=== PATIENT | male | born 1950 | race Hispanic/Latino ===

== ENCOUNTER 2019-12-20 12:47 | Outpatient (CLI) | payer OTHER, SELFPAY | END 2019-12-20 12:48 | disposition home or self-care (01) | PROVIDERS: Visit Provider Family Medicine | DX: H90.3 Sensorineural hearing loss, bilateral (principal) | CPT/HCPCS: 92557; 92567 ==

== ENCOUNTER 2020-09-11 07:22 | Outpatient (CLI) | payer OTHER, SELFPAY ==
--- NOTE | ~2020-09-11 | XR_ITS ---
XR chest 2V 09/11/2020 16:36 Indication: Right upper quadrant pain. Right-sided chest pain. Procedure: PA and lateral views of the chest Comparison: Comparison to multiple prior studies sequentially, with oldest reviewed study dated 08/08. Findings: Pacemaker leads are stable. Status post median sternotomy for CABG. Heart size normal for t echnique. Bibasilar infiltrates may represent atelectasis and/or pneumonia. No significant effusion o r pneumothorax. No edema. Impression: 1: Bibasilar infiltrates, atelectasis versus pneumonia. Reviewed, dictated and finalized at location A. Impression: 1: Bibasilar infiltrates, atelectasis versus pneumonia.
--- NOTE | ~2020-09-11 | US_ITS ---
EXAMINATION: US abdomen complete DATE: 09/11/2020 07:56 INDICATION: Right upper quadrant abdominal pain. TECHNIQUE: Multiple grayscale and Doppler ultrasound images of the abdomen were obtained. COMPARISON: Ultrasound 10/19/2017, CT abdomen and pelvis 02/27/2017 FINDINGS: The visualized portions of the head and body of the pancreas are normal. The liver is nydia l without focal lesion. No liver surface nodularity. There is normal flow in main portal vein. The ga llbladder is normal in size. No gallstones or gallbladder wall thickening. There was no sonographic M urphy sign. The common duct is normal and measures 4 mm. Abdominal aorta is normal in caliber. Inferi or vena cava is normal. The spleen is normal in size. The kidneys are normal in size. IMPRESSION: 1. Normal complete abdomen ultrasound. Reviewed, dictated and finalized at location B.
== END 2020-09-11 07:23 | disposition home or self-care (01) ==
PROVIDERS: PCP Family Medicine; Visit Provider Family Medicine
DX: R10.11 Right upper quadrant pain (principal); R07.9 Chest pain, unspecified; R91.8 Other nonspecific abnormal finding of lung field
CPT/HCPCS: 71046; 76700

== ENCOUNTER 2020-11-25 09:11 | Emergency (ER) | payer OTHER, SELFPAY ==
[2020-11-25] VITALS (7 sets, daily range): BP systolic 111–155; BP diastolic 54–88; PULSE 60–82; RESP 15–24; TEMP 36.4–36.8; O2SAT 97–100
--- NOTE | ~2020-11-25 | XR_ITS ---
EXAMINATION: XR chest 2V DATE: 11/25/2020 09:27 INDICATION: Chest pain TECHNIQUE: AP and lateral views of the chest are obtained. COMPARISON: 09/11/2020 FINDINGS: There are minimal airspace opacities of the lung bases. There is no pleural effusion or pne umothorax. Cardiomegaly is noted. A dual-lead cardiac pacemaker of the right chest wall ends with kristen ds in expected locations. Median sternotomy wires and mediastinal surgical clips are seen, likely fro m prior coronary artery bypass grafting. There are bridging osteophytes at multiple levels in the spi ne, consistent with diffuse idiopathic skeletal hyperostosis (DISH). IMPRESSION: 1. Bibasilar airspace opacities, consistent with atelectasis versus pneumonia. 2. Cardiomegaly. Reviewed, dictated and finalized at location A.
--- NOTE | 2020-11-25 09:20 | ECG_ITS ---
Measurements Intervals [place] Rate: 78 P: 119 ID: [id number] QRS: -60 QRSD: 197 T: 87 QT: 435 QTc: 496 Interpretive Statements ELECTRONIC ATRIAL PACEMAKER ELECTRONIC VENTRICULAR PACEMAKER BASELINE ARTIFACT- I, II, AVR NO FURTHER INTERPRETATION IS POSSIBLE ATYPICAL ECG Electronically Signed On 11-25-2020 11:14:04 CDT by Javy Cunha D.O.
--- NOTE | 2020-11-25 09:35 | PC.NURSE ---
Pt states he was treated for pneumonia in September at this facility.
[2020-11-25 09:38] LABS: Basophils Percent Auto 0.5 % (0.2-1.2); Eosinophils Percent Auto 0.1 % (0-4.4); Hematocrit 36.3 % (42.0-52.0); Hemoglobin 11.3 g/dL (14.0-18.0); Immature Granulocyte Absolute 0.04 K/mm3 (0.00-0.031); Immature Granulocyte Percent A 0.5 % (0-0.5); Lymphocytes Absolute Auto 1.37 K/mm3 (0.9-3.2); Lymphocytes Percent Auto 16.3 % (18.3-44.2); Mean Corpuscular HGB Conc 31.1 g/dl (32-36); Mean Corpuscular Hemoglobin 27.5 pg (26-34); Mean Corpuscular Volume 88.3 fl (80-100); Mean Platelet Volume 11.1 fl (7.4-10.4); Monocytes Absolute Auto 0.7 K/mm3 (0.1-0.6); Monocytes Percent Auto 7.8 % (2.6-8.5); Neutrophils Absolute Auto 6.3 K/mm3 (1.3-6.7); Neutrophils Percent Auto 74.8 % (45.5-73.1); Platelet Count Result 211 k/mm3 (150-375); Red Blood Count 4.11 M/mm3 (4.6-6.20); White Blood Count 8.4 K/mm3 (4.5-10.0)
--- NOTE | 2020-11-25 09:47 | ED.GENADULT ---
HPI - General Adult General Chief complaint: Chest Pain Stated complaint: Cough,Chest Pain Time Seen by Provider: 11/25/20 09:44 Source: patient and family () Mode of arrival: ambulatory Limitations: no limitations History of Present Illness HPI narrative: Patient here for evaluation of cough that started yesterday. It is causing him some discomfort in his chest and he was treated approximately 2 weeks ago for pneumonia. He has been feeling somewhat weak, and he states that his blood sugar this morning was elevated despite taking his usual medications. Both he and his have been vaccinated for Covid. Onset (ago): hour(s) Relieving factors: none Exacerbating factors: other (deep breathing and heat/humidity) Treatments prior to arrival: none Related Data Home Medications Medication Instructions Recorded Confirmed aspirin 81 mg tablet,delayed 81 mg PO DAILY 05/09/19 11/11/20 release carvedilol 12.5 mg tablet 12.5 mg PO Q12H 05/09/19 11/11/20 nitroglycerin 0.4 mg sublingual 0.4 mg SUBLINGUAL Q5M PRN 05/09/19 11/11/20 tablet rosuvastatin 40 mg tablet 40 mg PO DAILY 05/09/19 11/11/20 cinnamon bark 500 mg capsule 1,000 mg PO DAILY cap 11/22/19 11/11/20 iron 18 mg tablet 18 mg PO DAILY 11/22/19 11/11/20 cetirizine 10 mg tablet 10 mg PO DAILY 11/11/20 11/11/20 Allergies Allergy/AdvReac Type Severity Reaction Status Date / Time No Known Drug Allergies Allergy Unknown unknown Verified 11/25/20 09:34 [facility] Past Medical History Medical History (Updated 11/25/20 @ 14:01 by Heather Garrison PA-C) Artificial pacemaker Atherosclerosis of aorta CAD (coronary artery disease), [place] coronary artery Cardiomyopathy CHB (complete heart block) Chronic anemia Hypertension Mixed hyperlipidemia Obstructive sleep apnea Type 2 diabetes mellitus with autonomic neuropathy Unspecified dementia without behavioral disturbance Surgical History Surgical History (Updated 11/11/20 @ 14:12 by Estela Rios PA-C) Presence of aortocoronary bypass graft S/P CABG x 4 Family History Family History Father Hypertension Family history of elevated blood lipids Family history of diabetes mellitus in first degree relative Mother Hypertension Family history of elevated blood lipids Family history of diabetes mellitus in first degree relative Social History Social History (Updated 11/11/20 @ 13:07 by Anat Pardo [facility]) Social History: Second hand tobacco smoke exposure: No Alcohol intake: former Substance use: never Substance use type: does not use Gender identity (if verbalized by the patient): Male Exam Const: General: healthy appearing, no acute distress and alert Orientation/consciousness: patient oriented x3 HENMT: Head: normal to inspection Eyes: Conjunctivae: conjunctivae normal Pupils: Equal, round and reactive pupils present Resp: Effort & Inspection: normal respiratory effort Auscultation: diminished lung sounds diffuse Other: cough with deep inspiration. Cardio: Rate: regular rate Rhythm: regular rhythm Skin: General skin exam: normal color Rashes: no rashes Extrem: General: normal to inspection and no clubbing, cyanosis or edema Course Course Emergency Course: Review of patient records show the patient treate with Levoquin in August. Cough is improved after breathing treatment. They have access to nebulizer at home. Will treat with Zithromycin, albuterol. Glucose is normal after 2 Liters NS Vital Signs Vital signs: Vital Signs Temperature 36.4 C L 11/25/20 09:24 Pulse Rate 82 11/25/20 09:24 Respiratory Rate 15 11/25/20 09:24 Blood Pressure 111/62 11/25/20 09:24 Pulse Oximetry 98 11/25/20 09:24 Temperature 36.7 C 11/25/20 13:54 Pulse Rate 63 11/25/20 13:54 Respiratory Rate 20 11/25/20 13:54 Blood Pressure 145/78 H 11/25/20 13:54 Pulse Oximetry 100 11/25/20 13:54
[2020-11-25 09:48] LABS: INR 1.1; Prothrombin Time 13.9 Seconds (11.1-14.7)
[2020-11-25 09:49] LABS: Partial Thromboplastin Time 30.3 SECONDS (22.3-36.8)
[2020-11-25 09:51] LABS: Anion Gap 9 mmol/L (8-16); Blood Urea Nitrogen 13 mg/dL (9-20); Calcium 9.2 mg/dL (8.4-10.2); Carbon Dioxide 24 mmol/L (22-30); Chloride 101 mmol/L (98-107); Estimated CRCL calculation 65 ml/min; Estimated Glomerular Filt Rate > 60; Glucose 361 mg/dL (75-110); Potassium 4.7 mmol/L (3.4-5.0); Sodium 134 mmol/L (137-145)
[2020-11-25 10:03] LABS: Troponin I < 0.012 ng/mL (0.000-0.034)
[2020-11-25] MEDS: SODIUM CHLORIDE 0.9% IV 1,000 ML 999 ML IV CONT ×2 (10:30→12:51)
[2020-11-25] MEDS: ASPIRIN 81 MG CHEWABLE TABLET 324 MG PO (10:31)
[2020-11-25] MEDS: ALBUTEROL SULFATE NEB 2.5 MG/0.5 ML INH INHALATION (10:42)
[2020-11-25 12:05] LABS: Glucose Point of Care 234 mg/dl (65-105)
[2020-11-25 12:44] LABS: Troponin I < 0.012 ng/mL (0.000-0.034)
[2020-11-25 13:58] LABS: Glucose Point of Care 165 mg/dl (65-105)
== END 2020-11-25 14:30 | disposition home or self-care (01) ==
PROVIDERS: Emergency Provider Emergency Medicine; PCP Family Medicine
DX: J18.9 Pneumonia, unspecified organism (principal); E11.65 Type 2 diabetes mellitus with hyperglycemia; I25.10 Atherosclerotic heart disease of native coronary artery without angina pectoris; I70.0 Atherosclerosis of aorta; I10 Essential (primary) hypertension; E78.2 Mixed hyperlipidemia; F03.90 Unspecified dementia, unspecified severity, without behavioral disturbance, psychotic disturbance, mood disturbance, and anxiety; Z95.1 Presence of aortocoronary bypass graft; Z79.82 Long term (current) use of aspirin
CPT/HCPCS: 36415; 71046; 80048; 82948; 84484; 85025; 85610; 85730; 93005; 94640; 96360; 96361; 99284; A9270; J7030

== ENCOUNTER 2024-04-26 03:10 | Day surgery (SDC) | payer OTHER, SELFPAY ==
[2024-04-25 11:39] VITALS: BMI 34.7
[2024-04-26] VITALS (8 sets, daily range): BP systolic 125–157; BP diastolic 70–87; PULSE 60–70; RESP 14–19; O2SAT 93–98
[2024-04-26 07:49] LABS: Basophils Absolute Auto 0.1 K/mm3 (0.0-0.1); Basophils Percent Auto 0.8 % (0.2-1.2); Eosinophils Absolute Auto 0.2 K/mm3 (0-0.3); Eosinophils Percent Auto 3.5 % (0-4.4); Hematocrit 39.2 % (42.0-52.0); Hemoglobin 12.3 g/dL (14.0-18.0); Immature Granulocyte Absolute 0.01 K/mm3 (0.00-0.031); Immature Granulocyte Percent A 0.2 % (0-0.5); Lymphocytes Absolute Auto 1.64 K/mm3 (0.9-3.2); Lymphocytes Percent Auto 27.2 % (18.3-44.2); Mean Corpuscular HGB Conc 31.4 g/dl (32-36); Mean Corpuscular Hemoglobin 28.7 pg (26-34); Mean Corpuscular Volume 91.6 fl (80-100); Mean Platelet Volume 10.4 fl (7.4-10.4); Monocytes Absolute Auto 0.7 K/mm3 (0.1-0.6); Neutrophils Absolute Auto 3.5 K/mm3 (1.3-6.7); Neutrophils Percent Auto 57.3 % (45.5-73.1); Platelet Count Result 196 k/mm3 (150-375); Red Blood Count 4.28 M/mm3 (4.6-6.20); Red Cell Distribution Width 13.9 % (11.5-14.5)
[2024-04-26 08:01] LABS: Anion Gap 4 mmol/L (4-12); Blood Urea Nitrogen 18 mg/dL (9-20); Calcium 8.9 mg/dL (8.4-10.2); Carbon Dioxide 26 mmol/L (22-30); Chloride 107 mmol/L (98-107); Estimated CRCL calculation 84 ml/min; Estimated Glomerular Filt Rate > 60; Glucose 128 mg/dL (65-110); Sodium 137 mmol/L (137-145)
--- NOTE | 2024-04-26 08:42 | P.SEDATION_ITS ---
Moderate Sedation Note-Pt Data Patient Data Diagnosis: Permanently implanted pacemaker at [facility] Present Complaint: no complaints Procedure to be performed/Plan: pacemaker generator change Allergies Allergy/AdvReac Type Severity Reaction Status Date / Time No Known Drug Allergies Allergy Unknown unknown Verified 04/26/24 07:24 Home Medications Medication Instructions Recorded Confirmed Type aspirin 81 mg tablet,delayed 81 mg PO DAILY 05/09/19 04/25/24 History release (Adult Low Dose Aspirin) nitroglycerin 0.4 mg sublingual 0.4 mg sublingual Q5M PRN Chest 05/09/19 04/26/24 History tablet Pain iron 18 mg tablet 18 mg PO DAILY 11/22/19 04/26/24 History blood sugar diagnostic (Contour See Rx Instructions .Route 09/15/21 03/22/24 Rx Next Test Strips) .COMPLEX #300 strips flash glucose scanning reader #1 ea 01/02/22 03/22/24 Rx (FreeStyle Lon 2 [place]) flash glucose scanning reader #1 ea 01/05/22 03/22/24 Rx (FreeStyle Lon 2 [place]) flash glucose sensor (FreeStyle #2 kits 01/27/24 03/22/24 Rx Lon 2 Sensor kit) carvedilol 12.5 mg tablet 12.5 mg PO Q12H #180 tabs 02/14/24 04/26/24 Rx insulin aspar prot-insulin aspart See Rx Instructions .Route 02/17/24 04/26/24 Rx 100 unit/mL (70-30) subcutaneous .COMPLEX #15 mL pen pen needle, diabetic 32 gauge x #100 ea 02/22/24 03/22/24 Rx 5/32 (BD [place] 2nd Gen Pen Needle) ipratropium 0.5 mg-albuterol 3 mg 3 ml inhalation Q6H PRN shortness 03/22/24 04/26/24 Rx (2.5 mg base)/3 mL nebulization of breath or wheezing #90 mL soln lisinopril 40 mg tablet 40 mg PO DAILY 03/22/24 04/26/24 History hydrochlorothiazide 12.5 mg tablet 12.5 mg PO DAILY 04/25/24 04/26/24 History memantine 10 mg tablet 10 mg PO DAILY 04/25/24 04/26/24 History omeprazole 40 mg capsule,delayed 40 mg PO DAILY 04/25/24 04/26/24 History release rosuvastatin 40 mg tablet 40 mg PO DAILY 04/25/24 04/26/24 History Sedation/Anesthesia: No previous sedation/anesthesia problems (including family history). [facility] Past Medical History Medical History Abnormal chest xray Acute bronchitis Acute cystitis without hematuria Acute non-recurrent maxillary sinusitis Allergic contact dermatitis due to plants, except food Allergic rhinitis Allergic rhinitis due to pollen Anemia Artificial pacemaker Atherosclerosis of aorta Atherosclerosis of aorta Atherosclerosis of coronary artery of [place] heart with stable angina pectoris Atherosclerotic heart disease Bronchitis Bronchitis Bronchitis CAD (coronary artery disease), [place] coronary artery CAP (community acquired pneumonia) Cardiomyopathy CHB (complete heart block) Chest pain at rest Chronic anemia Chronic diastolic heart failure Chronic GERD Controlled diabetes mellitus COVID-19 Diabetes mellitus type II, uncontrolled Diabetes mellitus with neuropathy Dysuria Hard of hearing HH (hiatus hernia) HTN (hypertension), benign Hypertension Intercostal neuropathic pain Ischemic cardiomyopathy Mixed hyperlipidemia Mixed hyperlipidemia Muscle strain of anterior chest wall Need for hepatitis C screening test Obstructive sleep apnea Poor memory Postural kyphosis of thoracic region Right upper quadrant abdominal tenderness RUQ abdominal pain Scabies Secondary hypotension SOB (shortness of breath) Subacute sinusitis Type 2 diabetes mellitus with autonomic neuropathy Type 2 diabetes mellitus with other specified complication Type 2 diabetes mellitus with proteinuria Unspecified dementia without behavioral disturbance Surgical History Surgical History Presence of aortocoronary bypass graft S/P CABG x 4 S/P CABG x 4 Family History Family History Father Hypertension Family history of elevated blood lipids Family history of diabetes mellitus in first degree relative Mother Hypertension Family history of elevated blood lipids Family history of diabetes mellitus in first degree relative Social History Social History Social History: Smoking status: Never smoker Second hand tobacco smoke exposure: Yes Alcohol intake: former Substance use: never Substance use type: does not use Lack of Transportation: No Lack of Food: Never True Current Housing: I Have Housing Concerned About Future Housing: No Difficulty Paying Gas/Electric Bills: No Difficulty Paying for Meds: No Currently Unemployed: YES Education: Decline to Answer Living arrangements: with family Occupation/Education: retired Gender identity (if verbalized by the patient): Male Sexual Orientation (if Verbalized by the Patient): Straight or Heterosexual Spiritual care concerns: No Mod Sed Physical Exam Physical Exam Pre Procedural Exam: Normal: Neck, Throat, Airway, Lungs, Heart Rate, Neuro Exam and Extremities and Variation: Appearance ( pleasant overweight gentleman no distress), Heart Size ( PMI not palpable) and Heart Rhythm ( paced rhythm) Hours since solid foods: 12 Hours since liquid intake: 12 Mallampati Classification: class II Internal Medicine - PN: Obj Da Vital Signs Vital Signs: Vital Signs - 24 hr 04/26/24 07:29 Pulse Rate 70 Respiratory Rate 19 Blood Pressure 157/70 H Pulse Oximetry 96 Oxygen Delivery Room Air Labs 04/26/24 07:27 04/26/24 07:27 Labs: Laboratory Results - last 24 hr 04/26/24 07:27 WBC 6.0 RBC 4.28 L Hgb 12.3 L Hct 39.2 L MCV 91.6 MCH 28.7 MCHC 31.4 L RDW 13.9 Plt Count 196 MPV 10.4 Immature Gran % (Auto) 0.2 Neut % (Auto) 57.3 Lymph % (Auto) 27.2 [place] % (Auto) 11.0 H Eos % (Auto) 3.5 Baso % (Auto) 0.8 Lymph # (Auto) 1.64 [place] # (Auto) 0.7 H Eos # (Auto) 0.2 Baso # (Auto) 0.1 Abs Immat Gran (auto) 0.01 Absolute Neuts (auto) 3.5 Absolute Nucleated RBC 0.000 Nucleated RBC % 0.0 Sodium 137 Potassium 4.0 Chloride 107 Carbon Dioxide 26 Anion Gap 4 BUN 18 Creatinine 0.80 Estim Creat Clear Calc 84 Estimated GFR > 60 Glucose 128 H Calcium 8.9 ASA Classification/Sedation ASA Classification/Sedation ASA Class: III Emergent: No Risks: Risks, benefits and alternatives explained and patient/family accepted plan for sedation. Patient re-evaluated immediately prior to sedation.
--- NOTE | 2024-04-26 10:12 | P.PCNCC_ITS ---
Cardiac Cath Procedure Note Date of procedure:: 04/26/24 Performing physician:: Cameron Ventura MD Indication:: Permanently implanted pacemaker at [facility] Brief clinical history:: this is a 73-year-old patient with coronary disease, previous bypass grafting and complete heart block with pacemaker dependency. His device is at [facility] and he was admitted as an outpatient for elective generator change. Procedure Procedure performed:: Explantation of depleted pulse generator implantation of new dual-chamber Medtronic pulse generator Sedation/Medication given:: fentanyl 50 mg Versed 2 mg case start time 8:56 a.m. case end time 10:08 a.m. sedation provided by Chiquita Mclean RN, trained observer Access site:: chronically implanted pacemaker pocket in right subclavian fossa Estimated blood loss:: minimal Procedure note:: patient was brought to the cardiac catheterization lab in the postabsorptive state the right femoral triangle was prepared sterile fashion. A attempts at puncturing the right femoral vein was unsuccessful and after obtaining 3 arterial punctures I elected to abandon placement of a temporary pacemaker wire. Following this 30 right anterior chest wall at the site of the chronic implanted device was prepped and draped sterile fashion. 20 cc of lidocaine was infiltrated above the pocket. An incision was then made above upon plasma blade. PlasmaBlade was used to dissect the subcutaneous tissue and electrocautery to provide hemostasis. The fibrous capsule was encountered which was opened with the PlasmaBlade and the Metzenbaum scissors. The chronically implanted pacemaker and the attached leads from the pocket and were visually intact and unremarkable in appearance. Following this the atrial lead was disconnected using the torque wrench and placed into the new generator and secured using the torque wrench. following this the ventricular lead was then removed from the pacemaker using the torque wrench and placed into the new generator and once again secured using the torque wrench. Since he is pacemaker dependent there was a brief asystolic pause which was well tolerated as the ventricular lead was transition from the depleted generator to the new generator. Following this the pocket was irrigated with antibiotic infused saline. The device was placed back into the pocket with the leads. The pocket was then closed in layers using 3-0 Vicryl in an interrupted fashion the subcutaneous tissue and 4-0 Vicryl in a running subcuticular fashion for the skin. The patient was taken to the holding area an Aquacel dressing was placed and the procedure was well tolerated and otherwise uncomplicated. Postoperative antibiotics were ordered for following discharge. Findings:: The explanted pacemaker is a Medtronic dual-chamber device model A2D R01 serial [id number]. originally implanted May 10, 2015. The new pacemaker generator is a Medtronic dual-chamber device model W1D R01. serial [id number]. the device is programmed in the DDDR mode lower rate limit 60 upper rate limit 130 av delay 180/150 milliseconds. The atrial lead is a Medtronic bipolar lead model 5076-45. serial number [id number]. P-waves are sensed at 3.1 mV threshold 0.5 volts at 0.4 milliseconds impedance 513 Ohms. The ventricular lead is a Medtronic bipolar lead model 5076-52 serial number [id number]. there were no R-waves to sense threshold is 1.0 volts at 0.4 milliseconds impedance 400 Conclusion:: 1. successful uncomplicated explained completed a chamber generator 2. successful uncomplicated implantation dual-chamber pulse generator in [place]anna atment of complete heart block with pacemaker dependency in this 73 year previous coronary bypass operation Cameron Ventura MD [facility]
--- NOTE | 2024-04-26 10:27 | ECG_ITS ---
Test Date: 2024-04-26 10:29:01 Measurements Intervals [place] Rate: 60 P: 198 CT: 173 QRS: -59 QRSD: 218 T: 95 QT: 529 QTc: 529 Interpretive Statements ELECTRONIC ATRIAL PACEMAKER ELECTRONIC VENTRICULAR PACEMAKER ATYPICAL ECG No previous ECG available for comparison Electronically Signed On 04-26-2024 11:02:59 NANOELECTRONICS ENGINEER by Kaushal Rangel M.D.
== END 2024-04-26 12:00 | disposition home or self-care (01) ==
PROVIDERS: PCP Family Medicine; Visit Provider Specialist
PROC: 0JPT0PZ Removal of Cardiac Rhythm Related Device from Trunk Subcutaneous Tissue and Fascia, Open Approach (ICD-10-PCS; CPT 33228; principal; 2024-04-26 08:30)
DX: Z45.010 Encounter for checking and testing of cardiac pacemaker pulse generator [battery] (principal); I25.118 Atherosclerotic heart disease of native coronary artery with other forms of angina pectoris; I42.9 Cardiomyopathy, unspecified; I11.0 Hypertensive heart disease with heart failure; I50.32 Chronic diastolic (congestive) heart failure; E11.40 Type 2 diabetes mellitus with diabetic neuropathy, unspecified; I25.5 Ischemic cardiomyopathy; E78.2 Mixed hyperlipidemia; I44.2 Atrioventricular block, complete; K21.9 Gastro-esophageal reflux disease without esophagitis; G47.33 Obstructive sleep apnea (adult) (pediatric); E11.43 Type 2 diabetes mellitus with diabetic autonomic (poly)neuropathy; F03.90 Unspecified dementia, unspecified severity, without behavioral disturbance, psychotic disturbance, mood disturbance, and anxiety; Z79.82 Long term (current) use of aspirin; Z79.4 Long term (current) use of insulin; Z79.51 Long term (current) use of inhaled steroids; Z95.1 Presence of aortocoronary bypass graft
CPT/HCPCS: 33228; 36415; 80048; 85025; 93005; C1785; J0690; J1644; J2003; J2250; J3010; J7040; J7050

== ENCOUNTER 2024-05-18 06:46 | Emergency (ER) | payer OTHER, SELFPAY ==
--- NOTE | ~2024-05-18 | XR_ITS ---
EXAMINATION: XR chest 2V DATE: 05/18/2024 07:17 INDICATION: Cough. TECHNIQUE: Frontal and lateral views of the chest were obtained. COMPARISON: Chest 2 view 11/25/2020, CT abdomen and pelvis 02/26/2007 717 FINDINGS: There are airspace opacities at the lung bases. No pleural effusion or pneumothorax. The he art size is normal. Median sternotomy wires and mediastinal surgical clips are seen, likely from prio r coronary artery bypass grafting. There is a right chest wall pacer with leads in the right atrium a nd right ventricle. IMPRESSION: 1. Stable airspace opacities at the lung bases, consistent with atelectasis versus chronic lung disea se. Reviewed, dictated and finalized at location A. MEN PLANT OPERATOR IMPRESSION: 1. Stable airspace opacities at the lung bases, consistent with atelectasis maricel brandi chronic lung disease.
[2024-05-18 06:57] VITALS: PULSE 95; O2SAT 96
[2024-05-18 07:02] VITALS: BP 157/61; PULSE 81; RESP 20; O2SAT 96
--- NOTE | 2024-05-18 07:02 | ECG_ITS ---
Test Date: 2024-05-18 07:54:14 Measurements Intervals [place] Rate: 60 P: 113 [place]: 180 QRS: -63 QRSD: 213 T: 89 QT: 518 QTc: 520 Interpretive Statements ELECTRONIC ATRIAL PACEMAKER ELECTRONIC VENTRICULAR PACEMAKER ABNORMAL RHYTHM ECG Compared to ECG 04/26/2024 10:29:01 No significant changes Electronically Signed On 05-18-2024 08:45:16 EQUIPMENT SERVICE ENGINEER by Kaushal Rangel M.D.
[2024-05-18 07:35] LABS: Basophils Absolute Auto 0.1 K/mm3 (0.0-0.1); Basophils Percent Auto 0.8 % (0.2-1.2); Eosinophils Absolute Auto 0.3 K/mm3 (0-0.3); Eosinophils Percent Auto 3.2 % (0-4.4); Hematocrit 39.3 % (42.0-52.0); Immature Granulocyte Absolute 0.02 K/mm3 (0.00-0.031); Immature Granulocyte Percent A 0.2 % (0-0.5); Lymphocytes Absolute Auto 1.99 K/mm3 (0.9-3.2); Lymphocytes Percent Auto 23.8 % (18.3-44.2); Mean Corpuscular HGB Conc 33.1 g/dl (32-36); Mean Corpuscular Volume 87.7 fl (80-100); Mean Platelet Volume 10.4 fl (7.4-10.4); Monocytes Absolute Auto 0.8 K/mm3 (0.1-0.6); Monocytes Percent Auto 9.3 % (2.6-8.5); Neutrophils Absolute Auto 5.2 K/mm3 (1.3-6.7); Neutrophils Percent Auto 62.7 % (45.5-73.1); Platelet Count Result 207 k/mm3 (150-375); Red Blood Count 4.48 M/mm3 (4.6-6.20); White Blood Count 8.4 K/mm3 (4.5-10.0)
[2024-05-18 07:50] LABS: Alanine Aminotransferase 20 U/L (6-50); Albumin Level 4.2 g/dL (3.5-5.1); Alkaline Phosphatase 138 U/L (38-126); Anion Gap 4 mmol/L (4-12); Aspartate Amino Transferase 26 U/L (17-59); Bilirubin,Total 0.6 mg/dL (0.2-1.3); Blood Urea Nitrogen 13 mg/dL (9-20); Carbon Dioxide 27 mmol/L (22-30); Chloride 104 mmol/L (98-107); Estimated Glomerular Filt Rate > 60; Glucose 162 mg/dL (65-110); Potassium 3.7 mmol/L (3.4-5.0); Sodium 135 mmol/L (137-145)
[2024-05-18 07:59] LABS: NT Pro B Type Natriuretic Pept 116 pg/mL (19.9-100)
[2024-05-18 08:11] LABS: Influenza A QL RT-PCR Negative (Negative); Influenza B QL RT-PCR Negative (Negative); RSV RNA, RT-PCR Negative (Negative); SARS-CoV-2 RNA PCR Negative (Negative)
--- NOTE | 2024-05-18 08:14 | ED_ITS ---
HPI - General Adult General Chief complaint: Shortness of Breath/Dyspnea Stated complaint: trouble breathing, chest congestion Time Seen by Provider: 05/18/24 07:01 History of Present Illness HPI narrative: 73-year-old male presenting to the emergency department for evaluation for 2 weeks of cough and congestion patient did have a pacemaker change a few weeks ago. Patient denies any associated chest pain but does report increased wheezing cough and congestion. After the pacemaker was exchanged thet felt that there was a local pocket infection and patient was treated with antibiotics. That infection has resolved. Related Data Home Medications ?Medication ?Instructions ?Recorded ?Confirmed ?Last Taken ?Type aspirin 81 mg tablet,delayed 81 mg PO DAILY 05/09/19 05/09/24 04/26/24 History release (Adult Low Dose Aspirin) nitroglycerin 0.4 mg sublingual 0.4 mg sublingual Q5M PRN Chest 05/09/19 05/09/24 Unknown History tablet Pain iron 18 mg tablet 18 mg PO DAILY 11/22/19 05/09/24 04/26/24 History lisinopril 40 mg tablet 40 mg PO DAILY 03/22/24 05/09/24 04/26/24 History hydrochlorothiazide 12.5 mg tablet 12.5 mg PO DAILY 04/25/24 05/09/24 04/25/24 History memantine 10 mg tablet 10 mg PO DAILY 04/25/24 05/09/24 04/26/24 History omeprazole 40 mg capsule,delayed 40 mg PO DAILY 04/25/24 05/09/24 04/26/24 History release rosuvastatin 40 mg tablet 40 mg PO DAILY 04/25/24 05/09/24 04/26/24 History Allergies Allergy/AdvReac Type Severity Reaction Status Date / Time No Known Drug Allergies Allergy Unknown unknown Verified 05/09/24 09:14 Review of Systems 2 Review of Systems: All systems reviewed & are unremarkable except as noted in HPI and below PMFSH Past Medical History Medical History Atherosclerosis of coronary artery of [place] heart with stable angina pectoris Bronchitis Subacute sinusitis Mixed hyperlipidemia Bronchitis Atherosclerosis of aorta Type 2 diabetes mellitus with other specified complication SOB (shortness of breath) Scabies Right upper quadrant abdominal tenderness Postural kyphosis of thoracic region Muscle strain of anterior chest wall Ischemic cardiomyopathy Intercostal neuropathic pain HTN (hypertension), benign HH (hiatus hernia) Chronic GERD Chronic diastolic heart failure Atherosclerotic heart disease Allergic rhinitis due to pollen Allergic contact dermatitis due to plants, except food Acute non-recurrent maxillary sinusitis Acute cystitis without hematuria Acute bronchitis Allergic rhinitis Diabetes mellitus type II, uncontrolled Anemia Need for hepatitis C screening test COVID-19 Diabetes mellitus with neuropathy Secondary hypotension Abnormal chest xray Dysuria Chest pain at rest CAP (community acquired pneumonia) RUQ abdominal pain Type 2 diabetes mellitus with proteinuria Atherosclerosis of aorta Obstructive sleep apnea Unspecified dementia without behavioral disturbance Poor memory Hard of hearing Hypertension Bronchitis Chronic anemia Mixed hyperlipidemia Cardiomyopathy Artificial pacemaker CHB (complete heart block) CAD (coronary artery disease), [place] coronary artery Type 2 diabetes mellitus with autonomic neuropathy Controlled diabetes mellitus Surgical History Surgical History S/P CABG x 4 Presence of aortocoronary bypass graft S/P CABG x 4 Family History Family History Father Hypertension Family history of elevated blood lipids Family history of diabetes mellitus in first degree relative Mother Hypertension Family history of elevated blood lipids Family history of diabetes mellitus in first degree relative Social History Social History Social History: Smoking status: Never smoker Second hand tobacco smoke exposure: Yes Alcohol intake: former Substance use: never Substance use type: does not use Lack of Transportation: No Lack of Food: Never True Current Housing: I Have Housing Concerned About Future Housing: No Difficulty Paying Gas/Electric Bills: No Difficulty Paying for Meds: No Currently Unemployed: YES Education: Decline to Answer Living arrangements: with family Occupation/Education: retired Gender identity (if verbalized by the patient): Male Sexual Orientation (if Verbalized by the Patient): Straight or Heterosexual Spiritual care concerns: No Exam 2 Narrative: APPEARANCE: Well appearing, no pain, no distress, well-nourished. HEAD: normocephalic, atraumatic. EYES: PERRLA/EOMI, conjunctivae clear. NOSE: Normal no drainage EARS:TMS clear with good light reflex. THROAT: Pharynx clear, no exudate. NECK: Supple. No adenopathy, no masses. RESPIRATORY: Wheezing bilateral CARDIOVASCULAR: Regular rate and rhythm without murmurs rubs or gallops. ABDOMINAL: Soft, nontender, nondistended, normal bowel sounds MUSCULOSKELETAL: Moves all extremities. Strength/ROM intact, No edema, No calf tenderness. NEURO: Alert. Cranial nerves II through XII intact. Good gait. Good coordination SKIN: Warm, dry. Normal Color Course Vital Signs Vital signs: Vital Signs Pulse Rate 95 05/18/24 06:57 Pulse Oximetry 96 05/18/24 06:57 Oxygen Delivery Room Air 05/18/24 06:57 Pulse Rate 83 05/18/24 08:32 Respiratory Rate 20 05/18/24 08:32 Blood Pressure 157/61 H 05/18/24 07:02 Pulse Oximetry 96 05/18/24 07:02 Oxygen Delivery Room Air 05/18/24 06:57 Medical Decision Making MDM Narrative Medical decision making narrative: 73-year-old male present to the emergency department for evaluation for cough congestion and shortness of breath. Patient is afebrile with no leukocytosis and hemoglobin of 13. Patient has no acute abnormalities on his CMP patient's BNP is only elevated at 116 and patient was negative for influenza RSV and for COVID. No acute finding noted on the chest x-ray. On auscultation patient did have rhonchi and wheezing. Patient was treated with nebulized albuterol and on re-evaluation patient states he feels better and lung sounds are clear. Suspect patient had a viral etiology but now may have an underlying pneumonia due to the duration being approximately 2 weeks. Patient was started on antibiotics. Patient will be provided albuterol inhaler and Tessalon Perles. Patient was comfortable plan for discharge and close follow-up. All questions concerns addressed. Differential Diagnosis Differential Diagnosis: Pneumonia, COVID, RSV, influenza cellulitis Vital Signs Vital Signs: Vital Signs Pulse Rate 95 05/18/24 06:57 Pulse Oximetry 96 05/18/24 06:57 Oxygen Delivery Room Air 05/18/24 06:57 Pulse Rate 83 05/18/24 08:32 Respiratory Rate 20 05/18/24 08:32 Blood Pressure 157/61 H 05/18/24 07:02 Pulse Oximetry 96 05/18/24 07:02 Oxygen Delivery Room Air 05/18/24 06:57 Lab Data Lab results reviewed: Yes I reviewed the patient's lab results. 05/18/24 07:28 05/18/24 07:28 Labs: Lab Results 05/18/24 Range/Units 07:28 WBC 8.4 (4.5-10.0) K/mm3 RBC 4.48 L (4.6-6.20) M/mm3 Hgb 13.0 L (14.0-18.0) g/dL Hct 39.3 L (42.0-52.0) % MCV 87.7 (80-100) fl MCH 29.0 (26-34) pg MCHC 33.1 (32-36) g/dl RDW 13.0 (11.5-14.5) % Plt Count 207 (150-375) k/mm3 MPV 10.4 (7.4-10.4) fl Immature Gran % (Auto) 0.2 (0-0.5) % Neut % (Auto) 62.7 (45.5-73.1) % Lymph % (Auto) 23.8 (18.3-44.2) % Chase % (Auto) 9.3 H (2.6-8.5) % Eos % (Auto) 3.2 (0-4.4) % Baso % (Auto) 0.8 (0.2-1.2) % Lymph # (Auto) 1.99 (0.9-3.2) K/mm3 Chase # (Auto) 0.8 H (0.1-0.6) K/mm3 Eos # (Auto) 0.3 (0-0.3) K/mm3 Baso # (Auto) 0.1 (0.0-0.1) K/mm3 Abs Immat Gran (auto) 0.02 (0.00-0.031) K/mm3 Absolute Neuts (auto) 5.2 (1.3-6.7) K/mm3 Absolute Nucleated RBC 0.000 (0.0-0.012) K/mm3 Nucleated RBC % 0.0 (0.0-0.2) % Sodium 135 L (137-145) mmol/L Potassium 3.7 (3.4-5.0) mmol/L Chloride 104 (98-107) mmol/L Carbon Dioxide 27 (22-30) mmol/L Anion Gap 4 (4-12) mmol/L BUN 13 D (9-20) mg/dL Creatinine 1.00 (0.7-1.3) mg/dL Estim Creat Clear Calc Not Reportable Estimated GFR > 60 (59 - ) Glucose 162 H (65-110) mg/dL Calcium 9.0 (8.4-10.2) mg/dL Total Bilirubin 0.6 (0.2-1.3) mg/dL AST 26 (17-59) U/L ALT 20 (6-50) U/L Alkaline Phosphatase 138 H (38-126) U/L NT-Pro-B Natriuret Pep 116 H (19.9-100) pg/mL Total Protein 8.0 (6.3-8.2) g/dL Albumin 4.2 (3.5-5.1) g/dL Influenza A (RT-PCR) Negative (Negative) Influenza B (RT-PCR) Negative (Negative) RSV (RT-PCR) Negative (Negative) SARS-CoV-2 RNA (RT-PCR) Negative (Negative) Imaging Data Radiologist's impression: Impressions Chest X-Ray 05/18/24 07:21 IMPRESSION: 1. Stable airspace opacities at the lung bases, consistent with atelectasis versus chronic lung disease. Discharge Plan Discharge Clinical Impression: Acute upper respiratory infection Patient Disposition: Home, Self-Care Condition: Stable Instructions: Antibiotic Form Additional Instructions: Antibiotic as directed until completed. Albuterol inhaler for cough and congestion, Tessalon Perles for cough. Have close follow-up with your primary care physician. If you have any worsening symptoms then please call or return to the emergency department. Patient Language: Libyan Prescriptions: New amoxicillin-pot clavulanate 875-125 mg tablet 1 tablet PO Q12H 7 Days Qty: 14 0RF azithromycin 250 mg tablet See Rx Instructions .ROUTE .COMPLEX Qty: 6 0RF Rx Instructions: For 250 mg dose pack: take 500 mg today (day 1), then 250 mg for 4 days (days 2-5) albuterol sulfate 90 mcg/actuation HFA aerosol inhaler 1 inh inhalation QID PRN (Reason: shortness of breath or wheezing) Qty: 6.7 0RF benzonatate 100 mg capsule 100 mg PO TID PRN (Reason: cough) Qty: 14 0RF No Action aspirin [Adult Low Dose Aspirin] 81 mg tablet,delayed release (DR/EC) 81 mg PO DAILY nitroglycerin 0.4 mg tablet, sublingual 0.4 mg SUBLINGUAL Q5M PRN (Reason: Chest Pain) iron 18 mg tablet 18 mg PO DAILY lisinopril 40 mg tablet 40 mg PO DAILY ipratropium-albuterol 0.5 mg-3 mg(2.5 mg base)/3 mL solution for nebulization 3 ml inhalation Q6H PRN (Reason: shortness of breath or wheezing) Qty: 90 0RF insulin asp prt-insulin aspart 100 unit/mL (70-30) insulin pen See Rx Instructions .ROUTE .COMPLEX Qty: 15 5RF Dose Instruction: INJECT 18UNITS UNDER THE SKIN IN THE AM, 18UNITS AT NOON & 12 UNITS IN THE PM WITH EACH MEAL Rx Instructions: INJECT 22 UNITS UNDER THE SKIN IN THE AM, 15 UNITS AT NOON & 15 UNITS IN THE PM omeprazole 40 mg capsule,delayed release(DR/EC) 40 mg PO DAILY rosuvastatin 40 mg tablet 40 mg PO DAILY memantine 10 mg tablet 10 mg PO DAILY hydrochlorothiazide 12.5 mg tablet 12.5 mg PO DAILY Contour Next Test Strips Strip See Rx Instructions .ROUTE .COMPLEX Qty: 300 2RF Dose Instruction: USE TO TEST 3 TIMES DAILY Rx Instructions: USE TO TEST 3 TIMES DAILY (DME) FreeStyle Lon 2 [place] Misc See Rx Instructions .Route Qty: 1 4RF Rx Instructions: use for monitoring glucose (DME) FreeStyle Lon 2 [place] Misc See Rx Instructions .Route Qty: 1 0RF Rx Instructions: As directed (DME) FreeStyle Lon 2 Sensor Kit See Rx Instructions .ROUTE .COMPLEX Qty: 2 4RF Dose Instruction: USE DIRECTED AND CHANGE ONCE EVERY 14 DAYS Rx Instructions: USE DIRECTED AND CHANGE ONCE EVERY 14 DAYS carvedilol 12.5 mg tablet 12.5 mg PO Q12H Qty: 180 1RF Rx Instructions: must administer with a meal/food (DME) pen needle, diabetic [BD [place] 2nd Gen Pen Needle] 32 gauge x 5/32 needle See Rx Instructions .ROUTE .COMPLEX Qty: 100 5RF Dose Instruction: USE TO INJECT INSULIN 1-2 TIMES DAILY Rx Instructions: USE TO INJECT INSULIN 1-2 TIMES DAILY Follow-up/Referrals: Herbert Santizo MD [Primary Care Provider] -
[2024-05-18 08:32] VITALS: PULSE 83; RESP 20
[2024-05-18] MEDS: ALBUTEROL SULFATE NEB 2.5 MG/3 ML INH 5 MG INHALATION (08:32)
--- OUTSIDE RECORDS SUMMARY | 2024-05-25 06:50 | XMS_ITS | Encounter Summary ---
Author Organization [facility] Healthcare Address [address] [place] [address] Care Team Providers Care Group Cio Name Role Phone Danielle Rojas MD Primary Care Provider Reason for Referral * Cardiology (Routine) - Authorized Specialty Diagnoses / Procedures Referred By Contac t Referred To Contact Diagnoses Complete atrioventricular block (CMS/HCC) (HCC) Pacemaker Procedures DEVICE CHECK - IN OFFICE Pankaj Eden MD [address] [address] Phone: tel: fax: [facility] Medical Group Referral ID Status Reason Start Date Expiration Date V isits Requested Visits Authorized [id number] Authorized 05/03/2024 06/02/2025 1 1 INKER * Cardiology (Routine) - Authorized Specialty Diagnoses / Procedures Referred By [facility] Referred To Contact Diagnoses Complete atrioventricular block (CMS/HCC) (HCC) Pacemaker Procedures DEVICE CHECK - IN OFFICE Pankaj Eden MD [address] [address] Phone: tel: fax: [facility] Medical Group Referral ID Status Reason Start Date Expiration Date V isits Requested Visits Authorized [id number] Authorized 05/03/2024 06/02/2025 1 1 INKER * Cardiology (Routine) - Authorized Specialty Diagnoses / Procedures Referred By Contac t Referred To Contact Diagnoses Complete atrioventricular block (CMS/HCC) (HCC) Pacemaker Procedures DEVICE CHECK - IN OFFICE Pankaj Eden MD [address] [place] [address] Phone: tel: fax: [facility] Medical Group Referral ID Status Reason Start Date Expiration Date V isits Requested Visits Authorized [id number] Authorized 05/03/2024 06/02/2025 1 1 INKER Encounter Details Date Type Department Care Team (Late st Contact Info) Description 05/03/2024 Orders Only [facility] Medical Group Cardiology [address] [place] [id number] Pankaj Eden MD [address] [place] [id number] Complete atrioventricular block (CMS/HCC) (HCC) (Primary Dx); Pacemaker Social History Tobacco Use Types Packs/Day Years Used Date Smoking Tobacco: Never Smokeless Tobacco: Never Alcohol Use Standard Drinks/Week Comments No 0 (1 standard drink = 0.6 oz pur e alcohol) Sex and Gender Information Value Date Recorded Sex Assigned at Not on file 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 Patient to schedule an incision check in theoffice before his medication is completed. Medication ordered and sent to [facility] pharmacy in [place]. Informed patient of instructions. He verbalized understanding. INKER documented in this encounter Miscellaneous Notes * Addendum Note - Larry Richardson RN - 05/03/2024 11:39 AM CSTAddended by: LARRY RICHARDSON on: 05/03/2024 01:25 PM Modules accepted: Orders INKER documented in this encounter Plan of Treatment Scheduled Orders Name Type Priority Associated Diagnoses Orde r Schedule DEVICE CHECK - IN OFFICE Cardiac Services Routine Complete atrioventricular block (CMS/HCC) (HCC) Pacemaker Expected: 05/03/2024, Expires: 07/10/2031 DEVICE CHECK - IN OFFICE Cardiac Services Routine Complete atrioventricular block (CMS/HCC) (HCC) Pacemaker Expected: 05/03/2024, Expires: 07/10/2031 DEVICE CHECK - IN OFFICE Cardiac Services Routine Complete atrioventricular block (CMS/HCC) (HCC) Pacemaker Expected: 05/03/2024, Expires: 07/10/2031 documented as of this encounter Visit Diagnoses Diagnosis Complete atrioventricular block (CMS/HCC) (HCC)- Primary Atrioventricular block, complete Pacemaker Cardiac pacemaker in situ documented in this encounter Care Teams Group Cio Relationship Specialty Start Date End Date Danielle Rojas MD [address] [facility] [address] [place] [address] PCP - General 08/21/16 documented as of this encounter
--- OUTSIDE RECORDS SUMMARY | 2024-05-25 06:50 | XMS_ITS | Encounter Summary ---
Author Organization [facility] Healthcare Address [address] [place] [address] Care Team Providers Care Hydraulic Design Engineer Name Role Phone Danielle Rojas MD Primary Care Provider Reason for Referral * Cardiology (Routine) - Authorized Specialty Diagnoses / Procedures Referred By Contac t Referred To Contact Diagnoses NICM (nonischemic cardiomyopathy) (CMS/HCC) (HCC) Ventricular fibrillation (CMS/HCC) (HCC) NSVT (nonsustained ventricular tachycardia) (HCC) Procedures DEVICE CHECK - IN OFFICE Pankaj Eden MD [address] [place] [address] Phone: tel: fax: [facility] Medical Group Referral ID Status Reason Start Date Expiration Date V isits Requested Visits Authorized [id number] Authorized 03/08/2024 04/07/2025 1 1 * Cardiology (Routine) - Authorized Specialty Diagnoses / Procedures [facility] Referred To Contact Diagnoses NICM (nonischemic cardiomyopathy) (CMS/HCC) (HCC) Ventricular fibrillation (CMS/HCC) (HCC) NSVT (nonsustained ventricular tachycardia) (HCC) Procedures DEVICE CHECK - IN OFFICE Pankaj Eden MD [address] [place] [address] Phone: tel: fax: [facility] Medical Group Referral ID Status Reason Start Date Expiration Date V isits Requested Visits Authorized [id number] Authorized 03/08/2024 04/07/2025 1 1 * Cardiology (Routine) - Pending Review Specialty Diagnoses / Procedures Referred By Contac t Referred To Contact Cardiology Diagnoses NICM (nonischemic cardiomyopathy) (CMS/HCC) (HCC) Ventricular fibrillation (CMS/HCC) (HCC) NSVT (nonsustained ventricular tachycardia) (HCC) Procedures DEVICE [place] [address] [place] [address] Phone: tel: fax: [facility] Medical [facility] Referral ID Status Reason Start Date Expiration Date V isits Requested Visits Authorized [id number] Pending Review 03/08/2024 09/06/2025 1 1 * Cardiology (Routine) - Pending Review Specialty Diagnoses / Procedures Referred By Contac t Referred To Contact Cardiology Diagnoses NICM (nonischemic cardiomyopathy) (CMS/HCC) (HCC) Ventricular fibrillation (CMS/HCC) (HCC) NSVT (nonsustained ventricular tachycardia) (HCC) Procedures DEVICE CHECK - REMOTE Pankaj Eden MD [address] [address] Phone: tel: fax: [facility] Medical Group Referral ID Status Reason Start Date Expiration Date V isits Requested Visits Authorized [id number] Pending Review 03/08/2024 09/06/2025 1 1 * Cardiology (Routine) - Closed Specialty Diagnoses / Procedures Referred By Contac t Referred To Contact Diagnoses NICM (nonischemic cardiomyopathy) (CMS/HCC) (HCC) Ventricular fibrillation (CMS/HCC) (HCC) NSVT (nonsustained ventricular tachycardia) (HCC) Procedures DEVICE CHECK - REMOTE Pankaj Eden MD [address] [address] Phone: tel: fax: Referral ID Status Reason Start Date Expiration Date Visits Re quested Visits Authorized [id number] Closed 03/08/2024 09/06/2025 1 1 Encounter Details Date Type Department Care Team (Late st Contact Info) Description 03/08/2024 Orders Only [facility] Medical Group Cardiology [address] [place] [phone] Pankaj Eden MD [address] [address] NICM (nonischemic cardiomyopathy) (CMS/HCC) (HCC) (Primary Dx); Ventricular fibrillation (CMS/HCC) (HCC); NSVT (nonsustained ventricular tachycardia) (HCC) Social History Tobacco Use Types Packs/Day Years Used Date Smoking Tobacco: Never Smokeless Tobacco: Never Alcohol Use Standard Drinks/Week Comments No 0 (1 standard drink = 0.6 oz pur e alcohol) Sex and Gender Information Value Date Recorded Sex Assigned at Not on file 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 Gender Identity Not on file Sexual Orientation Not on file documented as of this encounter Plan of Treatment Scheduled Orders Name Type Priority Associated Diagnoses Orde r Schedule DEVICE CHECK - REMOTE Cardiac Services Routine NICM (nonischemic cardiomyopathy) (CMS/HCC) (HCC) Ventricular fibrillation (CMS/HCC) (HCC) NSVT (nonsustained ventricular tachycardia) (HCC) Expected: 09/06/2024, Expires: 05/23/2030 DEVICE CHECK - REMOTE Cardiac Services Routine NICM (nonischemic cardiomyopathy) (CMS/HCC) (HCC) Ventricular fibrillation (CMS/HCC) (HCC) NSVT (nonsustained ventricular tachycardia) (HCC) Expected: 12/06/2024, Expires: 05/23/2030 DEVICE CHECK - IN OFFICE Cardiac Services Routine NICM (nonischemic cardiomyopathy) (CMS/HCC) (HCC) Ventricular fibrillation (CMS/HCC) (HCC) NSVT (nonsustained ventricular tachycardia) (HCC) Expected: 05/22/2024, Expires: 05/23/2030 DEVICE CHECK - IN OFFICE Cardiac Services Routine NICM (nonischemic cardiomyopathy) (CMS/HCC) (HCC) Ventricular fibrillation (CMS/HCC) (HCC) NSVT (nonsustained ventricular tachycardia) (HCC) Expected: 03/24/2025, Expires: 05/23/2032 documented as of this encounter Results * DEVICE CHECK - REMOTE (03/22/2024 2:16 PM CDT) Anatomical Region Laterality Modality Other Narrative 03/23/2024 7:50 AM CDT Med[employer]onic Dual Pacemaker. Dx; CHB. DOI 05/10/[address] Ventura. Carelink remote monitoring Q3 mo, office pacer checks Q1 yr. DDDR Pacemaker Remote to assess battery status Transmission attached. Battery status: ??2.83 V, MALE MODEL reached on 03/20/24 [employer] tech services reports device falls in standard replacement window Patient is pacemaker dependent Stable lead impedances, pacing and sensing thresholds. Presenting rhythm: AP/DRILL PRESS HAND AP-94.8%, DRILL PRESS HAND-100% No AT/AF episodes noted. No Ventricular high rate episodes detected. Medications: ??ASA 81 mg, carvedilol 12.5 mg See scanned report. Office pacemaker follow up: ??Pending generator change Called patient to inform them that their device has reached the recommended replacement time. ??Patient confirms he is still taking 81 mg aspirin tablet and carvedilol. ??Patient also confirms that he is diabetic. Informed patient that someone from the [place] office will be reaching out to him to get him scheduled for his device replacement. ??Patient verbalized understanding Aroldo Hilliard, DIMITRI us Pankaj Eden MD [facility] C[facility] SERVICES PROCEDURES Final Result documented in this encounter Visit Diagnoses Diagnosis NICM (nonischemic cardiomyopathy) (CMS/HCC) (HCC)- Primary Ventricular fibrillation (CMS/HCC) (HCC) Ventricular fibrillation NSVT (nonsustained ventricular tachycardia) (HCC) CHB (complete heart block) (CMS/HCC) (HCC)- Primary Atrioventricular block, complete NICM (nonischemic cardiomyopathy) (CMS/HCC) (HCC) Ventricular fibrillation (CMS/HCC) (HCC) Ventricular fibrillation NSVT (nonsustained ventricular tachycardia) (HCC) Pacemaker Cardiac pacemaker in situ documented in this encounter Care Teams Hydraulic Design Engineer Relationship Specialty Start Date End Date Danielle Rojas MD [address] [facility] [address] [place] [address] PCP - General 08/21/16 documented as of this encounter
--- OUTSIDE RECORDS SUMMARY | 2024-05-25 06:50 | XMS_ITS | Referral Summary ---
Author Organization [facility] Address [address] [place] [phone] Care Team Providers Care Property Custodian Name Role Phone Danielle Rojas MD Primary Care Provider Encounters Date Type Department Care Team Description 05/11/2024 2:00 PM INSTITUTIONAL AIDE Clinical Support [facility] [address] [place] [address] [place] [phone] Visit for wound check (Primary Dx) 05/08/2024 Telephone [facility] [address] [place] [address] [place] [phone] Cameron Ventura MD 05/03/2024 Orders Only [facility] [address] [place] [address] [place] [phone] Pankaj Eden MD Complete atrioventricular block (CMS/HCC) (HCC) (Primary Dx); Pacemaker 05/03/2024 1:00 PM INSTITUTIONAL AIDE Ancillary Procedure [facility] [address] [place] [address] [address] [place] [phone] Complete atrioventricular block (CMS/HCC) (HCC) (Primary Dx); NICM (nonischemic cardiomyopathy) (CMS/HCC) (HCC); Ventricular fibrillation (CMS/HCC) (HCC); Pacemaker 05/01/2024 Orders Only [facility] [address] [place] [address] [place] [phone] Cameron Ventura MD 03/22/2024 Telephone [facility] [address] [place] [phone] Pankaj Eden MD 03/22/2024 Orders Only [facility] [address] [place] [phone] Pankaj Eden MD NICM (nonischemic cardiomyopathy) (CMS/HCC) (HCC) (Primary Dx); Ventricular fibrillation (CMS/HCC) (HCC) 03/22/2024 11:00 AM CDT Ancillary Procedure [facility] [address] [place] [phone] CHB (complete heart block) (CMS/HCC) (HCC) (Primary Dx); NICM (nonischemic cardiomyopathy) (CMS/HCC) (HCC); Ventricular fibrillation (CMS/HCC) (HCC); NSVT (nonsustained ventricular tachycardia) (HCC); Pacemaker 03/08/2024 Orders Only [facility] [address] [place] [phone] Pankaj Eden MD NICM (nonischemic cardiomyopathy) (CMS/HCC) (HCC) (Primary Dx); Ventricular fibrillation (CMS/HCC) (HCC); NSVT (nonsustained ventricular tachycardia) (HCC) 03/08/2024 9:45 AM CDT Ancillary Procedure [facility] [address] [place] [phone] Complete atrioventricular block (CMS/HCC) (HCC) (Primary Dx); NICM (nonischemic cardiomyopathy) (CMS/HCC) (HCC); Ventricular fibrillation (CMS/HCC) (HCC); NSVT (nonsustained ventricular tachycardia) (HCC); Pacemaker 03/06/2024 Orders Only [facility] [address] [place] [address], [place] [phone] Pankaj Eden MD NICM (nonischemic cardiomyopathy) (CMS/HCC) (HCC) (Primary Dx); ICD (implantable cardioverter-defibrilla tor) in place; Ventricular fibrillation (CMS/HCC) (HCC); NSVT (nonsustained ventricular tachycardia) (HCC) 02/23/2024 Orders Only [facility] [address] [place] [phone] Pankaj Eden MD NICM (nonischemic cardiomyopathy) (CMS/HCC) (HCC) (Primary Dx); Ventricular fibrillation (CMS/HCC) (HCC); NSVT (nonsustained ventricular tachycardia) (HCC) 02/23/2024 10:30 AM CDT Ancillary Procedure [facility] [address] [place] [phone] CHB (complete heart block) (CMS/HCC) (HCC) (Primary Dx); NICM (nonischemic cardiomyopathy) (CMS/HCC) (HCC); ICD (implantable cardioverter-defibrilla tor) in place; Ventricular fibrillation (CMS/HCC) (HCC); NSVT (nonsustained ventricular tachycardia) (HCC); Pacemaker from Last 3 Months Allergies No known active allergies Medications aspirin (ASPIRIN LOW DOSE) 81 mg tablet take 1 tablet (81MG) by oral route every day 0 01/04/20 12 Active ferrous sulfate (IRON) 325 mg (65 mg of elemental iron) tablet take 1 tablet (325MG) by oral route every day 0 06/27/19 13 Active acetaminophen (TYLENOL) 325 mg tablet take 1 tablet (325MG) by oral route every 4 hours as needed 0 06/27/19 13 Active nitroglycerin (NITROSTAT) 0.[address] 1 tablet by sublingual route at the 1st sign of attack; may repeat every 5 min until relief; if pain persists after 3 tablets in 15 min, prompt medical attention is recommended 0 0 06/17/19 16 Active fluticasone (FLONASE) 50 mcg/actuation nasal spray Administer 1 spray into each nostril daily Active omeprazole (PriLOSEC) 40 mg capsule Take 1 capsule (40 mg total) by mouth daily 5 02/02/20 17 Active hydroCHLOROthiazi de (HYDRODIURIL) 12.5 mg tablet Take 1 tablet (12.5 mg total) by mouth daily Take 2 tablets daily 04/10/20 19 Active carvediloL (COREG) 12.5 mg tabletIndications :Ischemic cardiomyopathy TAKE 1 TABLET BY MOUTH TWICE A DAY WITH MEALS 180 tablet 03/24/20 21 Active Additional Information Patient taking differently: 6.25 mg oral 2 times daily with meals (bkfst, dinner), Reported on 07/19/2023 cinnamon bark 500 mg capsule Take 1 capsule (500 mg total) by mouth daily Active Trulicity 1.5 mg/0.5 mL pen injector INJECT 1.5 MG (0.5 ML) SUBCUTANEOUSLY WEEKLY 07/28/19 23 Active NovoLOG 70/30 100 unit/mL pen for injection 08/13/19 23 Active rosuvastatin (CRESTOR) 40 mg tablet Take 1 tablet (40 mg total) by mouth daily 90 tablet 3 08/13/19 23 Active FreeStyle Lon 2 Sensor kit USE DIRECTED AND CHANGE ONCE EVERY 14 DAYS 07/10/19 24 Active memantine (NAMENDA) 10 mg tablet Take 1 tablet (10 mg total) by mouth 2 (two) times a day 06/26/19 24 Active cephalexin (KEFLEX) 500 mg capsule Take 1 capsule (500 mg total) by mouth 3 (three) times a day for 14 days 42 capsule 05/03/20 24 024 Active Problems Problem Noted Date Diagnosed Date Visit for wound check 05/11/2024 Left leg pain 04/10/2019 Obesity (BMI 30-39.9) 04/10/2019 Hyperlipidemia associated with type 2 diabetes [place] 09/13/2017 Pacemaker 06/17/2015 Overview (05/01/2024): Medtronic Alyssia Dual Pacemaker. Dx; CHB. DOI 04/26/2024-Audrey. Chronic leads 05/10/2015. Carelink remote. Complete atrioventricular block (CMS/HCC) 2015 Overview (08/27/2016): CHB (complete heart block) Multiple-type hyperlipidemia 10/07/2013 Overview (08/28/2016): MIXED HYPERLIPIDEMIA Pain of hand 08/04/2012 Coronary arteriosclerosis in [place] artery 06/27 Overview (08/26/2016): CRNRY ATHRSCL NATDANA VSSL Chronic ischemic heart disease 06/27/2012 Overview (08/28/2016): CHR ISCHEMIC HRT DIS NEC History of coronary artery bypass surgery 2012 Overview (08/28/2016): AORTOCORONARY BYPASS Resolved Problems Problem Noted Date Diagnosed Date Resolved Date Hypercholesteremia 04/05/2017 9 Hypertension 10/07/2013 04/10/2017 Overview (08/27/2016): HYPERTENSION NOS Abnormal cardiovascular stress test 10/07/2013 04/10/2017 Overview (08/28/2016): Abnormal stress test Precordial pain 10/07/2013 04/10/2017 Overview (08/28/2016): PRECORDIAL PAIN Left bundle branch block (LBBB) 06/27/2012 04/10/2017 Overview (08/28/2016): LEFT BB BLOCK NEC 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 Overview (08/28/2016): SECOND CARDIOMYOPATH NOS Social History Tobacco Use Types Packs/Day Years Used Date Smoking Tobacco: Never Smokeless Tobacco: Never Alcohol Use Standard Drinks/Week Comments No 0 (1 standard drink = 0.6 oz pur e alcohol) Sex and Gender Information Value Date Recorded Sex Assigned at Not on file Legal Sex Male 9:22 AM INSTITUTIONAL AIDE Gender Identity Not on file Sexual Orientation Not on file Last Filed Vital Signs Vital Sign Reading Time Taken Comments Blood Pressure 108/60 07/19/2023 11:35 AM INSTITUTIONAL AIDE Pulse 73 07/19/2023 11:35 AM INSTITUTIONAL AIDE Temperature - - Respiratory Rate - - Oxygen Saturation 92% 07/19/2023 11:35 AM INSTITUTIONAL AIDE Inhaled Oxygen Concentration - - Weight 104 kg (229 lb 3.2 oz) 07/19/2023 11:35 A M INSTITUTIONAL AIDE Height 177.8 cm (5' 10 ) 07/19/2023 11:35 AM INSTITUTIONAL AIDE Body Mass Index 32.89 07/19/2023 11:35 AM INSTITUTIONAL AIDE Plan of Treatment Not on file Procedures Procedure Name Priority Date/Time Associated Diagnosis Comments DEVICE CHECK - IN OFFICE Routine 05/03/2024 12:42 PM INSTITUTIONAL AIDE NICM (nonischemic cardiomyopathy) (CMS/HCC) (HCC) Ventricular fibrillation (CMS/HCC) (HCC) CARDIOLOGY DOCUMENT SCAN Routine 04/26/2024 2:30 PM INSTITUTIONAL AIDE DEVICE CHECK - REMOTE Routine 03/22/2024 2:16 PM CDT NICM (nonischemic cardiomyopathy) (CMS/HCC) (HCC) Ventricular fibrillation (CMS/HCC) (HCC) NSVT (nonsustained ventricular tachycardia) (HCC) DEVICE CHECK - REMOTE Routine 03/08/2024 10:14 AM CDT NICM (nonischemic cardiomyopathy) (CMS/HCC) (HCC) Ventricular fibrillation (CMS/HCC) (HCC) NSVT (nonsustained ventricular tachycardia) (HCC) DEVICE CHECK - REMOTE Routine 02/23/2024 2:08 PM CDT NICM (nonischemic cardiomyopathy) (CMS/HCC) (HCC) ICD (implantable cardioverter-defibril lator) in place Ventricular fibrillation (CMS/HCC) (HCC) NSVT (nonsustained ventricular tachycardia) (HCC) POCT LIPID PANEL Routine 08/12/2022 9:46 AM CDT Lipid screening from Last 3 Months or Most Recently Relevant to Health Maintenance Results * DEVICE CHECK - IN OFFICE (05/03/2024 12:42 PM INSTITUTIONAL AIDE) Anatomical Region Laterality Modality Other Narrative 05/10/2024 11:29 AM INSTITUTIONAL AIDE Medtronic Alyssia Dual Pacemaker. Dx; CHB. DOI 04/26/2024-Audrey. Chronic leads 05/10/2015. Carelink remote. Supervising MD: Dr Bean. Right pectoral incision well approximated. No drainage or edema noted. Redness noted around the lateral corner of incision. Suspicious for superficial infection. See phone note. Reiterated post op restrictions and wound care instructions. Office DDD Pacemaker interrogation demonstrated appropriate device function. ?? Appropriate lead measurements noted. Battery function: ??3.22V, 10.6 years remaining battery life to SHARMAINE. Presenting rhythm- AP COMMUNITY SERVICE REPRESENTATIVE. ??Underlying rhythm- CHB without ventricular escape at VVI 40 beats per minute. ?? AP- 97.7% COMMUNITY SERVICE REPRESENTATIVE- 100%. ?? No Atrial high rate episodes recorded. No Ventricular high rate episodes noted. Medications; ASA, Coreg. No programming changes made to device settings. See scanned report. ?? Office pacemaker f/u scheduled 05/11/2024 for incision recheck. CareLink relay remote monitor ordered for patient. CareLink remote f/u 08/09/2024. ?? Eva Aguiar, RN us Pankaj Eden MD CV CARDIAC SERVICES PROCEDURES Final Result * Cardiology Document Scan (04/26/2024 2:30 PM INSTITUTIONAL AIDE) Anatomical Region Laterality Modality Other us Cameron Ventura MD CV CARDIAC SERVICES PROC EDURES Final Result * DEVICE CHECK - REMOTE (03/22/2024 2:16 PM CDT) Anatomical Region Laterality Modality Other Narrative 03/23/2024 7:50 AM CDT Medtronic Dual Pacemaker. Dx; CHB. DOI 05/10/[address] Ventura. Carelink remote monitoring Q3 mo, office pacer checks Q1 yr. DDDR Pacemaker Remote to assess battery status Transmission attached. 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 Presenting rhythm: AP/COMMUNITY SERVICE REPRESENTATIVE AP-94.8%, COMMUNITY SERVICE REPRESENTATIVE-100% No AT/AF episodes noted. No Ventricular high [...] diabetic. Informed patient that someone from the [place] office will be reaching out to him to get him scheduled for his device replacement. ??Patient verbalized understanding Aroldo Hilliard RN Pankaj Eden MD CV CARDIAC SERVICES PROCEDURES Final Result * DEVICE CHECK - REMOTE (03/08/2024 10:14 AM CDT) Anatomical Region Laterality Modality Other Narrative 03/17/2024 12:08 PM CDT Medtronic Dual Pacemaker. Dx; CHB. DOI 05/10/[address] Ventura. Carelink remote monitoring Q3 mo, office pacer checks Q1 yr. Routine DDDR Pacemaker Remote. Transmission attached. Battery status: ??2.83 V, 2 months remaining battery life to SHARMAINE. Stable lead impedances, pacing and sensing thresholds. Presenting rhythm: ??AP/COMMUNITY SERVICE REPRESENTATIVE AP-98.3 %, COMMUNITY SERVICE REPRESENTATIVE-100 % No AT/AF episodes noted. No Ventricular high rate episodes detected. Medications: ??ASA 81 mg, carvedilol 12.5 mg See scanned report. Office pacemaker follow up: ??Pending generator change CareLink Remote f/u 03/22/24. Aroldo Hilliard RN Pankaj Eden MD CV CARDIAC SERVICES PROCEDURES Final Result * DEVICE CHECK - REMOTE (02/23/2024 2:08 PM CDT) Anatomical Region Laterality Modality Other Narrative 02/24/2024 10:41 AM CDT Medtronic Dual Pacemaker. Dx; CHB. DOI 05/10/[address] Ventura. Carelink remote monitoring Q3 mo, office pacer checks Q1 yr. Routine DDDR Pacemaker Remote. Transmission attached. Battery status: ??2.83 V, 2 months remaining battery life to SHARMAINE. Stable lead impedances, pacing and sensing thresholds. Presenting rhythm: ??AP/COMMUNITY SERVICE REPRESENTATIVE AP-97.3 %, COMMUNITY SERVICE REPRESENTATIVE-100 % No AT/AF episodes noted. No Ventricular high rate episodes detected. Medications: ??ASA 81 mg, carvedilol 12.5 mg See scanned report. Office pacemaker follow up: ??Pending generator change CareLink remote f/u 03/08/24. Aroldo Hilliard, DIMITRI Pankaj Eden MD CV CARDIAC SERVICES PROCEDURES Final Result * POCT lipid panel (08/12/2022 9:46 AM CDT) Cholesterol, POC 137 mg/dL HDL, POC 60 mg/dL Triglycerides, POC 133 mg/dL LDL Cholesterol POC 51 mg/dL Chol/HDL Ratio, POC 0.8 Non-HDL Cholesterol, POC 77 mg/dL Cholesterol Total, POC 137 mg/dL Capillary blood 08/12/2022 9 :46 AM CDT us Yuki Delgadillo MD POINT OF CARE TEST ORDERABL ES Final Result from Last 3 Months or Most Recently Relevant to Health Maintenance Insurance [facility] Care Teams Property Custodian Relationship Specialty Start Date End Date Danielle Rojas MD [address] [facility] [address] [place] [address] PCP - General 08/21/16
--- OUTSIDE RECORDS SUMMARY | 2024-05-25 06:50 | XMS_ITS | Encounter Summary ---
Author Organization [facility] Healthcare Address [address] [place] [address] Care Team Providers Care Implementation Specialist Name Role Phone Danielle Rojas MD Primary Care Provider Encounter Details Date Type Department Care Team (Late st Contact Info) Description 05/01/2024 Orders Only [facility] Cardiology [address] [facility] [address] [place] [phone] Cameron Ventura MD [address] [facility] [address] [place] [address] Social History Tobacco Use Types Packs/Day Years Used Date Smoking Tobacco: Never Smokeless Tobacco: Never Alcohol Use Standard Drinks/Week Comments No 0 (1 standard drink = 0.6 oz pur e alcohol) Sex and Gender Information Value Date Recorded Sex Assigned at Not on file Legal Sex Male 9:22 AM SHANK BURNISHER Gender Identity Not on file Sexual Orientation Not on file documented as of this encounter Plan of Treatment Not on file documented as of this encounter Procedures Procedure Name Priority Date/Time Associated Diagnosis Comments CARDIOLOGY DOCUMENT SCAN Routine 04/26/2024 2:30 PM SHANK BURNISHER documented in this encounter Results * Cardiology Document Scan (04/26/2024 2:30 PM SHANK BURNISHER) Anatomical Region Laterality Modality Other us Cameron Ventura MD CV CARDIAC SERVICES PROC EDURES Final Result documented in this encounter Visit Diagnoses Not on filedocumented in this encounter Care Teams Implementation Specialist Relationship Specialty Start Date End Date Danielle Rojas MD [address] [facility] [address] [place] [phone] PCP - General 08/21/16 documented as of this encounter
--- OUTSIDE RECORDS SUMMARY | 2024-05-25 06:50 | XMS_ITS | Encounter Summary ---
Author Organization [facility] Healthcare Address [address] [place] [address] Care Team Providers Care Adjunct Professor Of Voice Name Role Phone Danielle Rojas MD Primary Care Provider Reason for Visit * Cardiology (Routine) - Closed Specialty Diagnoses / Procedures Referred By Contac t Referred To Contact Cardiology Diagnoses NICM (nonischemic cardiomyopathy) (CMS/HCC) (HCC) Ventricular fibrillation (CMS/HCC) (HCC) Procedures DEVICE CHECK [place] [address] [place] [address] Phone: tel: fax: [facility] Referral ID Status Reason Start Date Expiration Date Visits Re quested Visits Authorized [id number] Closed 03/22/2024 04/21/2025 1 1 Encounter Details Date Type Department Care Team (Latest Contact Info) Description 05/03/2024 1:00 PM DIRECTOR OF INSTITUTIONAL SALES Ancillary Procedure [facility] Cardiology [address] [facility] [address] [place] [phone] Complete atrioventricular block (CMS/HCC) (HCC) (Primary Dx); NICM (nonischemic cardiomyopathy) (CMS/HCC) (HCC); Ventricular fibrillation (CMS/HCC) (HCC); Pacemaker Social History Tobacco Use Types Packs/Day Years Used Date Smoking Tobacco: Never Smokeless Tobacco: Never Alcohol Use Standard Drinks/Week Comments No 0 (1 standard drink = 0.6 oz pur e alcohol) Sex and Gender Information Value Date Recorded Sex Assigned at Not on file Legal Sex Male 9:22 AM DIRECTOR OF INSTITUTIONAL SALES Gender Identity Not on file Sexual Orientation Not on file documented as of this encounter Plan of Treatment Not on file documented as of this encounter Procedures Procedure Name Priority Date/Time Associated Diagnosis Comments DEVICE CHECK - IN OFFICE Routine 05/03/2024 12:42 PM DIRECTOR OF INSTITUTIONAL SALES NICM (nonischemic cardiomyopathy) (CMS/HCC) (HCC) Ventricular fibrillation (CMS/HCC) (HCC) documented in this encounter Results * DEVICE CHECK - IN OFFICE (05/03/2024 12:42 PM DIRECTOR OF INSTITUTIONAL SALES) Anatomical Region Laterality Modality Other Narrative 05/10/2024 11:29 AM DIRECTOR OF INSTITUTIONAL SALES Medtronic Alyssia Dual Pacemaker. Dx; CHB. DOI [...] battery life to SHARMAINE. Presenting rhythm- AP CARROT TIER. ??Underlying rhythm- CHB without ventricular escape at VVI 40 beats per minute. ?? AP- 97.7% CARROT TIER- 100%. ?? No Atrial high rate episodes recorded. No Ventricular high rate episodes noted. Medications; ASA, Coreg. No programming changes made to device settings. See scanned report. ?? Office pacemaker f/u scheduled 05/11/2024 for incision recheck. CareLink relay remote monitor ordered for patient. CareLink remote f/u 08/09/2024. ?? Eva Aguiar, DIMITRI Pankaj Eden MD CV CARDIAC SERVICES PROCEDURES Final Result documented in this encounter Visit Diagnoses Diagnosis Complete atrioventricular block (CMS/HCC) (HCC)- Primary Atrioventricular block, complete NICM (nonischemic cardiomyopathy) (CMS/HCC) (HCC) Ventricular fibrillation (CMS/HCC) (HCC) Ventricular fibrillation Pacemaker Cardiac pacemaker in situ documented in this encounter Care Teams Adjunct Professor Of Voice Relationship Specialty Start Date End Date Danielle Rojas MD [address] [facility] [address] [place] [address] PCP - General 08/21/16 documented as of this encounter
--- OUTSIDE RECORDS SUMMARY | 2024-05-25 06:50 | XMS_ITS | Encounter Summary ---
Author Organization [facility] Healthcare Address [address] [place] [address] Care Team Providers Care Shoe Worker Name Role Phone Danielle Rojas MD Primary Care Provider Reason for Visit * Cardiology (Routine) - Closed Specialty Diagnoses / Procedures Referred By Contac t Referred To Contact Diagnoses NICM (nonischemic cardiomyopathy) (CMS/HCC) (HCC) Ventricular fibrillation (CMS/HCC) (HCC) NSVT (nonsustained ventricular tachycardia) (HCC) Procedures DEVICE CHECK - REMOTE Pankaj Eden MD [address] [place] [address] Phone: tel: fax: Referral ID Status Reason Start Date Expiration Date Visits Re quested Visits Authorized [id number] Closed 03/08/2024 09/06/2025 1 1 Encounter Details Date Type Department Care Team (Latest Contact Info) Description 03/22/2024 11:00 AM CDT Ancillary Procedure [facility] Cardiology [address] [place] [phone] CHB (complete heart block) (CMS/HCC) (HCC) (Primary Dx); NICM (nonischemic cardiomyopathy) (CMS/HCC) (HCC); Ventricular fibrillation (CMS/HCC) (HCC); NSVT (nonsustained ventricular tachycardia) (HCC); Pacemaker Social History Tobacco Use Types Packs/Day Years Used Date Smoking Tobacco: Never Smokeless Tobacco: Never Alcohol Use Standard Drinks/Week Comments No 0 (1 standard drink = 0.6 oz pur e alcohol) Sex and Gender Information Value Date Recorded Sex Assigned at Not on file Legal Sex Male 9:22 AM DEVELOPER ADVISOR Gender Identity Not on file Sexual Orientation Not on file documented as of this encounter Plan of Treatment Not on file documented as of this encounter Procedures Procedure Name Priority Date/Time Associated Diagnosis Comments DEVICE CHECK - REMOTE Routine 03/22/2024 2:16 PM CDT NICM (nonischemic cardiomyopathy) (CMS/HCC) (HCC) Ventricular fibrillation (CMS/HCC) (HCC) NSVT (nonsustained ventricular tachycardia) (HCC) documented in this encounter Results * DEVICE CHECK - REMOTE (03/22/2024 2:16 PM CDT) Anatomical Region Laterality Modality Other Narrative 03/23/2024 7:50 AM CDT Medtronic Dual Pacemaker. Dx; CHB. DOI 05/10/[address] Ventura. Carelink remote monitoring Q3 mo, office pacer checks Q1 yr. DDDR Pacemaker Remote to assess battery status Transmission attached. 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 Presenting rhythm: AP/PATIENT SCHEDULING MANAGER AP-94.8%, PATIENT SCHEDULING MANAGER-100% No AT/AF episodes noted. No Ventricular high [...] diabetic. Informed patient that someone from the [place] office will be reaching out to him to get him scheduled for his device replacement. ??Patient verbalized understanding Aroldo Hilliard RN us Pankaj Eden MD CV CARDIAC SERVICES PROCEDURES Final Result documented in this encounter Visit Diagnoses Diagnosis CHB (complete heart block) (CMS/HCC) (HCC)- Primary Atrioventricular block, complete NICM (nonischemic cardiomyopathy) (CMS/HCC) (HCC) Ventricular fibrillation (CMS/HCC) (HCC) Ventricular fibrillation NSVT (nonsustained ventricular tachycardia) (HCC) Pacemaker Cardiac pacemaker in situ documented in this encounter Care Teams Shoe Worker Relationship Specialty Start Date End Date Danielle Rojas MD [address] [facility] [address] [place] [address] PCP - General 08/21/16 documented as of this encounter
--- OUTSIDE RECORDS SUMMARY | 2024-05-25 06:50 | XMS_ITS | Encounter Summary ---
Author Organization [facility] Healthcare Address [address] [place] [address] Care Team Providers Care Yeast Washer Name Role Phone Danielle Rojas MD Primary Care Provider Reason for Referral * Cardiology (Routine) - Authorized Specialty Diagnoses / Procedures Referred By Contac t Referred To Contact Cardiology Diagnoses Ischemic cardiomyopathy CHB (complete heart block) (CMS/HCC) (HCC) Procedures DEVICE CHECK - IN OFFICE Pankaj Eden MD [address] [address] Phone: tel: fax: [facility] Medical Group Referral ID Status Reason Start Date Expiration Date V isits Requested Visits Authorized [id number] Authorized 12/22/2023 01/20/2025 1 1 * Cardiology (Routine) - Authorized Specialty Diagnoses / Procedures [facility] Referred To Contact Cardiology Diagnoses Ischemic cardiomyopathy CHB (complete heart block) (CMS/HCC) (HCC) Procedures DEVICE CHECK - IN OFFICE Pankaj Eden MD [address] [address] Phone: tel: fax: [facility] Medical Group Referral ID Status Reason Start Date Expiration Date V isits Requested Visits Authorized [id number] Authorized 12/22/2023 01/20/2025 1 1 * Cardiology (Routine) - Pending Review Specialty Diagnoses / Procedures Referred By Contac t Referred To Contact Cardiology Diagnoses Ischemic cardiomyopathy CHB (complete heart block) (CMS/HCC) (HCC) Procedures DEVICE CHECK - REMOTE Pankaj Eden MD [address] [address] Phone: tel: fax: [facility] Medical Group Referral ID Status Reason Start Date Expiration Date V isits Requested Visits Authorized [id number] Pending Review 12/22/2023 06/23/2025 1 1 * Cardiology (Routine) - Pending Review Specialty Diagnoses / Procedures Referred By Contac t Referred To Contact Cardiology Diagnoses Ischemic cardiomyopathy CHB (complete heart block) (CMS/HCC) (HCC) Procedures DEVICE CHECK - REMOTE Pankaj Eden MD [address] [address] Phone: tel: fax: [facility] Referral ID Status Reason Start Date Expiration Date V isits Requested Visits Authorized [id number] Pending Review 12/22/2023 06/23/2025 1 1 * Cardiology (Routine) - Closed Specialty Diagnoses / Procedures Referred By Contac t Referred To Contact Diagnoses Ischemic cardiomyopathy CHB (complete heart block) (CMS/HCC) (HCC) Procedures DEVICE CHECK - REMOTE Pankaj Eden MD [address] [address] Phone: tel: fax: Referral ID Status Reason Start Date Expiration Date Visits Re quested Visits Authorized [id number] Closed 12/22/2023 06/23/2025 1 1 Encounter Details Date Type Department Care Team (Late st Contact Info) Description 12/22/2023 Orders Only [facility] Medical Group Cardiology [address] [facility] [address] [place] [phone] Pankaj Eden MD [address] [place] [address], [place] [address] Ischemic cardiomyopathy (Primary Dx); CHB (complete heart block) (CMS/HCC) (HCC) Social History Tobacco Use Types Packs/Day Years Used Date Smoking Tobacco: Never Smokeless Tobacco: Never Alcohol Use Standard Drinks/Week Comments No 0 (1 standard drink = 0.6 oz pur e alcohol) Sex and Gender Information Value Date Recorded Sex Assigned at Not on file 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 Sex 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 Gender Identity Not on file Sexual Orientation Not on file documented as of this encounter Plan of Treatment Scheduled Orders Name Type Priority Associated Diagnoses Orde r Schedule DEVICE CHECK - REMOTE Cardiac Services Routine Ischemic cardiomyopathy CHB (complete heart block) (CMS/HCC) (HCC) Expected: 05/23/2024, Expires: 05/23/2030 DEVICE CHECK - REMOTE Cardiac Services Routine Ischemic cardiomyopathy CHB (complete heart block) (CMS/HCC) (HCC) Expected: 09/20/2024, Expires: 05/23/2030 DEVICE CHECK - IN OFFICE Cardiac Services Routine Ischemic cardiomyopathy CHB (complete heart block) (CMS/HCC) (HCC) Expected: 02/26/2025, Expires: 05/23/2032 DEVICE CHECK - IN OFFICE Cardiac Services Routine Ischemic cardiomyopathy CHB (complete heart block) (CMS/HCC) (HCC) Expected: 01/14/2026, Expires: 05/23/2032 documented as of this encounter Results * DEVICE CHECK - REMOTE (01/20/2024 2:36 PM CDT) Anatomical Region Laterality Modality Other Narrative 01/31/2024 8:09 AM CDT Medtronic Dual Pacemaker. Dx; CHB. DOI 05/10/[address] Ventura. Carelink remote monitoring Q3 mo, office pacer checks Q1 yr. Routine DDDR Pacemaker Remote. Transmission attached. Battery status: 2.84 V, 3 months remaining battery life to SHARMAINE. Stable lead impedances, pacing and sensing thresholds. Presenting rhythm: AP/COCONUT COOKER AP- 99.0%, COCONUT COOKER- 100% No AT/AF episodes noted No Ventricular high rate episodes detected. Medications: ASA 81 mg, carvedilol See scanned report. Office pacemaker follow up: pending generator change CareLink remote f/u 02/01/25. Aroldo Hilliard RN Pankaj Eden MD [facility] CARDIAC SERVICES PROCEDURES Final Result documented in this encounter Visit Diagnoses Diagnosis Ischemic cardiomyopathy- Primary Other specified forms of chronic ischemic heart disease CHB (complete heart block) (CMS/HCC) (HCC) Atrioventricular block, complete Pacemaker- Primary Cardiac pacemaker in situ Ischemic cardiomyopathy Other specified forms of chronic ischemic heart disease CHB (complete heart block) (CMS/HCC) (HCC) Atrioventricular block, complete documented in this encounter Care Teams Yeast Washer Relationship Specialty Start Date End Date Danielle Rojas MD [address] [address] PCP - General 08/21/16 documented as of this encounter
--- OUTSIDE RECORDS SUMMARY | 2024-05-25 06:50 | XMS_ITS | Encounter Summary ---
Author Organization [facility] Healthcare Address [address] [place] [address] Care Team Providers Care Cutter Gas Name Role Phone Danielle Rojas MD Primary Care Provider Reason for Visit * Cardiology (Routine) - Closed Specialty Diagnoses / Procedures Referred By Contac t Referred To Contact Diagnoses Ischemic cardiomyopathy CHB (complete heart block) (CMS/HCC) (HCC) Procedures DEVICE CHECK - REMOTE Pankaj Eden MD [address] [place] [address] Phone: tel: fax: Referral ID Status Reason Start Date Expiration Date Visits Re quested Visits Authorized [id number] Closed 01/20/2024 07/21/2025 1 1 Encounter Details Date Type Department Care Team (Latest Contact Info) Description 02/02/2024 11:15 AM CDT Ancillary Procedure [facility] Medical Group Cardiology [address] [place] [address] [place] [phone] Pacemaker (Primary Dx); Ischemic cardiomyopathy; CHB (complete heart block) (CMS/HCC) (HCC) Social History Tobacco Use Types Packs/Day Years Used Date Smoking Tobacco: Never Smokeless Tobacco: Never Alcohol Use Standard Drinks/Week Comments No 0 (1 standard drink = 0.6 oz pur e alcohol) Sex and Gender Information Value Date Recorded Sex Assigned at Not on file Legal Sex Male 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 Dx; CHB. DOI 05/10/[address] Ventura. Carelink remote monitoring Q3 mo, office pacer checks Q1 yr. Routine DDDR Pacemaker Remote. Transmission attached. Battery status: ??2.84 V, 2 months remaining battery life to SHARMAINE. Stable lead impedances, pacing and sensing thresholds. Presenting rhythm: ??AP/CERTIFED REFRIGERATION OPERATOR AP- 97.7 %, CERTIFED REFRIGERATION OPERATOR- 100 % No AT/AF episodes noted No Ventricular high rate episodes detected. Medications: ??ASA 81 mg, carvedilol See scanned report. Office pacemaker follow up: ??Pending generator change CareLink remote f/u 02/23/2024. Aroldo Hilliard, DIMITRI Dominicraisa Eden MD CV CARDIAC SERVICES PROCEDURES Final Result documented in this encounter Visit Diagnoses Diagnosis Pacemaker- Primary Cardiac pacemaker in situ Ischemic cardiomyopathy Other specified forms of chronic ischemic heart disease CHB (complete heart block) (CMS/HCC) (HCC) Atrioventricular block, complete documented in this encounter Care Teams Cutter Gas Relationship Specialty Start Date End Date Danilele Rojas MD [address] [place] [address] PCP - General 08/21/16 documented as of this encounter
--- OUTSIDE RECORDS SUMMARY | 2024-05-25 06:50 | XMS_ITS | Continuity of Care Document ---
Author Organization [facility] Address [address] [place] [address] Phone Care Team Providers Care Science Consultant Name Role Phone Wisdom OD, Lopez Unavailable Unavailable Advance Directives Directive Yes / No Effective Date File Name No Information Encounters Encounter Description Practice Location Reason(s) For Visit Diagnoses Date Provider Providers Copied on Encounter [facility], [address], [place], [place], [id number], [place] tel:[phone] [facility] [place] No Information Huy-[id number] [id number] 5 Wisdom OD Lopez. [address] [facility] , [address], [place], [address], [place]. tel:[phone] Family History Family Member Type Diagnosis Age At Onset No Information Payers Payer name Insurance type Covered green party ID Authoriza tion(s) [facility] Custom Care CI [id number] Social History Type Description Quantity Date Captured Comments Sex Male Smoking Status No Information Chief Complaint And Reason For Visit No Information Reason For Referral Reason For Referral No Information History Of Present Illness Encounter Date Complaint History Of Prese nt Illness No Information Functional Status Date Functional Assessmen t No Information Instructions Date Instruction Additional Infor mation No Information Assessments Type Assessment Date No Information Patient Care Teams Name Effective Dates (start - stop) Status Members No Information
--- OUTSIDE RECORDS SUMMARY | 2024-05-25 06:50 | XMS_ITS | Encounter Summary ---
Author Organization [facility] Healthcare Address [address] [place] [address] Care Team Providers Care Well Drill Operator Name Role Phone Danielle Rojas MD Primary Care Provider Reason for Visit * Cardiology (Routine) - Closed Specialty Diagnoses / Procedures Referred By Contac t Referred To Contact Diagnoses Ischemic cardiomyopathy CHB (complete heart block) (CMS/HCC) (HCC) Procedures DEVICE CHECK - REMOTE Pankaj Eden MD [address] [place] [address] Phone: tel: fax: Referral ID Status Reason Start Date Expiration Date Visits Re quested Visits Authorized [id number] Closed 12/22/2023 06/23/2025 1 1 Encounter Details Date Type Department Care Team (Latest Contact Info) Description 01/19/2024 10:15 AM CDT Ancillary Procedure [facility] Cardiology [address] [place] [address] [place] [phone] Pacemaker (Primary Dx); Ischemic cardiomyopathy; CHB (complete heart block) (CMS/HCC) (HCC) Social History Tobacco Use Types Packs/Day Years Used Date Smoking Tobacco: Never Smokeless Tobacco: Never Alcohol Use Standard Drinks/Week Comments No 0 (1 standard drink = 0.6 oz pur e alcohol) Sex and Gender Information Value Date Recorded Sex Assigned at Not on file 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 Presenting rhythm: AP/AUTHORIZATION REPRESENTATIVE AP- 99.0%, AUTHORIZATION REPRESENTATIVE- 100% No AT/AF episodes noted No Ventricular high rate episodes detected. Medications: ASA 81 mg, carvedilol See scanned report. Office pacemaker follow up: pending generator change CareLink remote f/u 02/01/25. Aroldo Hilliard, RN Dominicraisa Eden MD [facility] CARDIAC SERVICES PROCEDURES Final Result documented in this encounter Visit Diagnoses Diagnosis Pacemaker- Primary Cardiac pacemaker in situ Ischemic cardiomyopathy Other specified forms of chronic ischemic heart disease CHB (complete heart block) (CMS/HCC) (HCC) Atrioventricular block, complete documented in this encounter Care Teams Well Drill Operator Relationship Specialty Start Date End Date Danielle Rojas MD [address] [facility] [address] [place] [address] PCP - General 08/21/16 documented as of this encounter
--- OUTSIDE RECORDS SUMMARY | 2024-05-25 06:50 | XMS_ITS | Clinical Summary ---
Author Organization [facility] Address [address] [place] [address] Care Team Providers Care Compliance Program Manager Name Role Phone Danielle Rojas MD Primary Care Provider Allergies No known active allergies Medications aspirin [...] vernon 09/13/2017 Pacemaker 06/17/2015 Overview (05/01/2024): Medtronic [place] Dual Pacemaker. Dx; CHB. DOI 04/26/2024-Audrey. Chronic leads 05/10/2015. Carelink remote. Complete atrioventricular block (CMS/HCC) 2015 Overview (08/27/2016): CHB (complete heart block) Multiple-type hyperlipidemia 10/07/2013 Overview (08/28/2016): MIXED HYPERLIPIDEMIA Pain of hand 08/04/2012 Coronary arteriosclerosis in [place] artery 06/27 Overview (08/26/2016): CRNRY ATHRSCL NATVE VSSL Chronic ischemic heart disease 06/27/2012 Overview [...] cardiomyopathy 06/27/2012 Overview (08/28/2016): SECOND CARDIOMYOPATH NOS Encounters Date Type Department Care Team Description 05/11/2024 2:00 PM REGIONAL MANAGER Clinical Support [facility] Cardiology [address] [place] [address] [place] [phone] Visit for wound check (Primary Dx) 05/08/2024 Telephone [facility] Cardiology [address] [facility] Suite [facility] [place] [phone] Cameron Ventura MD 05/03/2024 1:00 PM REGIONAL MANAGER Ancillary Procedure [facility] Cardiology [address] [place] [address] [place] [phone] Complete atrioventricular block (CMS/HCC) (HCC) (Primary Dx); NICM (nonischemic cardiomyopathy) (CMS/HCC) (HCC); Ventricular fibrillation (CMS/HCC) (HCC); Pacemaker 05/03/2024 Orders Only [facility] Cardiology [address] [facility] Suite [facility] [place] [phone] Pankaj Eedn MD Complete atrioventricular block (CMS/HCC) (HCC) (Primary Dx); Pacemaker 05/01/2024 Orders Only [facility] Cardiology [address] [phone] Cameron Ventura MD 03/22/2024 11:00 AM CDT Ancillary Procedure [facility] Cardiology [address] [place] [phone] CHB (complete heart block) (CMS/HCC) (HCC) (Primary Dx); NICM (nonischemic cardiomyopathy) (CMS/HCC) (HCC); Ventricular fibrillation (CMS/HCC) (HCC); NSVT (nonsustained ventricular tachycardia) (HCC); Pacemaker 03/22/2024 Telephone [facility] Cardiology [address] [place] [phone] Pankaj Eden MD 03/22/2024 Orders Only [facility] Cardiology [address] [place] [phone] Pankaj Eden MD NICM (nonischemic cardiomyopathy) (CMS/HCC) (HCC) (Primary Dx); Ventricular fibrillation (CMS/HCC) (HCC) 03/08/2024 9:45 AM CDT Ancillary Procedure [facility] Cardiology [address] [place] [phone] Complete atrioventricular block (CMS/HCC) (HCC) (Primary Dx); NICM (nonischemic cardiomyopathy) (CMS/HCC) (HCC); Ventricular fibrillation (CMS/HCC) (HCC); NSVT (nonsustained ventricular tachycardia) (HCC); Pacemaker 03/08/2024 Orders Only [facility] Cardiology [address] [place] [phone] Pankaj Eden MD NICM (nonischemic cardiomyopathy) (CMS/HCC) (HCC) (Primary Dx); Ventricular fibrillation (CMS/HCC) (HCC); NSVT (nonsustained ventricular tachycardia) (HCC) 03/06/2024 Orders Only [facility] Cardiology [address] [place] [phone] Pankaj Eden MD NICM (nonischemic cardiomyopathy) (CMS/HCC) (HCC) (Primary Dx); ICD (implantable cardioverter-defibrilla tor) in place; Ventricular fibrillation (CMS/HCC) (HCC); NSVT (nonsustained ventricular tachycardia) (HCC) 02/23/2024 10:30 AM CDT Ancillary Procedure [facility] Cardiology [address] [place] [phone] CHB (complete heart block) (CMS/HCC) (HCC) (Primary Dx); NICM (nonischemic cardiomyopathy) (CMS/HCC) (HCC); ICD (implantable cardioverter-defibrilla tor) in place; Ventricular fibrillation (CMS/HCC) (HCC); NSVT (nonsustained ventricular tachycardia) (HCC); Pacemaker 02/23/2024 Orders Only [facility] Cardiology [address] [place] [phone] Pankaj Eden MD NICM (nonischemic cardiomyopathy) (CMS/HCC) (HCC) (Primary Dx); Ventricular fibrillation (CMS/HCC) (HCC); NSVT (nonsustained ventricular tachycardia) (HCC) from Last 3 Months Surgical History Surgery Date Site/Laterality Comments CORONARY ARTERY BYPASS GRAFT Medical History Medical History Date Comments Diabetes mellitus (HCC) Hyperlipidemia Cardiomyopathy (HCC) GERD (gastroesophageal reflux disease) Heart disease Hypertension Social History Tobacco Use Types Packs/Day Years Used Date Smoking Tobacco: Never Smokeless Tobacco: Never Alcohol Use Standard Drinks/Week Comments No 0 (1 standard drink = 0.6 oz pur e alcohol) Sex and Gender Information Value Date Recorded Sex Assigned at Not on file Legal Sex Male 9:22 AM REGIONAL MANAGER Gender Identity Not on file Sexual Orientation Not on file Obstetrics History Last Filed Vital Signs Vital Sign Reading Time Taken Comments Blood Pressure 108/60 07/19/2023 11:35 AM REGIONAL MANAGER Pulse 73 07/19/2023 11:35 AM REGIONAL MANAGER Temperature - - Respiratory Rate - - Oxygen Saturation 92% 07/19/2023 11:35 AM REGIONAL MANAGER Inhaled Oxygen Concentration - - Weight 104 kg (229 lb 3.2 oz) 07/19/2023 11:35 A M REGIONAL MANAGER Height 177.8 cm (5' 10 ) 07/19/2023 11:35 AM REGIONAL MANAGER Body Mass Index 32.89 07/19/2023 11:35 AM REGIONAL MANAGER Plan of Treatment Health Maintenance Due Date Last Done Comments Albumin Creatinine Ratio, Urine 1950 Colon Cancer Screening-Colonoscopy 1950 Depression Screening 1950 Fall Risk Assessment 1950 Hemoglobin A1C 1950 Hepatitis C Screening 1950 eGFR 1950 Dilated Eye Exam 1950 Foot Exam 1950 Pneumococcal vaccine 65+ (1 of 2 - PCV) 1956 DTaP/Tdap/Td Vaccine (1 - Tdap) 1961 Hepatitis B Screening 1968 Zoster Vaccine (1 of 2) 2000 Well Visit 65+ 09/24/2015 Lipid Panel 08/13/2023 08/12/2022, 03/0 01/2022, 05/27/2021, Additional history exists Influenza Vaccine (#1) 2024 02/05/2016 Procedures Procedure Name Priority Date/Time Associated Diagnosis Comments DEVICE CHECK - IN OFFICE Routine 05/03/2024 12:42 PM REGIONAL MANAGER NICM (nonischemic cardiomyopathy) (CMS/HCC) (HCC) Ventricular fibrillation (CMS/HCC) (HCC) CARDIOLOGY DOCUMENT SCAN Routine 04/26/2024 2:30 PM REGIONAL MANAGER DEVICE CHECK - REMOTE Routine 03/22/2024 2:16 [...] fibrillation (CMS/HCC) (HCC) NSVT (nonsustained ventricular tachycardia) ([facility]) POCT LIPID PANEL Routine 08/12/2022 9:46 AM CDT Lipid screening from Last 3 Months or Most Recently Relevant to Health Maintenance Results * DEVICE CHECK - IN OFFICE (05/03/2024 12:42 PM REGIONAL MANAGER) Anatomical Region Laterality Modality Other Narrative 05/10/2024 11:29 AM REGIONAL MANAGER Medtronic [place] Dual Pacemaker. Dx; CHB. DOI [...] battery life to SHARMAINE. Presenting rhythm- AP PEDIATRIC NP. ??Underlying rhythm- CHB without ventricular escape at VVI 40 beats per minute. ?? AP- 97.7% PEDIATRIC NP- 100%. ?? No Atrial high rate episodes [...] * Cardiology Document Scan (04/26/2024 2:30 PM REGIONAL MANAGER) Anatomical Region Laterality Modality Other us Cameron [...] status Transmission attached. Battery status: ??2.83 V, COMPLIANCE QUALITY PERFORMANCE ANALYST reached on 03/20/24 Medtronic tech services reports device falls in standard replacement window Patient is pacemaker dependent Stable lead impedances, pacing and sensing thresholds. Presenting rhythm: AP/PEDIATRIC NP AP-94.8%, PEDIATRIC NP-100% No AT/AF episodes noted. No Ventricular high [...] diabetic. Informed patient that someone from the [place] office will be reaching out to him [...] impedances, pacing and sensing thresholds. Presenting rhythm: ??AP/PEDIATRIC NP AP-98.3 %, PEDIATRIC NP-100 % No AT/AF episodes noted. No Ventricular [...] impedances, pacing and sensing thresholds. Presenting rhythm: ??AP/PEDIATRIC NP AP-97.3 %, PEDIATRIC NP-100 % No AT/AF episodes noted. No Ventricular high rate episodes detected. Medications: ??ASA 81 mg, carvedilol 12.5 mg See scanned report. Office pacemaker follow up: ??Pending generator change CareLink remote f/u 03/08/24. Aroldo Hilliard RN Pankaj Eden MD CV CARDIAC SERVICES PROCEDURES Final Result * POCT lipid panel (08/12/2022 9:46 AM CDT) Cholesterol, POC 137 mg/dL HDL, POC 60 mg/dL Triglycerides, POC 133 mg/dL LDL Cholesterol POC 51 mg/dL Chol/HDL Ratio, POC 0.8 Non-HDL Cholesterol, POC 77 mg/dL Cholesterol Total, POC 137 mg/dL Capillary blood 08/12/2022 9 :46 AM CDT Yuki Delgadillo MD POINT OF CARE TEST ORDERABL ES Final Result from Last 3 Months or Most Recently Relevant to Health Maintenance Insurance [facility] Care Teams Compliance Program Manager Relationship Specialty Start Date End Date Danielle Rojas MD [address] [facility] [address] [address] PCP - General 08/21/16
--- OUTSIDE RECORDS SUMMARY | 2024-05-25 06:50 | XMS_ITS | Encounter Summary ---
Author Organization [facility] Healthcare Address [address] [place] [address] Care Team Providers Care Machine Room Engineer Name Role Phone Danielle Rojas MD Primary Care Provider Reason for Referral * Cardiology (Routine) - Pending Review Specialty Diagnoses / Procedures Referred By Contac t Referred To Contact Cardiology Diagnoses NICM (nonischemic cardiomyopathy) (CMS/HCC) (HCC) Ventricular fibrillation (CMS/HCC) (HCC) Procedures DEVICE CHECK - REMOTE Pankaj Eden MD [address] [address] Phone: tel: fax: [facility] Referral ID Status Reason Start Date Expiration Date V isits Requested Visits Authorized [id number] Pending Review 03/22/2024 09/20/2025 1 1 * Cardiology (Routine) - Pending Review Specialty Diagnoses / Procedures [facility] To Contact Cardiology Diagnoses NICM (nonischemic cardiomyopathy) (CMS/HCC) (HCC) Ventricular fibrillation (CMS/HCC) (HCC) Procedures DEVICE CHECK - REMOTE Pankaj Eden MD [address] [address] Phone: tel: fax: [facility] Referral ID Status Reason Start Date Expiration Date V isits Requested Visits Authorized [id number] Pending Review 03/22/2024 09/20/2025 1 1 * Cardiology (Routine) - Pending Review Specialty Diagnoses / Procedures Referred By Contac t Referred To Contact Cardiology Diagnoses NICM (nonischemic cardiomyopathy) (CMS/HCC) (HCC) Ventricular fibrillation (CMS/HCC) (HCC) Procedures DEVICE CHECK - REMOTE Pankaj Eden MD [address] [address] Phone: tel: fax: [facility] Referral ID Status Reason Start Date Expiration Date V isits Requested Visits Authorized [id number] Pending Review 03/22/2024 09/20/2025 1 1 * Cardiology (Routine) - Closed Specialty Diagnoses / Procedures Referred By Contac t Referred To Contact Cardiology Diagnoses NICM (nonischemic cardiomyopathy) (CMS/HCC) (HCC) Ventricular fibrillation (CMS/HCC) (HCC) Procedures DEVICE CHECK - IN OFFICE Pankaj Eden MD [address] [address] Phone: tel: fax: [facility] Referral ID Status Reason Start Date Expiration Date Visits Re quested Visits Authorized [id number] Closed 03/22/2024 04/21/2025 1 1 * Cardiology (Routine) - Authorized Specialty Diagnoses / Procedures Referred By Contac t Referred To Contact Cardiology Diagnoses NICM (nonischemic cardiomyopathy) (CMS/HCC) (HCC) Ventricular fibrillation (CMS/HCC) (HCC) Procedures DEVICE CHECK - IN OFFICE Pankaj Eden MD [address] [address] Phone: tel: fax: [facility] Referral ID Status Reason Start Date Expiration Date V isits Requested Visits Authorized [id number] Authorized 03/22/2024 04/21/2025 1 1 Encounter Details Date Type Department Care Team (Late st Contact Info) Description 03/22/2024 Orders Only [facility] Medical [facility] Cardiology [address] [facility] [address] [place] [phone] Pankaj Eden MD [address] [place] [address] [place] [phone] NICM (nonischemic cardiomyopathy) (CMS/HCC) (HCC) (Primary Dx); Ventricular fibrillation (CMS/HCC) (HCC) Social History Tobacco Use Types Packs/Day Years Used Date Smoking Tobacco: Never Smokeless Tobacco: Never Alcohol Use Standard Drinks/Week Comments No 0 (1 standard drink = 0.6 oz pur e alcohol) Sex and Gender Information Value Date Recorded Sex Assigned at Not on file 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 Gender Identity Not on file Sexual Orientation Not on file documented as of this encounter Plan of Treatment Scheduled Orders Name Type Priority Associated Diagnoses Orde r Schedule DEVICE CHECK - IN OFFICE Cardiac Services Routine NICM (nonischemic cardiomyopathy) (CMS/HCC) (HCC) Ventricular fibrillation (CMS/HCC) (HCC) Expected: 04/07/2025, Expires: 05/23/2032 DEVICE CHECK - REMOTE Cardiac Services Routine NICM (nonischemic cardiomyopathy) (CMS/HCC) (HCC) Ventricular fibrillation (CMS/HCC) (HCC) Expected: 06/21/2024, Expires: 05/23/2030 DEVICE CHECK - REMOTE Cardiac Services Routine NICM (nonischemic cardiomyopathy) (CMS/HCC) (HCC) Ventricular fibrillation (CMS/HCC) (HCC) Expected: 09/20/2024, Expires: 05/23/2030 DEVICE CHECK - REMOTE Cardiac Services Routine NICM (nonischemic cardiomyopathy) (CMS/HCC) (HCC) Ventricular fibrillation (CMS/HCC) (HCC) Expected: 12/20/2024, Expires: 05/23/2030 documented as of this encounter Results * DEVICE CHECK - IN OFFICE (05/03/2024 12:42 PM MOTOR ROOM CONTROLLER) Anatomical Region Laterality Modality Other Narrative 05/10/2024 11:29 AM MOTOR ROOM CONTROLLER Medtronic [place] Dual Pacemaker. Dx; CHB. DOI 04/26/2024-Audrey. Chronic [...] battery life to SHARMAINE. Presenting rhythm- AP AV SPECIALIST. ??Underlying rhythm- CHB without ventricular escape at VVI 40 beats per minute. ?? AP- 97.7% AV SPECIALIST- 100%. ?? No Atrial high rate episodes recorded. No Ventricular high rate episodes noted. Medications; ASA, Coreg. No programming changes made to device settings. See scanned report. ?? Office pacemaker f/u scheduled 05/11/2024 for incision recheck. [facility] relay remote monitor ordered for patient. [facility] remote f/u 08/09/2024. ?? Eva Aguiar, RN Pankaj Eden MD CV CARDIAC SERVICES PROCEDURES Final Result documented in this encounter Visit Diagnoses Diagnosis NICM (nonischemic cardiomyopathy) (CMS/HCC) (HCC)- Primary Ventricular fibrillation (CMS/HCC) (HCC) Ventricular fibrillation Complete atrioventricular block (CMS/HCC) (HCC)- Primary Atrioventricular block, complete NICM (nonischemic cardiomyopathy) (CMS/HCC) (HCC) Ventricular fibrillation (CMS/HCC) (HCC) Ventricular fibrillation Pacemaker Cardiac pacemaker in situ documented in this encounter Care Teams Machine Room Engineer Relationship Specialty Start Date End Date Danielle Rojas MD [address] [address] PCP - General 08/21/16 documented as of this encounter
--- OUTSIDE RECORDS SUMMARY | 2024-05-25 06:50 | XMS_ITS | Encounter Summary ---
Author Organization [facility] Healthcare Address [address] [place] [address] Care Team Providers Care Elevator Examiner Name Role Phone Danielle Rojas MD Primary Care Provider Encounter Details Date Type Department Care Team (Late st Contact Info) Description 05/08/2024 Telephone [facility] Cardiology [address] [place] [phone] Cameron Ventura MD [address] [facility] [address] [place] [phone] Social History Tobacco Use Types Packs/Day Years Used Date Smoking Tobacco: Never Smokeless Tobacco: Never Alcohol Use Standard Drinks/Week Comments No 0 (1 standard drink = 0.6 oz pur e alcohol) Sex and Gender Information Value Date Recorded Sex Assigned at Not on file 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 Dx; CHB. DOI 04/26/2024-Audrey. Chronic leads 05/10/2015. [facility]link remote. Late entry for 05/03/2024. Patient was seen in device Clinic for his 1 week post pacemaker replacement incision check. The right pectoral incision was well approximated without drainage or edema noted. Redness noted around the lateral corner of incision. Suspicious for superficial infection. Dr Ventura informed and ordered Keflex 500 mg Q 8 hours x14 days. Patient to schedule an incisioncheck in the office before his medication is completed. Office incision check scheduled 05/11/24. Medication ordered and sent to [facility] pharmacy in [place]. Informed patient of instructions. He verbalized understanding. RUCTOR PROGRAMMABLE CONTROLLERS documented in this encounter Plan of Treatment Not on file documented as of this encounter Visit Diagnoses Not on filedocumented in this encounter Care Teams Elevator Examiner Relationship Specialty Start Date End Date Danielle Rojas MD [address] [facility] [address] [place] [phone] PCP - General 08/21/16 documented as of this encounter
--- OUTSIDE RECORDS SUMMARY | 2024-05-25 06:50 | XMS_ITS | Encounter Summary ---
Author Organization [facility] Healthcare Address [address] [place] [address] Care Team Providers Care Shop Steward Name Role Phone Danielle Rojas MD Primary Care Provider Reason for Referral * Cardiology (Routine) - Authorized Specialty Diagnoses / Procedures Referred By Contac t Referred To Contact Diagnoses NICM (nonischemic cardiomyopathy) (CMS/HCC) (HCC) ICD (implantable cardioverter-defibrillator) in place Ventricular fibrillation (CMS/HCC) (HCC) NSVT (nonsustained ventricular tachycardia) (HCC) Procedures DEVICE CHECK - REMOTE Pankaj Eden MD [address] [address] Phone: tel: fax: [facility] Medical Group Referral ID Status Reason Start Date Expiration Date V isits Requested Visits Authorized [id number] Authorized 03/06/2024 09/04/2025 1 1 * Cardiology (Routine) - Authorized Specialty Diagnoses / Procedures Referred By Contac t Referred To Contact Diagnoses NICM (nonischemic cardiomyopathy) (CMS/HCC) (HCC) ICD (implantable cardioverter-defibrillator) in place Ventricular fibrillation (CMS/HCC) (HCC) NSVT (nonsustained ventricular tachycardia) (HCC) Procedures DEVICE CHECK - REMOTE Pankaj Eden MD [address] [address] Phone: tel: fax: [facility] Referral ID Status Reason Start Date Expiration Date V isits Requested Visits Authorized [id number] Authorized 03/06/2024 09/04/2025 1 1 * Cardiology (Routine) - Authorized Specialty Diagnoses / Procedures Referred By Contac t Referred To Contact Diagnoses NICM (nonischemic cardiomyopathy) (CMS/HCC) (HCC) ICD (implantable cardioverter-defibrillator) in place Ventricular fibrillation (CMS/HCC) (HCC) NSVT (nonsustained ventricular tachycardia) (HCC) Procedures DEVICE CHECK - REMOTE Pankaj Eden MD [address] [place] [address] Phone: tel: fax: [facility] Referral ID Status Reason Start Date Expiration Date V isits Requested Visits Authorized [id number] Authorized 03/06/2024 09/04/2025 1 1 Encounter Details Date Type Department Care Team (Late st Contact Info) Description 03/06/2024 Orders Only [facility] Cardiology [address] [place] [phone] Pankaj Eden MD [address] [place] [phone] NICM (nonischemic cardiomyopathy) (CMS/HCC) (HCC) (Primary [...] on file 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 Gender Identity Not on file Sexual Orientation Not on file documented as of this encounter Plan of Treatment Scheduled Orders Name Type Priority Associated Diagnoses Orde r Schedule DEVICE CHECK - REMOTE Cardiac Services Routine NICM (nonischemic cardiomyopathy) (CMS/HCC) (HCC) ICD (implantable cardioverter-defibrilla tor) in place Ventricular fibrillation (CMS/HCC) (HCC) NSVT (nonsustained ventricular tachycardia) (HCC) Expected: 03/06/2024, Expires: 10/03/2026 DEVICE CHECK - REMOTE Cardiac Services Routine NICM (nonischemic cardiomyopathy) (CMS/HCC) (HCC) ICD (implantable cardioverter-defibrilla tor) in place Ventricular fibrillation (CMS/HCC) (HCC) NSVT (nonsustained ventricular tachycardia) (HCC) Expected: 03/06/2024, Expires: 10/03/2026 DEVICE CHECK - REMOTE Cardiac Services Routine NICM (nonischemic cardiomyopathy) (CMS/HCC) (HCC) ICD (implantable cardioverter-defibrilla tor) in place Ventricular fibrillation (CMS/HCC) (HCC) NSVT (nonsustained ventricular tachycardia) (HCC) Expected: 03/06/2024, Expires: 10/03/2026 documented as of this encounter Visit Diagnoses Diagnosis NICM (nonischemic cardiomyopathy) (CMS/HCC) (HCC)- Primary ICD (implantable cardioverter-defibrillator) in place Ventricular fibrillation (CMS/HCC) (HCC) Ventricular fibrillation NSVT (nonsustained ventricular tachycardia) (HCC) documented in this encounter Care Teams Shop Steward Relationship Specialty Start Date End Date Danielle Rojas MD [address] [address] PCP - General 08/21/16 documented as of this encounter
--- OUTSIDE RECORDS SUMMARY | 2024-05-25 06:50 | XMS_ITS | Encounter Summary ---
Author Organization [facility] Address [address] [place] [address] Care Team Providers Care Bag Hanger Name Role Phone Danielle Rojas MD Primary Care Provider Reason for Referral * Cardiology (Routine) - Authorized Specialty Diagnoses / Procedures Referred By Contac t Referred To Contact Diagnoses NICM (nonischemic cardiomyopathy) (CMS/HCC) (HCC) Ventricular fibrillation (CMS/HCC) (HCC) NSVT (nonsustained ventricular tachycardia) (HCC) Procedures DEVICE CHECK - IN OFFICE Pankaj Eden MD [address] [place] [address] Phone: tel: fax: [facility] Medical [facility] Referral ID Status Reason Start Date Expiration Date V isits Requested Visits Authorized [id number] Authorized 02/23/2024 03/24/2025 1 1 * Cardiology (Routine) - Authorized Specialty Diagnoses / Procedures [facility] Referred To Contact Diagnoses NICM (nonischemic cardiomyopathy) (CMS/HCC) (HCC) Ventricular fibrillation (CMS/HCC) (HCC) NSVT (nonsustained ventricular tachycardia) (HCC) Procedures DEVICE CHECK - IN OFFICE Pankaj Eden MD [address] [place] [address] Phone: tel: fax: [facility] Referral ID Status Reason Start Date Expiration Date V isits Requested Visits Authorized [id number] Authorized 02/23/2024 03/24/2025 1 1 * Cardiology (Routine) - Pending Review Specialty Diagnoses / Procedures Referred By Contac t Referred To Contact Cardiology Diagnoses NICM (nonischemic cardiomyopathy) (CMS/HCC) (HCC) Ventricular fibrillation (CMS/HCC) (HCC) NSVT (nonsustained ventricular tachycardia) (HCC) Procedures [place]ICE [place] [address] [place] [phone] Phone: tel: fax: [facility] Medical [facility] Referral ID Status Reason Start Date Expiration Date V isits Requested Visits Authorized [id number] Pending Review 02/23/2024 08/23/2025 1 1 * Cardiology (Routine) - Pending Review Specialty Diagnoses / Procedures Referred By Contac t Referred To Contact Cardiology Diagnoses NICM (nonischemic cardiomyopathy) (CMS/HCC) (HCC) Ventricular fibrillation (CMS/HCC) (HCC) NSVT (nonsustained ventricular tachycardia) (HCC) Procedures DEVICE CHECK - REMOTE Pankaj Eden MD [address] [address] Phone: tel: fax: [facility] Medical [facility] Referral ID Status Reason Start Date Expiration Date V isits Requested Visits Authorized [id number] Pending Review 02/23/2024 08/23/2025 1 1 * Cardiology (Routine) - Closed Specialty Diagnoses / Procedures Referred By Contac t Referred To Contact Diagnoses NICM (nonischemic cardiomyopathy) (CMS/HCC) (HCC) Ventricular fibrillation (CMS/HCC) (HCC) NSVT (nonsustained ventricular tachycardia) (HCC) Procedures DEVICE CHECK - REMOTE Pankaj Eden MD [address] [address] Phone: tel: fax: Referral ID Status Reason Start Date Expiration Date Visits Re quested Visits Authorized [id number] Closed 02/23/2024 08/23/2025 1 1 Encounter Details Date Type Department Care Team (Late st Contact Info) Description 02/23/[address] 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 Gender Identity Not on file Sexual Orientation Not on file documented as of this encounter Plan of Treatment Scheduled Orders Name Type Priority Associated Diagnoses Orde r Schedule DEVICE CHECK - REMOTE Cardiac Services Routine NICM (nonischemic cardiomyopathy) (CMS/HCC) (HCC) Ventricular fibrillation (CMS/HCC) (HCC) NSVT (nonsustained ventricular tachycardia) (HCC) Expected: 08/23/2024, Expires: 05/23/2030 DEVICE CHECK - REMOTE Cardiac Services Routine NICM (nonischemic cardiomyopathy) (CMS/HCC) (HCC) Ventricular fibrillation (CMS/HCC) (HCC) NSVT (nonsustained ventricular tachycardia) (HCC) Expected: 11/22/2024, Expires: 05/23/2030 DEVICE CHECK - IN OFFICE Cardiac Services Routine NICM (nonischemic cardiomyopathy) (CMS/HCC) (HCC) Ventricular fibrillation (CMS/HCC) (HCC) NSVT (nonsustained ventricular tachycardia) (HCC) Expected: 03/08/2024, Expires: 05/23/2032 DEVICE CHECK - IN OFFICE Cardiac Services Routine NICM (nonischemic cardiomyopathy) (CMS/HCC) (HCC) Ventricular fibrillation (CMS/HCC) (HCC) NSVT (nonsustained ventricular tachycardia) (HCC) Expected: 03/29/2024, Expires: 05/23/2032 documented as of this encounter Results * DEVICE CHECK - REMOTE (03/08/2024 10:14 [...] impedances, pacing and sensing thresholds. Presenting rhythm: ??AP/BOAT GARNISHER AP-98.3 %, BOAT GARNISHER-100 % No AT/AF episodes noted. No Ventricular [...] Ventricular fibrillation NSVT (nonsustained ventricular tachycardia) (HCC) Complete atrioventricular block (CMS/HCC) (HCC)- Primary Atrioventricular block, complete NICM (nonischemic cardiomyopathy) (CMS/HCC) (HCC) Ventricular fibrillation (CMS/HCC) (HCC) Ventricular fibrillation NSVT (nonsustained ventricular tachycardia) (HCC) Pacemaker Cardiac pacemaker in situ documented in this encounter Care Teams Bag Hanger Relationship Specialty Start Date End Date Danielle Rojas MD [address] [facility] [address] [place] [address] PCP - General 08/21/16 documented as of this encounter
--- OUTSIDE RECORDS SUMMARY | 2024-05-25 06:50 | XMS_ITS | Encounter Summary ---
Author Organization [facility] Healthcare Address [address] [place] [address] Care Team Providers Care Metal Dealer Name Role Phone Danielle Rojas MD Primary Care Provider Reason for Visit * Reason Comments Wound Check Encounter Details Date Type Department Care Team (Latest Contact Info) Description 05/11/2024 2:00 PM FILENET ADMIN Clinical Support [facility] Cardiology [address] [place] [phone] Visit for wound check (Primary Dx) Social History Tobacco Use Types Packs/Day Years Used Date Smoking Tobacco: Never Smokeless Tobacco: Never Alcohol Use Standard Drinks/Week Comments No 0 (1 standard drink = 0.6 oz pur e alcohol) Sex and Gender Information Value Date Recorded Sex Assigned at Not on file Legal Sex Male 9:22 AM FILENET ADMIN Gender Identity Not on file Sexual Orientation Not on file documented as of this encounter Progress Notes * Chiquita Harris RN - 05/11/2024 2:00 PM CST Pt to office for incision check after Gen change on 04/26/24. Incision well approximated, healing well. No signs of infection. Area of previous concern is scabbed over, no redness, drainage, or swelling. Advised pt to continue antibiotics until completely gone and continue to monitor for signs of inf ection. Pt verbalizes understanding. Signs of infection reviewed with pt. Pt advised to call the office with any questions or concerns. NET ADMIN documented in this encounter Plan of Treatment Not on file documented as of this encounter Visit Diagnoses Diagnosis Visit for wound check- Primary documented in this encounter Care Teams Metal Dealer Relationship Specialty Start Date End Date Danielle Rojas MD [address] [facility] [address] [place] [address] PCP - General 08/21/16 documented as of this encounter
--- OUTSIDE RECORDS SUMMARY | 2024-05-25 06:50 | XMS_ITS | Encounter Summary ---
Author Organization [facility] Healthcare Address [address] [place] [address] Care Team Providers Care Inside Sales Person Name Role Phone Danielle Rojas MD Primary Care Provider Reason for Referral * Cardiology (Routine) - Authorized Specialty Diagnoses / Procedures Referred By Contac t Referred To Contact Cardiology Diagnoses Ischemic cardiomyopathy CHB (complete heart block) (CMS/HCC) (HCC) Procedures DEVICE CHECK - IN OFFICE Pankaj Eden MD [address] [address] Phone: tel: fax: [facility] Referral ID Status Reason Start Date Expiration Date V isits Requested Visits Authorized [id number] Authorized 01/20/2024 02/18/2025 1 1 * Cardiology (Routine) - Authorized Specialty Diagnoses / Procedures Referred By [facility] Referred To Contact Cardiology Diagnoses Ischemic cardiomyopathy CHB (complete heart block) (CMS/HCC) (HCC) Procedures DEVICE CHECK - IN OFFICE Pankaj Eden MD [address] [address] Phone: tel: fax: [facility] Referral ID Status Reason Start Date Expiration Date V isits Requested Visits Authorized [id number] Authorized 01/20/2024 02/18/2025 1 1 * Cardiology (Routine) - Authorized Specialty Diagnoses / Procedures Referred By Contac t Referred To Contact Cardiology Diagnoses Ischemic cardiomyopathy CHB (complete heart block) (CMS/HCC) (HCC) Procedures DEVICE CHECK - REMOTE Pankaj Eden MD [address] [address] Phone: tel: fax: Pankaj Eden MD [address] [address] Phone: tel: fax: Referral ID Status Reason Start Date Expiration Date V isits Requested Visits Authorized [id number] Authorized 01/20/2024 07/21/2025 1 1 * Cardiology (Routine) - Authorized Specialty Diagnoses / Procedures Referred By Contac t Referred To Contact Cardiology Diagnoses Ischemic cardiomyopathy CHB (complete heart block) (CMS/HCC) (HCC) Procedures DEVICE CHECK - REMOTE Pankaj Eden MD [address] [address] Phone: tel: fax: Pankaj Eden MD [address] [address] Phone: tel: fax: Referral ID Status Reason Start Date Expiration Date V isits Requested Visits Authorized [id number] Authorized 01/20/2024 07/21/2025 1 1 * Cardiology (Routine) - Closed Specialty Diagnoses / Procedures Referred By Contac t Referred To Contact Diagnoses Ischemic cardiomyopathy CHB (complete heart block) (CMS/HCC) (HCC) Procedures DEVICE CHECK - REMOTE Pankaj Eden MD [address] [address] Phone: tel: fax: Referral ID Status Reason Start Date Expiration Date Visits Re quested Visits Authorized [id number] Closed 01/20/2024 07/21/2025 1 1 Encounter Details Date Type Department Care Team (Late st Contact Info) Description 01/20/[address] 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 Gender Identity Not on file Sexual Orientation Not on file documented as of this encounter Plan of Treatment Scheduled Orders Name Type Priority Associated Diagnoses Orde r Schedule DEVICE CHECK - REMOTE Cardiac Services Routine Ischemic cardiomyopathy CHB (complete heart block) (CMS/HCC) (HCC) Expected: 07/20/2024, Expires: 05/23/2030 DEVICE CHECK - REMOTE Cardiac Services Routine Ischemic cardiomyopathy CHB (complete heart block) (CMS/HCC) (HCC) Expected: 10/19/2024, Expires: 05/23/2030 DEVICE CHECK - IN OFFICE Cardiac Services Routine Ischemic cardiomyopathy CHB (complete heart block) (CMS/HCC) (HCC) Expected: 04/24/2024, Expires: 05/23/2032 DEVICE CHECK - IN OFFICE Cardiac Services Routine Ischemic cardiomyopathy CHB (complete heart block) (CMS/HCC) (HCC) Expected: 02/04/2025, Expires: 05/23/2031 documented as of this encounter Results * [...] impedances, pacing and sensing thresholds. Presenting rhythm: ??AP/FOOD AND BEVERAGE DIRECTOR AP- 97.7 %, FOOD AND BEVERAGE DIRECTOR- 100 % No AT/AF episodes noted No Ventricular high rate episodes detected. Medications: ??ASA 81 mg, carvedilol See scanned report. Office pacemaker follow up: ??Pending generator change [facility] remote f/u 02/23/2024. Aroldo Hilliard, RN Pankaj Eden MD [facility] [...] complete documented in this encounter Care Teams Inside Sales Person Relationship Specialty Start Date End Date Danielle Rojas MD [address] [facility] [address] [place] [id number] PCP - General 08/21/16 documented as of this encounter
--- OUTSIDE RECORDS SUMMARY | 2024-05-25 06:50 | XMS_ITS | Encounter Summary ---
Author Organization [facility] Healthcare Address [address] [place] [address] Care Team Providers Care Fire Crew Worker Name Role Phone Danielle Rojas MD Primary Care Provider Reason for Visit * Cardiology (Routine) - Closed Specialty Diagnoses / Procedures Referred By Contac t Referred To Contact Diagnoses NICM (nonischemic cardiomyopathy) (CMS/HCC) (HCC) ICD (implantable cardioverter-defibrillator) in place Ventricular fibrillation (CMS/HCC) (HCC) NSVT (nonsustained ventricular tachycardia) (HCC) Procedures DEVICE CHECK - REMOTE Pankaj Eden MD [address] [place] [address] Phone: tel: fax: [facility] Referral ID Status Reason Start Date Expiration Date Visits Re quested Visits Authorized [id number] Closed 02/02/2024 08/01/2025 1 1 Encounter Details Date Type Department Care Team (Latest Contact Info) Description 02/23/2024 10:30 AM CDT Ancillary Procedure [facility] Medical [facility] Cardiology [address] [place] [phone] CHB (complete heart block) (CMS/HCC) (HCC) (Primary Dx); NICM (nonischemic cardiomyopathy) (CMS/HCC) (HCC); ICD (implantable cardioverter-defibri llator) in place; Ventricular fibrillation (CMS/HCC) (HCC); NSVT (nonsustained ventricular tachycardia) (HCC); Pacemaker Social History Tobacco Use Types Packs/Day Years Used Date Smoking Tobacco: Never Smokeless Tobacco: Never Alcohol Use Standard Drinks/Week Comments No 0 (1 standard drink = 0.6 oz pur e alcohol) Sex and Gender Information Value Date Recorded Sex Assigned at Not on file 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 Gender Identity Not on file Sexual Orientation Not on file documented as of this encounter Plan of Treatment Not on file documented as of this encounter Procedures Procedure Name Priority Date/Time Associated Diagnosis Comments DEVICE CHECK - REMOTE Routine 02/23/2024 2:08 PM CDT NICM (nonischemic cardiomyopathy) (CMS/HCC) (HCC) ICD (implantable cardioverter-defibril lator) in place Ventricular fibrillation (CMS/HCC) (HCC) NSVT (nonsustained ventricular tachycardia) (HCC) documented in this encounter Results * DEVICE CHECK - REMOTE (02/23/2024 2:08 [...] impedances, pacing and sensing thresholds. Presenting rhythm: ??AP/CUSTOMER SERVICE SECURITY OFFICER AP-97.3 %, CUSTOMER SERVICE SECURITY OFFICER-100 % No AT/AF episodes noted. No Ventricular [...] block, complete NICM (nonischemic cardiomyopathy) (CMS/HCC) (HCC) ICD (implantable cardioverter-defibrillator) in place Ventricular fibrillation (CMS/HCC) (HCC) Ventricular fibrillation NSVT (nonsustained ventricular tachycardia) (HCC) Pacemaker Cardiac pacemaker in situ documented in this encounter Care Teams Fire Crew Worker Relationship Specialty Start Date End Date Danielle Rojas MD [address] [facility] [address] [place] [address] PCP - General 08/21/16 documented as of this encounter
--- OUTSIDE RECORDS SUMMARY | 2024-05-25 06:50 | XMS_ITS | Encounter Summary ---
Author Organization [facility] Healthcare Address [address] [place] [address] Care Team Providers Care Personnel Assistant Name Role Phone Danielle Rojas MD Primary Care Provider Reason for Referral * Procedure (Routine) - Closed Specialty Diagnoses / Procedures Referred By Contac t Referred To Contact Cardiology Diagnoses Pacemaker Pankaj Eden MD [address] [place] [address] Phone: tel: fax: [facility] Cardiology [address] [place] [address] [place] [phone] Phone: tel: fax: Referral ID Status Reason Start Date Expiration Date V isits Requested Visits Authorized [id number] Closed Specialty Services Required 03/23/2024 04/22/2025 1 1 Question Answer Please select the performing region: [facility] Medical Group [[id number]] Please select the performing department: [facility] [[id number]] # of visits: 1 Comments PROCEDURE/TEST ORDERED:pacer gen change LOCATION: DATE OF SERVICE: 04/26 INSURANCE: [facility] DIAGNOSIS:SHARMAINE ORDERING PROVIDER:Audrey ADDITIONAL DETAILS: Encounter Details Date Type Department Care Team (Late st Contact Info) Description 03/22/2024 Telephone [facility] Cardiology [facility] [phone] Pankaj Eden MD [address] [facility] [address] [place] [id number] Social History Tobacco Use Types Packs/Day Years Used Date Smoking Tobacco: Never Smokeless Tobacco: Never Alcohol Use Standard Drinks/Week Comments No 0 (1 standard drink = 0.6 oz pur e alcohol) Sex and Gender Information Value Date Recorded Sex Assigned at Not on file 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 Spoke with pt and his and reviewedinstructions and mailed them a copy as well-they verbalized understanding. Will notify [employer]. * Telephone Encounter - Pankaj Eden MD - 03/23/2024 7:45 AM CDT Let us plan to change the generator soon please * Telephone Encounter - Aroldo Hilliard RN - 03/22/2024 2:44 PM CDT [employer] Dual Pacemaker. Dx; CHB. DOI 05/10/[address] Ventura. Carelink remote monitoring Q3 mo, office pacer checks Q1 yr. DDDR Pacemaker Remote to assess battery status Transmission attached. Battery status: 2.83 V, CUSTOMER SERVICE REPRESENTATIVE reached on 03/20/[address] [employer] reports device falls in standard replacement window Patient is pacemaker dependent Stable lead impedances, pacing and sensing thresholds. Presenting rhythm: AP/PROCUREMENT ACCOUNTANT AP-94.8%, PROCUREMENT ACCOUNTANT-100% No AT/AF episodes noted. No Ventricular high rate episodes detected. Medications: ASA 81 mg, carvedilol 12.5 mg See scanned report. Office pacemaker follow up: Pending generator change Called patient to inform them that their device has reached the recommended replacement time. Patient confirms he is still taking 81 mg aspirin tablet and carvedilol. Patient also confirms that he isdiabetic. Informed patient that someone from the [place] office will be reaching out to him to get him scheduled for his device replacement. Patient verbalized understanding Aroldo Hilliard RN Fwd: Dr. Eden, Dr. Ventura, [place] clinical kimberly, Eva Aguiar, DIMITRI documented in this encounter Plan of Treatment Scheduled Referrals Name Type Priority Associated Diagnoses Order Schedule Ambulatory referral to Cardiology Outpatient Referral Routine Pacemaker Expected: 04/06/2024 (Approximate), Expires: 03/23/2025 documented as of this encounter Visit Diagnoses Diagnosis Pacemaker- Primary Cardiac pacemaker in situ documented in this encounter Care Teams Personnel Assistant Relationship Specialty Start Date End Date Danielle Rojas MD [address] [facility] [address] [place] [address] PCP - General 08/21/16 documented as of this encounter
--- OUTSIDE RECORDS SUMMARY | 2024-05-25 06:50 | XMS_ITS | Encounter Summary ---
Author Organization [facility] Healthcare Address [address] [place] [address] Care Team Providers Care Air Pollution Specialist Name Role Phone Danielle Rojas MD Primary Care Provider Reason for Visit * Cardiology (Routine) - Closed Specialty Diagnoses / Procedures Referred By Contac t Referred To Contact Diagnoses NICM (nonischemic cardiomyopathy) (CMS/HCC) (HCC) Ventricular fibrillation (CMS/HCC) (HCC) NSVT (nonsustained ventricular tachycardia) (HCC) Procedures DEVICE CHECK - REMOTE Pankaj Eden MD [address] [place] [address] Phone: tel: fax: Referral ID Status Reason Start Date Expiration Date Visits Re quested Visits Authorized [id number] Closed 02/23/2024 08/23/2025 1 1 Encounter Details Date Type Department Care Team (Latest Contact Info) Description 03/08/2024 9:45 AM CDT Ancillary Procedure [facility] Medical Group Cardiology [address] [facility] [address] [place] [phone] Complete atrioventricular block (CMS/HCC) (HCC) (Primary Dx); [...] on file 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 Presenting rhythm: ??AP/RN STAFF AP-98.3 %, RN STAFF-100 % No AT/AF episodes noted. No Ventricular [...] situ documented in this encounter Care Teams Air Pollution Specialist Relationship Specialty Start Date End Date Danielle Rojas MD [address] [facility] [address] [place] [address] PCP - General 08/21/16 documented as of this encounter
--- OUTSIDE RECORDS SUMMARY | 2024-05-25 06:50 | XMS_ITS | Encounter Summary ---
Author Organization [facility] Healthcare Address [address] [place] [address] Care Team Providers Care Pre Owned Sales Consultant Name Role Phone Danielle Rojas MD Primary Care Provider Reason for Referral * Cardiology (Routine) - Canceled Specialty Diagnoses / Procedures Referred By Contmarixa t Referred To Contact Diagnoses NICM (nonischemic cardiomyopathy) (CMS/HCC) (HCC) ICD (implantable cardioverter-defibrillator) in place Ventricular fibrillation (CMS/HCC) (HCC) NSVT (nonsustained ventricular tachycardia) (HCC) Procedures DEVICE CHECK - REMOTE Pankaj Eden MD [address] [address] Phone: tel: fax: [facility] Group Referral ID Status Reason Start Date Expiration Date V isits Requested Visits Authorized [id number] Canceled 02/02/2024 08/01/2025 1 1 * Cardiology (Routine) - Canceled Specialty Diagnoses / Procedures Referred By Contmarixa pedraza Referred To Contact Diagnoses NICM (nonischemic cardiomyopathy) (CMS/HCC) (HCC) ICD (implantable cardioverter-defibrillator) in place Ventricular fibrillation (CMS/HCC) (HCC) NSVT (nonsustained ventricular tachycardia) (HCC) Procedures DEVICE CHECK - REMOTE Pankaj Eden MD [address] [address] Phone: tel: fax: [facility] Medical [facility] Referral ID Status Reason Start Date Expiration Date V isits Requested Visits Authorized [id number] Canceled 02/02/2024 08/01/2025 1 1 * Cardiology (Routine) - Closed Specialty Diagnoses / Procedures Referred By Contac t Referred To Contact Diagnoses NICM (nonischemic cardiomyopathy) (CMS/HCC) (HCC) ICD (implantable cardioverter-defibrillator) in place Ventricular fibrillation (CMS/HCC) (HCC) NSVT (nonsustained ventricular tachycardia) (HCC) Procedures DEVICE CHECK - REMOTE Pankaj Eden MD [address] [place] [address] Phone: tel: fax: [facility] Medical [facility] Referral ID Status Reason Start Date Expiration Date Visits Re quested Visits Authorized [id number] Closed 02/02/2024 08/01/2025 1 1 Encounter Details Date Type Department Care Team (Late st Contact Info) Description 02/02/[address] 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 Gender Identity Not on file Sexual Orientation Not on file documented as of this encounter Plan of Treatment Scheduled Orders Name Type Priority Associated Diagnoses Orde r Schedule DEVICE CHECK - REMOTE Cardiac Services Routine NICM (nonischemic cardiomyopathy) (CMS/HCC) (HCC) ICD (implantable cardioverter-defibrilla tor) in place Ventricular fibrillation (CMS/HCC) (HCC) NSVT (nonsustained ventricular tachycardia) (HCC) Expected: 02/02/2024, Expires: 08/31/2026 DEVICE CHECK - REMOTE Cardiac Services Routine NICM (nonischemic cardiomyopathy) (CMS/HCC) (HCC) ICD (implantable cardioverter-defibrilla tor) in place Ventricular fibrillation (CMS/HCC) (HCC) NSVT (nonsustained ventricular tachycardia) (HCC) Expected: 02/02/2024, Expires: 08/31/2026 documented as of this encounter Results * [...] impedances, pacing and sensing thresholds. Presenting rhythm: ??AP/NIGHTMAN AP-97.3 %, NIGHTMAN-100 % No AT/AF episodes noted. No Ventricular [...] situ documented in this encounter Care Teams Pre Owned Sales Consultant Relationship Specialty Start Date End Date Danielle Rojas MD [address] [place] [phone] PCP - General 08/21/16 documented as of this encounter
--- OUTSIDE RECORDS SUMMARY | 2024-05-25 06:51 | XMS_ITS | Encounter Summary ---
Author Organization [facility] Healthcare Address [address] [place] [address] Care Team Providers Care Tile Applicator Name Role Phone Danielle Rojas MD Primary Care Provider Reason for Visit * Cardiology (Routine) - Closed Specialty Diagnoses / Procedures Referred By Contac t Referred To Contact Diagnoses CHB (complete heart block) (CMS/HCC) (HCC) Ischemic cardiomyopathy Procedures DEVICE CHECK - REMOTE Yuki Delgadillo MD Phone: tel: fax: [facility] Referral ID Status Reason Start Date Expiration Date Visits Re quested Visits Authorized [id number] Closed 10/14/2022 04/16/2024 1 1 Encounter Details Date Type Department Care Team (Latest Contact Info) Description 10/20/2023 10:30 AM CDT Ancillary Procedure [facility] Cardiology [address] [place] [phone] Pacemaker (Primary Dx); CHB (complete heart block) (CMS/HCC) (HCC); Ischemic cardiomyopathy Social History Tobacco Use Types Packs/Day Years Used Date Smoking Tobacco: Never Smokeless Tobacco: Never Alcohol Use Standard Drinks/Week Comments No 0 (1 standard drink = 0.6 oz pur e alcohol) Sex and Gender Information Value Date Recorded Sex Assigned at Not on file 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 Dx; CHB. DOI 05/10/[address] Ventura. Carelink remote monitoring Q3 mo, office pacer checks Q1 yr. Routine DDDR Pacemaker Remote. Transmission attached. Battery status: 2.86 V, 5 months remaining battery life to SHRAMAINE. Stable lead impedances, pacing and sensing thresholds. Presenting rhythm: AP/STAFFING COORDINATOR AP- 97.3%, STAFFING COORDINATOR- 100%. No AT/AF episodes noted. No Ventricular high rate episodes detected. Medications: ASA, carvedilol See scanned report. Office pacemaker follow up: pending generator change CareLink remote f/u 11/17/23. Aroldo Hilliard, DIMITRI Yuki Delgadillo MD [facility] PROCEDU RES Final Result documented in this encounter Visit Diagnoses Diagnosis Pacemaker- Primary Cardiac pacemaker in situ CHB (complete heart block) (CMS/HCC) (HCC) Atrioventricular block, complete Ischemic cardiomyopathy Other specified forms of chronic ischemic heart disease documented in this encounter Care Teams Tile Applicator Relationship Specialty Start Date End Date Danielle Rojas MD [address] [facility] [address] [place] [address] PCP - General 08/21/16 documented as of this encounter
--- OUTSIDE RECORDS SUMMARY | 2024-05-25 06:51 | XMS_ITS | Encounter Summary ---
Author Organization [facility] Medical Group Address [address] [facility] [address] [place] [address] Care Team Providers Care Panel Instrument Repairer Name Role Phone Danielle Rojas MD Primary Care Provider Encounter Details Date Type Department Care Team (Late st Contact Info) Description 08/29/2020 Telephone [facility] Medical [facility] Cardiology [address] [facility] [address], [place] [phone] Yuki Delgadillo MD [address] [facility] [address] [address] Social History Tobacco Use Types Packs/Day Years Used Date Smoking Tobacco: Never Smokeless Tobacco: Never Alcohol Use Standard Drinks/Week Comments No 0 (1 standard drink = 0.6 oz pur e alcohol) Sex and Gender Information Value Date Recorded Sex Assigned at Not on file 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 documented in this encounter Plan of Treatment Not on file documented as of this encounter Visit Diagnoses Not on filedocumented in this encounter Care Teams Panel Instrument Repairer Relationship Specialty Start Date End Date Danielle Rojas MD [address] [facility] [address] [place] [address] PCP - General 08/21/16 documented as of this encounter
--- OUTSIDE RECORDS SUMMARY | 2024-05-25 06:51 | XMS_ITS | Encounter Summary ---
Author Organization [facility] Address [address] [place] [address] Care Team Providers Care Customer Relations Coordinator Name Role Phone Danielle Rojas MD Primary Care Provider Encounter Details Date Type Department Care Team (Late st Contact Info) Description 05/08/2020 Orders Only [facility] Cardiology [address] [facility] [address] [place] [address] ProviderZain MD [address] [place] [address] Social History Tobacco Use Types Packs/Day Years Used Date Smoking Tobacco: Never Smokeless Tobacco: Never Alcohol Use Standard Drinks/Week Comments No 0 (1 standard drink = 0.6 oz pur e alcohol) Sex and Gender Information Value Date Recorded Sex Assigned at Not on file 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 Gender Identity Not on file Sexual Orientation Not on file documented as of this encounter Plan of Treatment Not on file documented as of this encounter Procedures Procedure Name Priority Date/Time Associated Diagnosis Comments BASIC METABOLIC PANEL Routine 04/06/2020 documented in this encounter Results * Basic metabolic panel (04/06/2020) Blood specimen (specimen) Historical Provider LAB BLOOD ORDERABLES Onelia l Result documented in this encounter Visit Diagnoses Not on filedocumented in this encounter Care Teams Customer Relations Coordinator Relationship Specialty Start Date End Date Danielle Rojas MD [address] [place] [address] PCP - General 08/21/16 documented as of this encounter
--- OUTSIDE RECORDS SUMMARY | 2024-05-25 06:51 | XMS_ITS | Encounter Summary ---
Author Organization [facility] Address [address] [facility] [place] [address] Care Team Providers Care Planer Off Bearer Name Role Phone Danielle Rojas MD Primary Care Provider Reason for Referral * Cardiology (Routine) - Closed Specialty Diagnoses / Procedures Referred By Contac t Referred To Contact Diagnoses CHB (complete heart block) (CMS/HCC) (HCC) Ischemic cardiomyopathy Procedures DEVICE CHECK - REMOTE Yuki Delgadillo MD Phone: tel: fax: [facility] Referral ID Status Reason Start Date Expiration Date Visits Re quested Visits Authorized [id number] Closed 10/14/2022 04/16/2024 1 1 * Cardiology (Routine) - Closed Specialty Diagnoses / Procedures Referred By Contac t Referred To Contact Diagnoses CHB (complete heart block) (CMS/HCC) (HCC) Ischemic cardiomyopathy Procedures DEVICE CHECK - REMOTE Yuki Delgadillo MD Phone: tel: fax: [facility] Referral ID Status Reason Start Date Expiration Date Visits Re quested Visits Authorized [id number] Closed 10/14/2022 04/16/2024 1 1 * Cardiology (Routine) - Closed Specialty Diagnoses / Procedures Referred By Contac t Referred To Contact Diagnoses CHB (complete heart block) (CMS/HCC) (HCC) Ischemic cardiomyopathy Procedures DEVICE CHECK - REMOTE Yuki Delgadillo MD Phone: tel: fax: [facility] Referral ID Status Reason Start Date Expiration Date Visits Re quested Visits Authorized [id number] Closed 10/14/2022 04/16/2024 1 1 Encounter Details Date Type Department Care Team (Late st Contact Info) Description 10/14/2022 Orders Only [facility] Cardiology [address] [place] [address] [place] [phone] Yuki Delgadillo MD [address] [address] CHB (complete heart block) (CMS/HCC) (HCC) (Primary Dx); Ischemic cardiomyopathy Social History Tobacco Use Types Packs/Day Years Used Date Smoking Tobacco: Never Smokeless Tobacco: Never Alcohol Use Standard Drinks/Week Comments No 0 (1 standard drink = 0.6 oz pur e alcohol) Sex and Gender Information Value Date Recorded Sex Assigned at Not on file 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 Dx; CHB. DOI 05/10/[address] Ventura. Carelink remote monitoring Q3 mo, office pacer checks Q1 yr. Routine DDDR Pacemaker Remote. Transmission attached. Battery status: 2.86 V, 5 months remaining battery life to SHARMAINE. Stable lead impedances, pacing and sensing thresholds. Presenting rhythm: AP/FIRE COORDINATOR AP- 97.3%, FIRE COORDINATOR- 100%. No AT/AF episodes noted. No Ventricular high rate episodes detected. Medications: ASA, carvedilol See scanned report. Office pacemaker follow up: pending generator change CareLink remote f/u 11/17/23. Aroldo Hilliard RN Yuki Delgadillo MD [facility] CARDIAC SERVICES PROCEDU RES Final Result * DEVICE CHECK - REMOTE (09/17/2023 9:21 AM CDT) Anatomical Region Laterality Modality Other Narrative 10/07/2023 11:54 AM CDT Medtronic Dual Pacemaker. Dx; CHB. DOI 05/10/[address] Ventura. Carelink remote monitoring Q3 mo, office pacer checks Q1 yr. DDDR Pacemaker Remote. Transmission attached. Battery status: 2.86 , 6 months remaining battery life to SHARMAINE. Stable lead impedances, pacing and sensing thresholds. Presenting rhythm: AP/FIRE COORDINATOR AP- 95.3%, FIRE COORDINATOR- 100% No AT/AF episodes noted. No Ventricular high rate episodes detected. Medications: ASA 81mg, carvedilol See scanned report. Office pacemaker follow up: Monitoring battery status for SHARMAINE CareLink remote f/u 10/20/23. Aroldo Hilliard RN Yuki Delgadillo MD CV CARDIAC SERVICES PROCEDU RES Final Result * DEVICE CHECK - REMOTE (08/19/2023 2:58 PM CDT) Anatomical Region Laterality Modality Other Narrative 08/20/2023 2:48 PM CDT Medtronic Dual Pacemaker. Dx; CHB. DOI 05/10/[address] Ventura. Carelink remote monitoring Q3 mo, office pacer checks Q1 yr. Routine DDD Pacemaker remote. Normal device function. Battery function-2.87V, 7 months remaining battery life to SHARMAINE. ? Stable lead measurements noted. Presenting rhythm-APVP. AP-95%,FIRE COORDINATOR-100%. No Mode switch episodes noted. No Ventricular high rate episodes noted. Medications; Coreg, Crestor, ASA. See scanned report. Carelink remote f/u 09/15/2023. ?? Eva K. Stefania, RN Yuki Delgadillo MD CV CARDIAC SERVICES PROCEDU RES Final Result documented in this encounter Visit Diagnoses Diagnosis CHB (complete heart block) (CMS/HCC) (HCC)- Primary Atrioventricular block, complete Ischemic cardiomyopathy Other specified forms of chronic ischemic heart disease Pacemaker [Z95.0]- Primary Cardiac pacemaker in situ CHB (complete heart block) (CMS/HCC) (HCC) Atrioventricular block, complete Ischemic cardiomyopathy Other specified forms of chronic ischemic heart disease Pacemaker- Primary Cardiac pacemaker in situ CHB (complete heart block) (CMS/HCC) (HCC) Atrioventricular block, complete Ischemic cardiomyopathy Other specified forms of chronic ischemic heart disease Pacemaker- Primary Cardiac pacemaker in situ CHB (complete heart block) (CMS/HCC) (HCC) Atrioventricular block, complete Ischemic cardiomyopathy Other specified forms of chronic ischemic heart disease documented in this encounter Care Teams Planer Off Bearer Relationship Specialty Start Date End Date Danielle Rojas MD [address] [facility] [address] [place] [address] PCP - General 08/21/16 documented as of this encounter
--- OUTSIDE RECORDS SUMMARY | 2024-05-25 06:51 | XMS_ITS | Encounter Summary ---
Author Organization [facility] Address [address] [facility] [address] [facility] [address] [place] [address] Care Team Providers Care Asp Net Mvc Developer Name Role Phone Danielle Rojas MD Primary Care Provider Reason for Referral * Cardiology (Routine) - Closed Specialty Diagnoses / Procedures Referred By Contac t Referred To Contact Diagnoses CHB (complete heart block) (CMS/HCC) (HCC) Pacemaker Procedures DEVICE CHECK - REMOTE Yuki Delgadillo MD Phone: tel: fax: [facility] Medical [facility] Referral ID Status Reason Start Date Expiration Date Visits Re quested Visits Authorized [id number] Closed 03/12/2021 04/11/2022 1 1 * Cardiology (Routine) - Closed Specialty Diagnoses / Procedures Referred By Contac t Referred To Contact Diagnoses CHB (complete heart block) (CMS/HCC) (HCC) Pacemaker Procedures DEVICE CHECK - REMOTE Yuki Delgadillo MD Phone: tel: fax: [facility] Referral ID Status Reason Start Date Expiration Date Visits Re quested Visits Authorized [id number] Closed 03/12/2021 04/11/2022 1 1 * Cardiology (Routine) - Closed Specialty Diagnoses / Procedures Referred By Contac t Referred To Contact Diagnoses CHB (complete heart block) (CMS/HCC) (HCC) Pacemaker Procedures DEVICE CHECK - REMOTE Yuki Delgadillo MD Phone: tel: fax: [facility] Referral ID Status Reason Start Date Expiration Date Visits Re quested Visits Authorized [id number] Closed 03/12/2021 04/11/2022 1 1 Encounter Details Date Type Department Care Team (Late st Contact Info) Description 03/12/2021 Orders Only [facility] Cardiology [address] [facility] [address] [place] [phone] Yuki Delgadillo MD [address] [address] CHB (complete heart block) (CMS/HCC) (HCC) (Primary Dx); Pacemaker Social History Tobacco Use Types Packs/Day Years Used Date Smoking Tobacco: Never Smokeless Tobacco: Never Alcohol Use Standard Drinks/Week Comments No 0 (1 standard drink = 0.6 oz pur e alcohol) Sex and Gender Information Value Date Recorded Sex Assigned at Not on file 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 Dx; CHB. DOI 05/10/[address] Ventura. Carelink remote monitoring Q3 mo, office pacer checks Q1 yr. Routine pacemaker remote. Normal device function. Battery function-2.93V, 2.0 years remaining battery life to SHARMAINE. ? Stable lead measurements. Presenting rhythm-APVP. AP-96%,BRASS BOBBIN WINDER-100%. No Mode switch episodes noted. No Ventricular high rate episodes noted. Medications; Coreg, Crestor, ASA. See scanned report. Office pacemaker f/u scheduled 03/25/2022. Result [facility] Yuki Delgadillo MD CV CARDIAC SERVICES PROCEDU RES Final Result * DEVICE CHECK - REMOTE (09/12/2021 10:59 AM CDT) Anatomical Region Laterality Modality Other Narrative 10/28/2021 7:28 PM CDT Medtronic Dual Pacemaker. Dx; CHB. DOI 05/10/[address] Ventura. Carelink remote monitoring Q3 mo, office pacer checks Q1 yr. ?? Routine pacemaker remote. Normal device function. Battery function-2.94V, 2.0 years remaining battery life to SHARMAINE. ? Stable lead measurements. ?? Presenting rhythm-APVP. AP-90%,BRASS BOBBIN WINDER-100%. ?? No Mode switch episodes noted. No Ventricular high rate episodes noted. ?? Medications; Coreg, Crestor, ASA. See scanned report. ?? Carelink remote f/u scheduled 12/17/2021. Result [facility] Yuki Delgadillo MD CV CARDIAC SERVICES PROCEDU RES Final Result * DEVICE CHECK - REMOTE (06/11/2021 2:12 PM OLEOMARGARINE MAKER) Anatomical Region Laterality Modality Other Narrative 07/25/2021 5:48 PM OLEOMARGARINE MAKER Medtronic Dual Pacemaker. Dx; CHB. DOI 05/10/[address] Ventura. Carelink remote monitoring Q3 mo, office pacer checks Q1 yr. ?? Routine pacemaker remote. Normal device function. Appropriate battery function-2.95V, 2.0 years remaining battery life to SHARMAINE. ? Stable lead measurements. ?? Presenting rhythm-APVP. AP-85%,BRASS BOBBIN WINDER-100%. ?? No Mode switch episodes noted. No Ventricular high rate episodes noted. ?? Medications; Coreg, Crestor, Hydrochlorothiazide, ASA. See scanned report. ?? Office device f/u scheduled 09/10/2021. Result [facility] Yuki Delgadillo MD CV CARDIAC SERVICES PROCEDU RES Final Result documented in this encounter Visit Diagnoses Diagnosis CHB (complete heart block) (CMS/HCC) (HCC)- Primary Atrioventricular block, complete Pacemaker Cardiac pacemaker in situ CHB (complete heart block) (CMS/HCC) (HCC) Atrioventricular block, complete Pacemaker Cardiac pacemaker in situ CHB (complete heart block) (CMS/HCC) (HCC) Atrioventricular block, complete Pacemaker Cardiac pacemaker in situ CHB (complete heart block) (CMS/HCC) (HCC) Atrioventricular block, complete Pacemaker Cardiac pacemaker in situ documented in this encounter Care Teams Asp Net Mvc Developer Relationship Specialty Start Date End Date Danielle Rojas MD [address] [facility] [address] [place] [address] PCP - General 08/21/16 documented as of this encounter
--- OUTSIDE RECORDS SUMMARY | 2024-05-25 06:51 | XMS_ITS | Encounter Summary ---
Author Organization [facility] Medical [facility] Address [address] [facility] [place] [address] Care Team Providers Care Mannequin Sander And Finisher Name Role Phone Danielle Rojas MD Primary Care Provider Reason for Visit * (Routine) - Closed Specialty Diagnoses / Procedures Referred By Contac t Referred To Contact Diagnoses CHB (complete heart block) (CMS/HCC) (HCC) Pacemaker Procedures DEVICE CHECK - REMOTE Yuki Delgadillo MD Phone: tel: fax: [facility] Medical [facility] Referral ID Status Reason Start Date Expiration Date Visits Re quested Visits Authorized [id number] Closed 02/21/2020 03/22/2021 1 1 Encounter Details Date Type Department Care Team (Latest Contact Info) Description 12/04/2020 7:15 AM CDT Ancillary Procedure 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 Dx; CHB. DOI 05/10/[address] Ventura. Carelink remote monitoring Q3 mo, office pacer checks Q1 yr. Routine pacemaker remote. Normal device function. Appropriate battery function-2.96V, 3.0 years remaining battery life to SHARMAINE. ? Stable lead measurements. Presenting rhythm-APVP. AP-79%,BILLING REP-96%. No Mode switch episodes noted. No Ventricular high rate episodes noted. Medications; Coreg, Crestor, Hydrochlorothiazide, ASA, Lisinopril. See scanned report. Office device f/u scheduled 03/12/2021. Yuki Delgadillo MD CV CARDIAC SERVICES PROCEDU RES Final Result documented in this encounter Visit Diagnoses Diagnosis CHB (complete heart block) (CMS/HCC) (HCC) Atrioventricular block, complete Pacemaker Cardiac pacemaker in situ documented in this encounter Care Teams Mannequin Sander And Finisher Relationship Specialty Start Date End Date Danielle Rojas MD [address] [facility] [address] [place] [address] PCP - General 08/21/16 documented as of this encounter
--- OUTSIDE RECORDS SUMMARY | 2024-05-25 06:51 | XMS_ITS | Encounter Summary ---
Author Organization [facility] Address [address] [facility] [address] [place] [address] Care Team Providers Care Technical Testing Engineer Name Role Phone Danielle Rojas MD Primary Care Provider Reason for Visit * Cardiology (Routine) - Closed Specialty Diagnoses / Procedures Referred By Contac t Referred To Contact Diagnoses CHB (complete heart block) (CMS/HCC) (HCC) Procedures DEVICE CHECK - IN OFFICE Yuki Delgadillo MD Phone: tel: fax: [facility] Referral ID Status Reason Start Date Expiration Date Visits Re quested Visits Authorized [id number] Closed 07/01/2018 01/10/2020 1 1 Encounter Details Date Type Department Care Team (Latest Contact Info) Description 02/21/2020 10:30 AM CDT Ancillary Procedure [facility] Medical [facility] Cardiology [address] [facility] [address] [place] [id number] CHB (complete heart block) (CMS/HCC); Pacemaker Social History Tobacco Use Types Packs/Day Years Used Date Smoking Tobacco: Never Smokeless Tobacco: Never Alcohol Use Standard Drinks/Week Comments No 0 (1 standard drink = 0.6 oz pur e alcohol) Sex and Gender Information Value Date Recorded Sex Assigned at Not on file 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 Dx; CHB. DOI 05/10/[address] Ventura. Carelink remote monitoring. Office pacemaker evaluation demonstrated normal device function. Battery function-2.98V, 3.5 years estimated remaining longevity. Presenting rhythm-APVP. Underlying rhythm-SR with 1st Degree AVB, NV 240ms. AP-86%, OBJECTS CONSERVATOR-100%. No atrial or ventricular episodes recorded. AV delays extended to 300ms to allow intrinsic conduction. See scanned report. Carelink remote f/u 05/29/2020. documented in this encounter Plan of Treatment Not on file documented as of this encounter Procedures Procedure Name Priority Date/Time Associated Diagnosis Comments DEVICE CHECK - IN OFFICE Routine 02/21/2020 10:02 AM CDT CHB (complete heart block) (CMS/HCC) documented in this encounter Results * DEVICE CHECK - IN OFFICE (02/21/2020 10:02 AM CDT) Anatomical Region Laterality Modality Other Narrative 02/25/2020 1:44 PM CDT Medtronic Dual Pacemaker. Dx; CHB. DOI 05/10/[address] Ventura. Carelink remote monitoring. ? Office pacemaker evaluation demonstrated normal device function. Battery function-2.98V, 3.5 years estimated remaining longevity. Presenting rhythm-APVP. Underlying rhythm-SR with 1st Degree AVB, NV 240ms. AP-86%, OBJECTS CONSERVATOR-100%. No atrial or ventricular episodes recorded. ?? AV delays extended to 300ms to allow intrinsic conduction. See scanned report. Carelink remote f/u 05/29/2020. ?? us Yuki Delgadillo MD CV CARDIAC SERVICES PROCEDU RES Final Result documented in this encounter Visit Diagnoses Diagnosis CHB (complete heart block) (CMS/HCC) (HCC) Atrioventricular block, complete Pacemaker Cardiac pacemaker in situ documented in this encounter Care Teams Technical Testing Engineer Relationship Specialty Start Date End Date Daneille Rojas MD [address] [facility] [address] [place] [address] PCP - General 08/21/16 documented as of this encounter
--- OUTSIDE RECORDS SUMMARY | 2024-05-25 06:51 | XMS_ITS | Encounter Summary ---
Author Organization [facility] Healthcare Address [address] [place] [address] Care Team Providers Care Data Analytics Chief Scientist Name Role Phone Danielle Rojas MD Primary Care Provider Reason for Visit * Cardiology (Routine) - Closed Specialty Diagnoses / Procedures Referred By Contac t Referred To Contact Diagnoses CHB (complete heart block) (CMS/HCC) (HCC) Ischemic cardiomyopathy Procedures DEVICE CHECK - REMOTE Yuki Delgadillo MD Phone: tel: fax: [facility] Medical Group Referral ID Status Reason Start Date Expiration Date Visits Re quested Visits Authorized [id number] Closed 10/14/2022 04/16/2024 1 1 Encounter Details Date Type Department Care Team (Latest Contact Info) Description 08/19/2023 7:00 AM CDT Ancillary Procedure 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 Dx; CHB. DOI 05/10/[address] Ventura. Carelink remote monitoring Q3 mo, office pacer checks Q1 yr. Routine DDD Pacemaker remote. Normal device function. Battery function-2.87V, 7 months remaining battery life to SHARMAINE. ? Stable lead measurements noted. Presenting rhythm-APVP. AP-95%,PUBLICATION MANAGER-100%. No Mode switch episodes noted. No Ventricular high rate episodes noted. Medications; Coreg, Crestor, ASA. See scanned report. Carelink remote f/u 09/15/2023. ?? Eva Aguiar, RN us Yuki Delgadillo MD CV CARDIAC SERVICES PROCEDU RES Final Result documented in this encounter Visit Diagnoses Diagnosis Pacemaker [Z95.0]- Primary Cardiac pacemaker in situ CHB (complete heart block) (CMS/HCC) (HCC) Atrioventricular block, complete Ischemic cardiomyopathy Other specified forms of chronic ischemic heart disease documented in this encounter Care Teams Data Analytics Chief Scientist Relationship Specialty Start Date End Date Danielle Rojas MD [address] [place] [address] PCP - General 08/21/16 documented as of this encounter
--- OUTSIDE RECORDS SUMMARY | 2024-05-25 06:51 | XMS_ITS | Encounter Summary ---
Author Organization [facility] Address [address] [place] [address] Care Team Providers Care Blow Down Operator Name Role Phone Danielle Rojas MD Primary Care Provider Encounter Details Date Type Department Care Team (Late st Contact Info) Description 11/01/2019 Telephone [facility] Cardiology [address] [place] [address] Yuki Delgadillo MD [address] [place] [address] Social History Tobacco Use Types Packs/Day Years Used Date Smoking Tobacco: Never Smokeless Tobacco: Never Alcohol Use Standard Drinks/Week Comments No 0 (1 standard drink = 0.6 oz pur e alcohol) Sex and Gender Information Value Date Recorded Sex Assigned at Not on file 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 Mattie this patient was scheduled for office check on 11/01/2019. He wanted to send a remote insteadof office visit. Remote scheduled 11/01/19, his remote monitor did not work, company mailed him a new monitor. He received his new monitor and sent in remote. Chetna reschedule his remote. Patient will need an Pacemaker office f/u for late January or February. * Telephone Encounter - Brayden Goodman MA - 11/09/2019 9:13 AM CDT Will fwd to Eva * Telephone Encounter - Marian Martel - 11/09/2019 9:05 AM CDT Pt has received his carelink remote monitor and has sent in a report * Telephone Encounter - Eva Aguiar RN - 11/02/2019 12:07 PM CDT LM re; after they receive their new carelink remote monitor request they set up the machine and send in a report. * Telephone Encounter - Eva Aguiar RN - 11/01/2019 2:51 PM CDT Noted, thank you * Telephone Encounter - Amarilys Small RN - 11/01/2019 1:40 PM CDT Will forward to Eva MOSLEY to make aware * Telephone Encounter - Natividad Long - 11/01/2019 1:33 PM CDT Pt's spouse called to inform Eva, pt will receive a new device and it will take a week before pt will receive it. documented in this encounter Plan of Treatment Not on file documented as of this encounter Visit Diagnoses Not on filedocumented in this encounter Care Teams Blow Down Operator Relationship Specialty Start Date End Date Danielle Rojas MD [address] [facility] [address] [place] [address] PCP - General 08/21/16 documented as of this encounter
--- OUTSIDE RECORDS SUMMARY | 2024-05-25 06:51 | XMS_ITS | Encounter Summary ---
Author Organization [facility] Address [address] [place] [address] Care Team Providers Care Mobility Developer Name Role Phone Danielle Rojas MD Primary Care Provider Encounter Details Date Type Department Care Team (Late st Contact Info) Description 10/25/2019 Telephone [facility] Cardiology [address] [place] [address] Eva Kwan Social History Tobacco Use Types Packs/Day Years Used Date Smoking Tobacco: Never Smokeless Tobacco: Never Alcohol Use Standard Drinks/Week Comments No 0 (1 standard drink = 0.6 oz pur e alcohol) Sex and Gender Information Value Date Recorded Sex Assigned at Not on file 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 Request patient call back to reschedule his office pacemaker check on 10/31 to January or February 2020. * Telephone Encounter - Alba Ignacio RN - 10/25/2019 10:50 AM CDT See message below. Can you please respond to his my chart message to let him know how you would like to handle to OV? I was unsure if you needed to see him or if it could be done over the phone. thanks * Telephone Encounter - Alba Ignacio RN - 10/25/2019 10:50 AM CDT ----- Message from Dayron Howell sent at 10/25/2019 9:13 AM CDT ----- Regarding: Non-Urgent Medical Question Contact: Do you want Dayron to come into the office still with the social distancing in place or can we do this over the phone. documented in this encounter Plan of Treatment Not on file documented as of this encounter Visit Diagnoses Not on filedocumented in this encounter Care Teams Mobility Developer Relationship Specialty Start Date End Date Danielle Rojas MD [address] [place] [id number] PCP - General 08/21/16 documented as of this encounter
--- OUTSIDE RECORDS SUMMARY | 2024-05-25 06:51 | XMS_ITS | Encounter Summary ---
Author Organization [facility] Address [address] [place] [address] Care Team Providers Care Marketing Lead Name Role Phone Danielle Rojas MD Primary Care Provider Reason for Referral * Cardiology (Routine) - Authorized Specialty Diagnoses / Procedures [facility] Referred To Contact Cardiology Diagnoses CHB (complete heart block) (CMS/HCC) (HCC) Pacemaker Procedures DEVICE CHECK - IN OFFICE Yuki Delgadillo MD Phone: tel: fax: [facility] Referral ID Status Reason Start Date Expiration Date V isits Requested Visits Authorized [id number] Authorized 05/12/2023 06/10/2024 1 1 T DESK 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 * Cardiology (Routine) - Authorized Specialty Diagnoses / Procedures [facility] Referred To Contact Cardiology Diagnoses CHB (complete heart block) (CMS/HCC) (HCC) Pacemaker Procedures DEVICE CHECK - IN OFFICE Yuki Delgadillo MD Phone: tel: fax: [facility] Referral ID Status Reason Start Date Expiration Date V isits Requested Visits Authorized [id number] Authorized 05/12/2023 06/10/2024 1 1 T DESK 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 * Cardiology (Routine) - Authorized Specialty Diagnoses / Procedures [facility] Referred To Contact Cardiology Diagnoses CHB (complete heart block) (CMS/HCC) (HCC) Pacemaker Procedures DEVICE CHECK - IN OFFICE Yuki Delgadillo MD Phone: tel: fax: [facility] Referral ID Status Reason Start Date Expiration Date V isits Requested Visits Authorized [id number] Authorized 05/12/2023 06/10/2024 1 1 T DESK 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 Encounter Details Date Type Department Care Team (Late st Contact Info) Description 05/12/2023 Orders Only [facility] Cardiology [address] [address] Yuki Delgadillo MD [address] [address] CHB (complete heart block) (CMS/HCC) (HCC) (Primary Dx); Pacemaker Social History Tobacco Use Types Packs/Day Years Used Date Smoking Tobacco: Never Smokeless Tobacco: Never Alcohol Use Standard Drinks/Week Comments No 0 (1 standard drink = 0.6 oz pur e alcohol) Sex and Gender Information Value Date Recorded Sex Assigned at Not on file Legal Sex Male 9:22 AM 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 Gender Identity Not on file Sexual Orientation Not on file documented as of this encounter Plan of Treatment Scheduled Orders Name Type Priority Associated Diagnoses Orde r Schedule DEVICE CHECK - IN OFFICE Cardiac Services Routine CHB (complete heart block) (CMS/HCC) (HCC) Pacemaker Expected: 05/12/2023, Expires: 07/18/2030 DEVICE CHECK - IN OFFICE Cardiac Services Routine CHB (complete heart block) (CMS/HCC) (HCC) Pacemaker Expected: 05/12/2023, Expires: 07/18/2030 DEVICE CHECK - IN OFFICE Cardiac Services Routine CHB (complete heart block) (CMS/HCC) (HCC) Pacemaker Expected: 05/12/2023, Expires: 07/18/2030 documented as of this encounter Visit Diagnoses Diagnosis CHB (complete heart block) (CMS/HCC) (HCC)- Primary Atrioventricular block, complete Pacemaker Cardiac pacemaker in situ documented in this encounter Care Teams Marketing Lead Relationship Specialty Start Date End Date Danielle Rojas MD [address] [facility] [address] [place] [phone] PCP - General 08/21/16 documented as of this encounter
--- OUTSIDE RECORDS SUMMARY | 2024-05-25 06:51 | XMS_ITS | Encounter Summary ---
Author Organization [facility] Address [address] [place] [address] Care Team Providers Care Crab Catcher Name Role Phone Danielle Rojas MD Primary Care Provider Reason for Visit * Cardiology (Routine) - Closed Specialty Diagnoses / Procedures Referred By Contac t Referred To Contact Diagnoses CHB (complete heart block) (CMS/HCC) (HCC) Pacemaker Procedures DEVICE CHECK - REMOTE Yuki Delgadillo MD Phone: tel: fax: [facility] Referral ID Status Reason Start Date Expiration Date Visits Re quested Visits Authorized [id number] Closed 03/12/2021 04/11/2022 1 1 Encounter Details Date Type Department Care Team (Latest Contact Info) Description 09/12/2021 7:15 AM CDT Ancillary Procedure [facility] Medical [facility] Cardiology [facility] [facility] [address] [place] [phone] CHB (complete heart block) (CMS/HCC) (HCC); Pacemaker Social History Tobacco Use Types Packs/Day Years Used Date Smoking Tobacco: Never Smokeless Tobacco: Never Alcohol Use Standard Drinks/Week Comments No 0 (1 standard drink = 0.6 oz pur e alcohol) Sex and Gender Information Value Date Recorded Sex Assigned at Not on file 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 Dx; CHB. DOI 05/10/[address] Ventura. Carelink remote monitoring Q3 mo, office pacer checks Q1 yr. ?? Routine pacemaker remote. Normal device function. Battery function-2.94V, 2.0 years remaining battery life to [employer]AR[employer]. ? Stable lead measurements. ?? Presenting rhythm-APVP. AP-90%,ACCESS LIAISON-100%. ?? No Mode switch episodes noted. No Ventricular high rate episodes noted. ?? Medications; Coreg, Crestor, ASA. See scanned report. ?? Carelink remote f/u scheduled 12/17/2021. us Yuki Delgadillo MD CV CARDIAC SERVICES PROCEDU RES Final Result documented in this encounter Visit Diagnoses Diagnosis CHB (complete heart block) (CMS/HCC) (HCC) Atrioventricular block, complete Pacemaker Cardiac pacemaker in situ documented in this encounter Care Teams Crab Catcher Relationship Specialty Start Date End Date Danielle Rojas MD [address] [facility] [address] [place] [address] PCP - General 08/21/16 documented as of this encounter
--- OUTSIDE RECORDS SUMMARY | 2024-05-25 06:51 | XMS_ITS | Encounter Summary ---
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 coronary artery bypass surgery Chronic ischemic heart disease Pacemaker Procedures Transthoracic Echo Complete W Doppler/CF Cathryn Burns MD Phone: tel: fax: [facility] Referral ID Status Reason Start Date Expiration Date Visits Re quested Visits Authorized [id number] Closed 07/30/2021 08/29/2022 1 1 Encounter Details Date Type Department Care Team (Latest Contact Info) Description 08/29/2021 10:15 AM CDT Ancillary Procedure [facility] Medical [facility] Cardiology [address] [place] [address] 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; History of coronary artery bypass surgery; Chronic ischemic heart disease; Pacemaker Social History Tobacco Use Types Packs/Day Years Used Date Smoking Tobacco: Never Smokeless Tobacco: Never Alcohol Use Standard Drinks/Week Comments No 0 (1 standard drink = 0.6 oz pur e alcohol) Sex and Gender Information Value Date Recorded Sex Assigned at Not on file 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 Gender Identity Not on file Sexual Orientation Not on file documented as of this encounter Plan of Treatment Not on file documented as of this encounter Procedures Procedure Name Priority Date/Time Associated Diagnosis Comments TRANSTHORACIC ECHO (TTE) COMPLETE W DOPPLER/CF W CONTRAST Routine 08/29/2021 10:42 AM CDT 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 History of coronary artery bypass surgery Chronic ischemic heart disease Pacemaker documented in this encounter Results * TRANSTHORACIC ECHO (TTE) COMPLETE W DOPPLER/CF W CONTRAST (08/29/2021 10:42 AM CDT) Anatomical Region Laterality Modality Ultrasound 08/29/2021 9:44 AM CDT Narrative 08/29/2021 1:55 PM CDT [facility] Cardiology [address] [facility] [address], [place] [address] [address] [facility] [address], [place] [address] P:[phone] P:[phone] Echocardiographic Report Patient Name: DAYRON PORTILLO : 1950 Study Date: 08/29/2021 9:44:44 AM Gender: M Tech: Location: [place] Ref.Provider: CAHTRYN BURNS Height(Cm): 178 BSA: 2.13 Weight(Kg): 95.28 Heart Rate: 67 BP: 118/63 Quality: Definity contrast agent used to enhance endocardial border definition Order Provider: CATHRYN BURNS Procedures: Echocardiographic Report: Transthoracic echocardiogram with complete 2D, M-Mode, color Doppler examination and Definity contrast. Indications: Coronary Arteriosclerosis, Ischmic Heart Disease, CABG, and Pacemaker. Measurements: 2D/M Mode ?Doppler ? Measurement ?Value ?Normal Range ? Measurement ?Value ?Normal Range ? EF Mod ? 54 ?AV Mean PG ? 3 ?mmHg ? EF MM ?47 ? [ 55 - 70 ] % ?AV Peak Víctor ?1.22 ? m/s ? LVIDd MM ? 5.25 ? [ 3.90 - 5.30 ] cm ? AV Peak PG ? 6 ?mmHg ? LVIDs MM ? 4.00 ? [ 2.30 - 3.90 ] cm ? AV VTI ? 0.28 ? cm ? LVPWd MM ? 0.92 ? [ 0.60 - 1.00 ] cm ? LVOT Peak Víctor ?0.78 ? [ 0.70 - 1.10 ] m/s ? IVSd MM ?1.08 ? [ 0.60 - 0.90 ] cm ? LVOT VTI ? 0.18 ? cm ? LA Dimension MM ?5.67 ? [ 2.70 - 3.80 ] cm ? MV E Peak Víctor ?0.74 ? [ 0.60 - 1.30 ] m/s ? AoR Diam MM ?3.50 ? [ 2.60 - 3.70 ] cm ? MV A Peak Víctor ?0.97 ? [ 0.40 - 0.80 ] m/s ? LA Volume Index ?32.00 ?[ 16.00 - 28.00 ] cc/m2 ?MV Decel Time ?342 ?[ 150 - 200 ] msec ? ACS MM ? 2.08 ? cm ? PV Peak Víctor ?1.16 ? [ 0.40 - 0.80 ] m/s ? TR Peak Víctor ?2.54 ? [ 0.40 - 0.80 ] m/s ? TR Peak PG ? 26 ? mmHg ? RVSP ? 34.00 ?mmHg ? E' ? 0.07 ? E/E' ? 10 ? Findings: Interpretation Site: Exam was interpreted at [facility]. Left Ventricle: Definity contrast agent used to visually enhance endocardial wall motion and contractility. Lot Number: [id number]. Mild concentric left ventricular hypertrophy. Left ventricular systolic function at the lower limit of normal. Paradoxical septal motion consistent with RV pacemaker. Impaired diastolic relaxation Grade I. Ejection fraction is visually estimated at 50-55 %. Ejection fraction is measured at 54 %. These segments of the LV are hypokinetic: apical segment. Right Ventricle: Normal right ventricular size. Normal right ventricular systolic function. Linear artifact in right ventricle suggestive of catheter(s), pacemaker lead(s), or ICD lead(s). Left Atrium: There is mild enlargement of left atrium. Right Atrium: The right atrium is normal in size. Atrial Septum: Normal atrial septum. Mitral Valve: Normal appearance of the mitral valve. Mild mitral valve regurgitation. There is no hemodynamically significant mitral stenosis by Doppler. Aortic Valve: No evidence of hemodynamically significant aortic stenosis by Doppler. Aortic cusps appear mildly sclerotic. Trileaflet aortic valve. Trace aortic valve regurgitation. Tricuspid Valve: Normal appearance of the tricuspid valve. Normal right ventricular systolic pressure. Estimated peak RVSP is 34 mmHg. Mild tricuspid regurgitation. Pulmonic Valve: Normal appearance of the pulmonic valve. No pulmonic stenosis. Trivial regurgitation in the pulmonic valve. Pericardium: Normal pericardium with no significant pericardial effusion. Aorta: No aortic root dilation. Mild aortic root calcification. IVC: Normal size and normal respiratory collapse consistent with normal right atrial pressure (<5 mmHg). Conclusions: Definity contrast agent used to visually enhance endocardial wall motion and contractility. Lot Number: [id number]. Mild concentric left ventricular hypertrophy. Left ventricular systolic function at the lower limit of normal. Paradoxical septal motion consistent with RV pacemaker. Impaired diastolic relaxation Grade I. Ejection fraction is visually estimated at 50-55 %. Ejection fraction is measured at 54 %. These segments of the LV are hypokinetic: apical segment. There is mild enlargement of left atrium. Mild mitral valve regurgitation. Mild tricuspid regurgitation. Normal sinus rhythm. Electronically Signed By: Kaushal Rangel MD 2021-08-29 13:55:16 CDT Procedure Note Kaushal Rangel MD - 08/29/2021 [facility] Cardiology [address] [facility] [address], [place] [address] [address] [facility] [address], [place] [address] P:[phone] P:[phone] Echocardiographic Report Patient Name: DAYRON PORTILLOPatient ID: [id number] : [id number] Date: 08/29/2021 9:44:44 AM Gender: MAccession #: [id number] Tech: GMLocation: [place] Ref.Provider: CATHRYN BURNSHeight(Cm): 178 BSA: 2.13Weight(Kg): 95.28 Heart Rate: 67BP: 118/63 Quality: Definity contrast agent used to enhance endocardial borderdefinitionOrder Provider: CATHRYN BURNS Procedures: Echocardiographic Report: Transthoracic echocardiogram with complete 2D, M-Mode, color Dopplerexamination and Definity contrast. Indications: Coronary Arteriosclerosis, Ischmic Heart Disease, CABG, and Pacemaker. Measurements: 2D/M Mode Doppler Measurement Value Normal Range MeasurementValue Normal Range EF Mod 54 AV Mean PG 3mmHg EF MM 47 [ 55 - 70 ] % AV Peak Vel1.22 m/s LVIDd MM 5.25 [ 3.90 - 5.30 ] cm AV Peak PG 6mmHg LVIDs MM 4.00 [ 2.30 - 3.90 ] cm AV VTI0.28 cm LVPWd MM 0.92 [ 0.60 - 1.00 ] cm LVOT Peak Vel0.78 [ 0.70 - 1.10 ] m/s IVSd MM 1.08 [ 0.60 - 0.90 ] cm LVOT VTI0.18 cm LA Dimension MM 5.67 [ 2.70 - 3.80 ] cm MV E Peak Vel0.74 [ 0.60 - 1.30 ] m/s AoR Diam MM 3.50 [ 2.60 - 3.70 ] cm MV A Peak Vel0.97 [ 0.40 - 0.80 ] m/s LA Volume Index 32.00 [ 16.00 - 28.00 ] cc/m2 MV Decel [id number] [ 150 - 200 ] msec ACS MM 2.08 cm PV Peak Vel1.16 [ 0.40 - 0.80 ] m/s TR Peak Vel2.54 [ 0.40 - 0.80 ] m/s TR Peak PG 26mmHg RVSP34.00 mmHg E'0.07 E/E' 10 Findings: Interpretation Site: Exam was interpreted at [facility]. Left Ventricle: Definity contrast agent used to visually enhance endocardial wall motionand contractility. Lot Number: [id number]. Mild concentric left ventricularhypertrophy. Left ventricular systolic function at the lower limit of normal. Paradoxicalseptal motion consistent with RV pacemaker. Impaired diastolic relaxation Grade I.Ejection fraction is visually estimated at 50-55 %. Ejection fraction is measured at 54 %.These segments of the LV are hypokinetic: apical segment. Right Ventricle: Normal right ventricular size. Normal right ventricular systolic function.Linear artifact in right ventricle suggestive of catheter(s), pacemaker lead(s),or ICD lead(s). Left Atrium: There is mild enlargement of left atrium. Right Atrium: The right atrium is normal in size. Atrial Septum: Normal atrial septum. Mitral Valve: Normal appearance of the mitral valve. Mild mitral valve regurgitation.There is no hemodynamically significant mitral stenosis by Doppler. Aortic Valve: No evidence of hemodynamically significant aortic stenosis by Doppler.Aortic cusps appear mildly sclerotic. Trileaflet aortic valve. Trace aortic valveregurgitation. Tricuspid Valve: Normal appearance of the tricuspid valve. Normal right ventricularsystolic pressure. Estimated peak RVSP is 34 mmHg. Mild tricuspid regurgitation. Pulmonic Valve: Normal appearance of the pulmonic valve. No pulmonic stenosis. Trivialregurgitation in the pulmonic valve. Pericardium: Normal pericardium with no significant pericardial effusion. Aorta: No aortic root dilation. Mild aortic root calcification. IVC: Normal size and normal respiratory collapse consistent with normal rightatrial pressure (<5 mmHg). Conclusions: Definity contrast agent used to visually enhance endocardial wall motionand contractility. Lot Number: [id number]. Mild concentric left ventricularhypertrophy. Left ventricular systolic function at the lower limit of normal. Paradoxicalseptal motion consistent with RV pacemaker. Impaired diastolic relaxation Grade I.Ejection fraction is visually estimated at 50-55 %. Ejection fraction is measured at 54 %.These segments of the LV are hypokinetic: apical segment. There is mild enlargement of left atrium. Mild mitral valve regurgitation. Mild tricuspid regurgitation. Normal sinus rhythm. 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 History of coronary artery bypass surgery Postsurgical aortocoronary bypass status Chronic ischemic heart disease Unspecified chronic ischemic heart disease Pacemaker Cardiac pacemaker in situ documented in this encounter Administered Medications Inactive Administered Medications - up to 3 most recent administrations Medication Order MAR Action Action Date Dose Rate Site perflutren lipid (DEFINITY) 1.5 mL in sodium chloride 0.9% 10 mL syringe 1-10 mL, intravenous, Once in imaging, contrast, Starting on Wed08/29/21 at 1020, For 1 dose Contrast Given 08/29/2021 10:55 AM CDT 1 mL documented in this encounter Orders Medications Ordered That Shukri ht Not Have Been Administered Count Last Ordered Date First Ordered Date perflutren lipid (DEFINITY) 1.5 mL in sodium chloride 0.9% 10 mL syringe 1 08/29/2021 documented in this encounter Care Teams Research Clerk Relationship Specialty Start Date End Date Danielle Rojas MD [address] [facility] [address] [place] [address] PCP - General 08/21/16 documented as of this encounter
--- OUTSIDE RECORDS SUMMARY | 2024-05-25 06:51 | XMS_ITS | Encounter Summary ---
Author Organization [facility] Address [address] [place] [address] Care Team Providers Care Business Services Sales Agent Name Role Phone Danielle Rojas MD Primary Care Provider Reason for Visit * Reason Comments Annual Exam * Cardiology (Routine) - Closed Specialty Diagnoses / Procedures Referred By Contac t Referred To Contact Cardiology Diagnoses Chronic ischemic heart disease, unspecified Danielle Rojas MD [address] [place] [address] [address] Phone: tel: fax: [facility] Medical [facility] Cardiology [address] [place] [address] [address] [place] [address] Phone: tel: fax: Referral ID Status Reason Start Date Expiration Date V isits Requested Visits Authorized [id number] Closed Specialty Services Required 08/12/2022 09/12/2023 4 4 Encounter Details Date Type Department Care Team (Latest Contact Info) Description 08/12/2022 9:45 AM CDT Office Visit [facility] Medical [facility] Cardiology [address] [facility] [address] [place] [address] Yuki Delgadillo MD [address] [facility] [address] [place] [address] Lipid screening (Primary Dx); Coronary arteriosclerosis in [place] artery; History of coronary artery bypass surgery; Chronic ischemic heart disease; Pacemaker; Complete atrioventricular block (CMS/HCC) (HCC); Hyperlipidemia associated with type 2 diabetes mellitus (HCC); Chronic ischemic heart disease, unspecified Social History Tobacco Use Types Packs/Day Years Used Date Smoking Tobacco: Never Smokeless Tobacco: Never Alcohol Use Standard Drinks/Week Comments No 0 (1 standard drink = 0.6 oz pur e alcohol) Sex and Gender Information Value Date Recorded Sex Assigned at Not on file 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 Gender Identity Not on file Sexual Orientation Not on file documented as of this encounter Last Filed Vital Signs Vital Sign Reading Time Taken Comments Blood Pressure 110/60 08/12/2022 9:42 AM CDT Pulse 63 08/12/2022 9:42 AM CDT Temperature - - Respiratory Rate - - Oxygen Saturation 96% 08/12/2022 9:42 AM CDT Inhaled Oxygen Concentration - - Weight 103.9 kg (229 lb) 08/12/2022 9:42 AM CDT Height 177.8 cm (5' 10 ) 08/12/2022 9:42 AM CDT Body Mass Index 32.86 08/12/2022 9:42 AM CDT documented in this encounter Patient Instructions * Patient Instructions* Yuki Delgadillo MD - 08/12/2022 9:45 AM CDT Today: Total cholesterol 137, HDL chol 60, triglycerides 133, LDL chol 51, glucose 153. All good! documented in this encounter Ordered Prescriptions Prescription Sig Dispense Quantity Refills Last Filled Start Date End Date rosuvastatin (CRESTOR) 40 mg tablet Take 1 tablet (40 mg total) by mouth daily 90 tablet 3 08/12/2022 documented in this encounter Progress Notes * Yuki Delgadillo MD - 08/12/2022 9:45 AM CDT [facility] DATE OF VISIT: 08/12/2022 DATE: 1950 CHIEF COMPLAINT Chief Complaint Patient presents with Annual Exam Follow-up for CAD, pacemaker HPI Dayron Howell is a 71 y.o. male with a history of ACS into November 2010. He underwent a [address] Ho His EF runs around 40-45%. He has HTN, DM, HLD, obesity and found to have early dementia and started on memantine 2018. He also has a LBBB, then had CHB req. a Medtronic pacemaker in Apr 2015. H/O recurrent evaluations for noncardiac CP 2011- 2015. Cath 2011 for CP and an abnml stress test showed all 4 grafts were patent. Presented with complete heart block in April 2015 requiring placement of a Medtronic pacemaker. He returned again 05/25/15 with chest pain which was deemed noncardiac and not related to pacemaker. 04/22/2020 OV: I'm doing OK, I think! After pacer reprogrammed pt says he felt little shocksin his chest for a while but that went away. Same exertional capacity; sedentary but does walk on the treadmill for 1-2 miles w/o problems except for ankle pain. No chest pain, AVILA, dizziness, palpitations, or edema. Takes Janumet for DM, DM is under good control, a.m. BS 140's, evening 80-120. Stable, no changes made 07/30/[address] Delgadillo: DM was not doing well, but lost weight (down 12#) and now doing better, feels good. Exercises on treadmill for a mile every day. No exertional problems. No chest pain, AVILA, dizziness, palpitations, or edema. Drops off his 3 grandchildren at 3 different schools every monring. Stable, check echo. 08/12/[address] Delgadillo: Trying to stay alive! Getting over a cold. Exercising at [employer] on the treadmill and water exercise. No chest pain, AVILA, dizziness, palpitations, or edema. Gained 19#; working on weight loss. A1C went fr 12 to 7; says other blood tests incl kidneyfxn were good. Busy being the [employer] for his many grandchildren and great-grandchildren. Labs and POC lipids reviewed. Echo 08/2021 reviewed, EF 50-55%. 06/2022 pacer check: Normal function, longevity 1.5 years. Pacer-dependent on last check in office in Mar. Social: Retired 2015; wants to move back to [place]. Has 5 grandchildren, oldest has Downs,. MEDICAL HISTORY Past Medical History: Diagnosis Date Cardiomyopathy (HCC) Diabetes mellitus (HCC) GERD (gastroesophageal reflux disease) Heart disease Hyperlipidemia Hypertension Social History Tobacco Use Smoking status: Never Smokeless tobacco: Never Substance and Sexual Activity Drug use: No Sexual activity: Not Currently Partners: Female Alcohol Use: Not on file History reviewed. No pertinent family history. MEDICATIONS Current Outpatient Medications: acetaminophen (TYLENOL) 325 mg tablet, take 1 tablet (325MG) by oral route every 4 hours as needed,Disp: , Rfl: 0 aspirin (ASPIRIN LOW DOSE) 81 mg tablet, take 1 tablet (81MG) by oral route every day, Disp: , Rfl:0 carvediloL (COREG) 12.5 mg tablet, TAKE 1 TABLET BY MOUTH TWICE A DAY WITH MEALS (Patient taking differently: Take 6.25 mg by mouth 2 (two) times a day with meals), Disp: 180 tablet, Rfl: 0 cinnamon bark 500 mg capsule, Take 500 mg by mouth daily, Disp: , Rfl: Contour Next Test Strips strip, USE TO CHECK BLOOD GLUCOSE 3 TIMES DAILY (E11.9), Disp: , Rfl: ferrous sulfate (IRON) 325 mg (65 mg of elemental iron) tablet, take 1 tablet (325MG) by oral routeevery day, Disp: , Rfl: 0 fluticasone (FLONASE) 50 mcg/actuation nasal spray, Administer 1 spray into each nostril daily., Disp: , Rfl: hydroCHLOROthiazide (HYDRODIURIL) 12.5 mg tablet, Take 1 tablet (12.5 mg total) by mouth daily Take2 tablets daily, Disp: , Rfl: memantine (NAMENDA) 5 mg tablet, Take 5 mg by mouth 2 (two) times a day, Disp: , Rfl: nitroglycerin (NITROSTAT) 0.4 mg SL tablet, place 1 tablet by sublingual route at the 1st sign of attack; may repeat every 5 min until relief; if pain persists after 3 tablets in 15 min, prompt medical attention is recommended, Disp: 0, Rfl: 0 NovoLOG 70/30 100 unit/mL pen for injection, , Disp: , Rfl: omeprazole (PriLOSEC) 40 mg capsule, Take 40 mg by mouth daily., Disp: , Rfl: 5 Trulicity 1.5 mg/0.5 mL pen injector, INJECT 1.5 MG (0.5 ML) SUBCUTANEOUSLY WEEKLY, Disp: , Rfl: rosuvastatin (CRESTOR) 40 mg tablet, Take 1 tablet (40 mg total) by mouth daily, Disp: 90 tablet, Rfl: 3 ALLERGIES No Known Allergies REVIEW OF SYSTEMS Review of Systems Constitutional: Positive for weight gain. Negative for malaise/fatigue. HENT: Positive for congestion. Eyes: Negative for visual disturbance. Cardiovascular: Negative for chest pain, claudication, dyspnea on exertion and syncope. Respiratory: Negative for shortness of breath. Hematologic/Lymphatic: Negative for bleeding problem. Musculoskeletal: Positive for arthritis and joint pain. Gastrointestinal: Negative for abdominal pain. Genitourinary: Negative for hematuria. Neurological: Negative for dizziness. Psychiatric/Behavioral: Positive for memory loss (mild, stable). Negative for depression. PHYSICAL EXAM Blood pressure 110/60, pulse 63, height 177.8 cm (5' 10 ), weight 103.9 kg (229 lb), SpO2 96 %. Body mass index is 32.86 kg/m??. Physical Exam Constitutional: Appearance: He is well-developed. Comments: Pleasant male, NAD Neck: Thyroid: No thyromegaly. Vascular: No carotid bruit. Cardiovascular: Rate and Rhythm: Normal rate and regular rhythm. Pulses: Carotid pulses are 2+ on the right side and 2+ on the left side. Heart sounds: Normal heart sounds. No murmur heard. Pulmonary: Effort: Pulmonary effort is normal. No respiratory distress. Breath sounds: Normal breath sounds. Abdominal: General: There is no distension. Palpations: Abdomen is soft. Musculoskeletal: General: No swelling. Skin: General: Skin is warm and dry. Findings: No erythema (pacer site well-healed, left-sided implant). Neurological: Mental Status: He is alert and oriented to person, place, and time. Psychiatric: Behavior: Behavior normal. LABS AND OTHER DIAGNOSTIC TESTS No results found for: WBC, HGB, HCT, MCV, PLT Chemistry Component Value Date/Time SODIUM 138 08/09/2015 0816 CHLORIDE 104 08/09/2015 0816 CO2 26 08/09/2015 0816 BUNSER 18 08/09/2015 0816 CREATININE 0.77 08/09/2015 0816 GLUCOSE 140 (H) 08/09/2015 0816 Component Value Date/Time CALCIUM 9.2 08/09/2015 0816 ALKPHOS 89 08/09/2015 0816 AST 25 06/10/2017 0902 ALT 37 06/10/2017 0902 BILITOT 0.5 08/09/2015 0816 Lab Results Component Value Date CHOL 146 06/10/2017 CHOL 177 04/06/2017 CHOL 136 08/09/2015 Lab Results Component Value Date GLUCOSE 140 (H) 08/09/2015 CALCIUM 9.2 08/09/2015 SODIUM 138 08/09/2015 CO2 26 08/09/2015 CHLORIDE 104 08/09/2015 BUNSER 18 08/09/2015 CREATININE 0.77 08/09/2015 Lab Results Component Value Date HDL 59 06/10/2017 HDL 52 04/06/2017 HDL 57 08/09/2015 LDL Date Value Ref Range Status 06/10/2017 67 mg/dL (calc) Final Comment: Reference range: <100 Desirable range <100 mg/dL for patients with CHD or diabetes and <70 mg/dL for diabetic patients with known heart disease. LDL-C is now calculated using the Milind-Braxton calculation, which is a validated novel method providing better accuracy than the Friedewald equation in the estimation of LDL-C. Milind PEMBERTON et al. PETER. 2013;310(19): 5253-1021 (http://[employer]faq/BZM640) 04/06/2017 102 (H) mg/dL (calc) Final Comment: Reference range: <100 Desirable range <100 mg/dL for patients with CHD or diabetes and <70 mg/dL for diabetic patients with known heart disease. LDL-C is now calculated using the Milind-Braxton calculation, which is a validated novel method providing better accuracy than the Friedewald equation in the estimation of LDL-C. Milind PEMBERTON et al. PETER. 2013;310(19): 6193-2774 (http://educationSyncing.Net/faq/KLY680) ] No results found for: LDLCALC Lab Results Component Value Date TRIG 117 06/10/2017 TRIG 124 04/06/2017 TRIG 66 08/09/2015 Lab Results Component Value Date CHOLHDL 2.5 06/10/2017 CHOLHDL 3.4 04/06/2017 CHOLHDL 2.4 08/09/2015 No results found for: INR, PROTIME Labs: 06/10/2017 total cholesterol 146, TG 117, LDL 67, LFTs normal 02/2017 creatinine 0.9, LFTs normal, glucose 204 06/11/2016 total cholesterol 174, TG 101, LDL 96, A1c 7.30 July 2015: chol 137, TG 66, LDL 66. 04/10/2019 POC lipids: Total cholesterol 144, HDL 57, LDL 60, TG 135 03/2020 POC lipids: Total cholesterol 147, HDL 58, TG 95, LDL 70, glucose 215 03/2020 Lipids: Total cholesterol 147, HDL 58, TG 95, LDL 70, glucose 215, A1C 8.5, creat 0.9 07/2020 A1c 8.02, cholesterol 154, HDL 51, TG 128, LDL 81 08/2020 glucose 185, BUN 22, creatinine 0.97, potassium 5.0, hematocrit 37 07/2021 POC lipids:Total cholesterol 154, HDl chol 64, triglycerides 91, LDL chol 71 08/12/2022 POC lipids: Total cholesterol 137, HDL chol 60, triglycerides 133, LDL chol 51, glucose 153. Cardiac testin cardiac cath: Patent grafts, EF 40-45% 2012 Stress test: EF 57%, no significant ischemia. March 2017 echo : EF 43%, hypokinesis of the apical septum. 08/2021 Echo EF 50-55%, diast dysfxn, mild LVH, hypo apex, mild MR (taking carvedilol, not on ACEI or ARB) Other testin03/2019 lower extremity arterial Doppler: Normal arterial Doppler ASSESSMENT Diagnoses and all orders for this visit: Lipid screening (Primary) - POCT lipid panel Coronary arteriosclerosis in [place] artery History of coronary artery bypass surgery Chronic ischemic heart disease Pacemaker Complete atrioventricular block (CMS/HCC) (HCC) Hyperlipidemia associated with type 2 diabetes mellitus (HCC) Other orders - rosuvastatin (CRESTOR) 40 mg tablet; Take 1 tablet (40 mg total) by mouth daily CAD/Cardiomyopathy: H/O CABG 2010. Stable w/o angina, good exertional tolerance. EF runs around 40-45%, but was up to 50-55% by echo in 2021. --continue aspirin, carvedilol, rosuvastatin Pacemaker: for CHB, checked t as above, showed normal function, underlying complete heart block. Likely will need generator change next year. Will need to consider an upgrade to a biventricular pacemaker at that time. Counseled patient and his regarding generator change --continue with device clinic --Consider another echo prior to generator change (upgrade to a Bi V? ) Hyperlipidemia: LDL improved after increasing rosuvastatin from 20-40 mg a day, LDL was 71 now 51. --continue rosuvastatin 40 mg daily DM: A1c much better PLAN/RECOMMENDATIONS Continue current medications FU 1 year, sooner if needed. Requested labs fr Dr. Santos's office, as above. Yuki Delgadillo MD, [facility] Office: [phone] or [phone] This note is dictated and transcribed by with assistance from [employer] Engineer variances may occur. Despite proofreading, typographical errors may occur. documented in this encounter Plan of Treatment Not on file documented as of this encounter Procedures Procedure Name Priority Date/Time Associated Diagnosis Comments POCT LIPID PANEL Routine 08/12/2022 9:46 AM CDT Lipid screening documented in this encounter Results * POCT lipid panel (08/12/2022 9:46 AM CDT) Cholesterol, POC 137 mg/dL HDL, POC 60 mg/dL Triglycerides, POC 133 mg/dL LDL Cholesterol POC 51 mg/dL Chol/HDL Ratio, POC 0.8 Non-HDL Cholesterol, POC 77 mg/dL Cholesterol Total, POC 137 mg/dL Capillary blood 08/12/2022 9 :46 AM CDT Yuki Delgadillo MD POINT OF CARE TEST ORDERABL ES Final Result documented in this encounter Visit Diagnoses Diagnosis Lipid screening- Primary Screening for lipoid disorders Coronary arteriosclerosis in [place] artery History of coronary artery bypass surgery Postsurgical aortocoronary bypass status Chronic ischemic heart disease Unspecified chronic ischemic heart disease Pacemaker Cardiac pacemaker in situ Complete atrioventricular block (CMS/HCC) (HCC) Atrioventricular block, complete Hyperlipidemia associated with type 2 diabetes mellitus (HCC) Chronic ischemic heart disease, unspecified documented in this encounter Discontinued Medications Medication Sig Discontinue Reason Start Date End Da te insulin lispro protamine-insulin lispro 75/25 (HumaLOG 75/25) 100 unit/mL pen for injection Alternate therapy 07/10/2021 08/12/2022 rosuvastatin (CRESTOR) 40 mg tablet TAKE 1/2 TABLET BY MOUTH DAILY Reorder 04/29/2021 08/12/2022 documented as of this encounter Historical Medications * This list may reflect changes made after this encounter. NovoLOG 70/30 100 unit/mL pen for injection 08/12/2022 Trulicity 1.5 mg/0.5 mL pen injector INJECT 1.5 MG (0.5 ML) SUBCUTANEOUSLY WEEKLY 07/27/2022 added in this encounter Orders Outpatient Referral Count Last Ordered Date Fir st Ordered Date AMB REFERRAL TO CARDIOLOGY 1 08/13/2022 documented in this encounter Care Teams Business Services Sales Agent Relationship Specialty Start Date End Date Danielle Rojas MD [address] [place] [address] PCP - General 08/21/16 documented as of this encounter
--- OUTSIDE RECORDS SUMMARY | 2024-05-25 06:51 | XMS_ITS | Encounter Summary ---
Author Organization [facility] Healthcare Address [address] [place] [address] Care Team Providers Care Set Off Press Operator Name Role Phone Danielle Rojas MD Primary Care Provider Reason for Visit * Cardiology (Routine) - Closed Specialty Diagnoses / Procedures Referred By Contac t Referred To Contact Diagnoses CHB (complete heart block) (CMS/HCC) (HCC) Ischemic cardiomyopathy Procedures DEVICE CHECK - REMOTE Yuki Delgadillo MD Phone: tel: fax: [facility] Referral ID Status Reason Start Date Expiration Date Visits Re quested Visits Authorized [id number] Closed 10/14/2022 04/16/2024 1 1 Encounter Details Date Type Department Care Team (Latest Contact Info) Description 09/16/2023 8:30 AM CDT Ancillary Procedure [facility] Cardiology [address] [place] [id number] Pacemaker (Primary Dx); CHB (complete heart block) (CMS/HCC) (HCC); Ischemic cardiomyopathy Social History Tobacco Use Types Packs/Day Years Used Date Smoking Tobacco: Never Smokeless Tobacco: Never Alcohol Use Standard Drinks/Week Comments No 0 (1 standard drink = 0.6 oz pur e alcohol) Sex and Gender Information Value Date Recorded Sex Assigned at Not on file 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 Presenting rhythm: AP/MAINT MECHANIC AP- 95.3%, MAINT MECHANIC- 100% No AT/AF episodes noted. No Ventricular high rate episodes detected. Medications: ASA 81mg, carvedilol See scanned report. Office pacemaker follow up: Monitoring battery status for SHAR[employer] [facility] remote f/u 10/20/23. Aroldo Hilliard, RN Yuki Delgadillo MD [facility] PROCEDU RES Final Result documented in this encounter Visit Diagnoses Diagnosis Pacemaker- Primary Cardiac pacemaker in situ CHB (complete heart block) (CMS/HCC) (HCC) Atrioventricular block, complete Ischemic cardiomyopathy Other specified forms of chronic ischemic heart disease documented in this encounter Care Teams Set Off Press Operator Relationship Specialty Start Date End Date Danielle Rojas MD [address] [facility] [address] [place] [address] PCP - General 08/21/16 documented as of this encounter
--- OUTSIDE RECORDS SUMMARY | 2024-05-25 06:51 | XMS_ITS | Encounter Summary ---
Author Organization [facility] Healthcare Address [address] [place] [address] Care Team Providers Care Software Verification Engineer Name Role Phone Danielle Rojas MD Primary Care Provider Encounter Details Date Type Department Care Team (Late st Contact Info) Description 05/26/2023 Telephone [facility] Cardiology [address] [place] [address] Yuki Delgadillo MD [address] [place], [place] [id number] Social History Tobacco Use Types Packs/Day Years Used Date Smoking Tobacco: Never Smokeless Tobacco: Never Alcohol Use Standard Drinks/Week Comments No 0 (1 standard drink = 0.6 oz pur e alcohol) Sex and Gender Information Value Date Recorded Sex Assigned at Not on file 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 Updated that clearance has been signed and being faxed today. SPEED PRINTER OPERATOR * Telephone Encounter - Ebony Hollingsworth RN - 05/26/2023 3:32 PM HIGH SPEED PRINTER OPERATOR Received cardiac clearance, will place on ELU's desk to review/sign today and will fax back as requested once signed. SPEED PRINTER OPERATOR * Telephone Encounter - Alba Ignacio RN - 05/26/2023 2:07 PM CST Spoke pts . Clearance faxed to [facility] and requested Ebony have EU sign. SPEED PRINTER OPERATOR * Telephone Encounter - Veronika Layne - 05/26/2023 1:19 PM CST Pt spouse [place] dropped off cardiac clearance form on Wednesday for EU to sign. Requesting call back with an update. Contact: SPEED PRINTER OPERATOR documented in this encounter Plan of Treatment Not on file documented as of this encounter Visit Diagnoses Not on filedocumented in this encounter Care Teams Software Verification Engineer Relationship Specialty Start Date End Date Danielle Rojas MD [address] [facility] [address] [place] [address] PCP - General 08/21/16 documented as of this encounter
--- OUTSIDE RECORDS SUMMARY | 2024-05-25 06:51 | XMS_ITS | Encounter Summary ---
Author Organization [facility] Medical Group Address [address] [place] [address] Care Team Providers Care Improvement Advisor Name Role Phone Danielle Rojas MD Primary Care Provider Reason for Visit * Reason Comments Follow-up chronic ischemic hea rt disease * Consultation (Routine) - Closed Specialty Diagnoses / Procedures Referred By Contac t Referred To Contact Cardiology Diagnoses Coronary atherosclerosis of match-e-be-nash-she-wish band coronary artery Danielle Rojas MD [address] [facility] [address] [address] Phone: tel: fax: [facility] Medical [facility] Cardiology [address] [place] [address] [address] [place] [address] Phone: tel: fax: Referral ID Status Reason Start Date Expiration Date V isits Requested Visits Authorized [id number] Closed Specialty Services Required 04/12/2020 03/24/2021 4 4 Encounter Details Date Type Department Care Team (Latest Contact Info) Description 04/22/2020 9:45 AM ERP DEVELOPER Office Visit [facility] Medical [facility] Cardiology [address] [facility] [address] [place] [address] Yuki Delgadillo MD [address] [facility] 162 [place] [id number] Coronary arteriosclerosis in match-e-be-nash-she-wish band artery (Primary Dx); History of coronary artery bypass surgery; Chronic ischemic heart disease; Pacemaker; Complete atrioventricular block (CMS/HCC); Hyperlipidemia associated with type 2 diabetes mellitus ([facility]); Coronary atherosclerosis of match-e-be-nash-she-wish band coronary artery Social History Tobacco Use Types Packs/Day Years Used Date Smoking Tobacco: Never Smokeless Tobacco: Never Alcohol Use Standard Drinks/Week Comments No 0 (1 standard drink = 0.6 oz pur e alcohol) Sex and Gender Information Value Date Recorded Sex Assigned at Not on file Legal Sex Male 9:22 AM ERP DEVELOPER Gender Identity Not on file Sexual Orientation Not on file documented as of this encounter Last Filed Vital Signs Vital Sign Reading Time Taken Comments Blood Pressure 102/62 04/22/2020 10:14 AM ERP DEVELOPER Pulse 61 04/22/2020 10:14 AM ERP DEVELOPER Temperature - - Respiratory Rate - - Oxygen Saturation 95% 04/22/2020 10:14 AM ERP DEVELOPER Inhaled Oxygen Concentration - - Weight 100.7 kg (222 lb) 04/22/2020 10:14 AM ERP DEVELOPER Height 177.8 cm (5' 10 ) 04/22/2020 10:14 AM ERP DEVELOPER Body Mass Index 31.85 04/22/2020 10:14 AM ERP DEVELOPER documented in this encounter Patient Instructions * Patient Instructions* Yuki Delgadillo MD - 04/22/2020 9:45 AM ERP DEVELOPER 04/10/2019 lipids: Total cholesterol 144, HDL 57, LDL 60, TG 135 03/2020 ipids: Total cholesterol 147, HDL 58, TG 95, LDL 70, glucose 215 DEVELOPER DEVELOPER documented in this encounter Progress Notes * Yuki Delgadillo MD - 04/22/2020 9:45 AM CST [facility] DATE OF VISIT: 04/26/2020 DATE: 1950 CHIEF COMPLAINT Chief Complaint Patient presents with ??? Follow-up chronic ischemic heart disease Follow-up for CAD, pacemaker HPI Dayron Howell is a 69 y.o. male with a history of ACS into November 2010. He underwent a [address] Ho His EF runs around 40-45%. He has HTN, DM, HLD, obesity and mild asymptomatic bradycardia. He also has a LBBB, then had [...] deemed noncardiac and not related to pacemaker. 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 Gets sporadic sharp shooting chest pain, not related to activity, lasts a couple of seconds, relieved with rubbing. 09/13/2017 OV w/ MANUFACTURING PROJECT MANAGER Jonatan.Shona: Feels well, he reports his rosuvastatin was decreased to 40mg 1/2 tablet daily by PCP b/c of muscle cramps. Stopped walking on treadmill x 2 weeks b/c of muscle cramps. Fasting sugars running high 170's. Gained 5 lb which he attributes to being less active over the winter months. Carvedilol increased to 12.5 mg b.i.d. For systolic BP 140. 03/28/2018 OV: Doing fine. Lost 10#. Dr. Kaba told him he had to loose weigh or start insulin. Says A1C under 7. Exercises w/ treadmill or walking daily 30- [address] Kaba reduced rosuvastatin to 20 mg daily as cholesterol was low about a month ago. Was not having myalgias. Cardiac statusstable. 04/10/2019 OV: Doing OK, not very active but does yardvwork and treadmill most days of the week, and takes grandkids to school. Occ has calf cramping LLE. Says he had bad jackson LLE when young and soccer injury. Can't loose weight, gained 8#, wonders if 2nd meds. No sodas, juices, but snacks freq and has trouble w/ portion size. Found to have early dementia and now on memantine. Not sure of other meds; losartan back-ordered so now on lisinopril + HCTZ. BS runs 150-190. Recommended heart healthy diet, lower extremity Doppler (which was normal), which did not show any arterial disease. POC lipids as below. 04/22/2020 OV: I'm doing OK, I think! [...] good control, a.m. BS 140's, evening 80-120. 01/2020 pacemaker check: normal device function. Battery function-2.98V, 3.5 years estimated remaining longevity. Presenting rhythm-APVP. Underlying rhythm-SR with 1st Degree AVB, [place] 240ms. AP-86%, WIRE TESTER-100%. No atrial or ventricular episodes recorded. AV delays extended to 300ms to allow intrinsic conduction Social: Retired 2015; wants to move back to [place]. Has 5 grandchildren, oldest has Downs,. MEDICAL HISTORY Past Medical History: Diagnosis Date ??? Cardiomyopathy (CMS/HCC) ??? Diabetes mellitus (CMS/HCC) ??? Hyperlipidemia Social History Tobacco Use ??? Smoking status: Never Smoker ??? Smokeless tobacco: Never Used Substance Use Topics ??? Alcohol use: No ??? Drug use: No History reviewed. No pertinent family history. MEDICATIONS Current Outpatient Medications: ??? acetaminophen (TYLENOL) 325 mg tablet, take 1 tablet (325MG) by oral route every 4 hours as needed, Disp: , Rfl: 0 ??? aspirin (ASPIRIN LOW DOSE) 81 mg tablet, take 1 tablet (81MG) by oral route every day, Disp: , Rfl: 0 ??? carvediloL (COREG) 12.5 mg tablet, Take 1 tablet (12.5 mg total) by mouth 2 (two) times a day with meals, Disp: 180 tablet, Rfl: 3 ??? cetirizine (ZyrTEC) 10 mg capsule, take 1 by Oral route once as needed, Disp: 0, Rfl: 0 ??? Contour Next Test Strips strip, USE TO CHECK BLOOD GLUCOSE 3 TIMES DAILY (E11.9), Disp: , Rfl: ??? ferrous sulfate (IRON) 325 mg (65 mg of elemental iron) tablet, take 1 tablet (325MG) by oral route every day, Disp: , Rfl: 0 ??? fluticasone (FLONASE) 50 mcg/actuation nasal spray, Administer 1 spray into each nostril daily., Disp: , Rfl: ??? glimepiride (AMARYL) 4 mg tablet, , Disp: , Rfl: ??? hydroCHLOROthiazide (HYDRODIURIL) 12.5 mg tablet, Take 1 tablet (12.5 mg total) by mouth daily Take 2 tablets daily, Disp: , Rfl: ??? lisinopril (PRINIVIL,ZESTRIL) 40 mg tablet, Take 40 mg by mouth daily Take 1 tablet daily, Disp: , Rfl: ??? memantine (NAMENDA) 5 mg tablet, Take 5 mg by mouth 2 (two) times a day, Disp: , Rfl: ??? nitroglycerin (NITROSTAT) 0.4 mg SL tablet, place 1 tablet by sublingual route at the 1st sign of attack; may repeat every 5 min until relief; if pain persists after 3 tablets in 15 min, prompt medical attention is recommended, Disp: 0, Rfl: 0 ??? omeprazole (PriLOSEC) 40 mg capsule, Take 40 mg by mouth daily., Disp: , Rfl: 5 ??? rosuvastatin (CRESTOR) 40 mg tablet, TAKE 1/2 TABLET BY MOUTH DAILY (Patient taking differently: Take 1 tablet daily.), Disp: 45 tablet, Rfl: 1 ??? sitaGLIPtin-metformin 100-1,000 mg tablet, ER multiphase 24 hr, Take 1,000 mg by mouth daily., Disp: , Rfl: Current Facility-Administered Medications: ??? perflutren lipid (DEFINITY) 1.5 mL in sodium chloride 0.9% 10 mL syringe, 1- 10 mL, intravenous,[facility] ALLERGIES No Known Allergies REVIEW OF SYSTEMS Review of Systems Constitution: Negative for malaise/fatigue. HENT: Negative for congestion. Eyes: Negative for visual disturbance. Cardiovascular: Negative for chest pain, claudication, dyspnea on exertion and syncope. Respiratory: Negative for shortness of breath. Hematologic/Lymphatic: Negative for bleeding problem. Musculoskeletal: Positive for arthritis and joint pain. Gastrointestinal: Negative for abdominal pain. Genitourinary: Negative for hematuria. Neurological: Negative for dizziness. Psychiatric/Behavioral: Positive for memory loss. Negative for depression. PHYSICAL EXAM Blood pressure 102/62, pulse 61, height 177.8 cm (5' 10 ), weight 100.7 kg (222 lb), SpO2 95 %. Body mass index is 31.85 kg/m??. Physical Exam Constitutional: He is oriented to person, place, and time. He appears well- developed and well-nourished. Pleasant male, NAD, accom by Neck: Carotid bruit is not present. No thyromegaly present. Cardiovascular: Normal rate, regular rhythm and normal heart sounds. No murmur heard. Pulses: Carotid pulses are 2+ on the right side and 2+ on the left side. Pulmonary/Chest: Effort normal and breath sounds normal. No respiratory distress. Abdominal: Soft. He exhibits no distension. Musculoskeletal: General: No edema. Neurological: He is alert and oriented to person, place, and time. Skin: Skin is warm and dry. No erythema (pacer site well-healed, left-sided implant). Psychiatric: He has a normal mood and affect. His behavior is normal. LABS AND OTHER DIAGNOSTIC TESTS No [...] LDL-C. Milind PEMBERTON et al. PETER. 2013;310(19): 5120-9731 (http://education.Press.Retailigence/faq/UOD342) 04/06/2017 102 (H) mg/dL (calc) Final Comment: Reference range: <100 Desirable range <100 mg/dL for patients with CHD or diabetes and <70 mg/dL for diabetic patients with known heart disease. LDL-C is now calculated using the Milind-Braxton calculation, which is a validated novel method providing better accuracy than the Friedewald equation in the estimation of LDL-C. Milind SS et al. PETER. 2013;310(19): 0695-8096 (http://education.PUSH Wellness/faq/CDO837) ] No results found for: LDLCALC Lab [...] 70, glucose 215, A1C 8.5, creat 0.9 Cardiac testin cardiac cath: Patent grafts, EF 40-45% 2012 Stress test: EF 57%, no significant ischemia. March 2017 echo : EF 43%, hypokinesis of the apical septum. Other testin03/2019 lower extremity arterial Doppler: Normal arterial Doppler ASSESSMENT Diagnoses and all orders for this visit: Coronary arteriosclerosis in match-e-be-nash-she-wish band artery (Primary) History of coronary artery bypass surgery Chronic ischemic heart disease Pacemaker Complete atrioventricular block (CMS/HCC) Hyperlipidemia associated with type 2 diabetes mellitus (CMS/HCC) - POCT lipid panel Coronary atherosclerosis of match-e-be-nash-she-wish band coronary artery - Ambulatory referral to Cardiology CAD/Cardiomyopathy: H/O CABG 2010, some evaluations for recurrent CP but all noncardiac. Stable w/oangina, good exertional tolerance. EF runs around 40-45%. Pacemaker: for CHB, checked in Jan as above, showed normal function, underlying complete heart block Hyperlipidemia: LDL 70; has been lower in the past, doing reasonably well on rosuvastatin, on 20 mgqd. Left leg pain: Has decreased pulses, but arterial doppler neg. Obesity: He does snack and has trouble with portion control. Did not gain any more weight. PLAN/RECOMMENDATIONS Encouraged portion control, and less sedentary lifestyle. Cont current tx for CAD with ASA, BB, ROSA-inhibitor, statin. Continue with pacemaker clinic Periodic echocardiograms. If the patient has a decline in LV function consider an upgrade to a biventricular pacemaker. This certainly should be considered when his pulse generator reaches elective replacement interval. Last Echo was 2016. FU 1 year, sooner if needed. Requested labs fr Dr. Santos's office, as above. Yuki Delgadillo MD, [facility] Office: [phone] or [phone] This note is dictated and transcribed by with assistance from [employer].?? Sergeant Of Officers variances may occur. Despite proofreading, typographical errors may occur. DEVELOPER documented in this encounter Plan of Treatment Not on file documented as of this encounter Procedures Procedure Name Priority Date/Time Associated Diagnosis Comments POCT LIPID PANEL Routine 04/22/2020 4:37 PM ERP DEVELOPER Hyperlipidemia associated with type 2 diabetes mellitus (CMS/HCC) documented in this encounter Results * POCT lipid panel (04/22/2020 4:37 PM ERP DEVELOPER) Cholesterol, POC 147 <200 mg/dL HDL, POC 58 >40 mg/dL Triglycerides, POC 95 <150 mg/dL LDL Cholesterol POC 70 <100 mg/dL Chol/HDL Ratio, POC 2.5 Non-HDL Cholesterol, POC 89 mg/dL Cholesterol Total, POC 147 mg/dL Capillary blood 04/22/2020 4 :37 PM ERP DEVELOPER Yuki Delgadillo MD POINT OF CARE TEST ORDERABL ES Final Result documented in this encounter Visit Diagnoses Diagnosis Coronary arteriosclerosis in match-e-be-nash-she-wish band artery- Primary History of coronary artery bypass surgery Postsurgical aortocoronary bypass status Chronic ischemic heart disease Unspecified chronic ischemic heart disease Pacemaker Cardiac pacemaker in situ Complete atrioventricular block (CMS/HCC) (HCC) Atrioventricular block, complete Hyperlipidemia associated with type 2 diabetes mellitus (HCC) Coronary atherosclerosis of match-e-be-nash-she-wish band coronary artery documented in this encounter Discontinued Medications Medication Sig Discontinue Reason Start Date End Da te glimepiride (AMARYL) 2 mg tabletIndications:type 2 diabetes mellitus Take 2 mg by mouth daily. Dose adjustment 02/05/2017 04/22/2020 documented as of this encounter Historical Medications * This list may reflect changes made after this encounter. glimepiride (AMARYL) 4 mg tablet 04/22/2020 07/30/2021 Contour Next Test Strips strip USE TO CHECK BLOOD GLUCOSE 3 TIMES DAILY (E11.9) 03/29/2020 07/19/2023 added in this encounter Orders Outpatient Referral Count Last Ordered Date Fir st Ordered Date AMB REFERRAL TO CARDIOLOGY 1 04/24/2020 documented in this encounter Care Teams Improvement Advisor Relationship Specialty Start Date End Date Danielle Rojas MD [address] [facility] [address] [place] [address] PCP - General 08/21/16 documented as of this encounter
--- OUTSIDE RECORDS SUMMARY | 2024-05-25 06:51 | XMS_ITS | Encounter Summary ---
Author Organization [facility] Medical Group Address [address] [place] [address] Care Team Providers Care Skidder Runner Name Role Phone Danielle Rojas MD Primary Care Provider Reason for Referral * Cardiology (Routine) - Closed Specialty Diagnoses / Procedures Referred By Contac t Referred To Contact Diagnoses CHB (complete heart block) (CMS/HCC) ([facility]) Procedures DEVICE CHECK - REMOTE Yuki Delgadillo MD Phone: tel: fax: [facility] Medical [facility] Referral ID Status Reason Start Date Expiration Date Visits Re quested Visits Authorized [id number] Closed 09/12/2021 03/14/2023 1 1 * Cardiology (Routine) - Closed Specialty Diagnoses / Procedures Referred By Contac t Referred To Contact Diagnoses CHB (complete heart block) ([facility]) ([facility]) Procedures DEVICE CHECK - REMOTE Yuki Delgadillo MD Phone: tel: fax: [facility] Medical [facility] Referral ID Status Reason Start Date Expiration Date Visits Re quested Visits Authorized [id number] Closed 09/12/2021 03/14/2023 1 1 * Cardiology (Routine) - Closed Specialty Diagnoses / Procedures Referred By Contac t Referred To Contact Diagnoses CHB (complete heart block) (CMS/HCC) (HCC) Procedures DEVICE CHECK - REMOTE Yuki Delgadillo MD Phone: tel: fax: [facility] Medical Group Referral ID Status Reason Start Date Expiration Date Visits Re quested Visits Authorized [id number] Closed 09/12/2021 03/14/2023 1 1 Encounter Details Date Type Department Care Team (Late st Contact Info) Description 09/12/2021 Orders Only [facility] Medical [facility] Cardiology [address] [address] Yuki Delgadillo MD [address] [address] CHB (complete heart block) (CMS/HCC) (HCC) (Primary Dx) Social History Tobacco Use Types Packs/Day Years Used Date Smoking Tobacco: Never Smokeless Tobacco: Never Alcohol Use Standard Drinks/Week Comments No 0 (1 standard drink = 0.6 oz pur e alcohol) Sex and Gender Information Value Date Recorded Sex Assigned at Not on file Legal Sex 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 Dx; CHB. DOI 05/10/[address] Ventura. Carelink remote monitoring Q3 mo, office pacer checks Q1 yr. Routine DDD Pacemaker remote. Normal device function. Battery function-2.89V, 15 months remaining battery life to SHARMAINE. ? Stable lead measurements noted. Presenting rhythm-APVP. AP-92%,GEOGRAPHY TEACHER-100%. No Mode switch episodes noted. No Ventricular high rate episodes noted. Medications; Coreg, Crestor, ASA. See scanned report. Office pacemaker f/u 05/12/2023. ?? Eva Aguiar RN Yuki Delgadillo MD [facility] PROCEDU RES Final Result * DEVICE CHECK - REMOTE (10/09/2022 8:33 AM CDT) Anatomical Region Laterality Modality Other Narrative 01/15/2023 4:50 PM CDT Table formatting from the original result was not included. PM CHECK (REMOTE) Patient ID: Dayron Howell is a 72 y.o. male This patient received a Medtronic Pacemaker. ??They had a routine remote transmission on 10/09/2022. Device implant indications: ??Complete heart block ?? Interrogation of the patient's device demonstrates the following: Presenting EGM: ??A paced V paced @ 8 0 bpm Original Device Settings Right Atrium Right Ventricle Sensitivity (mV) 0.3 mV 2.0 mV Pacing Outputs 1.5 V @ 0.4 ms 2.25 V @ 0.4 ms Testing Measurements Right Atrium Right Ventricle Sensitivity (mV) 3.6 mV 12.6 mV Impedence (Ohms) 494 ohms 418 ohms Pace Threshold 0.75 V @ 0.4 ms 1.125 V @ 0.4 ms Pacing % 90.6 % 100 % Battery Status: ??1.0 years to SHARMAINE Episodes last 90 days/Comments: AF [place] 0 %, longest duration 0. NORMAL DEVICE FUNCTION PROGRAMMED MEDICATIONS: Anti-coagulant(s): ??Aspirin 81 mg daily Anti-arrhythmic(s): ??Coreg 12.5 mg twice daily PLAN: 1) normal Medtronic Pacemaker evaluation 2) Medtronic remote transmission scheduled in 3 months. 3) Programming appropriate for device measurements Mehrdad Rocha RN Yuki Delgadillo MD [facility] CARDIAC SERVICES PROCEDU RES Final Result * DEVICE CHECK - REMOTE (07/01/2022 3:08 PM AUTOMOTIVE QUALITY ENGINEER) Anatomical Region Laterality Modality Other Narrative 09/17/2022 5:10 PM CDT Medtronic Dual Pacemaker. Dx; CHB. DOI 05/10/[address] Ventura. Carelink remote monitoring Q3 mo, office pacer checks Q1 yr. Routine pacemaker remote. Normal device function. Battery function-2.92V, 1.5 years remaining battery life to SHARMAINE. ? Stable lead measurements. Presenting rhythm-APVP. AP-91%,GEOGRAPHY TEACHER-100%. No Mode switch episodes noted. No Ventricular high rate episodes noted. Medications; Coreg, Crestor, ASA. See scanned report. Carelink remote f/u scheduled 10/07/2022. Eva Aguiar, RN Yuki Delgadillo MD [facility] CARDIAC SERVICES PROCEDU RES Final Result documented in this encounter Visit Diagnoses Diagnosis CHB (complete heart block) (CMS/HCC) (HCC)- Primary Atrioventricular block, complete Pacemaker [Z95.0 (ICD-10-CM)]- Primary Cardiac pacemaker in situ CHB (complete heart block) (CMS/HCC) (HCC) Atrioventricular block, complete CHB (complete heart block) (CMS/HCC) (HCC) Atrioventricular block, complete Pacemaker [Z95.0]- Primary Cardiac pacemaker in situ CHB (complete heart block) (CMS/HCC) (HCC) Atrioventricular block, complete documented in this encounter Care Teams Skidder Runner Relationship Specialty Start Date End Date Danielle Rojas MD [address] [address] PCP - General 08/21/16 documented as of this encounter
--- OUTSIDE RECORDS SUMMARY | 2024-05-25 06:51 | XMS_ITS | Encounter Summary ---
Author Organization [facility] Healthcare Address [address] [place] [address] Care Team Providers Care Party Coordinator Name Role Phone Danielle Rojas MD Primary Care Provider Reason for Referral * Cardiology (Routine) - Authorized Specialty Diagnoses / Procedures Referred By Contac t Referred To Contact Cardiology Diagnoses CHB (complete heart block) (CMS/HCC) (HCC) Ischemic cardiomyopathy Procedures DEVICE CHECK - REMOTE Pankaj Eden MD [address] [address] Phone: tel: fax: [facility] Medical Group Referral ID Status Reason Start Date Expiration Date V isits Requested Visits Authorized [id number] Authorized 09/17/2023 03/18/2025 1 1 * Cardiology (Routine) - Authorized Specialty Diagnoses / Procedures Referred By [facility] Referred To Contact Cardiology Diagnoses CHB (complete heart block) (CMS/HCC) (HCC) Ischemic cardiomyopathy Procedures DEVICE CHECK - REMOTE Pankaj [place] MD [address] [address] Phone: tel: fax: [facility] Medical Group Referral ID Status Reason Start Date Expiration Date V isits Requested Visits Authorized [id number] Authorized 09/17/2023 03/18/2025 1 1 * Cardiology (Routine) - Authorized Specialty Diagnoses / Procedures Referred By Contac t Referred To Contact Cardiology Diagnoses CHB (complete heart block) (CMS/HCC) (HCC) Ischemic cardiomyopathy Procedures DEVICE CHECK - REMOTE Pankaj Eden MD [address] [address] Phone: tel: fax: [facility] Medical Group Referral ID Status Reason Start Date Expiration Date V isits Requested Visits Authorized [id number] Authorized 09/17/2023 03/18/2025 1 1 Encounter Details Date Type Department Care Team (Late st Contact Info) Description 09/17/2023 Orders Only [facility] Medical [facility] Cardiology [address] [place] [address] Pankaj Eden MD [address] [address] CHB (complete heart block) (CMS/HCC) (HCC) (Primary Dx); Ischemic cardiomyopathy Social History Tobacco Use Types Packs/Day Years Used Date Smoking Tobacco: Never Smokeless Tobacco: Never Alcohol Use Standard Drinks/Week Comments No 0 (1 standard drink = 0.6 oz pur e alcohol) Sex and Gender Information Value Date Recorded Sex Assigned at Not on file Legal Sex Male 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 Gender Identity Not on file Sexual Orientation Not on file documented as of this encounter Plan of Treatment Scheduled Orders Name Type Priority Associated Diagnoses Orde r Schedule DEVICE CHECK - REMOTE Cardiac Services Routine CHB (complete heart block) (CMS/HCC) (HCC) Ischemic cardiomyopathy Expected: 12/17/2023, Expires: 05/23/2030 DEVICE CHECK - REMOTE Cardiac Services Routine CHB (complete heart block) (CMS/HCC) (HCC) Ischemic cardiomyopathy Expected: 03/17/2024, Expires: 05/23/2030 DEVICE CHECK - REMOTE Cardiac Services Routine CHB (complete heart block) (CMS/HCC) (HCC) Ischemic cardiomyopathy Expected: 06/16/2024, Expires: 05/23/2030 documented as of this encounter Visit Diagnoses Diagnosis CHB (complete heart block) (CMS/HCC) (HCC)- Primary Atrioventricular block, complete Ischemic cardiomyopathy Other specified forms of chronic ischemic heart disease documented in this encounter Care Teams Party Coordinator Relationship Specialty Start Date End Date Danielle Rojas MD [address] [place] [address] PCP - General 08/21/16 documented as of this encounter
--- OUTSIDE RECORDS SUMMARY | 2024-05-25 06:51 | XMS_ITS | Encounter Summary ---
Author Organization [facility] Healthcare Address [address] [place] [address] Care Team Providers Care Vending Machine Refiller Name Role Phone Danielle Roajs MD Primary Care Provider Encounter Details Date Type Department Care Team (Late st Contact Info) Description 05/12/2023 Telephone [facility] Medical Group Cardiology [address] [phone] [facility] [address] [facility] [address] [address] Social History Tobacco Use Types Packs/Day Years Used Date Smoking Tobacco: Never Smokeless Tobacco: Never Alcohol Use Standard Drinks/Week Comments No 0 (1 standard drink = 0.6 oz pur e alcohol) Sex and Gender Information Value Date Recorded Sex Assigned at Not on file 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 Appointment reminder mailed. UP SCAN COORDINATOR documented in this encounter Plan of Treatment Not on file documented as of this encounter Visit Diagnoses Not on filedocumented in this encounter Care Teams Vending Machine Refiller Relationship Specialty Start Date End Date Danielle Rojas MD [address] [facility] [address] [place] [address] PCP - General 08/21/16 documented as of this encounter
--- OUTSIDE RECORDS SUMMARY | 2024-05-25 06:51 | XMS_ITS | Encounter Summary ---
Author Organization [facility] Medical Group Address [address] [facility] [address] [place] [address] Care Team Providers Care Ict Quality Assurance Engineer Name Role Phone Danielle Rojas MD Primary Care Provider Reason for Referral * (Routine) - Closed Specialty Diagnoses / Procedures [facility] Referred To Contact Diagnoses CHB (complete heart block) (CMS/HCC) (HCC) Pacemaker Procedures DEVICE CHECK - REMOTE Yuki Delgadillo MD Phone: tel: fax: [facility] Medical [facility] Referral ID Status Reason Start Date Expiration Date Visits Re quested Visits Authorized [id number] Closed 02/21/2020 03/22/2021 1 1 * (Routine) - Closed Specialty Diagnoses / Procedures [facility] Referred To Contact Diagnoses CHB (complete heart block) (CMS/HCC) (HCC) Pacemaker Procedures DEVICE CHECK - REMOTE Yuki Delgadillo MD Phone: tel: fax: [facility] Medical Group Referral ID Status Reason Start Date Expiration Date Visits Re quested Visits Authorized [id number] Closed 02/21/2020 03/22/2021 1 1 * (Routine) - Closed Specialty Diagnoses / Procedures Referred By Contac t Referred To Contact Diagnoses CHB (complete heart block) (CMS/HCC) (HCC) Pacemaker Procedures DEVICE CHECK - REMOTE Yuki Delgadillo MD Phone: tel: fax: [facility] Medical Group Referral ID Status Reason Start Date Expiration Date Visits Re quested Visits Authorized [id number] Closed 02/21/2020 03/22/2021 1 1 * (Routine) - Closed Specialty Diagnoses / Procedures Referred By Contac t Referred To Contact Diagnoses CHB (complete heart block) (CMS/HCC) (HCC) Pacemaker Procedures DEVICE CHECK - IN OFFICE Yuki Delgadillo MD Phone: tel: fax: [facility] Medical Group Referral ID Status Reason Start Date Expiration Date Visits Re quested Visits Authorized [id number] Closed 02/21/2020 03/22/2021 1 1 Encounter Details Date Type Department Care Team (Late st Contact Info) Description 02/21/2020 Orders Only [facility] Medical Group Cardiology [address] [place] [address] [place] [phone] Yuki Delgadillo MD [address] [place] [id number] CHB (complete heart block) (CMS/HCC) (Primary Dx); Pacemaker Social History Tobacco Use Types Packs/Day Years Used Date Smoking Tobacco: Never Smokeless Tobacco: Never Alcohol Use Standard Drinks/Week Comments No 0 (1 standard drink = 0.6 oz pur e alcohol) Sex and Gender Information Value Date Recorded Sex Assigned at Not on file 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 Dx; CHB. DOI 05/10/[address] Ventura. Carelink remote monitoring. ? Office pacemaker evaluation demonstrated normal device function. Battery function-2.96V,??2.5 years remaining battery life to SHARMAINE. Presenting rhythm-APVP. Underlying rhythm-CHB without v-escape @ VVI 30 bpm. Consider pacemaker dependent. AP-85%, PUBLIC HEALTH POLICY ANALYST-96.3%. No atrial or ventricular episodes recorded.? No programming changes made to device settings. See scanned report. Carelink remote f/u??06/11/2021.?? Office pacemaker f/u 03/25/2022. Yuki Delgadillo MD [facility] SERVICES PROCEDU RES Final Result * DEVICE CHECK - REMOTE (12/05/2020 1:07 PM CDT) Anatomical Region Laterality Modality Other Narrative 12/28/2020 7:10 PM CDT Medtronic Dual Pacemaker. Dx; CHB. DOI 05/10/[address] Ventura. Carelink remote monitoring Q3 mo, office pacer checks Q1 yr. Routine pacemaker remote. Normal device function. Appropriate battery function-2.96V, 3.0 years remaining battery life to SHARMAINE. ? Stable lead measurements. Presenting rhythm-APVP. AP-79%,PUBLIC HEALTH POLICY ANALYST-96%. No Mode switch episodes noted. No Ventricular high rate episodes noted. Medications; Coreg, Crestor, Hydrochlorothiazide, ASA, Lisinopril. See scanned report. Office device f/u scheduled 03/12/2021. Yuki Delgadillo MD CV CARDIAC SERVICES PROCEDU RES Final Result * DEVICE CHECK - REMOTE (08/29/2020 4:43 PM CDT) Anatomical Region Laterality Modality Other Narrative 10/25/2020 4:37 PM CDT Medtronic Dual Pacemaker. Dx; CHB. DOI 05/10/[address] Ventura. Carelink remote monitoring Q3 mo, office pacer checks Q1 yr. Routine pacemaker remote. Normal device function. Appropriate battery function-2.97V, 3.0 years estimated longevity. Stable lead measurements. Presenting rhythm-APVP. AP-87%,PUBLIC HEALTH POLICY ANALYST-97%. No Mode switch episodes noted. No Ventricular high rate episodes noted. Medications; Coreg, Crestor, Hydrochlorothiazide, ASA, Lisinopril. See scanned report. Carelink remote f/u 12/04/2020. Office device f/u scheduled 03/12/2021. Yuki Delgadillo MD CV CARDIAC SERVICES PROCEDU RES Final Result * DEVICE CHECK - REMOTE (05/29/2020 9:29 AM ELECTRICAL LOGGING OPERATOR) Anatomical Region Laterality Modality Other Narrative 07/12/2020 9:55 AM ELECTRICAL LOGGING OPERATOR Medtronic Dual Pacemaker. Dx; CHB. DOI 05/10/[address] Ventura. Carelink remote monitoring Q3 mo, office pacer checks Q1 yr. ?? Routine pacemaker remote. Normal device function. Appropriate battery function-2.98V, 3.5 years estimated longevity. Stable lead measurements. Presenting rhythm-APVP. AP-PUBLIC HEALTH POLICY ANALYST-100%. No Mode switch episodes noted. No Ventricular high rate episodes noted. Medications; Coreg, Crestor, Hydrochlorothiazide, ASA, Lisinopril. See scanned report. Carelink remote f/u 08/28/2020. Office device f/u scheduled 03/12/2021. Yuki Delgadillo [...] situ documented in this encounter Care Teams Ict Quality Assurance Engineer Relationship Specialty Start Date End Date Danielle Rojas MD [address] [facility] [address] [place] [address] PCP - General 08/21/16 documented as of this encounter
--- OUTSIDE RECORDS SUMMARY | 2024-05-25 06:51 | XMS_ITS | Encounter Summary ---
Author Organization [facility] Healthcare Address [address] [place] [address] Care Team Providers Care Director Of Manufacturing Operations Name Role Phone Danielle Rojas MD Primary Care Provider Reason for Referral * Cardiology (Routine) - Authorized Specialty Diagnoses / Procedures Referred By Contac t Referred To Contact Cardiology Diagnoses CHB (complete heart block) (CMS/HCC) (HCC) Ischemic cardiomyopathy Procedures DEVICE CHECK - IN OFFICE Pankaj Eden MD [address] [address] Phone: tel: fax: [facility] Medical Group Referral ID Status Reason Start Date Expiration Date V isits Requested Visits Authorized [id number] Authorized 11/10/2023 12/09/2024 1 1 * Cardiology (Routine) - Authorized Specialty Diagnoses / Procedures Referred By [facility] Referred To Contact Cardiology Diagnoses CHB (complete heart block) (CMS/HCC) (HCC) Ischemic cardiomyopathy Procedures DEVICE CHECK - IN OFFICE Pankaj Eden MD [address] [address] Phone: tel: fax: [facility] Medical Group Referral ID Status Reason Start Date Expiration Date V isits Requested Visits Authorized [id number] Authorized 11/10/2023 12/09/2024 1 1 * Cardiology (Routine) - Pending Review Specialty Diagnoses / Procedures Referred By Contac t Referred To Contact Cardiology Diagnoses CHB (complete heart block) (CMS/HCC) (HCC) Ischemic cardiomyopathy Procedures DEVICE CHECK - REMOTE Pankaj Eden MD [address] [address] Phone: tel: fax: [facility] Medical Group Referral ID Status Reason Start Date Expiration Date V isits Requested Visits Authorized [id number] Pending Review 11/10/2023 05/11/2025 1 1 * Cardiology (Routine) - Pending Review Specialty Diagnoses / Procedures Referred By Contac t Referred To Contact Cardiology Diagnoses CHB (complete heart block) (CMS/HCC) (HCC) Ischemic cardiomyopathy Procedures DEVICE CHECK - REMOTE Pankaj Eden MD [address] [address] Phone: tel: fax: [facility] Medical [facility] Referral ID Status Reason Start Date Expiration Date V isits Requested Visits Authorized [id number] Pending Review 11/10/2023 05/11/2025 1 1 * Cardiology (Routine) - Closed Specialty Diagnoses / Procedures Referred By [facility] Referred To Contact Diagnoses Ischemic cardiomyopathy Procedures DEVICE CHECK - REMOTE Pankaj Eden MD [address] [address] Phone: tel: fax: Referral ID Status Reason Start Date Expiration Date Visits Re quested Visits Authorized [id number] Closed 11/10/2023 05/11/2025 1 1 Encounter Details Date Type Department Care Team (Late st Contact Info) Description 11/10/[address] 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 Gender Identity Not on file Sexual Orientation Not on file documented as of this encounter Plan of Treatment Scheduled Orders Name Type Priority Associated Diagnoses Orde r Schedule DEVICE CHECK - REMOTE Cardiac Services Routine CHB (complete heart block) (CMS/HCC) (HCC) Ischemic cardiomyopathy Expected: 05/10/2024, Expires: 05/23/2030 DEVICE CHECK - REMOTE Cardiac Services Routine CHB (complete heart block) (CMS/HCC) (HCC) Ischemic cardiomyopathy Expected: 08/09/2024, Expires: 05/23/2030 DEVICE CHECK - IN OFFICE Cardiac Services Routine CHB (complete heart block) (CMS/HCC) (HCC) Ischemic cardiomyopathy Expected: 11/25/2024, Expires: 06/04/2031 DEVICE CHECK - IN OFFICE Cardiac Services Routine CHB (complete heart block) (CMS/HCC) (HCC) Ischemic cardiomyopathy Expected: 12/19/2025, Expires: 05/23/2032 documented as of this encounter Results * DEVICE CHECK - REMOTE (12/22/2023 12:13 PM CDT) Anatomical Region Laterality Modality Other Narrative 01/14/2024 7:40 AM CDT Medtronic Dual Pacemaker. Dx; CHB. DOI 05/10/[address] Ventura. Carelink remote monitoring Q3 mo, office pacer checks Q1 yr. DDDR Pacemaker Remote to assess battery status. Transmission attached. Battery status: 2.85 V, 4 months remaining battery life to SHARMAINE. Stable lead impedances, pacing and sensing thresholds. Presenting rhythm: AP/SKEIN YARD DRIER AP- 97.7%, SKEIN YARD DRIER- 100% No AT/AF episodes noted. No Ventricular high rate episodes detected. Medications: ASA, carvedilol See scanned report. Office pacemaker follow up: pending generator change CareLink remote f/u 01/19/24. Aroldo Hilliard RN Pankaj Eden MD CV CARDIAC SERVICES PROCEDURES Final Result documented in this encounter Visit Diagnoses Diagnosis CHB (complete heart block) (CMS/HCC) (HCC)- Primary Atrioventricular block, complete Ischemic cardiomyopathy Other specified forms of chronic ischemic heart disease Complete atrioventricular block (CMS/HCC) (HCC)- Primary Atrioventricular block, complete Ischemic cardiomyopathy Other specified forms of chronic ischemic heart disease Pacemaker Cardiac pacemaker in situ documented in this encounter Care Teams Director Of Manufacturing Operations Relationship Specialty Start Date End Date Danielle Rojas MD [address] [facility] [address] [place] [address] PCP - General 08/21/16 documented as of this encounter
--- OUTSIDE RECORDS SUMMARY | 2024-05-25 06:51 | XMS_ITS | Encounter Summary ---
Author Organization [facility] Medical Group Address [address] [facility] [address] [place] [address] Care Team Providers Care Inside Sales Manager Name Role Phone Danielle Rojas MD Primary Care Provider Reason for Visit * Reason Onset Date Comments Med Dose Change 08/21/2021 Encounter Details Date Type Department Care Team (Late st Contact Info) Description 08/21/2021 Telephone [facility] Medical Group Cardiology [address] [facility] [address] [place] [address] Yuki Delgadillo MD [address] [facility] [address] [place] [address] Med Dose Change Social History Tobacco Use Types Packs/Day Years Used Date Smoking Tobacco: Never Smokeless Tobacco: Never Alcohol Use Standard Drinks/Week Comments No 0 (1 standard drink = 0.6 oz pur e alcohol) Sex and Gender Information Value Date Recorded Sex Assigned at Not on file 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 Gender Identity Not on file Sexual Orientation Not on file documented as of this encounter Ordered Prescriptions Prescription Sig Dispense Quantity Refills Last Filled Start Date End Date ezetimibe (ZETIA) 10 mg tablet Take 1 tablet (10 mg total) by mouth daily 30 tablet 11 08/22/2021 08/22/2021 documented in this encounter Miscellaneous Notes * Addendum Note - Kevin Ledbetter, RN - 08/22/2021 9:40 AM CDTAddended by: KEVIN LEDBETTER on: 08/22/2021 09:40 AM Modules accepted: Orders * Telephone Encounter - Kevin Ledbetter RN - 08/22/2021 9:39 AM CDT called back and said she clarified with pt and he has only been taking 1/2 tab of rosuvastatin-advised her to started taking whole tab and will cancel the zetia RX-she verbalized understanding. * Addendum Note - Kevin Ledbetter RN - 08/22/2021 8:41 AM CDTAddended by: KEVIN LEDBETTER on: 08/22/2021 08:41 AM Modules accepted: Orders * Telephone Encounter - Kevin Ledbetter RN - 08/22/2021 8:24 AM CDT LM on VM reviewing message from U-requested callback to discuss. called back-reviewed message with her-pt is taking whole 40mg tablet. Sent Rx for zetia to pharm. verbalized understanding. * Telephone Encounter - Yuki Delgadillo MD - 08/21/2021 7:05 PM CDT Pt w/ CAD, I reviewed his recent lipids: cholest 145, HDL 51, TRG 128, LDL 81 07/22/2021 He's taking rosuvastatin; is it 40 mg half tablet daily or whole tablet? If half tablet, rec he incr to whole tablet. If whole tablet, rec he add Zetia 10 mg daily. He is only 70 y.o., and if he can get his LDL chol lower he will have a lower risk of future heart problemsand stroke if his chol were lower. documented in this encounter Plan of Treatment Not on file documented as of this encounter Visit Diagnoses Not on filedocumented in this encounter Discontinued Medications Medication Sig Discontinue Reason Start Date End Da te ezetimibe (ZETIA) 10 mg tablet Take 1 tablet (10 mg total) by mouth daily 08/22/2021 08/22/2021 documented as of this encounter Care Teams Inside Sales Manager Relationship Specialty Start Date End Date Danielle Rojas MD [address] [facility] [address] [place] [id number] PCP - General 08/21/16 documented as of this encounter
--- OUTSIDE RECORDS SUMMARY | 2024-05-25 06:51 | XMS_ITS | Encounter Summary ---
Author Organization [facility] Medical Group Address [address] [facility] [address] [place] [address] Care Team Providers Care Planning Manager Name Role Phone Danielle Rojas MD Primary Care Provider Reason for Visit * Cardiology (Routine) - Closed Specialty Diagnoses / Procedures Referred By Contac t Referred To Contact Diagnoses CHB (complete heart block) (CMS/HCC) (HCC) Procedures DEVICE CHECK - REMOTE Yuki Delgadillo MD Phone: tel: fax: [facility] Medical [facility] Referral ID Status Reason Start Date Expiration Date Visits Re quested Visits Authorized [id number] Closed 09/12/2021 03/14/2023 1 1 Encounter Details Date Type Department Care Team (Latest Contact Info) Description 01/13/2023 9:45 AM CDT Ancillary Procedure [facility] Medical [facility] Cardiology [facility] [facility] [address] [place] [phone] Pacemaker [Z95.0] (Primary Dx); CHB (complete heart block) (CMS/HCC) (HCC) Social History Tobacco Use Types Packs/Day Years Used Date Smoking Tobacco: Never Smokeless Tobacco: Never Alcohol Use Standard Drinks/Week Comments No 0 (1 standard drink = 0.6 oz pur e alcohol) Sex and Gender Information Value Date Recorded Sex Assigned at Not on file 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 Stable lead measurements noted. Presenting rhythm-APVP. AP-92%,SPECIAL FORCES SPECIALIST-100%. No Mode switch episodes noted. No Ventricular high rate episodes noted. Medications; Coreg, Crestor, ASA. See scanned report. Office pacemaker f/u 05/12/2023. ?? Eva Aguiar, RN us Yuki Delgadillo MD CV CARDIAC SERVICES PROCEDU RES Final Result documented in this encounter Visit Diagnoses Diagnosis Pacemaker [Z95.0]- Primary Cardiac pacemaker in situ CHB (complete heart block) (CMS/HCC) (HCC) Atrioventricular block, complete documented in this encounter Care Teams Planning Manager Relationship Specialty Start Date End Date Danielle Rojas MD [address] [facility] [address] [place] [address] PCP - General 08/21/16 documented as of this encounter
--- OUTSIDE RECORDS SUMMARY | 2024-05-25 06:51 | XMS_ITS | Encounter Summary ---
Author Organization [facility] Medical Group Address [address] [facility] [address] [place] [address] Care Team Providers Care Shipping Assistant Name Role Phone Danielle Rojas MD Primary Care Provider Reason for Visit * (Routine) - Closed Specialty Diagnoses / Procedures Referred By Contac t Referred To Contact Diagnoses CHB (complete heart block) (CMS/HCC) (HCC) Pacemaker Procedures DEVICE CHECK - REMOTE Yuki Delgadillo MD Phone: tel: fax: [facility] Medical [facility] Referral ID Status Reason Start Date Expiration Date Visits Re quested Visits Authorized [id number] Closed 02/21/2020 03/22/2021 1 1 Encounter Details Date Type Department Care Team (Latest Contact Info) Description 08/29/2020 1:00 PM CDT Ancillary Procedure [facility] Medical [facility] Cardiology [address] [place] [address] [place] [phone] CHB (complete heart block) (CMS/HCC); Pacemaker Social History Tobacco Use Types Packs/Day Years Used Date Smoking Tobacco: Never Smokeless Tobacco: Never Alcohol Use Standard Drinks/Week Comments No 0 (1 standard drink = 0.6 oz pur e alcohol) Sex and Gender Information Value Date Recorded Sex Assigned at Not on file 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 Dx; CHB. DOI 05/10/[address] Ventura. Carelink remote monitoring Q3 mo, office pacer checks Q1 yr. Routine pacemaker remote. Normal device function. Appropriate battery function-2.97V, 3.0 years estimated longevity. Stable lead measurements. Presenting rhythm-APVP. AP-87%,GIMP TACKER-97%. No Mode switch episodes noted. No Ventricular high rate episodes noted. Medications; Coreg, Crestor, Hydrochlorothiazide, ASA, Lisinopril. See scanned report. Carelink remote f/u 12/04/2020. Office device f/u scheduled 03/12/2021. documented in this encounter Plan of Treatment Not on file documented as of this encounter Procedures Procedure Name Priority Date/Time Associated Diagnosis Comments DEVICE CHECK - REMOTE Routine 08/29/2020 4:43 PM CDT CHB (complete heart block) (CMS/HCC) Pacemaker documented in this encounter Results * DEVICE CHECK - REMOTE (08/29/2020 4:43 PM CDT) Anatomical Region Laterality Modality Other Narrative 10/25/2020 4:37 PM CDT Medtronic Dual Pacemaker. Dx; CHB. DOI 05/10/[address] Ventura. Carelink remote monitoring Q3 mo, office pacer checks Q1 yr. Routine pacemaker remote. Normal device function. Appropriate battery function-2.97V, 3.0 years estimated longevity. Stable lead measurements. Presenting rhythm-APVP. AP-87%,GIMP TACKER-97%. No Mode switch episodes noted. No Ventricular [...] situ documented in this encounter Care Teams Shipping Assistant Relationship Specialty Start Date End Date Danielle Rojas MD [address] [facility] [address] [place] [id number] PCP - General 08/21/16 documented as of this encounter
--- OUTSIDE RECORDS SUMMARY | 2024-05-25 06:51 | XMS_ITS | Encounter Summary ---
Author Organization [facility] Healthcare Address [address] [place] [address] Care Team Providers Care Bushler Name Role Phone Danielle Rojas MD Primary Care Provider Reason for Visit * Cardiology (Routine) - Closed Specialty Diagnoses / Procedures Referred By Contac t Referred To Contact Diagnoses CHB (complete heart block) (CMS/HCC) (HCC) Ischemic cardiomyopathy Procedures DEVICE CHECK - REMOTE Pankaj Eden MD [address] [place] [address] Phone: tel: fax: Referral ID Status Reason Start Date Expiration Date Visits Re quested Visits Authorized [id number] Closed 10/20/2023 04/21/2025 1 1 Encounter Details Date Type Department Care Team (Latest Contact Info) Description 11/19/2023 7:00 AM CDT Ancillary Procedure 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 Dx; CHB. DOI 05/10/[address] Ventura. Carelink remote monitoring Q3 mo, office pacer checks Q1 yr. Routine DDDR Pacemaker Remote. Transmission attached. Battery status: 2.85 V, 4 months remaining battery life to SHARMAINE. Stable lead impedances, pacing and sensing thresholds. Presenting rhythm: AP/SUPREME COURT JUDGE AP- 97.5%, SUPREME COURT JUDGE- 100% No AT/AF episodes noted. No Ventricular high rate episodes detected Medications: ASA, carvedilol See scanned report. Office pacemaker follow up: pending generator change [facility] remote f/u 12/22/23 to assess battery status. Aroldo Hilliard, RN Dominicraisa Eden MD [facility] PROCEDURES Final Result documented in this encounter Visit Diagnoses Diagnosis Pacemaker- Primary Cardiac pacemaker in situ CHB (complete heart block) (CMS/HCC) (HCC) Atrioventricular block, complete Ischemic cardiomyopathy Other specified forms of chronic ischemic heart disease documented in this encounter Care Teams Bushler Relationship Specialty Start Date End Date Danielle Rojas MD [address] [facility] [address] [place] [address] PCP - General 08/21/16 documented as of this encounter
--- OUTSIDE RECORDS SUMMARY | 2024-05-25 06:51 | XMS_ITS | Encounter Summary ---
Author Organization [facility] Medical Group Address [address] [place] [address] Care Team Providers Care Storehouse Clerk Name Role Phone Danielle Rojas MD Primary Care Provider Reason for Referral * Cardiology (Routine) - Closed Specialty Diagnoses / Procedures Referred By Emma pedraza Referred To Contact Diagnoses Coronary arteriosclerosis in [place] artery History of coronary artery bypass surgery Chronic ischemic heart disease Pacemaker Procedures Transthoracic Echo Complete W Doppler/CF Cathryn Burns MD Phone: tel: fax: [facility] Medical [facility] Referral ID Status Reason Start Date Expiration Date Visits Re quested Visits Authorized [id number] Closed 07/30/2021 08/29/2022 1 1 ANICAL RELIABILITY ENGINEER Reason for Visit * Reason Comments Coronary Artery Disease Annual f/u * Consultation (Routine) - Closed Specialty Diagnoses / Procedures Referred By Emma pedraza Referred To Contact Cardiology Diagnoses Atherosclerosis of [place] 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, unspecified whether [place] or transplanted heart (HCC) Danielle Rojas MD [address] [place] [address] Phone: tel: fax: [facility] Cardiology [address] [place] [address] Phone: tel: fax: Referral ID Status Reason Start Date Expiration Date V isits Requested Visits Authorized [id number] Closed Specialty Services Required 07/24/2021 01/22/2022 3 3 Encounter Details Date Type Department Care Team (Latest Contact Info) Description 07/30/2021 9:45 AM MECHANICAL RELIABILITY ENGINEER Office Visit [facility] Cardiology [address] [place] [phone] Cathryn Burns MD [address] [place] [address] Coronary arteriosclerosis in [place] artery (Primary Dx); History of coronary artery bypass surgery; Chronic ischemic heart disease; Pacemaker; Complete atrioventricular block (CMS/HCC) (HCC); Atherosclerosis of [place] 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, unspecified whether [place] or transplanted heart (HCC); Hyperlipidemia associated with type 2 diabetes mellitus (HCC) Social History Tobacco Use Types Packs/Day Years Used Date Smoking Tobacco: Never Smokeless Tobacco: Never Alcohol Use Standard Drinks/Week Comments No 0 (1 standard drink = 0.6 oz pur e alcohol) Sex and Gender Information Value Date Recorded Sex Assigned at Not on file Legal Sex Male 9:22 AM MECHANICAL RELIABILITY ENGINEER Gender Identity Not on file Sexual Orientation Not on file documented as of this encounter Last Filed Vital Signs Vital Sign [place] Time Taken Comments Blood Pressure 120/80 07/30/2021 9:38 AM MECHANICAL RELIABILITY ENGINEER Pulse 86 07/30/2021 9:38 AM MECHANICAL RELIABILITY ENGINEER Temperature - - Respiratory Rate - - Oxygen Saturation 96% 07/30/2021 9:38 AM MECHANICAL RELIABILITY ENGINEER Inhaled Oxygen Concentration - - Weight 95.3 kg (210 lb) 07/30/2021 9:38 AM MECHANICAL RELIABILITY ENGINEER Height 177.8 cm (5' 10 ) 07/30/2021 9:38 AM MECHANICAL RELIABILITY ENGINEER Body Mass Index 30.13 07/30/2021 9:38 AM MECHANICAL RELIABILITY ENGINEER documented in this encounter Patient Instructions * Patient Instructions* Cathryn Burns MD - 07/30/2021 9:45 AM MECHANICAL RELIABILITY ENGINEER Total cholesterol 154, HDl chol 64, triglycerides 91, LDL chol 71 ANICAL RELIABILITY ENGINEER ANICAL RELIABILITY ENGINEER documented in this encounter Progress Notes * Cathryn Burns MD - 07/30/2021 9:45 AM [facility] DATE OF VISIT: 07/30/2021 DATE: 1950 CHIEF COMPLAINT Chief Complaint Patient presents with ??? Coronary Artery Disease Annual f/u Follow-up for CAD, pacemaker HPI Dayron Portillo is a 70 y.o. male with a history of ACS into November 2010. He underwent a [address] Ho His EF runs around 40-45%. He has HTN, DM, HLD, obesity and Found to have early dementia and started on [...] changes made 07/30/[address] Burns: DM was not doing well, but lost weight (down 12#) and now doing better, feels good. Exercises on treadmill for a mile every day. No exertional problems. No chest pain, AVILA, dizziness, palpitations, or edema. Drops off his 3 grandchildren at 3 different schools every monring. Labs and POC lipids reviewed. 05/2021 Routine pacemaker remote. Normal device function. Appropriate battery function-2.95V, 2.0 years remaining battery life to SHARMAINE. ? Stable lead measurements. Presenting rhythm-APVP. AP-85%,STRAIN TECHNICIAN-100%. No Mode switch episodes noted. No Ventricular high rate episodes noted. Social: Retired 2015; wants to move back to [place]. Has 5 grandchildren, oldest has Downs,. MEDICAL HISTORY Past Medical History: Diagnosis Date ??? Cardiomyopathy (HCC) ??? Diabetes mellitus (HCC) ??? GERD (gastroesophageal reflux disease) ??? Heart disease ??? Hyperlipidemia ??? Hypertension Social History Tobacco Use ??? Smoking status: [...] 0 ??? carvediloL (COREG) 12.5 mg tablet, TAKE 1 TABLET BY MOUTH TWICE A DAY WITH MEALS (Patient taking differently: Take 6.25 mg by mouth 2 (two) times a day with meals), Disp: 180 tablet, Rfl: 0 ??? cinnamon bark 500 mg capsule, Take 500 mg by mouth daily, Disp: , Rfl: ??? Contour Next Test Strips strip, USE TO CHECK BLOOD GLUCOSE 3 TIMES DAILY (E11.9), Disp: , Rfl: ??? ferrous sulfate (IRON) 325 mg (65 mg of elemental iron) tablet, take 1 tablet (325MG) by oral route every day, Disp: , Rfl: 0 ??? fluticasone (FLONASE) 50 mcg/actuation nasal spray, Administer 1 spray into each nostril daily., Disp: , Rfl: ??? hydroCHLOROthiazide (HYDRODIURIL) 12.5 mg tablet, Take 1 tablet (12.5 mg total) by mouth daily Take 2 tablets daily, Disp: , Rfl: ??? insulin lispro protamine-insulin lispro 75/25 (HumaLOG 75/25) 100 unit/mL pen for injection, , Disp: , Rfl: ??? memantine (NAMENDA) 5 [...] mg tablet, TAKE 1/2 TABLET BY MOUTH DAILY, Disp: 45 tablet, Rfl: 0 Current Facility-Administered Medications: ??? perflutren lipid (DEFINITY) 1.5 mL in sodium chloride 0.9% 10 mL syringe, 1- 10 mL, intravenous,[facility] ALLERGIES No Known Allergies REVIEW OF SYSTEMS Review of Systems Constitutional: Negative for malaise/fatigue. HENT: Negative for congestion. [...] Negative for depression. PHYSICAL EXAM Blood pressure 120/80, pulse 86, height 177.8 cm (5' 10 ), weight 95.3 kg (210 lb), SpO2 96 %. Body mass index is 30.13 kg/m??. Physical Exam Constitutional: Appearance: He is well-developed. Comments: Pleasant male, NAD, unaccompanied today Neck: Thyroid: No thyromegaly. Vascular: No carotid [...] is no distension. Palpations: Abdomen is soft. Skin: General: Skin is warm and dry. [...] LDL-C. Milind PEMBERTON et al. PETER. 2013;310(19): 5551-9231 (http://education.Boatbound.com/faq/QWB571) 04/06/2017 102 (H) mg/dL (calc) Final Comment: Reference range: <100 Desirable range <100 mg/dL for patients with CHD or diabetes and <70 mg/dL for diabetic patients with known heart disease. LDL-C is now calculated using the Milind-Braxton calculation, which is a validated novel method providing better accuracy than the Friedewald equation in the estimation of LDL-C. Milind PEMBERTON et al. PETER. 2013;310(19): 6230-8441 (http://education.Boatbound.BioGasol/faq/EHZ990) ] No results found for: LDLCALC Lab [...] chol 64, triglycerides 91, LDL chol 71 Cardiac testin cardiac cath: Patent grafts, EF 40-45% 2012 Stress test: EF 57%, no significant ischemia. March 2017 echo : EF 43%, hypokinesis of the apical septum. Other testin03/2019 lower extremity arterial Doppler: Normal arterial Doppler ASSESSMENT Diagnoses and all orders for this visit: Coronary arteriosclerosis in [place] artery (Primary) - Transthoracic Echo Complete W Doppler/CF; Future - POCT lipid panel History of coronary artery bypass surgery - Transthoracic Echo Complete W Doppler/CF; Future Chronic ischemic heart disease - Transthoracic Echo Complete W Doppler/CF; Future Pacemaker - Transthoracic Echo Complete W Doppler/CF; Future Complete atrioventricular block (CMS/HCC) (HCC) Atherosclerosis of [place] 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, unspecified whether [place] or transplanted heart (HCC) - Ambulatory referral to Cardiology Hyperlipidemia associated with type 2 diabetes mellitus (HCC) CAD/Cardiomyopathy: H/O CABG 2010. Stable w/o angina, good exertional tolerance. EF runs around 40-45%, but has not been rechecked for years. Pacemaker: for CHB, checked t as above, showed normal function, underlying complete heart block Hyperlipidemia: LDL 71; doing reasonably well on rosuvastatin, on 20 mg qd. DM: A1c was not at goal, working on it. PLAN/RECOMMENDATIONS Congratulated patient on his weight reduction. Cont current tx for CAD with ASA, BB, ROSA-inhibitor, statin. Continue with pacemaker clinic Periodic echocardiograms. If the patient has a decline in LV function consider an upgrade to a biventricular pacemaker. This certainly should be considered when his pulse generator reaches elective replacement interval. Last Echo was 2016; ordered another echo. FU 1 year, sooner if needed. Requested labs fr Dr. Santos's office, as above. Cathryn Burns MD, [facility] Office: [phone] or [phone] This note is dictated and transcribed by with assistance from [employer].?? Recycling Collections Driver variances may occur. Despite proofreading, typographical errors may occur. documented in this encounter Plan of Treatment Not on file documented as of this encounter Procedures Procedure Name Priority Date/Time Associated Diagnosis Comments POCT LIPID PANEL Routine 07/30/2021 1:29 PM MECHANICAL RELIABILITY ENGINEER Coronary arteriosclerosis in [place] artery LIPID PANEL Routine 05/27/2021 LIPID PANEL Routine 07/22/2020 documented in this encounter Results * TRANSTHORACIC ECHO (TTE) COMPLETE W DOPPLER/CF W CONTRAST (08/29/2021 10:42 AM CDT) Anatomical Region Laterality Modality Ultrasound 08/29/2021 9:44 AM CDT Narrative 08/29/2021 1:55 PM CDT [facility] Cardiology [address], [place] [address] [address], [place] [address] P:[phone] P:[phone] Echocardiographic Report Patient Name: DAYRON PORTILLO : 1950 Study Date: 08/29/2021 9:44:44 AM Gender: M Tech: Location: [place] Ref.Provider: CATHRYN BURNS Height(Cm): 178 BSA: 2.13 Weight(Kg): 95.28 [...] Findings: Interpretation Site: Exam was interpreted at [facility]. Left Ventricle: Definity contrast agent used to [...] Procedure Note Kaushal Rangel MD - 08/29/2021 [facility] Cardiology [address], [place] [address] [address], [place] [address] P:[phone] P:[phone] Echocardiographic Report Patient Name: DAYRON PORTILLOPatient ID: [id number] : [id number] Date: 08/29/2021 9:44:44 AM Gender: MAccession #: [id number] Tech: GMLocation: [place] Ref.Provider: CATHRYN BURNSHeight(Cm): 178 BSA: 2.13Weight(Kg): 95.28 [...] 16.00 - 28.00 ] cc/m2 MV Decel Msat374 [ 150 - 200 ] msec ACS MM 2.08 cm PV Peak Vel1.16 [ 0.40 - 0.80 ] m/s TR Peak Vel2.54 [ 0.40 - 0.80 ] m/s TR Peak PG 26mmHg RVSP34.00 mmHg E'0.07 E/E' 10 Findings: Interpretation Site: Exam was interpreted at [facility]. Left Ventricle: Definity contrast agent used to [...] MD CV ECHO PROCEDURES Final Re sult * POCT lipid panel (07/30/2021 1:29 PM MECHANICAL RELIABILITY ENGINEER) Cholesterol, POC 154 mg/dL HDL, POC 64 mg/dL Triglycerides, POC 91 mg/dL LDL Cholesterol POC 71 mg/dL Chol/HDL Ratio, POC 2.4 Non-HDL Cholesterol, POC 90 mg/dL Cholesterol Total, POC 154 mg/dL Capillary blood 07/30/2021 1 :29 PM MECHANICAL RELIABILITY ENGINEER Result [facility] Cathryn Burns MD POINT OF CARE TEST ORDERABL ES Final Result * Lipid panel (05/27/2021) SCRIBED Cholesterol, Total 161 <200 EXTERNAL LAB SCRIBED HDL 61 >40 EXTERNAL LAB SCRIBED LDL 79 <100 EXTER[facility] LAB SCRIBED Triglycerides 111 <150 EXTERNAL LAB Blood specimen (specimen) Historical Provider LAB BLOOD ORDERABLES Onelia l Result EXTERNAL LAB * Lipid panel (07/22/2020) SCRIBED Cholesterol, Total 154 <200 [facility] SCRIBED HDL 51 >40 [facility] SCRIBED LDL 81 <100 [facility] SCRIBED Triglycerides 128 <150 [facility] Blood specimen (specimen) Historical Provider LAB BLOOD ORDERABLES Onelia l Result [facility] documented in this encounter Visit Diagnoses Diagnosis Coronary arteriosclerosis in [place] artery- Primary History of coronary artery bypass surgery Postsurgical aortocoronary bypass status Chronic ischemic heart disease Unspecified chronic ischemic heart disease Pacemaker Cardiac pacemaker in situ Complete atrioventricular block (CMS/HCC) (HCC) Atrioventricular block, complete Atherosclerosis of [place] 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, unspecified whether [place] or transplanted heart (HCC) Hyperlipidemia associated with type 2 diabetes mellitus (HCC) Coronary arteriosclerosis in [place] artery History of coronary artery bypass surgery Postsurgical aortocoronary bypass status Chronic ischemic heart disease Unspecified chronic ischemic heart disease Pacemaker Cardiac pacemaker in situ documented in this encounter Discontinued Medications Medication Sig Discontinue Reason Start Date End Da te glimepiride (AMARYL) 4 mg tablet Discontinued by another clinician 04/22/2020 07/30/2021 sitaGLIPtin-metformin 100-1,000 mg tablet, ER multiphase 24 hr Take 1,000 mg by mouth daily. Discontinued by another clinician 07/30/2021 lisinopril (PRINIVIL,ZESTRIL) 40 mg tablet Take 40 mg by mouth daily Take 1 tablet daily Therapy completed 07/30/2021 cetirizine (ZyrTEC) 10 mg capsule take 1 by Oral route once as needed 03/24/2016 07/30/2021 documented as of this encounter Historical Medications * This list may reflect changes made after this encounter. cinnamon bark 500 mg capsule Take 1 capsule (500 mg total) by mouth daily insulin lispro protamine-insulin lispro 75/25 (HumaLOG 75/25) 100 unit/mL pen for injection 07/10/2021 08/12/2022 added in this encounter Orders Outpatient Referral Count Last Ordered Date Fir st Ordered Date AMB REFERRAL TO CARDIOLOGY 1 07/31/2021 documented in this encounter Care Teams Storehouse Clerk Relationship Specialty Start Date End Date Danielle Rojas MD [address] [facility] [address] [place] [address] PCP - General 08/21/16 documented as of this encounter
--- OUTSIDE RECORDS SUMMARY | 2024-05-25 06:51 | XMS_ITS | Encounter Summary ---
Author Organization [facility] Healthcare Address [address] [place] [address] Care Team Providers Care Mid Teacher Name Role Phone Danielle Rojas MD Primary Care Provider Reason for Visit * Cardiology (Routine) - Closed Specialty Diagnoses / Procedures Referred By Contac t Referred To Contact Cardiology Diagnoses Chronic ischemic heart disease, unspecified Danielle Rojas MD [address] [facility] [address] [place] [address] Phone: tel: fax: [facility] Medical Group Cardiology [address] [place] [address] Phone: tel: fax: Referral ID Status Reason Start Date Expiration Date V isits Requested Visits Authorized [id number] Closed Specialty Services Required 08/12/2022 09/12/2023 4 4 Encounter Details Date Type Department Care Team (Latest Contact Info) Description 05/12/2023 11:30 AM ACCOUNTING INSTRUCTOR Ancillary Procedure [facility] Medical Group Cardiology [address] [place] [address] Pacemaker (Primary Dx); CHB (complete heart block) (CMS/HCC) (HCC) Social History Tobacco Use Types Packs/Day Years Used Date Smoking Tobacco: Never Smokeless Tobacco: Never Alcohol Use Standard Drinks/Week Comments No 0 (1 standard drink = 0.6 oz pur e alcohol) Sex and Gender Information Value Date Recorded Sex Assigned at Not on file Legal Sex Male 9:22 AM ACCOUNTING INSTRUCTOR Gender Identity Not on file Sexual Orientation Not on file documented as of this encounter Plan of Treatment Not on file documented as of this encounter Procedures Procedure Name Priority Date/Time Associated Diagnosis Comments DEVICE CHECK - IN OFFICE Routine 05/12/2023 11:23 AM ACCOUNTING INSTRUCTOR CHB (complete heart block) (CMS/HCC) (HCC) documented in this encounter Results * DEVICE CHECK - IN OFFICE (05/12/2023 11:23 AM ACCOUNTING INSTRUCTOR) Anatomical Region Laterality Modality Other Narrative 05/20/2023 6:30 AM ACCOUNTING INSTRUCTOR Medtronic Dual Pacemaker. Dx; CHB. DOI 05/10/[address] [facility]. [facility] Supervising physician: Dr Bean. Office pacemaker evaluation demonstrated normal device function. Right pectoral incision well healed without signs of infection noted. Battery function-2.88V, 10 months remaining battery life to SHARMAINE. Presenting rhythm-APVP. Underlying rhythm-CHB without v-escape @ VVI 30 bpm. Consider pacemaker dependent. AP-92%, SOLUTIONS ANALYST-100%. No atrial high rate episodes recorded. ?? 1 VHR episode noted on 01/15/2023, iegm NSVT 12 beats @ 176 bpm. Medications; ASA 81 mg, Coreg. Ventricular amplitude decreased to 2.0V. See scanned report. [employer] remote f/u 08/18/2023. Eva Aguiar, RN us Yuki Delgadillo MD [facility] CARDIAC SERVICES PROCEDU RES Final Result documented in this encounter Visit Diagnoses Diagnosis Pacemaker- Primary Cardiac pacemaker in situ CHB (complete heart block) (CMS/HCC) (HCC) Atrioventricular block, complete documented in this encounter Care Teams Mid Teacher Relationship Specialty Start Date End Date Danielle Rojas MD [address] [place] [address] PCP - General 08/21/16 documented as of this encounter
--- OUTSIDE RECORDS SUMMARY | 2024-05-25 06:51 | XMS_ITS | Encounter Summary ---
Author Organization [facility] Medical [facility] Address [address] [place] [address] Care Team Providers Care Warp Starter Name Role Phone Danielle Rojas MD Primary Care Provider Reason for Visit * Cardiology (Routine) - Closed Specialty Diagnoses / Procedures Referred By Contac t Referred To Contact Diagnoses CHB (complete heart block) (CMS/HCC) (HCC) Procedures DEVICE CHECK - REMOTE Yuki Delgadillo MD Phone: tel: fax: [facility] Medical [facility] Referral ID Status Reason Start Date Expiration Date Visits Re quested Visits Authorized [id number] Closed 09/12/2021 03/14/2023 1 1 Encounter Details Date Type Department Care Team (Latest Contact Info) Description 07/01/2022 7:00 AM PET CARETAKER Ancillary Procedure [facility] Medical [facility] Cardiology [facility] [facility] [address] [place] [id number] Pacemaker [Z95.0 (ICD-10-CM)] (Primary Dx); CHB (complete heart block) (CMS/HCC) (HCC) Social History Tobacco Use Types Packs/Day Years Used Date Smoking Tobacco: Never Smokeless Tobacco: Never Alcohol Use Standard Drinks/Week Comments No 0 (1 standard drink = 0.6 oz pur e alcohol) Sex and Gender Information Value Date Recorded Sex Assigned at Not on file Legal Sex Male 9:22 AM PET CARETAKER Gender Identity Not on file Sexual Orientation Not on file documented as of this encounter Plan of Treatment Not on file documented as of this encounter Procedures Procedure Name Priority Date/Time Associated Diagnosis Comments DEVICE CHECK - REMOTE Routine 07/01/2022 3:08 PM PET CARETAKER CHB (complete heart block) (CMS/HCC) (HCC) documented in this encounter Results * DEVICE CHECK - REMOTE (07/01/2022 3:08 PM PET CARETAKER) Anatomical Region Laterality Modality Other Narrative 09/17/2022 5:10 PM CDT Medtronic Dual Pacemaker. Dx; CHB. DOI 05/10/[address] Ventura. Carelink remote monitoring Q3 mo, office pacer checks Q1 yr. Routine pacemaker remote. Normal device function. Battery function-2.92V, 1.5 years remaining battery life to SHARMAINE. ? Stable lead measurements. Presenting rhythm-APVP. 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 No Mode switch episodes noted. No Ventricular high rate episodes noted. Medications; Coreg, Crestor, ASA. See scanned report. Carelink remote f/u scheduled 10/07/2022. Eva Aguiar, RN us Yuki Delgadillo MD [facility] C[facility] PROCEDU RES Final Result documented in this encounter Visit Diagnoses Diagnosis Pacemaker [Z95.0 (ICD-10-CM)]- Primary Cardiac pacemaker in situ CHB (complete heart block) (CMS/HCC) (HCC) Atrioventricular block, complete documented in this encounter Care Teams Warp Starter Relationship Specialty Start Date End Date Danielle Rojas MD [address] [facility] [address] [place] [address] PCP - General 08/21/16 documented as of this encounter
--- OUTSIDE RECORDS SUMMARY | 2024-05-25 06:51 | XMS_ITS | Encounter Summary ---
Author Organization [facility] Medical Group Address [address] [place] [address] Care Team Providers Care Mold Capper Name Role Phone Danielle Rojas MD Primary Care Provider Reason for Visit * Cardiology (Routine) - Closed Specialty Diagnoses / Procedures Referred By Contac t Referred To Contact Diagnoses CHB (complete heart block) (CMS/HCC) (HCC) Procedures DEVICE CHECK - IN OFFICE Yuki Delgadillo MD Phone: tel: fax: [facility] Medical Group Referral ID Status Reason Start Date Expiration Date Visits Re quested Visits Authorized [id number] Closed 07/01/2018 01/10/2020 1 1 Encounter Details Date Type Department Care Team (Latest Contact Info) Description 03/25/2022 11:00 AM CDT Ancillary Procedure [facility] Medical [facility] Cardiology [address] [place] [address] CHB (complete heart block) (CMS/HCC) (HCC); Pacemaker Social History Tobacco Use Types Packs/Day Years Used Date Smoking Tobacco: Never Smokeless Tobacco: Never Alcohol Use Standard Drinks/Week Comments No 0 (1 standard drink = 0.6 oz pur e alcohol) Sex and Gender Information Value Date Recorded Sex Assigned at Not on file Legal Sex Male 9:22 AM REPRESENTATIVE Gender Identity Not on file Sexual Orientation Not on file documented as of this encounter Plan of Treatment Not on file documented as of this encounter Procedures Procedure Name Priority Date/Time Associated Diagnosis Comments DEVICE CHECK - IN OFFICE Routine 03/25/2022 10:42 AM CDT CHB (complete heart block) (CMS/HCC) (HCC) documented in this encounter Results * DEVICE CHECK - IN OFFICE (03/25/2022 10:42 AM CDT) Anatomical Region Laterality Modality Other Narrative 03/26/2022 9:53 AM CDT Medtronic Dual Pacemaker. Dx; CHB. DOI 05/10/[address] Ventura. Carelink remote monitoring. Supervising physician: Dr Rangel. Office pacemaker evaluation demonstrated normal device function. Battery function-2.93V, 1.5 years remaining battery life to SHARMAINE. Presenting rhythm-APVP. Underlying rhythm-CHB without v-escape @ VVI 30 bpm. Consider pacemaker dependent. AP-92%, GAS LINE SERVICER-100%. No atrial or ventricular episodes recorded. ?? No programming changes made to device settings. See scanned report. Carelink remote f/u 07/01/2022.. Office pacemaker f/u expected in 1 year. us Yuki Delgadillo MD CV CARDIAC SERVICES PROCEDU RES Final Result documented in this encounter Visit Diagnoses Diagnosis CHB (complete heart block) (CMS/HCC) (HCC) Atrioventricular block, complete Pacemaker Cardiac pacemaker in situ documented in this encounter Care Teams Mold Capper Relationship Specialty Start Date End Date Danielle Rojas MD [address] [facility] [address] [place] [address] PCP - General 08/21/16 documented as of this encounter
--- OUTSIDE RECORDS SUMMARY | 2024-05-25 06:51 | XMS_ITS | Encounter Summary ---
Author Organization [facility] Medical Group Address [address] [place] [address] Care Team Providers Care Tree Puller Name Role Phone Danielle Rojas MD Primary Care Provider Encounter Details Date Type Department Care Team (Late st Contact Info) Description 07/01/2022 Orders Only [facility] Medical Group Cardiology [address] [facility] [address], [place] [address] Yuki Delgadillo MD [address] [facility] [address] [place] [address] Social History Tobacco Use Types Packs/Day Years Used Date Smoking Tobacco: Never Smokeless Tobacco: Never Alcohol Use Standard Drinks/Week Comments No 0 (1 standard drink = 0.6 oz pur e alcohol) Sex and Gender Information Value Date Recorded Sex Assigned at Not on file Legal Sex Male 9:22 AM LICENSED EMBALMER SUPERVISOR Gender Identity Not on file Sexual Orientation Not on file documented as of this encounter Plan of Treatment Not on file documented as of this encounter Visit Diagnoses Not on filedocumented in this encounter Care Teams Tree Puller Relationship Specialty Start Date End Date Danielle Rojas MD [address] [place] [address] PCP - General 08/21/16 documented as of this encounter
--- OUTSIDE RECORDS SUMMARY | 2024-05-25 06:51 | XMS_ITS | Encounter Summary ---
Author Organization [facility] Medical Group Address [address] [facility] [address] [place] [address] Care Team Providers Care Model Maker Scale Name Role Phone Danielle Rojas MD Primary Care Provider Reason for Visit * Cardiology (Routine) - Closed Specialty Diagnoses / Procedures Referred By Contac t Referred To Contact Diagnoses CHB (complete heart block) (CMS/HCC) (HCC) Pacemaker Procedures DEVICE CHECK - REMOTE Yuki Delgadillo MD Phone: tel: fax: [facility] Medical Group Referral ID Status Reason Start Date Expiration Date Visits Re quested Visits Authorized [id number] Closed 03/12/2021 04/11/2022 1 1 Encounter Details Date Type Department Care Team (Latest Contact Info) Description 12/17/2021 7:15 AM CDT Ancillary Procedure [facility] Medical [facility] Cardiology [facility] [facility] [address] [place] [phone] CHB (complete heart block) (CMS/HCC) (HCC); Pacemaker Social History Tobacco Use Types Packs/Day Years Used Date Smoking Tobacco: Never Smokeless Tobacco: Never Alcohol Use Standard Drinks/Week Comments No 0 (1 standard drink = 0.6 oz pur e alcohol) Sex and Gender Information Value Date Recorded Sex Assigned at Not on file Legal Sex Male 9:22 AM DRAMA DIRECTOR Gender Identity Not on file Sexual Orientation Not on file documented as of this encounter Plan of Treatment Not on file documented as of this encounter Procedures Procedure Name Priority Date/Time Associated Diagnosis Comments DEVICE CHECK - REMOTE Routine 12/17/2021 2:00 PM CDT CHB (complete heart block) (CMS/HCC) [...] SHARMAINE. ? Stable lead measurements. Presenting rhythm-APVP. AP-96%,MINE CAPTAIN-100%. No Mode switch episodes noted. No Ventricular high rate episodes noted. Medications; Coreg, Crestor, ASA. See scanned report. Office pacemaker f/u scheduled 03/25/2022. us Yuki Delgadillo MD CV CARDIAC SERVICES PROCEDU RES Final Result documented in this encounter Visit Diagnoses Diagnosis CHB (complete heart block) (CMS/HCC) (HCC) Atrioventricular block, complete Pacemaker Cardiac pacemaker in situ documented in this encounter Care Teams Model Maker Scale Relationship Specialty Start Date End Date Danielle Rojas MD [address] [facility] [address] [place] [address] PCP - General 08/21/16 documented as of this encounter
--- OUTSIDE RECORDS SUMMARY | 2024-05-25 06:51 | XMS_ITS | Encounter Summary ---
Author Organization [facility] Address [address] [place] [address] Care Team Providers Care Supervisor Asbestos Removal Name Role Phone Danielle Rojas MD Primary Care Provider Reason for Visit * Cardiology (Routine) - Closed Specialty Diagnoses / Procedures Referred By Contac t Referred To Contact Diagnoses Ischemic cardiomyopathy Procedures DEVICE CHECK - REMOTE Pankaj Eden MD [address] [place] [address] Phone: tel: fax: Referral ID Status Reason Start Date Expiration Date Visits Re quested Visits Authorized [id number] Closed 11/10/2023 05/11/2025 1 1 Encounter Details Date Type Department Care Team (Latest Contact Info) Description 12/22/2023 8:45 AM CDT Ancillary Procedure [facility] Medical Group Cardiology [address] [place] [phone] Complete atrioventricular block (CMS/HCC) (HCC) (Primary Dx); Ischemic cardiomyopathy; Pacemaker Social History Tobacco Use Types Packs/Day Years Used Date Smoking Tobacco: Never Smokeless Tobacco: Never Alcohol Use Standard Drinks/Week Comments No 0 (1 standard drink = 0.6 oz pur e alcohol) Sex and Gender Information Value Date Recorded Sex Assigned at Not on file Legal Sex Male 9:22 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 Presenting rhythm: AP/ROTATING EQUIPMENT ENGINEER AP- 97.7%, ROTATING EQUIPMENT ENGINEER- 100% No AT/AF episodes noted. No Ventricular [...] situ documented in this encounter Care Teams Supervisor Asbestos Removal Relationship Specialty Start Date End Date Danielle Rojas MD [address] [place] [address] PCP - General 08/21/16 documented as of this encounter
--- OUTSIDE RECORDS SUMMARY | 2024-05-25 06:51 | XMS_ITS | Encounter Summary ---
Author Organization [facility] Medical Group Address [address] [facility] [address] [place] [address] Care Team Providers Care School Treasurer Name Role Phone Danielle Rojas MD Primary Care Provider Reason for Visit * Cardiology (Routine) - Closed Specialty Diagnoses / Procedures Referred By Contac t Referred To Contact Diagnoses CHB (complete heart block) (CMS/HCC) (HCC) Pacemaker Procedures DEVICE CHECK - REMOTE Yuki Delgadillo MD Phone: tel: fax: [facility] Medical Group Referral ID Status Reason Start Date Expiration Date Visits Re quested Visits Authorized [id number] Closed 03/12/2021 04/11/2022 1 1 Encounter Details Date Type Department Care Team (Latest Contact Info) Description 06/11/2021 8:30 AM WALLPAPERER Ancillary Procedure [facility] Medical [facility] Cardiology [facility] [facility] [address] [place] [phone] CHB (complete heart block) (CMS/HCC) (HCC); Pacemaker Social History Tobacco Use Types Packs/Day Years Used Date Smoking Tobacco: Never Smokeless Tobacco: Never Alcohol Use Standard Drinks/Week Comments No 0 (1 standard drink = 0.6 oz pur e alcohol) Sex and Gender Information Value Date Recorded Sex Assigned at Not on file Legal Sex Male 9:22 AM WALLPAPERER Gender Identity Not on file Sexual Orientation Not on file documented as of this encounter Plan of Treatment Not on file documented as of this encounter Procedures Procedure Name Priority Date/Time Associated Diagnosis Comments DEVICE CHECK - REMOTE Routine 06/11/2021 2:12 PM WALLPAPERER CHB (complete heart block) (CMS/HCC) (HCC) Pacemaker documented in this encounter Results * DEVICE CHECK - REMOTE (06/11/2021 2:12 PM WALLPAPERER) Anatomical Region Laterality Modality Other Narrative 07/25/2021 5:48 PM WALLPAPERER Medtronic Dual Pacemaker. Dx; CHB. DOI 05/10/[address] Ventura. Carelink remote monitoring Q3 mo, office pacer checks Q1 yr. ?? Routine pacemaker remote. Normal device function. Appropriate battery function-2.95V, 2.0 years remaining battery life to SHARMAINE. ? Stable lead measurements. ?? Presenting rhythm-APVP. AP-85%,POND SCALER-100%. ?? No Mode switch episodes noted. No Ventricular high rate episodes noted. ?? Medications; Coreg, Crestor, Hydrochlorothiazide, ASA. See scanned report. ?? Office device f/u scheduled 09/10/2021. us Yuki Delgadillo MD CV CARDIAC SERVICES PROCEDU RES Final Result documented in this encounter Visit Diagnoses Diagnosis CHB (complete heart block) (CMS/HCC) (HCC) Atrioventricular block, complete Pacemaker Cardiac pacemaker in situ documented in this encounter Care Teams School Treasurer Relationship Specialty Start Date End Date Danielle Rojas MD [address] [facility] [address] [place] [address] PCP - General 08/21/16 documented as of this encounter
--- OUTSIDE RECORDS SUMMARY | 2024-05-25 06:51 | XMS_ITS | Encounter Summary ---
Author Organization [facility] Medical Group Address [address] [facility] [address] [place] [address] Care Team Providers Care Quiller Hand Name Role Phone Danielle Rojas MD Primary Care Provider Reason for Visit * Cardiology (Routine) - Closed Specialty Diagnoses / Procedures Referred By Contac t Referred To Contact Cardiology Diagnoses Chronic ischemic heart disease, unspecified Danielle Rojas MD [address] [facility] [address] [facility] [address] [place] [address] Phone: tel: fax: [facility] Medical [facility] Cardiology [address] [place] [address] Phone: tel: fax: Referral ID Status Reason Start Date Expiration Date V isits Requested Visits Authorized [id number] Closed Specialty Services Required 08/12/2022 09/12/2023 4 4 Encounter Details Date Type Department Care Team (Latest Contact Info) Description 10/09/2022 7:00 AM CDT Ancillary Procedure [facility] Medical [facility] Cardiology [address] [facility] [address], [place] [address] CHB (complete heart block) (CMS/HCC) (HCC) Social History Tobacco Use Types Packs/Day Years Used Date Smoking Tobacco: Never Smokeless Tobacco: Never Alcohol Use Standard Drinks/Week Comments No 0 (1 standard drink = 0.6 oz pur e alcohol) Sex and Gender Information Value Date Recorded Sex Assigned at Not on file Legal Sex Male 9:22 AM GLORY HOLE TENDER Gender Identity Not on file Sexual Orientation Not on file documented as of this encounter Plan of Treatment Not on file documented as of this encounter Procedures Procedure Name Priority Date/Time Associated Diagnosis Comments DEVICE CHECK - REMOTE Routine 10/09/2022 8:33 AM CDT CHB (complete heart block) (CMS/HCC) (HCC) documented in this encounter Results * DEVICE CHECK - REMOTE (10/09/2022 8:33 [...] to SHARMAINE Episodes last 90 days/Comments: AF [place] 0 %, longest duration 0. NORMAL DEVICE FUNCTION PROGRAMMED MEDICATIONS: Anti-coagulant(s): ??Aspirin 81 mg daily Anti-arrhythmic(s): ??Coreg 12.5 mg twice daily PLAN: 1) normal Medtronic Pacemaker evaluation 2) Medtronic remote transmission scheduled in 3 months. 3) Programming appropriate for device measurements Mehrdad Rocha, RN us Yuki Delgadillo MD CV CARDIAC SERVICES PROCEDU RES Final Result documented in this encounter Visit Diagnoses Diagnosis CHB (complete heart block) (CMS/HCC) (HCC) Atrioventricular block, complete documented in this encounter Care Teams Quiller Hand Relationship Specialty Start Date End Date Danielle Rojas MD [address] [facility] [address] [place] [address] PCP - General 08/21/16 documented as of this encounter
--- OUTSIDE RECORDS SUMMARY | 2024-05-25 06:51 | XMS_ITS | Encounter Summary ---
Author Organization [facility] Medical [facility] Address [address] [facility] [address] [place] [address] Care Team Providers Care Cognos Analyst Name Role Phone Danielle Rojas MD Primary Care Provider Reason for Visit * (Routine) - Closed Specialty Diagnoses / Procedures Referred By Contac t Referred To Contact Diagnoses CHB (complete heart block) (CMS/HCC) (HCC) Pacemaker Procedures DEVICE CHECK - REMOTE Yuki Delgadillo MD Phone: tel: fax: [facility] Medical [facility] Referral ID Status Reason Start Date Expiration Date Visits Re quested Visits Authorized [id number] Closed 02/21/2020 03/22/2021 1 1 Encounter Details Date Type Department Care Team (Latest Contact Info) Description 05/29/2020 8:30 AM DECORATIVE GREENS CUTTER Ancillary Procedure [facility] Medical [facility] Cardiology [facility] [facility] [address] [place] [phone] CHB (complete heart block) (CMS/HCC); Pacemaker Social History Tobacco Use Types Packs/Day Years Used Date Smoking Tobacco: Never Smokeless Tobacco: Never Alcohol Use Standard Drinks/Week Comments No 0 (1 standard drink = 0.6 oz pur e alcohol) Sex and Gender Information Value Date Recorded Sex Assigned at Not on file Legal Sex Male 9:22 AM DECORATIVE GREENS CUTTER Gender Identity Not on file Sexual Orientation Not on file documented as of this encounter Progress Notes * Eva Aguiar RN - 05/29/2020 8:30 AM CST Medtronic Dual Pacemaker. Dx; CHB. DOI 05/10/[address] Ventura. Carelink remote monitoring Q3 mo, office pacer checks Q1 yr. Routine pacemaker remote. Normal device function. Appropriate battery function-2.98V, 3.5 years estimated longevity. Stable lead measurements. Presenting rhythm-APVP. AP-BLEACH MAKER-100%. No Mode switch episodes noted. No Ventricular high rate episodes noted. Medications; Coreg, Crestor, Hydrochlorothiazide, ASA, Lisinopril. See scanned report. Carelink remote f/u 08/28/2020. Office device f/u scheduled 03/12/2021. RATIVE GREENS CUTTER documented in this encounter Plan of Treatment Not on file documented as of this encounter Procedures Procedure Name Priority Date/Time Associated Diagnosis Comments DEVICE CHECK - REMOTE Routine 05/29/2020 9:29 AM DECORATIVE GREENS CUTTER CHB (complete heart block) (CMS/HCC) Pacemaker documented in this encounter Results * DEVICE CHECK - REMOTE (05/29/2020 9:29 AM DECORATIVE GREENS CUTTER) Anatomical Region Laterality Modality Other Narrative 07/12/2020 9:55 AM DECORATIVE GREENS CUTTER Medtronic Dual Pacemaker. Dx; CHB. DOI 05/10/[address] Ventura. Carelink remote monitoring Q3 mo, office pacer checks Q1 yr. ?? Routine pacemaker remote. Normal device function. Appropriate battery function-2.98V, 3.5 years estimated longevity. Stable lead measurements. Presenting rhythm-APVP. AP-BLEACH MAKER-100%. No Mode switch episodes noted. No Ventricular [...] situ documented in this encounter Care Teams Cognos Analyst Relationship Specialty Start Date End Date Danielle Rojas MD [address] [facility] [address] [place] [address] PCP - General 08/21/16 documented as of this encounter
--- OUTSIDE RECORDS SUMMARY | 2024-05-25 06:51 | XMS_ITS | Encounter Summary ---
Author Organization [facility] Healthcare Address [address] [place] [address] Care Team Providers Care Warehouse Picker Name Role Phone Danielle Rojas MD Primary Care Provider Reason for Referral * Cardiology (Routine) - Pending Review Specialty Diagnoses / Procedures Referred By Contac t Referred To Contact Cardiology Diagnoses CHB (complete heart block) (CMS/HCC) (HCC) Ischemic cardiomyopathy Procedures DEVICE CHECK - REMOTE Pankaj Eden MD [address] [address] Phone: tel: fax: [facility] Medical Group Referral ID Status Reason Start Date Expiration Date V isits Requested Visits Authorized [id number] Pending Review 10/20/2023 04/21/2025 1 1 * Cardiology (Routine) - Pending Review Specialty Diagnoses / Procedures [facility] Referred To Contact Cardiology Diagnoses CHB (complete heart block) (CMS/HCC) (HCC) Ischemic cardiomyopathy Procedures DEVICE CHECK - REMOTE Pankaj Eden MD [address] [address] Phone: tel: fax: [facility] Medical Group Referral ID Status Reason Start Date Expiration Date V isits Requested Visits Authorized Pending Review 10/20/2023 04/21/2025 1 1 * Cardiology (Routine) - Closed Specialty Diagnoses / Procedures Referred By Contac t Referred To Contact Diagnoses CHB (complete heart block) (CMS/HCC) (HCC) Ischemic cardiomyopathy Procedures DEVICE CHECK - REMOTE Pankaj Eden MD [address] [address] Phone: tel: fax: Referral ID Status Reason Start Date Expiration Date Visits Re quested Visits Authorized [id number] Closed 10/20/2023 04/21/2025 1 1 Encounter Details Date Type Department Care Team (Late st Contact Info) Description 10/20/2023 Orders Only [facility] Medical Group Cardiology [address] [place] [phone] Pankaj Eden MD [address] [address] CHB (complete heart block) (CMS/HCC) (HCC) (Primary Dx); Ischemic cardiomyopathy Social History Tobacco Use Types Packs/Day Years Used Date Smoking Tobacco: Never Smokeless Tobacco: Never Alcohol Use Standard Drinks/Week Comments No 0 (1 standard drink = 0.6 oz pur e alcohol) Sex and Gender Information Value Date Recorded Sex Assigned at Not on file Legal Sex Male 9:22 AM WINDOWS SERVER SUPPORT TECHNICIAN Gender Identity Not on file Sexual Orientation Not on file documented as of this encounter Plan of Treatment Scheduled Orders Name Type Priority Associated Diagnoses Orde r Schedule DEVICE CHECK - REMOTE Cardiac Services Routine CHB (complete heart block) (CMS/HCC) (HCC) Ischemic cardiomyopathy Expected: 04/19/2024, Expires: 05/23/2030 DEVICE CHECK - REMOTE Cardiac Services Routine CHB (complete heart block) (CMS/HCC) (HCC) Ischemic cardiomyopathy Expected: 07/19/2024, Expires: 05/23/2030 documented as of this encounter [...] impedances, pacing and sensing thresholds. Presenting rhythm: AP/COLLEGE OR UNIVERSITY REGISTRAR AP- 97.5%, COLLEGE OR UNIVERSITY REGISTRAR- 100% No AT/AF episodes noted. No Ventricular high rate episodes detected Medications: ASA, carvedilol See scanned report. Office pacemaker follow up: pending generator change [facility] remote f/u 12/22/23 to assess battery status. Aroldo Hilliard RN Pankaj Eden MD CV [...] disease documented in this encounter Care Teams Warehouse Picker Relationship Specialty Start Date End Date Danielle Rojas MD [address] [facility] [address] [place] [address] PCP - General 08/21/16 documented as of this encounter
--- OUTSIDE RECORDS SUMMARY | 2024-05-25 06:51 | XMS_ITS | Encounter Summary ---
Author Organization [facility] Medical Group Address [address] [place] [address] Care Team Providers Care Forestry Technician Name Role Phone Danielle Rojas MD Primary Care Provider Reason for Visit * (Routine) - Closed Specialty Diagnoses / Procedures Referred By Contac t Referred To Contact Diagnoses CHB (complete heart block) (CMS/HCC) (HCC) Pacemaker Procedures DEVICE CHECK - IN OFFICE Yuki Delgadillo MD Phone: tel: fax: [facility] Medical Group Referral ID Status Reason Start Date Expiration Date Visits Re quested Visits Authorized [id number] Closed 02/21/2020 03/22/2021 1 1 Encounter Details Date Type Department Care Team (Latest Contact Info) Description 03/12/2021 10:30 AM CDT Ancillary Procedure [facility] Medical [facility] Cardiology [address] [place] [address] CHB (complete heart block) (CMS/HCC) (HCC); Pacemaker Social History Tobacco Use Types Packs/Day Years Used Date Smoking Tobacco: Never Smokeless Tobacco: Never Alcohol Use Standard Drinks/Week Comments No 0 (1 standard drink = 0.6 oz pur e alcohol) Sex and Gender Information Value Date Recorded Sex Assigned at Not on file Legal Sex Male 9:22 AM VAULT CASHIER Gender Identity Not on file Sexual Orientation Not on file documented as of this encounter Plan of Treatment Not on file documented as of this encounter Procedures Procedure Name Priority Date/Time Associated Diagnosis Comments DEVICE CHECK - IN OFFICE Routine 03/12/2021 10:01 AM CDT CHB (complete heart block) (CMS/HCC) [...] VVI 30 bpm. Consider pacemaker dependent. AP-85%, LEARNING PROGRAM MANAGER-96.3%. No atrial or ventricular episodes recorded.? No programming changes made to device settings. See scanned report. Carelink remote f/u??06/11/2021.?? Office pacemaker f/u 03/25/2022. us Yuki Delgadillo MD CV CARDIAC SERVICES PROCEDU RES Final Result documented in this encounter Visit Diagnoses Diagnosis CHB (complete heart block) (CMS/HCC) (HCC) Atrioventricular block, complete Pacemaker Cardiac pacemaker in situ documented in this encounter Care Teams Forestry Technician Relationship Specialty Start Date End Date Danielle Rojas MD [address] [email or web address] [address] [place] [address] PCP - General 08/21/16 documented as of this encounter
--- OUTSIDE RECORDS SUMMARY | 2024-05-25 06:51 | XMS_ITS | Encounter Summary ---
Author Organization [facility] Healthcare Address [address] [place] [address] Care Team Providers Care Architectural Intern Name Role Phone Danielle Rojas MD Primary Care Provider Reason for Visit * Reason Comments Follow-up Transferring from Dr Ana Delgadillo Pacemaker in place Hyperlipidemia Hx: Bypass Surgery * Cardiology (Routine) - Closed Specialty Diagnoses / Procedures Referred By Contac t Referred To Contact Cardiology Diagnoses Chronic ischemic heart disease, unspecified Danielle Rojas MD [address] [facility] [address] [address] Phone: tel: fax: [facility] Medical Group Cardiology [address] [facility] [address] [place] [address] Phone: tel: fax: Referral ID Status Reason Start Date Expiration Date V isits Requested Visits Authorized [id number] Closed Specialty Services Required 08/12/2022 09/12/2023 4 4 Encounter Details Date Type Department Care Team (Latest Contact Info) Description 07/19/2023 11:45 AM SAND CASTER Office Visit [facility] Medical Group Cardiology [address] [facility] [address] [place] [address] Pankaj Eden MD [address] [facility] [address], [place] [address] Multiple-type hyperlipidemia (Primary Dx); Hyperlipidemia associated with type 2 diabetes mellitus (HCC); History of coronary artery bypass surgery; Complete atrioventricular block (CMS/HCC) (HCC); Chronic ischemic heart disease; Pacemaker Social History Tobacco Use Types Packs/Day Years Used Date Smoking Tobacco: Never Smokeless Tobacco: Never Alcohol Use Standard Drinks/Week Comments No 0 (1 standard drink = 0.6 oz pur e alcohol) Sex and Gender Information Value Date Recorded Sex Assigned at Not on file Legal Sex Male 9:22 AM SAND CASTER Gender Identity Not on file Sexual Orientation Not on file documented as of this encounter Last Filed Vital Signs Vital Sign Reading Time Taken Comments Blood Pressure 108/60 07/19/2023 11:35 AM SAND CASTER Pulse 73 07/19/2023 11:35 AM SAND CASTER Temperature - - Respiratory Rate - - Oxygen Saturation 92% 07/19/2023 11:35 AM SAND CASTER Inhaled Oxygen Concentration - - Weight 104 kg (229 lb 3.2 oz) 07/19/2023 11:35 A M SAND CASTER Height 177.8 cm (5' 10 ) 07/19/2023 11:35 AM SAND CASTER Body Mass Index 32.89 07/19/2023 11:35 AM SAND CASTER documented in this encounter Progress Notes * Pankaj Eden MD - 07/19/2023 11:45 AM [facility] DATE OF VISIT: 07/19/2023 DATE: 1950 CHIEF COMPLAINT Chief Complaint Patient presents with Follow-up Transferring from Dr. Delgadillo Pacemaker in place Hyperlipidemia Hx: Bypass Surgery Follow-up for CAD, pacemaker HPI Dayron Howell is a 72 y.o. male with a history of ACS [...] alive! Getting over a cold. Exercising at [employer] on the treadmill and water exercise. No [...] Retired 2015; wants to move back to [place]. Has 5 grandchildren, oldest has Vivi,. 07/19/2023-patient is here to establish care. Follows up with Dr. Delgadillo. He does have a history of CABG 2010, hypertension, pacemaker and hyperlipidemia, diabetes. Denies chest pain, shortness of breath, lower extremity edema, dizziness, syncope, palpitations. MEDICAL HISTORY Past Medical History: Diagnosis Date [...] DAY WITH MEALS (Patient taking differently: Take 0.5 tablets (6.25 mg total) by mouth 2 (two) times a day with meals), Disp: 180 tablet, Rfl: 0 cinnamon bark 500 mg capsule, Take 1 capsule (500 mg total) by mouth daily, Disp: , Rfl: ferrous sulfate (IRON) 325 mg (65 mg of elemental iron) tablet, take 1 tablet (325MG) by oral routeevery day, Disp: , Rfl: 0 fluticasone (FLONASE) 50 mcg/actuation nasal spray, Administer 1 spray into each nostril daily, Disp: , Rfl: Arke 2 Sensor kit, USE DIRECTED AND CHANGE ONCE EVERY 14 DAYS, Disp: , Rfl: hydroCHLOROthiazide (HYDRODIURIL) 12.5 mg tablet, Take 1 tablet (12.5 mg total) by mouth daily Take2 tablets daily, Disp: , Rfl: memantine (NAMENDA) 10 mg tablet, Take 1 tablet (10 mg total) by mouth 2 (two) times a day, Disp: ,Rfl: nitroglycerin (NITROSTAT) 0.4 mg SL tablet, place 1 tablet by sublingual route at the 1st sign of attack; may repeat every 5 min until relief; if pain persists after 3 tablets in 15 min, prompt medical attention is recommended, Disp: 0, Rfl: 0 NovoLOG 70/30 100 unit/mL pen for injection, , Disp: , Rfl: omeprazole (PriLOSEC) 40 mg capsule, Take 1 capsule (40 mg total) by mouth daily, Disp: , Rfl: 5 rosuvastatin (CRESTOR) 40 mg tablet, Take 1 tablet (40 mg total) by mouth daily, Disp: 90 tablet, Rfl: 3 Trulicity 1.5 mg/0.5 mL pen injector, INJECT 1.5 MG (0.5 ML) SUBCUTANEOUSLY WEEKLY (Patient not taking: Reported on 07/19/2023), Disp: , Rfl: ALLERGIES No Known Allergies REVIEW OF SYSTEMS Review of Systems Constitutional: Negative for malaise/fatigue and weight gain. HENT: Negative for congestion. Eyes: Negative for [...] Negative for depression. PHYSICAL EXAM Blood pressure 108/60, pulse 73, height 177.8 cm (5' 10 ), weight 104 kg (229 lb 3.2 oz), SpO2 92%. Body mass index is 32.89 kg/m??. Physical Exam Constitutional: Appearance: He is [...] OTHER DIAGNOSTIC TESTS No results found for: WBC , HGB , HCT , MCV , PLT Chemistry Component Value Date/Time SODIUM 138 [...] LDL-C. Milind SS et al. PETER. 2013;310(19): 6494-5077 (http://education.Spotzot.SwipeClock/faq/XDE264) 04/06/2017 102 (H) mg/dL (calc) Final Comment: Reference range: <100 Desirable range <100 mg/dL for patients with CHD or diabetes and <70 mg/dL for diabetic patients with known heart disease. LDL-C is now calculated using the Milind-Braxton calculation, which is a validated novel method providing better accuracy than the Friedewald equation in the estimation of LDL-C. Milind SS et al. PETER. 2013;310(19): 7420-6251 (http://education.Spotzot.SwipeClock/faq/JJY934) ] No results found for: LDLCALC Lab Results Component Value Date TRIG 117 06/10/2017 TRIG 124 04/06/2017 TRIG 66 08/09/2015 Lab Results Component Value Date CHOLHDL 2.5 06/10/2017 CHOLHDL 3.4 04/06/2017 CHOLHDL 2.4 08/09/2015 No results found for: INR , PROTIME Labs: 06/10/2017 total cholesterol 146, TG [...] Diagnoses and all orders for this visit: Multiple-type hyperlipidemia (Primary) Hyperlipidemia associated with type 2 diabetes mellitus (HCC) History of coronary artery bypass surgery Complete atrioventricular block (CMS/HCC) (HCC) Chronic ischemic heart disease Pacemaker CAD/Cardiomyopathy: H/O CABG 2010. Stable w/o angina, good exertional tolerance. EF runs around 40-45%, but was up to 50-55% by echo in 2021. --Continue carvedilol 6.25 mg b.i.d.. Pacemaker: for CHB, checked t as above, showed normal function, underlying complete heart block. Last device check shows that the SHARMAINE 10 months. We will keep monitoring. Regards to hypertension, blood pressure today 108/60. Continue HCTZ and carvedilol. Controlled Hyperlipidemia: Lipid panel done July 2022 shows LDL 51, HDL 60 and triglycerides 133. Continue Crestor 40 mg daily. DM: A1c much better Follow-up in 1 year PLAN/RECOMMENDATIONS Pankaj Eden MD This note is dictated and transcribed by with assistance from [employer] Direct [employer]. [employer] Analyst variances may occur. Despite proofreading, typographical errors may occur. CASTER documented in this encounter Plan of Treatment Not on file documented as of this encounter Visit Diagnoses Diagnosis Multiple-type hyperlipidemia- Primary Other and unspecified hyperlipidemia Hyperlipidemia associated with type 2 diabetes mellitus (HCC) History of coronary artery bypass surgery Postsurgical aortocoronary bypass status Complete atrioventricular block (CMS/HCC) (HCC) Atrioventricular block, complete Chronic ischemic heart disease Unspecified chronic ischemic heart disease Pacemaker Cardiac pacemaker in situ documented in this encounter Discontinued Medications Medication Sig Discontinue Reason Start Date End Da te Contour Next Test Strips strip USE TO CHECK BLOOD GLUCOSE 3 TIMES DAILY (E11.9) Alternate therapy 03/29/2020 07/19/2023 memantine (NAMENDA) 5 mg tablet Take 1 tablet (5 mg total) by mouth 2 (two) times a day Dose adjustment 03/15/2019 07/19/2023 documented as of this encounter Historical Medications * This list may reflect changes made after this encounter. memantine (NAMENDA) 10 mg tablet Take 1 tablet (10 mg total) by mouth 2 (two) times a day 06/26/2023 FreeStyle Lon 2 Sensor kit USE DIRECTED AND CHANGE ONCE EVERY 14 DAYS 07/10/2023 added in this encounter Care Teams Architectural Intern Relationship Specialty Start Date End Date Danielle Rojas MD [address] [facility] [address] [place] [address] PCP - General 08/21/16 documented as of this encounter
--- OUTSIDE RECORDS SUMMARY | 2024-05-25 06:51 | XMS_ITS | Encounter Summary ---
Author Organization [facility] Medical [facility] Address [address] [facility] [address] [place] [address] Care Team Providers Care Driver/Guide Name Role Phone Danielle Rojas MD Primary Care Provider Reason for Visit * (Routine) - Closed Specialty Diagnoses / Procedures Referred By Contac t Referred To Contact Diagnoses CHB (complete heart block) (CMS/HCC) (HCC) Procedures DEVICE CHECK - REMOTE Yuki Delgadillo MD Phone: tel: fax: [facility] Medical [facility] Referral ID Status Reason Start Date Expiration Date Visits Re quested Visits Authorized [id number] Closed 12/30/2018 07/10/2020 1 1 Encounter Details Date Type Department Care Team (Latest Contact Info) Description 11/09/2019 7:00 AM CDT Ancillary Procedure [facility] Medical [facility] Cardiology [address] [place] [address] [place] [phone] CHB (complete heart block) (CMS/HCC); Pacemaker Social History Tobacco Use Types Packs/Day Years Used Date Smoking Tobacco: Never Smokeless Tobacco: Never Alcohol Use Standard Drinks/Week Comments No 0 (1 standard drink = 0.6 oz pur e alcohol) Sex and Gender Information Value Date Recorded Sex Assigned at Not on file Legal Sex Male 9:22 AM AMALGAMATOR Gender Identity Not on file Sexual Orientation Not on file documented as of this encounter Progress Notes * Eva Aguiar RN - 11/09/2019 7:00 AM CDT Medtronic Dual Pacemaker. Dx; CHB. DOI 05/10/[address] Ventura. Carelink remote monitoring Q3 mo, office pacer checks Q1 yr. Routine pacemaker remote. Normal device function. Appropriate battery function-2.98V, 3.5 years estimated longevity. Stable lead measurements. Presenting rhythm-APVP. AP-84%, QUALITY CONTROL ASSISTANT-100%. No Mode switch episodes noted. Ventricular high rate episodes noted. Medications; Coreg, Crestor, Hydrochlorothiazide, ASA, Lisinopril. See scanned report Office device f/u scheduled 02/21/2020. documented in this encounter Plan of Treatment Not on file documented as of this encounter Procedures Procedure Name Priority Date/Time Associated Diagnosis Comments DEVICE CHECK - REMOTE Routine 11/14/2019 9:35 AM CDT CHB (complete heart block) (CMS/HCC) documented in this encounter Results * DEVICE CHECK - REMOTE (11/14/2019 9:35 AM CDT) Anatomical Region Laterality Modality Other Narrative 12/01/2019 1:21 PM CDT Medtronic Dual Pacemaker. Dx; CHB. DOI 05/10/[address] Ventura. Carelink remote monitoring Q3 mo, office pacer checks Q1 yr. ?? Routine pacemaker remote. Normal device function. Appropriate battery function-2.98V, 3.5 years estimated longevity. Stable lead measurements. Presenting rhythm-APVP. AP-84%, QUALITY CONTROL ASSISTANT-100%. No Mode switch episodes noted. Ventricular high rate episodes noted. Medications; Coreg, Crestor, Hydrochlorothiazide, ASA, Lisinopril. See scanned report Office device f/u scheduled 02/21/2020. us Yuki Delgadillo MD CV CARDIAC SERVICES PROCEDU RES Final Result documented in this encounter Visit Diagnoses Diagnosis CHB (complete heart block) (CMS/HCC) (HCC) Atrioventricular block, complete Pacemaker Cardiac pacemaker in situ documented in this encounter Care Teams Driver/Guide Relationship Specialty Start Date End Date Danielle Rojas MD [address] [place] [id number] PCP - General 08/21/16 documented as of this encounter
--- OUTSIDE RECORDS SUMMARY | 2024-05-25 06:52 | XMS_ITS | Encounter Summary ---
Author Organization [facility] Medical Group Address [address] [facility] [address] [place] [address] Care Team Providers Care Barge Engineer Name Role Phone Danielle Rojas MD Primary Care Provider Reason for Referral * (Routine) - Closed Specialty Diagnoses / Procedures Referred By Contac t Referred To Contact Diagnoses CHB (complete heart block) ([facility]/HCC) ([facility]) Procedures DEVICE CHECK - REMOTE Yuki Delgadillo MD Phone: tel: fax: [facility] Medical Group Referral ID Status Reason Start Date Expiration Date Visits Re quested Visits Authorized [id number] Closed 12/30/2018 07/10/2020 1 1 * (Routine) - Closed Specialty Diagnoses / Procedures Referred By Contac t Referred To Contact Diagnoses CHB (complete heart block) ([facility]) ([facility]) Procedures DEVICE CHECK - REMOTE Yuki Delgadillo MD Phone: tel: fax: [facility] Medical Group Referral ID Status Reason Start Date Expiration Date Visits Re quested Visits Authorized [id number] Closed 12/30/2018 07/10/2020 1 1 Encounter Details Date Type Department Care Team (Late st Contact Info) Description 12/30/2018 Orders Only [facility] [address] [place] [address] Yuki Delgadillo MD [address] [place] [address] CHB (complete heart block) (CMS/HCC) (Primary Dx) Social History Tobacco Use Types Packs/Day Years Used Date Smoking Tobacco: Never Smokeless Tobacco: Never Alcohol Use Standard Drinks/Week Comments No 0 (1 standard drink = 0.6 oz pur e alcohol) Sex and Gender Information Value Date Recorded Sex Assigned at Not on file Legal Sex Male 9:22 AM CLIENT TECHNICAL SUPPORT ASSOCIATE Gender Identity Not on file Sexual [...] longevity. Stable lead measurements. Presenting rhythm-APVP. AP-84%, ADJUTANT GENERAL-100%. No Mode switch episodes noted. Ventricular high rate episodes noted. Medications; Coreg, Crestor, Hydrochlorothiazide, ASA, Lisinopril. See scanned report Office device f/u scheduled 02/21/2020. Yuki Delgadillo MD CV CARDIAC SERVICES PROCEDU RES Final Result * DEVICE CHECK - REMOTE (01/04/2019 2:46 PM CDT) Anatomical Region Laterality Modality Other Narrative 02/03/2019 4:39 PM CDT Medtronic Dual Pacemaker. Dx; CHB. DOI 05/10/[address] Ventura. Carelink remote monitoring Q3 mo, office pacer checks Q1 yr. Routine pacemaker remote. Normal device function. Appropriate battery function and stable lead measurements. No mode switch episodes noted. No ventricular high rate episodes noted. Meds; ASA 81 mg, Coreg. See scanned report. [facility]link remote f/u 04/05/2019. us Yuki Delgadillo MD CV CARDIAC SERVICES PROCEDU RES Final Result documented in this encounter Visit Diagnoses Diagnosis CHB (complete heart block) (CMS/HCC) (HCC)- Primary Atrioventricular block, complete CHB (complete heart block) (CMS/HCC) (HCC) Atrioventricular block, complete Presence of cardiac pacemaker Cardiac pacemaker in situ CHB (complete heart block) (CMS/HCC) (HCC) Atrioventricular block, complete Pacemaker Cardiac pacemaker in situ documented in this encounter Care Teams Barge Engineer Relationship Specialty Start Date End Date Danielle Rojas MD [address] [facility] [address] [place] [address] PCP - General 08/21/16 documented as of this encounter
--- OUTSIDE RECORDS SUMMARY | 2024-05-25 06:52 | XMS_ITS | Encounter Summary ---
Author Organization [facility] Address [address] [facility] [address] [place] [address] Care Team Providers Care Computer Salesperson Retail Name Role Phone Danielle Rojas MD Primary Care Provider Reason for Visit * Reason Comments Follow-up 3 mom f/u on ICM, ra ised lipids, chronic ischemic HD * Cardiology (Routine) - Closed Specialty Diagnoses / Procedures Referred By Emma pedraza Referred To Contact Cardiology Diagnoses Sick sinus syndrome Danielle Rojas MD Phone: tel: fax: [facility] [address] [place] [phone] Phone: tel: fax: Referral ID Status Reason Start Date Expiration Date Visits Re quested Visits Authorized [id number] Closed 09/09/2017 11/21/2018 11 11 Encounter Details Date Type Department Care Team (Late st Contact Info) Description 09/13/2017 9:30 AM CDT Office Visit [facility] [address] [place] [phone] Lorie Nagel NP [address] [facility] [address] [place] [phone] Chronic ischemic heart disease (Primary Dx); Coronary arteriosclerosis in hoh artery; Complete atrioventricular block (CMS/HCC); Hyperlipidemia associated with type 2 diabetes mellitus (CMS/HCC); Presence of cardiac pacemaker; History of coronary artery bypass surgery Social History Tobacco Use Types Packs/Day Years Used Date Smoking Tobacco: Never Smokeless Tobacco: Never Alcohol Use Standard Drinks/Week Comments No 0 (1 standard drink = 0.6 oz pur e alcohol) Sex and Gender Information Value Date Recorded Sex Assigned at Not on file 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 Gender Identity Not on file Sexual Orientation Not on file documented as of this encounter Last Filed Vital Signs Vital Sign Reading Time Taken Comments Blood Pressure 136/80 09/13/2017 9:35 AM CDT Pulse 68 09/13/2017 9:35 AM CDT Temperature - - Respiratory Rate - - Oxygen Saturation 92% 09/13/2017 9:35 AM CDT Inhaled Oxygen Concentration - - Weight 102.6 kg (226 lb 1.6 oz) 09/13/2017 9:35 AM CDT Height - - Body Mass Index 36.49 06/14/2017 9:00 AM AUTOMOTIVE PARTS CLERK documented in this encounter Progress Notes * Lorie Nagel NP - 09/13/2017 9:30 AM CDT Patient ID: Dayron Howell [id number] Chief Complaint: Dayron Howell is a 66 y.o. male who is an established patient of Dr. Delgadillo here for F/U visit after medication titration for his ischemic cardiomyopathy. Dayron Howell is a male in his 60's with a history of ACS into November 2010. He underwent a [address] Ho His EF was 55-60%. He has HTN, DM, HLD, obesity and mild asymptomatic bradycardia. He also has a LBBB, then had CHB req. a MDT pacemaker in Apr 2015. Cath 2011 for CP and an abnml stress test showed all 4 grafts were patent. However, his EF had dropped to 40-45%. Stress test December 2012 showed EF 57%, no significant ischemia. OV December 2012: some atypical muscle skeletal chest pain and recommended a brief trial of ibuprofen. He was hospitalized for chest pain in June 2013 which was thought to be noncardiac. Creatininewas 0.7, potassium normal, cholesterol 162 with LDL of 84 and TG 66 her chest x-ray unremarkable. Went to the emergency room again in November 2013 with atypical chest pain. However, since the patient's last office visit in February 2014, he presented with complete heart block in April 2015 requiring placement of a Medtronic pacemaker. He returned again 05/25/15 with chest pain which was deemed noncardiac and not related to pacemaker. 06/17/2015 OV: Pt c/o pain around pacemaker and right collarbone 03/24/2016 Ov: ER in September 2015 with chest pain was discharged on Pepcid. Today, Walks on treadmill for 45 min CP. WT stable. 04/05/2017 Ov: So far, so good. Retired, busy, no heart or health troubles. Does yard work w/o problems, no SOB or Cp, takes grandkids to soccer practice. Gained 7#. DM is doing Ok, says A1c is good. 06/10/2017 ov with AGENT Jonatan Shona: Was hospitalized in April for pneumonia, now doing fine. Had pacemaker interrogation during hospital admission. Exercising 45 minutes on the treadmill each day, 15 minutes of calistetics. tells him he needs to eat smaller portions. He noticed his blood glucosenumbers go up w/ change from atorvastatin to rosuvastatin. Gets sporadic sharp shooting chest pain,not related to activity, lasts a couple of seconds, relieved with rubbing. 09/13/2017 OV w/ AGENT C.Shona: Feels well, he reports his rosuvastatin was decreased to 40mg 1/2 tablet daily by PCP b/c of muscle cramps. Stopped walking on treadmill x 2 weeks b/c of muscle cramps. Fasting sugars running high 170's. Gained 5 lb which he attributes to being less active over the winter months. Talked a lot about his 5 grandchildren. Labs: 06/10/2017 total cholesterol 146, TG 117, LDL 67, LFTs normal 02/2017 creatinine 0.9, LFTs normal, glucose 204 06/11/2016 total cholesterol 174, TG 101, LDL 96, A1c 7.30 July 2015: chol 137, TG 66, LDL 66. Social: Retired 2015; wants to move back to [place]. Has 5 grandchildren, oldest is 16 and has Downs, youngest is 3. Records that I personally reviewed on the day of this visit include: (the interpretation is outlined in the chief complaint above) 06/14/2017 office note from myself. I have also reviewed: allergies, current medications, past family history, past medical history, past social history, past surgical history and problem list Review of Systems Constitution: Negative for diaphoresis, fever, malaise/fatigue, weight gain and weight loss. HENT: Negative for hearing loss. Eyes: Negative for visual disturbance. Cardiovascular: Negative for chest pain, claudication, dyspnea on exertion, leg swelling, orthopnea, palpitations, paroxysmal nocturnal dyspnea and syncope. Respiratory: Negative for cough, hemoptysis, shortness of breath, snoring and wheezing. Hematologic/Lymphatic: Does not bruise/bleed easily. Skin: Negative for poor wound healing and rash. No easy bruising. No bleeding problems. Musculoskeletal: Negative for joint pain and myalgias. Gastrointestinal: Negative for heartburn, nausea and vomiting. No reflux Genitourinary: Negative for hematuria. Neurological: Negative for dizziness, headaches and light-headedness. Psychiatric/Behavioral: Negative for depression. The patient is not nervous/anxious. Vital Signs: BP 136/80 (BP Location: Right arm, Patient Position: Sitting) Pulse 68 Wt 102.6 kg (226 lb 1.6 oz) SpO2 92% BMI 36.49 kg/m?? Physical Exam Constitutional: He is oriented to person, place, and time. He appears well- developed and well-nourished. No distress. Pleasant man, obese body habitus. HENT: Head: Normocephalic and atraumatic. Nose: Nose normal. Mouth/Throat: Mucous membranes are normal. Eyes: Conjunctivae and EOM are normal. Pupils are equal, round, and reactive to light. No scleral icterus. Neck: Normal range of motion. No JVD present. No tracheal deviation present. Cardiovascular: Normal rate, regular rhythm and normal heart sounds. No murmur heard. Apical heart rate regular and 60 bpm on auscultation. Right chest ppm generator site is healed and nontender. Midline sternal incision is healed. Pulmonary/Chest: Effort normal and breath sounds normal. No respiratory distress. Abdominal: Soft. Bowel sounds are normal. There is no tenderness. Musculoskeletal: Normal range of motion. He exhibits no edema. Neurological: He is alert and oriented to person, place, and time. Skin: Skin is warm and dry. Psychiatric: He has a normal mood and affect. Current Outpatient Prescriptions: ??? acetaminophen (TYLENOL) 325 mg tablet, take 1 tablet (325MG) by oral route every 4 hours as needed, Disp: , Rfl: 0 ??? aspirin (ASPIRIN LOW DOSE) 81 mg tablet, take 1 tablet (81MG) by oral route every day, Disp: , Rfl: 0 ??? carvedilol (COREG) 12.5 mg tablet, Take 1 tablet (12.5 mg total) by mouth 2 (two) times a day with meals., Disp: 180 tablet, Rfl: 1 ??? cetirizine (ZyrTEC) 10 mg capsule, take 1 by Oral route once as needed, Disp: 0, Rfl: 0 ??? fluticasone (FLONASE) 50 mcg/actuation nasal spray, Administer 1 spray into each nostril daily., Disp: , Rfl: ??? glimepiride (AMARYL) 2 mg tablet, Take 2 mg by mouth daily., Disp: , Rfl: 3 ??? losartan-hydroCHLOROthiazide (HYZAAR) 100-12.5 mg per tablet, take 1 tablet by oral route everyday, Disp: 0, Rfl: 0 ??? metFORMIN (GLUCOPHAGE) 1,000 mg tablet, Take 1,000 mg by mouth 2 (two) times a day with meals.,Disp: , Rfl: 11 ??? nitroglycerin (NITROSTAT) 0.4 mg SL tablet, [...] 5 ??? rosuvastatin (CRESTOR) 40 mg tablet, Take 1 tablet (40 mg total) by mouth daily. (Patient taking differently: Take 20 mg by mouth daily. ), Disp: 90 tablet, Rfl: 2 ??? ferrous sulfate (IRON) 325 mg (65 mg of elemental iron) tablet, take 1 tablet (325MG) by oral route every day (Patient not taking: Reported on 09/13/2017 ), Disp: , Rfl: 0 Current Facility-Administered Medications: ??? perflutren lipid (DEFINITY) 1.5 mL in sodium chloride 0.9% 10 mL syringe, 1- 10 mL, intravenous,Once in imaging, Yuki Delgadillo MD Assessment: Diagnoses and all orders for this visit: Chronic ischemic heart disease (Primary) Coronary arteriosclerosis in hoh artery Complete atrioventricular block (CMS/HCC) Hyperlipidemia associated with type 2 diabetes mellitus (CMS/HCC) Presence of cardiac pacemaker History of coronary artery bypass surgery Plan/Recommendations: CAD and ischemic cardiomyopathy appears stable and asymptomatic. At the last visit I up titrated his carvedilol to 12.5 mg b.i.d. And he appears to have tolerated this. Pacemaker (for CHB) interrogation was performed in the office today and was unremarkable. He remains on aspirin, statin and beta-chen. His blood pressure is at goal. His LDL was at goal when it was checked in May. Because his statin dose was reduced for muscle cramps, we will read the assess his lipids at the next visit. Because his muscle cramps have resolved, I encouraged him to resume exercising on the treadmill. I also advised him to discuss his high fasting glucose readings w/ PCP at his next visit (which is scheduled for next month). Counseling performed at this visit included the importance of performing regular exercise and the difference between cardiac and noncardiac chest pain. Return to the office to see Dr. Delgadillo in 6-7 months. Call us sooner with questions or concerns. documented in this encounter Plan of Treatment Not on file documented as of this encounter Visit Diagnoses Diagnosis Chronic ischemic heart disease- Primary Unspecified chronic ischemic heart disease Coronary arteriosclerosis in hoh artery Complete atrioventricular block (CMS/HCC) (HCC) Atrioventricular block, complete Hyperlipidemia associated with type 2 diabetes mellitus (HCC) Presence of cardiac pacemaker Cardiac pacemaker in situ History of coronary artery bypass surgery Postsurgical aortocoronary bypass status documented in this encounter Care Teams Computer Salesperson Retail Relationship Specialty Start Date End Date Danielle Rojas MD [address] [facility] [address] [place] [address] PCP - General 08/21/16 documented as of this encounter
--- OUTSIDE RECORDS SUMMARY | 2024-05-25 06:52 | XMS_ITS | Encounter Summary ---
Author Organization [facility] Address [address] [facility] [address] [place] [address] Care Team Providers Care Decorating Machine Operator Name Role Phone Danielle Rojas MD Primary Care Provider Reason for Visit * Cardiology (Routine) - Closed Specialty Diagnoses / Procedures Referred By Contac t Referred To Contact Diagnoses SSS (sick sinus syndrome) (CMS/HCC) (HCC) Procedures DEVICE CHECK - IN OFFICE Lorie Nagel NP Phone: tel: fax: Referral ID Status Reason Start Date Expiration Date Visits Re quested Visits Authorized [id number] Closed 06/14/2017 12/11/2017 1 1 Encounter Details Date Type Department Care Team (Latest Contact Info) Description 09/13/2017 9:00 AM CDT Ancillary Procedure [facility] [address] [facility] [address] [place] [phone] SSS (sick sinus syndrome) (CMS/HCC); Complete atrioventricular block (CMS/HCC); Presence of cardiac pacemaker Social History Tobacco Use Types Packs/Day Years Used Date Smoking Tobacco: Never Smokeless Tobacco: Never Alcohol Use Standard Drinks/Week Comments No 0 (1 standard drink = 0.6 oz pur e alcohol) Sex and Gender Information Value Date Recorded Sex Assigned at Not on file 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 Gender Identity Not on file Sexual Orientation Not on file documented as of this encounter Plan of Treatment Pending Results Name Type Priority Associated Diagnoses Date /Time DEVICE CHECK - IN OFFICE Cardiac Services Routine SSS (sick sinus syndrome) (CMS/HCC) 09/13/2017 8:53 AM CDT documented as of this encounter Visit Diagnoses Diagnosis SSS (sick sinus syndrome) (CMS/HCC) (HCC) Sinoatrial node dysfunction Complete atrioventricular block (CMS/HCC) (HCC) Atrioventricular block, complete Presence of cardiac pacemaker Cardiac pacemaker in situ documented in this encounter Care Teams Decorating Machine Operator Relationship Specialty Start Date End Date Danielle Rojas MD [address] [facility] [address] [place] [address] PCP - General 08/21/16 documented as of this encounter
--- OUTSIDE RECORDS SUMMARY | 2024-05-25 06:52 | XMS_ITS | Encounter Summary ---
Author Organization 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
--- OUTSIDE RECORDS SUMMARY | 2024-05-25 06:52 | XMS_ITS | Encounter Summary ---
Author Organization [facility] Address [address] [facility] [address] [place] [address] Care Team Providers Care Reshipping Clerk Name Role Phone Danielle Rojas MD Primary Care Provider Encounter Details Date Type Department Care Team (Late st Contact Info) Description 04/19/2017 Telephone [facility] [address] [facility] [address], [place] [address] [facility] [address] [facility] [address] [address] Social History Tobacco Use Types Packs/Day Years Used Date Smoking Tobacco: Never Smokeless Tobacco: Never Alcohol Use Standard Drinks/Week Comments No 0 (1 standard drink = 0.6 oz pur e alcohol) Sex and Gender Information Value Date Recorded Sex Assigned at Not on file 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 60 tablet 2 04/19/2017 05/14/2017 documented in this encounter Miscellaneous Notes * Telephone Encounter - Haylie Wilkinson RN - 04/19/2017 1:18 PM LINGO CLEANER Spoke to pt; Reviewed ELU message with pt ; He voiced understanding; Pt to titrate his coreg to 6.25mg BID; Will send new rx to pharmacy per request [facility]; Pt also given 1 month f/u appt for med titration, and 2 month f/u with Ct. O CLEANER documented in this encounter Plan of Treatment Not on file documented as of this encounter Visit Diagnoses Not on filedocumented in this encounter Discontinued Medications Medication Sig Discontinue Reason Start Date End Da te carvedilol (COREG) 3.125 mg tablet take 1 by Oral route 2 times every day Reorder 02/26/2014 04/19/2017 documented as of this encounter Care Teams Reshipping Clerk Relationship Specialty Start Date End Date Danielle Rojas MD [address] [facility] [address] [place] [address] PCP - General 08/21/16 documented as of this encounter
--- OUTSIDE RECORDS SUMMARY | 2024-05-25 06:52 | XMS_ITS | Encounter Summary ---
Author Organization [facility] Address [address] [facility] [address] [place] [address] Care Team Providers Care Import/Export Specialist Name Role Phone Danielle Rojas MD Primary Care Provider Reason for Visit * Cardiology (Routine) - Closed Specialty Diagnoses / Procedures Referred By Contac t Referred To Contact Cardiology Diagnoses Sick sinus syndrome Atrioventricular block, complete Danielle Rojas MD Phone: tel: fax: [facility] [address] [place] [phone] Phone: tel: fax: Referral ID Status Reason Start Date Expiration Date Visits Re quested Visits Authorized [id number] Closed 03/24/2018 03/25/2019 12 12 Encounter Details Date Type Department Care Team (Latest Contact Info) Description 01/04/2019 8:00 AM CDT Ancillary Procedure [facility] Cardiology [address] [facility] [address] [place] [phone] CHB (complete heart block) (CMS/HCC); Presence of cardiac pacemaker Social History Tobacco Use Types Packs/Day Years Used Date Smoking Tobacco: Never Smokeless Tobacco: Never Alcohol Use Standard Drinks/Week Comments No 0 (1 standard drink = 0.6 oz pur e alcohol) Sex and Gender Information Value Date Recorded Sex Assigned at Not on file 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 [facility] remote f/u 04/05/2019. Yuki Delgadillo MD [facility] PROCEDU RES Final Result documented in this encounter Visit Diagnoses Diagnosis CHB (complete heart block) (CMS/HCC) (HCC) Atrioventricular block, complete Presence of cardiac pacemaker Cardiac pacemaker in situ documented in this encounter Care Teams Import/Export Specialist Relationship Specialty Start Date End Date Danielle Rojas MD [address] [place] [address] PCP - General 08/21/16 documented as of this encounter
--- OUTSIDE RECORDS SUMMARY | 2024-05-25 06:52 | XMS_ITS | Encounter Summary ---
Author Organization [facility] Address [address] [facility] [address] [place] [address] Care Team Providers Care Pet House Sitter Name Role Phone Danielle Rojas MD Primary Care Provider Reason for Visit * Cardiology (Routine) - Canceled Specialty Diagnoses / Procedures Referred By Contac t Referred To Contact Cardiology Imaging Diagnoses CHB (complete heart block) (CMS/HCC) (HCC) Procedures DEVICE CHECK - REMOTE Yuki Delgadillo MD Phone: tel: fax: [facility] [address] [place] [address] [place] [phone] Phone: tel: fax: Referral ID Status Reason Start Date Expiration Date V isits Requested Visits Authorized [id number] Canceled 02/08/2017 08/07/2017 1 1 Encounter Details Date Type Department Care Team (Latest Contact Info) Description 01/20/2017 10:45 AM CDT Ancillary Procedure [facility] [address] [place] [address] [place] [phone] CHB (complete heart block) (CMS/HCC); Presence of cardiac pacemaker Social History Tobacco Use Types Packs/Day Years Used Date Smoking Tobacco: Never Alcohol Use Standard Drinks/Week Comments No 0 (1 standard drink = 0.6 oz pur e alcohol) Sex and Gender Information Value Date Recorded Sex Assigned at Not on file 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 Gender Identity Not on file Sexual Orientation Not on file documented as of this encounter Plan of Treatment Not on file documented as of this encounter Procedures Procedure Name Priority Date/Time Associated Diagnosis Comments DEVICE CHECK - REMOTE Routine 02/08/2017 1:21 PM CDT Presence of cardiac pacemaker Complete atrioventricular block (CMS/HCC) documented in this encounter Results * DEVICE CHECK - REMOTE (02/08/2017 1:21 PM CDT) Anatomical Region Laterality Modality Other us Yuki Delgadillo MD [facility] PROCEDU RES Edited Result - Final documented in this encounter Visit Diagnoses Diagnosis CHB (complete heart block) (CMS/HCC) (HCC) Atrioventricular block, complete Presence of cardiac pacemaker Cardiac pacemaker in situ documented in this encounter Care Teams Pet House Sitter Relationship Specialty Start Date End Date Danielle Rojas MD [address] [facility] [address] [place] [address] PCP - General 08/21/16 documented as of this encounter
--- OUTSIDE RECORDS SUMMARY | 2024-05-25 06:52 | XMS_ITS | Encounter Summary ---
Author Organization [facility] Address [address] [place] [address] Care Team Providers Care Bundling Machine Operator Name Role Phone Dixie Oropeza MD Primary Care Provider Reason for Referral * Cardiology (Routine) - Closed Specialty Diagnoses / Procedures Referred By Contac t Referred To Contact Cardiology Imaging Diagnoses Coronary arteriosclerosis in round valley artery Procedures Transthoracic Echo Complete W Doppler/CF Yuki Burns MD Phone: tel: fax: [facility] Cardiology [address] [facility] [address] [place] [address] Phone: tel: fax: Referral ID Status Reason Start Date Expiration Date Visits Re quested Visits Authorized [id number] Closed 04/05/2017 10/02/2017 1 1 MEDICAL TECHNICIAN Reason for Visit * Reason Comments Annual Exam 1 year Coronary Artery Disease Cardiomyopathy Encounter Details Date Type Department Care Team (Latest Contact Info) Description 04/05/2017 11:00 AM BIO MEDICAL TECHNICIAN Office Visit [facility] [address] [place] [address] [address] [place] [address] Yuki Burns MD [address] [facility] [address] [place] [address] [id number] Coronary arteriosclerosis in round valley artery (Primary Dx); Hypercholesteremia; Complete atrioventricular block (CMS/HCC); Presence of cardiac pacemaker; History of coronary artery bypass surgery; Chronic ischemic heart disease Social History Tobacco Use Types Packs/Day Years Used Date Smoking Tobacco: Never Smokeless Tobacco: Never Alcohol Use Standard Drinks/Week Comments No 0 (1 standard drink = 0.6 oz pur e alcohol) Sex and Gender Information Value Date Recorded Sex Assigned at Not on file Legal Sex Male 9:22 AM BIO MEDICAL TECHNICIAN Gender Identity Not on file Sexual Orientation Not on file documented as of this encounter Last Filed Vital Signs Vital Sign Reading Time Taken Comments Blood Pressure 112/66 04/05/2017 11:04 AM BIO MEDICAL TECHNICIAN Pulse 68 04/05/2017 11:04 AM BIO MEDICAL TECHNICIAN Temperature - - Respiratory Rate - - Oxygen Saturation 95% 04/05/2017 11: 04 AM BIO MEDICAL TECHNICIAN Inhaled Oxygen Concentration - - Weight 100.2 kg (220 lb 14.4 oz) 2016 11:04 AM BIO MEDICAL TECHNICIAN Height 177.8 cm (5' 10 ) 04/05/2017 11: 04 AM BIO MEDICAL TECHNICIAN Body Mass Index 31.7 04/05/2017 11:04 AM BIO MEDICAL TECHNICIAN documented in this encounter Progress Notes * Yuki Burns MD - 04/05/2017 11:00 AM CST Subjective/Objective Patient ID: Naeem Howell is a 66 y.o. male. Chief Complaint Annual Exam (1 year); Coronary Artery Disease; and Cardiomyopathy Naeem Howell is a male in his 60's [...] is doing Ok, says A1c is good. Labs: 02/2017 creatinine 0.9, LFTs normal, glucose 204 06/11/2016 total cholesterol 174, TG 101, LDL 96, A1c 7.30 July 2015: chol 137, TG 66, LDL 66. Social: Retired 2015; wants to move back to [place]. Current Outpatient Prescriptions: ??? acetaminophen (TYLENOL) 325 mg tablet, take 1 tablet (325MG) by oral route every 4 hours as needed, Disp: , Rfl: 0 ??? aspirin (ASPIRIN LOW DOSE) 81 mg tablet, take 1 tablet (81MG) by oral route every day, Disp: , Rfl: 0 ??? atorvastatin (LIPITOR) 40 mg tablet, Take 40 mg by mouth daily., Disp: , Rfl: 4 ??? carvedilol (COREG) 3.125 mg tablet, take 1 by Oral route 2 times every day, Disp: 0, Rfl: 0 ??? cetirizine (ZyrTEC) 10 mg capsule, take 1 by Oral route once as needed, Disp: 0, Rfl: 0 ??? ferrous sulfate (IRON) 325 mg (65 [...] by mouth daily., Disp: , Rfl: 5 HPI Past Medical History: Diagnosis Date ??? Cardiomyopathy (CMS/HCC) ??? Diabetes mellitus (CMS/HCC) ??? Hyperlipidemia Social History Social History ??? Marital status: Spouse name: N/A ??? Number of children: N/A ??? Years of education: N/A Occupational History ??? Not on file. Social History Main Topics ??? Smoking status: Never Smoker ??? Smokeless tobacco: Never Used ??? Alcohol use No ??? Drug use: No ??? Sexual activity: Not on file Other Topics Concern ??? 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 No pertinent family history. Review of Systems Constitution: Negative for malaise/fatigue. HENT: Negative for congestion. Eyes: Negative for visual disturbance. Cardiovascular: Negative for chest pain, dyspnea on exertion and syncope. Respiratory: Negative for shortness of breath. Hematologic/Lymphatic: Negative for bleeding problem. Gastrointestinal: Positive for heartburn. Negative for abdominal pain. Acid Reflux Genitourinary: Negative for hematuria. Neurological: Negative for dizziness. Psychiatric/Behavioral: Negative for depression. BP 112/66 (BP Location: Right arm, Patient Position: Sitting) Pulse 68 Ht 177.8 cm (5' 10 ) Wt 100.2 kg (220 lb 14.4 oz) SpO2 95% BMI 31.70 kg/m?? Physical Exam Constitutional: He is oriented to person, place, and time. He appears well- developed and well-nourished. Neck: No thyromegaly present. Cardiovascular: Normal rate, regular rhythm and normal heart sounds. No murmur heard. Pulses: Carotid pulses are 2+ on the right side, and 2+ on the left side. Pulmonary/Chest: Effort normal and breath sounds normal. No respiratory distress. Abdominal: Soft. He exhibits no distension. Musculoskeletal: He exhibits no edema. Neurological: He is alert and oriented to person, place, and time. Skin: Skin is warm and dry. No erythema (Pacer site fine, right-sided implant). Psychiatric: He has a normal mood and affect. His behavior is normal. Assessment/Plan Diagnoses and all orders for this visit: 1. Coronary arteriosclerosis in round valley artery (Primary) - Lipid panel; Future - Transthoracic Echo Complete W Doppler/CF; Future 2. Hypercholesteremia - Lipid panel; Future 3. Complete atrioventricular block (CMS/HCC) 4. Presence of cardiac pacemaker 5. History of coronary artery bypass surgery 6. Chronic ischemic heart disease Other orders - Cholesterol, total - Cholesterol, HDL - Triglycerides - LDL-Cholesterol - CHOL/HDLC RATIO - NON HDL CHOLESTEROL Assessment: Patient's coronary disease is stable, no angina, 6 years since his bypass in 2010. He has good exertional tolerance. Lipids in May showed an LDL of 96, not we would like it to be, on atorvastatin. He has had a mild ischemic cardiomyopathy but his EF improved from 40% to 57% when we checked in 2012. However he needs on a another checkup as LV function. Pacemaker was checked in December 2016, pacing DDDR mode, lower rate 60, 100% RV paced. BP at goal. Plan: Check lipids; of LDL not any better than change atorvastatin to rosuvastatin Echo to re-evaluate LV function, particularly since he is pacing in the right ventricle 100% of thetime and can develope a pacing induced cardiomyopathy Otherwise follow-up with me in 1 year, sooner if problems MEDICAL TECHNICIAN documented in this encounter Plan of Treatment Not on file documented as of this encounter Procedures Procedure Name Priority Date/Time Associated Diagnosis Comments LIPID PANEL Routine 04/07/2017 Coronary arteriosclerosis in round valley artery Hypercholesteremia CHOL/HDLC RATIO Routine 04/06/2017 9:56 AM BIO MEDICAL TECHNICIAN Hypercholesteremia LDL-CHOLESTEROL Routine 04/06/2017 9:56 AM BIO MEDICAL TECHNICIAN Hypercholesteremia NON HDL CHOLESTEROL Routine 04/06/2017 9 :56 AM BIO MEDICAL TECHNICIAN Hypercholesteremia TRIGLYCERIDES Routine 04/06/2017 9:56 AM BIO MEDICAL TECHNICIAN Hypercholesteremia CHOLESTEROL, HDL Routine 04/06/2017 9:56 AM BIO MEDICAL TECHNICIAN Hypercholesteremia CHOLESTEROL, TOTAL Routine 04/06/2017 9: 56 AM BIO MEDICAL TECHNICIAN Hypercholesteremia documented in this encounter Results * TRANSTHORACIC ECHO (TTE) COMPLETE W DOPPLER/CF W CONTRAST (04/13/2017 10:59 AM BIO MEDICAL TECHNICIAN) Anatomical Region Laterality Modality Ultrasound 04/13/2017 9:31 AM BIO MEDICAL TECHNICIAN Narrative 04/13/2017 4:14 PM BIO MEDICAL TECHNICIAN [facility] [facility] [address], [place] [address] [address] [facility] [address] [address] P:[phone] P:[phone] Echocardiographic Report Patient Name: NAEEM HOWELL : [id number] Study Date: 04/13/2017 9:31:20 AM Gender: M Tech: GM ?[facility] ? Ref.Physician: DIXIE OROPEZA ?Height(Cm): 178 ? BSA: 2.17 Weight(Kg): 99.79 Heart Rate: 65BP: 105/76 Quality: Definity contrast agent used to enhance endocardial border definition Order Physician: YUKI BURNS Procedures: Echocardiographic Report: Transthoracic echocardiogram with complete 2D, M-Mode, color Doppler examination and Definity contrast. Indications: CABG, LBBB, Pacemaker, and Assess Left Ventricular Function and Ejection Fraction. Measurements: 2D/M Mode ?Doppler ? Measurement ?Value ?Normal Range ? Measurement ?Value ?Normal Range ? EF Mod ? 43 ?AV Mean PG ? 3 ?[ 2 - 4 ] mmHg ? EF MM ?47 ? [ 55 - 70 ] percent ?AV Peak Víctor ?1.18 ? [ 1.00 - 1.70 ] m/s ? LVIDd MM ? 5.58 ? [ 4.20 - 5.90 ] cm ? AV Peak PG ? 6 ?[ 2 - 9 ] mmHg ? LVIDs MM ? 4.25 ? [ 2.30 - 3.90 ] cm ? AV VTI ? 0.26 ? cm ? LVPWd MM ? 1.17 ? [ 0.60 - 1.00 ] cm ? LVOT Peak Víctor ?0.75 ? [ 0.70 - 1.10 ] m/s ? IVSd MM ?1.17 ? [ 0.60 - 0.90 ] cm ? LVOT VTI ? 0.15 ? [ 20.00 - 30.00 ] cm ? LA Dimension MM ?5.08 ? [ 3.00 - 4.00 ] cm ? MV E Peak Víctor ?0.66 ? [ 0.60 - 1.30 ] m/s ? AoR Diam MM ?3.67 ? [ 2.60 - 3.70 ] cm ? MV A Peak Víctor ?1.05 ? [ 1.00 - 1.20 ] m/s ? LA Volume Index ?18.00 ?[ 16.00 - 28.00 ] cc/m2 ?MV Decel Time ?169 ?[ 104 - 258 ] msec ? ACS MM ? 2.42 ? [ 1.50 - 2.60 ] cm ? PV Peak Víctor ?1.19 ? [ 0.40 - 0.80 ] m/s ? TR Peak Víctor ?2.68 ? [ 1.00 - 2.80 ] m/s ? TR Peak PG ? 29 ? mmHg ? RVSP ? 37.00 ?[ 10.00 - 36.00 ] mmHg ? E' ? 0.10 ? E/E' ? 6 ? Findings: Interpretation Site: Exam was interpreted at [facility]. Left Ventricle: Normal left ventricular size. Definity contrast agent used to visually enhance endocardial wall motion and contractility. Lot Number: [id number]. Mild global left ventricular systolic dysfunction. Paradoxical septal motion consistent with IVCD or bundle branch block. Diastolic dysfunction is present. Ejection fraction is measured at 43 %. These segments of the LV have thinning: apical septum segment. These segments of the LV are hypokinetic: apical septum segment. Right Ventricle: Normal right ventricular size. Normal right ventricular systolic function. Left Atrium: The left atrium is normal in size. Right Atrium: The right atrium is normal in size. Atrial Septum: Normal atrial septum. Mitral Valve: Normal appearance of the mitral valve. No mitral valve regurgitation is seen. There is no hemodynamically significant mitral stenosis by Doppler. Aortic Valve: Normal appearance of the aortic valve. No evidence of hemodynamically significant aortic stenosis by Doppler. Aortic cusps appear mildly calcified. Trileaflet aortic valve. Tricuspid Valve: Normal appearance of the tricuspid valve. Estimated peak RVSP is 37 mmHg. Trivial regurgitation in the tricuspid valve. Pulmonic Valve: Normal appearance of the pulmonic valve. No pulmonic stenosis. Trivial regurgitation in the pulmonic valve. Pericardium: Normal pericardium with no significant pericardial effusion. Aorta: Normal aortic root. IVC: Normal size and normal respiratory collapse consistent with normal right atrial pressure (<5 mmHg). Pulmonary Artery: Normal pulmonary artery size. Conclusions: Normal left ventricular size. Definity contrast agent used to visually enhance endocardial wall motion and contractility. Lot Number: [id number]. Mild global left ventricular systolic dysfunction. Paradoxical septal motion consistent with IVCD or bundle branch block. Diastolic dysfunction is present. Ejection fraction is measured at 43 %. These segments of the LV have thinning: apical septum segment. These segments of the LV are hypokinetic: apical septum segment. Normal appearance of the tricuspid valve. Estimated peak RVSP is 37 mmHg. Trivial regurgitation in the tricuspid valve. Normal appearance of the aortic valve. No evidence of hemodynamically significant aortic stenosis by Doppler. Aortic cusps appear mildly calcified. Trileaflet aortic valve. Electronically Signed By: Nataly Martinez MD, [facility] 2017-04-13 16:14:32 BIO MEDICAL TECHNICIAN CC: CC: Procedure Note Nataly Martinez MD - 04/13/2017 [facility] [address] [facility] [address], [place] [address] [address] [facility] [address] [address] P:[phone] P:[phone] Echocardiographic Report Patient Name: NAEEM HOWELLPatient ID: [id number] : [id number] Date: 04/13/2017 9:31:20 AM Gender: MAccession #: [id number] Tech: [facility] Ref.Physician: DIXIE OROPEZA Height(Cm): 178 BSA: 2.17Weight(Kg): 99.79 Heart Rate: 65BP: 105/76 Quality: Definity contrast agent used to enhance endocardial borderdefinitionOrder Physician: YUKI BURNS Procedures: Echocardiographic Report: Transthoracic echocardiogram with complete 2D, M-Mode, color Dopplerexamination and Definity contrast. Indications: CABG, LBBB, Pacemaker, and Assess Left Ventricular Function and EjectionFraction. Measurements: 2D/M Mode Doppler Measurement Value Normal Range MeasurementValue Normal Range EF Mod 43 AV Mean PG 3[ 2 - 4 ] mmHg EF MM 47 [ 55 - 70 ] percent AV Peak Vel1.18 [ 1.00 - 1.70 ] m/s LVIDd MM 5.58 [ 4.20 - 5.90 ] cm AV Peak PG 6[ 2 - 9 ] mmHg LVIDs MM 4.25 [ 2.30 - 3.90 ] cm AV VTI0.26 cm LVPWd MM 1.17 [ 0.60 - 1.00 ] cm LVOT Peak Vel0.75 [ 0.70 - 1.10 ] m/s IVSd MM 1.17 [ 0.60 - 0.90 ] cm LVOT VTI0.15 [ 20.00 - 30.00 ] cm LA Dimension MM 5.08 [ 3.00 - 4.00 ] cm MV E Peak Vel0.66 [ 0.60 - 1.30 ] m/s AoR Diam MM 3.67 [ 2.60 - 3.70 ] cm MV A Peak Vel1.05 [ 1.00 - 1.20 ] m/s LA Volume Index 18.00 [ 16.00 - 28.00 ] cc/m2 MV Decel [id number] [ 104 - 258 ] msec ACS MM 2.42 [ 1.50 - 2.60 ] cm PV Peak Vel1.19 [ 0.40 - 0.80 ] m/s TR Peak Vel2.68 [ 1.00 - 2.80 ] m/s TR Peak PG 29mmHg RVSP37.00 [ 10.00 - 36.00 ] mmHg E'0.10 E/E' 6 Findings: Interpretation Site: Exam was interpreted at [facility]. Left Ventricle: Normal left ventricular size. Definity contrast agent used to visuallyenhance endocardial wall motion and contractility. Lot Number: [id number]. Mild globalleft ventricular systolic dysfunction. Paradoxical septal motion consistentwith IVCD or bundle branch block. Diastolic dysfunction is present. Ejection fractionis measured at 43 %. These segments of the LV have thinning: apical septum segment. Thesesegments of the LV are hypokinetic: apical septum segment. Right Ventricle: Normal right ventricular size. Normal right ventricular systolicfunction. Left Atrium: The left atrium is normal in size. Right Atrium: The right atrium is normal in size. Atrial Septum: Normal atrial septum. Mitral Valve: Normal appearance of the mitral valve. No mitral valve regurgitation isseen. There is no hemodynamically significant mitral stenosis by Doppler. Aortic Valve: Normal appearance of the aortic valve. No evidence of hemodynamicallysignificant aortic stenosis by Doppler. Aortic cusps appear mildly calcified. Trileafletaortic valve. Tricuspid Valve: Normal appearance of the tricuspid valve. Estimated peak RVSP is 37 mmHg.Trivial regurgitation in the tricuspid valve. Pulmonic Valve: Normal appearance of the pulmonic valve. No pulmonic stenosis. Trivialregurgitation in the pulmonic valve. Pericardium: Normal pericardium with no significant pericardial effusion. Aorta: Normal aortic root. IVC: Normal size and normal respiratory collapse consistent with normal rightatrial pressure (<5 mmHg). Pulmonary Artery: Normal pulmonary artery size. Conclusions: Normal left ventricular size. Definity contrast agent used to visuallyenhance endocardial wall motion and contractility. Lot Number: [id number]. Mild globalleft ventricular systolic dysfunction. Paradoxical septal motion consistentwith IVCD or bundle branch block. Diastolic dysfunction is present. Ejection fractionis measured at 43 %. These segments of the LV have thinning: apical septum segment. Thesesegments of the LV are hypokinetic: apical septum segment. Normal appearance of the tricuspid valve. Estimated peak RVSP is 37 mmHg.Trivial regurgitation in the tricuspid valve. Normal appearance of the aortic valve. No evidence of hemodynamicallysignificant aortic stenosis by Doppler. Aortic cusps appear mildly calcified. Trileafletaortic valve. Electronically Signed By: Nataly Martinez MD, [facility] 2017-04-13 16:14:32 BIO MEDICAL TECHNICIAN CC: CC: us Yuki Burns MD CV ECHO PROCEDURES Final Re sult * Lipid panel (04/07/2017) Blood specimen (specimen) 04/07/2017 Yuki Burns MD LAB BLOOD ORDERABLES Final Result Performing Organization Address City/[facility] Co de Phone Number [facility] * NON HDL CHOLESTEROL (04/06/2017 9:56 AM BIO MEDICAL TECHNICIAN) Non-HDL, (LDL+VLDL) 125 <130 mg/dL (calc) [facility] [place] Comment: For patients with diabetes plus 1 major ASCVD risk factor, treating to a non-HDL-C goal of <100 mg/dL (LDL-C of <70 mg/dL) is considered a therapeutic option. 04/06/2017 9:56 AM BIO MEDICAL TECHNICIAN 04/06/2017 9:57 AM BIO MEDICAL TECHNICIAN Narrative [facility] - 04/07/2017 1:24 AM BIO MEDICAL TECHNICIAN FASTING:NO Resulting Agency Comment Performing Organization Information: ?Site ID: [place] ?Name: [facility] ?Address: [address] [place] [address] ?Director: Adan Lynn D.O. MPH Yuki Burns MD LAB BLOOD ORDERABLES Edited Result - Final Performing Organization Address [facility] de Phone Number [facility] [place] * CHOL/HDLC RATIO (04/06/2017 9:56 AM BIO MEDICAL TECHNICIAN) Chol/HDL ratio 3.4 <5.0 (calc) [facility] [place] 04/06/2017 9:56 AM BIO MEDICAL TECHNICIAN 04/06/2017 9:57 AM BIO MEDICAL TECHNICIAN Narrative [facility] - 04/07/2017 1:24 AM BIO MEDICAL TECHNICIAN FASTING:NO Resulting Agency Comment Performing Organization Information: ?Site ID: [place] ?Name: [facility] ?Address: [address] [place] [address] ?Director: Adan Lynn D.O. MPH Yuki Burns MD LAB BLOOD ORDERABLES Edited Result - Final Performing Organization Address City/[facility]/ZIP Co de Phone Number EST[place] Samuels * (ABNORMAL) LDL-Cholesterol (04/06/2017 9:56 AM BIO MEDICAL TECHNICIAN) LDL 102(H) mg/dL (calc) [facility] Comment: Reference range: <100 Desirable range <100 mg/dL for patients with CHD or diabetes and <70 mg/dL for diabetic patients with known heart disease. LDL-C is now calculated using the Parker calculation, which is a validated novel method providing better accuracy than the Friedewald equation in the estimation of LDL-C. Milind PEMBERTON et al. PETER. 2013;310(88): 7683-6313 (http://education.NEBOTRADE/faq/TKR157) 04/06/2017 9:56 AM BIO MEDICAL TECHNICIAN 04/06/2017 9:57 AM BIO MEDICAL TECHNICIAN Narrative [facility] - 04/07/2017 1:24 AM BIO MEDICAL TECHNICIAN FASTING:NO Resulting Agency Comment Performing Organization Information: ?Site ID: [place] ?Name: [facility] ?Address: [address] [place] [address] [address] ?Director: Adan Lynn D.O. MPH Yuki Burns MD LAB BLOOD ORDERABLES Edited Result - Final Performing Organization Address [facility] Co de Phone Number ESTHER Samuels * Triglycerides (04/06/2017 9:56 AM BIO MEDICAL TECHNICIAN) Triglycerides 124 <150 mg/dL [facility] [place] Blood specimen (specimen) 04/06/2017 9:56 AM BIO MEDICAL TECHNICIAN 04/06/2017 9:57 AM BIO MEDICAL TECHNICIAN Narrative [facility] - 04/07/2017 1:24 AM BIO MEDICAL TECHNICIAN FASTING:NO Resulting Agency Comment Performing Organization Information: ?Site ID: [place] ?Name: [facility] ?Address: [address] [address] ?Director: Adan Lynn D.O., MPH us Yuki Burns MD LAB BLOOD ORDERABLES Edited Result - Final [facility] [place] * Cholesterol, HDL (04/06/2017 9:56 AM BIO MEDICAL TECHNICIAN) HDL 52 >40 mg/dL [facility] [place] Blood specimen (specimen) 04/06/2017 9:56 AM BIO MEDICAL TECHNICIAN 04/06/2017 9:57 AM BIO MEDICAL TECHNICIAN Narrative [facility] - 04/07/2017 1:24 AM BIO MEDICAL TECHNICIAN FASTING:NO Resulting Agency Comment Performing Organization Information: ?Site ID: [place] ?Name: [facility] ?Address: [facility] [place] [address] ?Director: Adan Lynn D.O., CHINEDU Yuki Burns MD LAB BLOOD ORDERABLES Edited Result - Final Performing Organization Address [facility]/ZIP Co de Phone Number [facility] [place] * Cholesterol, total (04/06/2017 9:56 AM BIO MEDICAL TECHNICIAN) Cholesterol 177 <200 mg/dL [facility] [place] Blood specimen (specimen) 04/06/2017 9:56 AM BIO MEDICAL TECHNICIAN 04/06/2017 9:57 AM BIO MEDICAL TECHNICIAN Narrative [facility] - 04/07/2017 1:24 AM BIO MEDICAL TECHNICIAN FASTING:NO Resulting Agency Comment Performing Organization Information: ?Site ID: [place] ?Name: [facility] ?Address: [facility] [place] [address] ?Director: Adan Lynn D.O., MPH Yuki Burns MD LAB BLOOD ORDERABLES Edited Result - Final ESTHER Samuels documented in this encounter Visit Diagnoses Diagnosis Coronary arteriosclerosis in round valley artery- Primary Hypercholesteremia Pure hypercholesterolemia Complete atrioventricular block (CMS/HCC) (HCC) Atrioventricular block, complete Presence of cardiac pacemaker Cardiac pacemaker in situ History of coronary artery bypass surgery Postsurgical aortocoronary bypass status Chronic ischemic heart disease Unspecified chronic ischemic heart disease Coronary arteriosclerosis in round valley artery documented in this encounter Discontinued Medications Medication Sig Discontinue Reason Start Date End Da te atorvastatin (LIPITOR) 20 mg tablet take 1 tablet by oral route every day Dose adjustment 07/06/2011 04/05/2017 glimepiride (AMARYL) 1 mg tablet take 1 tablet by oral route every day Dose adjustment 06/17/2015 04/05/2017 metFORMIN (GLUCOPHAGE) 500 mg tablet take 1 by Oral route 2 times every day Dose adjustment 03/24/2016 04/05/2017 omeprazole (PriLOSEC) 20 mg capsule take 1 capsule (20MG) by oral route every day before a meal Dose adjustment 07/06/2011 04/05/2017 documented as of this encounter Historical Medications * This list may reflect changes made after this encounter. omeprazole (PriLOSEC) 40 mg capsule Take 1 capsule (40 mg total) by mouth daily 5 02/01/2017 fluticasone (FLONASE) 50 mcg/actuation nasal spray Administer 1 spray into each nostril daily glimepiride (AMARYL) 2 mg tabletIndication s:type 2 diabetes mellitus Take 2 mg by mouth daily. 3 02/05/2017 0 metFORMIN (GLUCOPHAGE) 1,000 mg tabletIndication s:History of coronary artery bypass surgery Take 1,000 mg by mouth 2 (two) times a day with meals. 11 02/27/2017 8 atorvastatin (LIPITOR) 40 mg tabletIndication s:Hypercholester emia Take 40 mg by mouth daily. 4 03/14/2017 7 added in this encounter Care Teams Bundling Machine Operator Relationship Specialty Start Date End Date Dixie Oropeza MD [address] [place] [address] PCP - General 08/21/16 documented as of this encounter
--- OUTSIDE RECORDS SUMMARY | 2024-05-25 06:52 | XMS_ITS | Encounter Summary ---
Author Organization [facility] Address [address] [facility] [address] [place] [address] Care Team Providers Care Line Palletizer Name Role Phone Danielle Rojas MD Primary Care Provider Encounter Details Date Type Department Care Team (Late st Contact Info) Description 12/18/2016 Telephone [facility] [address] [facility] [address] [facility] 102 [place] [address] Yuki Delgadillo MD [address] [facility] 102 [place], [place] [id number] Social History Tobacco Use Types Packs/Day Years Used Date Smoking Tobacco: Never Alcohol Use Standard Drinks/Week Comments No 0 (1 standard drink = 0.6 oz pur e alcohol) Sex and Gender Information Value Date Recorded Sex Assigned at Not on file Legal Sex Male 9:22 AM EXCELSIOR CUTTER Gender Identity Not on file Sexual Orientation Not on file documented as of this encounter Miscellaneous Notes * Telephone Encounter - Alondra Luke RN - 12/18/2016 1:52 PM CDT Spoke with , she said the 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 Gave model Of device. Redd helms call [employer] for information. documented in this encounter Plan of Treatment Not on file documented as of this encounter Visit Diagnoses Not on filedocumented in this encounter Care Teams Line Palletizer Relationship Specialty Start Date End Date Danielle Rojas MD [address] [facility] [address] [facility] 120 [place] [address] PCP - General 08/21/16 documented as of this encounter
--- OUTSIDE RECORDS SUMMARY | 2024-05-25 06:52 | XMS_ITS | Encounter Summary ---
Author Organization [facility] Address [address] [facility] [address] [place] [address] Care Team Providers Care Manufacturing Management Associate Name Role Phone Danielle Rojas MD Primary Care Provider Reason for Visit * Reason Onset Date Comments cholesterol results 04/10/2019 Encounter Details Date Type Department Care Team (Late st Contact Info) Description 04/10/2019 Telephone [facility] [address] [facility] [address] [facility] 102 [place] [address] Yuki Delgadillo MD [address] [facility] 102 [place] [address] cholesterol results Social History Tobacco Use Types Packs/Day Years Used Date Smoking Tobacco: Never Smokeless Tobacco: Never Alcohol Use Standard Drinks/Week Comments No 0 (1 standard drink = 0.6 oz pur e alcohol) Sex and Gender Information Value Date Recorded Sex Assigned at Not on file Legal Sex Male 9:22 AM SYSTEM SALES 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 Gender Identity Not on file Sexual Orientation Not on file documented as of this encounter Ordered Prescriptions Prescription Sig Dispense Quantity Refills Last Filled Start Date End Date rosuvastatin (CRESTOR) 40 mg tablet Take 0.5 tablets (20 mg total) by mouth daily 90 tablet 04/11/2019 0 documented in this encounter Miscellaneous Notes * Addendum Note - Noe Shukla, RN - 04/11/2019 9:01 AM CSTAddended by: NOE SHUKLA on: 04/11/2019 09:01 AM Modules accepted: Orders EM SALES CONSULTANT * Telephone Encounter - Noe Shukla RN - 04/11/2019 8:57 AM SYSTEM SALES CONSULTANT Spoke with patient and discussed lipid results. Patient is in face taking rosuvastatin 40 mg 1/2 tablet daily. Med list updated. EM SALES CONSULTANT * Telephone Encounter - Yuki Delgadillo MD - 04/10/2019 6:45 PM SYSTEM SALES CONSULTANT Patient with CAD, had POC lipids here today. Please review them with the patient: 04/10/2019 POC lipids: Total cholesterol 144, HDL 57, LDL 60, TG 135. Cholesterol is pretty good! Please check and see what dose of rosuvastatin he is taking; I think he may be taking 40 mg half a tablet daily, correct med list if that is the case, thank you. EM SALES CONSULTANT documented in this encounter Plan of Treatment Not on file documented as of this encounter Visit Diagnoses Not on filedocumented in this encounter Discontinued Medications Medication Sig Discontinue Reason Start Date End Da te rosuvastatin (CRESTOR) 40 mg tablet TAKE 1 TABLET (40 MG TOTAL) BY MOUTH DAILY. 01/24/2019 04/11/2019 documented as of this encounter Care Teams Manufacturing Management Associate Relationship Specialty Start Date End Date Danielle Rojas MD [address] [facility] 120 [place] [address] PCP - General 08/21/16 documented as of this encounter
--- OUTSIDE RECORDS SUMMARY | 2024-05-25 06:52 | XMS_ITS | Encounter Summary ---
Author Organization [facility] Address [address] [facility] [address] [place] [address] Care Team Providers Care Burrer Marker Axle Name Role Phone Danielle Rojas MD Primary Care Provider Encounter Details Date Type Department Care Team (Late st Contact Info) Description 07/13/2019 Orders Only [facility] Cardiology [address] [place] [phone] Yuki Delgadillo MD [address] [place] [address] Pain in left leg Social History Tobacco Use Types Packs/Day Years Used Date Smoking Tobacco: Never Smokeless Tobacco: Never Alcohol Use Standard Drinks/Week Comments No 0 (1 standard drink = 0.6 oz pur e alcohol) Sex and Gender Information Value Date Recorded Sex Assigned at Not on file Legal Sex Male 9:22 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
--- OUTSIDE RECORDS SUMMARY | 2024-05-25 06:52 | XMS_ITS | Encounter Summary ---
Author Organization [facility] Address [address] [facility] [address] [place] [address] Care Team Providers Care Forestry Worker Name Role Phone Danielle Rojas MD Primary Care Provider Encounter Details Date Type Department Care Team (Late st Contact Info) Description 06/10/2017 Orders Only [facility] [address] [facility] [address], [place] [address] [facility] [address] [address] Social History Tobacco Use Types Packs/Day Years Used Date Smoking Tobacco: Never Smokeless Tobacco: Never Alcohol Use Standard Drinks/Week Comments No 0 (1 standard drink = 0.6 oz pur e alcohol) Sex and Gender Information Value Date Recorded Sex Assigned at Not on file Legal Sex Male 9:22 AM EVAPORATOR OPERATOR MOLASSES Gender Identity Not on file Sexual Orientation Not on file documented as of this encounter Plan of Treatment Not on file documented as of this encounter Procedures Procedure Name Priority Date/Time Associated Diagnosis Comments CHOL/HDLC RATIO Routine 06/10/2017 9:02 AM EVAPORATOR OPERATOR MOLASSES LDL-CHOLESTEROL Routine 06/10/2017 9:02 AM EVAPORATOR OPERATOR MOLASSES NON HDL CHOLESTEROL Routine 06/10/2017 9 :02 AM EVAPORATOR OPERATOR MOLASSES TRIGLYCERIDES Routine 06/10/2017 9:02 AM EVAPORATOR OPERATOR MOLASSES ALT Routine 06/10/2017 9:02 AM EVAPORATOR OPERATOR MOLASSES AST Routine 06/10/2017 9:02 AM EVAPORATOR OPERATOR MOLASSES CHOLESTEROL, HDL Routine 06/10/2017 9:02 AM EVAPORATOR OPERATOR MOLASSES CHOLESTEROL, TOTAL Routine 06/10/2017 9: 02 AM EVAPORATOR OPERATOR MOLASSES documented in this encounter Results * ALT (06/10/2017 9:02 AM EVAPORATOR OPERATOR MOLASSES) ALT (SGPT) 37 9 - 46 U/L [facility] [place] 06/10/2017 9:02 AM EVAPORATOR OPERATOR MOLASSES 06/10/2017 9:03 AM EVAPORATOR OPERATOR MOLASSES Narrative [facility] - 06/11/2017 2:59 AM EVAPORATOR OPERATOR MOLASSES FASTING:YES FASTING: YES Resulting Agency Comment Performing Organization Information: ?Site ID: [place] ?Name: [facility] ?Address: [address] [place] [address] [place] [address] ?Director: Adan Lynn D.O. MPH Yuki Delgadillo MD LAB BLOOD ORDERABLES Final Result Performing Organization Address [facility] de Phone Number [facility] [place] * AST (06/10/2017 9:02 AM EVAPORATOR OPERATOR MOLASSES) AST 25 10 - 35 U/L [facility] [place] 06/10/2017 9:02 AM EVAPORATOR OPERATOR MOLASSES 06/10/2017 9:03 AM EVAPORATOR OPERATOR MOLASSES Narrative [facility] - 06/11/2017 2:59 AM EVAPORATOR OPERATOR MOLASSES FASTING:YES FASTING: YES Resulting Agency Comment Performing Organization Information: ?Site ID: [place] ?Name: [facility] ?Address: [address] [place], [place] [address] [address] ?Director: Adan Lynn D.O. MPH Yuki Delgadillo MD LAB BLOOD ORDERABLES Final Result Performing Organization Address [facility] Co de Phone Number [facility] [place] * NON HDL CHOLESTEROL (06/10/2017 9:02 AM EVAPORATOR OPERATOR MOLASSES) Non-HDL, (LDL+VLDL) 87 <130 mg/dL (calc) [facility] Comment: For patients with diabetes plus 1 major ASCVD risk factor, treating to a non-HDL-C goal of <100 mg/dL (LDL-C of <70 mg/dL) is considered a therapeutic option. 06/10/2017 9:02 AM EVAPORATOR OPERATOR MOLASSES 06/10/2017 9:03 AM EVAPORATOR OPERATOR MOLASSES Narrative [facility] - 06/11/2017 2:59 AM EVAPORATOR OPERATOR MOLASSES FASTING:YES FASTING: YES Resulting Agency Comment Performing Organization Information: ?Site ID: [place] ?Name: [facility] ?Address: [facility] [place] [address] ?Director: Adan Lynn D.O., MPH Yuki Delgadillo MD LAB BLOOD ORDERABLES Final Result Performing Organization Address [facility] Co de Phone Number EST[facility] Samuels * CHOL/HDLC RATIO (06/10/2017 9:02 AM EVAPORATOR OPERATOR MOLASSES) Chol/HDL ratio 2.5 <5.0 (calc) [facility] 06/10/2017 9:02 AM EVAPORATOR OPERATOR MOLASSES 06/10/2017 9:03 AM EVAPORATOR OPERATOR MOLASSES Narrative [facility] - 06/11/2017 2:59 AM EVAPORATOR OPERATOR MOLASSES FASTING:YES FASTING: YES Resulting Agency Comment Performing Organization Information: ?Site ID: [place] ?Name: [facility] ?Address: [facility] [place] [address] ?Director: Adan Lynn D.O., MPH Yuki Delgadillo MD LAB BLOOD ORDERABLES Final Result Performing Organization Address [facility] Co de Phone Number ESTHER Samuels * LDL-Cholesterol (06/10/2017 9:02 AM EVAPORATOR OPERATOR MOLASSES) LDL 67 mg/dL (calc) [facility] Comment: Reference range: <100 Desirable range <100 mg/dL for patients with CHD or diabetes and <70 mg/dL for diabetic patients with known heart disease. LDL-C is now calculated using the Parker calculation, which is a validated novel method providing better accuracy than the Friedewald equation in the estimation of LDL-C. Milind SS et al. PETER. 2013;310(93): 6454-8870 (http://education.Viximo/faq/XEX938) 06/10/2017 9:02 AM EVAPORATOR OPERATOR MOLASSES 06/10/2017 9:03 AM EVAPORATOR OPERATOR MOLASSES Narrative [facility] - 06/11/2017 2:59 AM EVAPORATOR OPERATOR MOLASSES FASTING:YES FASTING: YES Resulting Agency Comment Performing Organization Information: ?Site ID: [place] ?Name: [facility] ?Address: [facility] [place] [address] ?Director: Adan Lynn D.O., MPH Yuki Delgadillo MD LAB BLOOD ORDERABLES Final Result EST[facility] Samuels * Triglycerides (06/10/2017 9:02 AM EVAPORATOR OPERATOR MOLASSES) Triglycerides 117 <150 mg/dL [facility] 06/10/2017 9:02 AM EVAPORATOR OPERATOR MOLASSES 06/10/2017 9:03 AM EVAPORATOR OPERATOR MOLASSES Narrative [facility] - 06/11/2017 2:59 AM EVAPORATOR OPERATOR MOLASSES FASTING:YES FASTING: YES Resulting Agency Comment Performing Organization Information: ?Site ID: [place] ?Name: [facility] ?Address: [address] [place] [address] ?Director: Adan Lynn D.O. MPH Yuki Delgadillo MD LAB BLOOD ORDERABLES Final Result ESTHER Samuels * Cholesterol, HDL (06/10/2017 9:02 AM EVAPORATOR OPERATOR MOLASSES) HDL 59 >40 mg/dL [facility] [place] 06/10/2017 9:02 AM EVAPORATOR OPERATOR MOLASSES 06/10/2017 9:03 AM EVAPORATOR OPERATOR MOLASSES Narrative [facility] - 06/11/2017 2:59 AM EVAPORATOR OPERATOR MOLASSES FASTING:YES FASTING: YES Resulting Agency Comment Performing Organization Information: ?Site ID: [place] ?Name: [facility] ?Address: [facility] [place] [address] ?Director: Adan Lynn D.O. MPH Yuki Delgadillo MD LAB BLOOD ORDERABLES Final Result [facility] [place] * Cholesterol, total (06/10/2017 9:02 AM EVAPORATOR OPERATOR MOLASSES) Cholesterol 146 <200 mg/dL [facility] [place] 06/10/2017 9:02 AM EVAPORATOR OPERATOR MOLASSES 06/10/2017 9:03 AM EVAPORATOR OPERATOR MOLASSES Narrative [facility] - 06/11/2017 2:59 AM EVAPORATOR OPERATOR MOLASSES FASTING:YES FASTING: YES Resulting Agency Comment Performing Organization Information: ?Site ID: [place] ?Name: [facility] ?Address: [facility] [place] [address] ?Director: Adan Lynn D.O. MPH Yuki Delgadillo MD LAB BLOOD ORDERABLES Final Result [facility] [place] documented in this encounter Visit Diagnoses Not on filedocumented in this encounter Care Teams Forestry Worker Relationship Specialty Start Date End Date Danielle Rojas MD [address] [place] [address] PCP - General 08/21/16 documented as of this encounter
--- OUTSIDE RECORDS SUMMARY | 2024-05-25 06:52 | XMS_ITS | Encounter Summary ---
Author Organization [facility] Address [address] [facility] [address] [place] [address] Care Team Providers Care Firewood Cutter Name Role Phone Danielle Rojas MD Primary Care Provider Reason for Visit * Cardiology (Routine) - Closed Specialty Diagnoses / Procedures Referred By Contac t Referred To Contact Cardiology Diagnoses Sick sinus syndrome Danielle Rojas MD Phone: tel: fax: [facility] [address] [place] [address] [place] [address] Phone: tel: fax: Referral ID Status Reason Start Date Expiration Date Visits Re quested Visits Authorized [id number] Closed 09/09/2017 11/21/2018 11 11 Encounter Details Date Type Department Care Team (Latest Contact Info) Description 03/16/2018 10:30 AM CDT Ancillary Procedure [facility] Cardiology [address] [facility] [address], [place] [address] CHB (complete heart block) (CMS/HCC); Presence of cardiac pacemaker Social History Tobacco Use Types Packs/Day Years Used Date Smoking Tobacco: Never Smokeless Tobacco: Never Alcohol Use Standard Drinks/Week Comments No 0 (1 standard drink = 0.6 oz pur e alcohol) Sex and Gender Information Value Date Recorded Sex Assigned at Not on file Legal Sex Male 9:22 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 Gender Identity Not on file Sexual Orientation Not on file documented as of this encounter Plan of Treatment Pending Results Name Type Priority Associated Diagnoses Date /Time DEVICE CHECK - REMOTE Cardiac Services Routine CHB (complete heart block) (CMS/HCC) 03/23/2018 9:50 AM CDT documented as of this encounter Visit Diagnoses Diagnosis CHB (complete heart block) (CMS/HCC) (HCC) Atrioventricular block, complete Presence of cardiac pacemaker Cardiac pacemaker in situ documented in this encounter Care Teams Firewood Cutter Relationship Specialty Start Date End Date Danielle Rojas MD [address] [facility] [address] [address] [facility] [address] [place] [id number] PCP - General 08/21/16 documented as of this encounter
--- OUTSIDE RECORDS SUMMARY | 2024-05-25 06:52 | XMS_ITS | Encounter Summary ---
Author Organization [facility] Address [address] [facility] [address] [place] [address] Care Team Providers Care Supervisor Volunteer Services Name Role Phone Danielle Rojas MD Primary Care Provider Reason for Visit * Cardiology (Routine) - Closed Specialty Diagnoses / Procedures Referred By Contac t Referred To Contact Diagnoses CHB (complete heart block) (CMS/HCC) (HCC) Procedures DEVICE CHECK - IN OFFICE Yuki Delgadillo MD Phone: tel: fax: [facility] Referral ID Status Reason Start Date Expiration Date Visits Re quested Visits Authorized [id number] Closed 07/01/2018 01/10/2020 1 1 Encounter Details Date Type Department Care Team (Latest Contact Info) Description 10/05/2018 11:00 AM CDT Ancillary Procedure [facility] Medical [facility] Cardiology [address] [facility] [address] [place] [address] CHB (complete heart block) (CMS/HCC); Presence of cardiac pacemaker Social History Tobacco Use Types Packs/Day Years Used Date Smoking Tobacco: Never Smokeless Tobacco: Never Alcohol Use Standard Drinks/Week Comments No 0 (1 standard drink = 0.6 oz pur e alcohol) Sex and Gender Information Value Date Recorded Sex Assigned at Not on file Legal Sex Male 9:22 AM MANAGER CHEMICAL Gender Identity Not on file Sexual Orientation Not on file documented as of this encounter Progress Notes * Eva Aguiar RN - 10/05/2018 11:00 AM CDT Medtronic Dual Pacemaker. Dx; CHB. DOI 05/10/[address] Ventura. [facility] remote monitoring. Office pacemaker evaluation demonstrated normal device function. Battery function-3.00V, 4.5 years estimated remaining longevity. Presenting rhythm-APVP. Underlying rhythm-CHB without ventricular escape @ VVI 30 bpm. AP-86%, AIRPLANE NAVIGATOR-100%. No atrial or ventricular episodes recorded. No programming changes made to device settings. See scanned report. [facility] remote f/u 01/04/2019. documented in this encounter Plan of Treatment Pending Results Name Type Priority Associated Diagnoses Date /Time DEVICE CHECK - IN OFFICE Cardiac Services Routine CHB (complete heart block) (CMS/HCC) 10/05/2018 10:31 AM CDT documented as of this encounter Visit Diagnoses Diagnosis CHB (complete heart block) (CMS/HCC) (HCC) Atrioventricular block, complete Presence of cardiac pacemaker Cardiac pacemaker in situ documented in this encounter Care Teams Supervisor Volunteer Services Relationship Specialty Start Date End Date Danielle Rojas MD [address] [place] [id number] PCP - General 08/21/16 documented as of this encounter
--- OUTSIDE RECORDS SUMMARY | 2024-05-25 06:52 | XMS_ITS | Encounter Summary ---
Author Organization [facility] Address [address] [facility] [address] [place] [address] Care Team Providers Care Certified Coder Name Role Phone Danielle Rojas MD Primary Care Provider Encounter Details Date Type Department Care Team (Late st Contact Info) Description 04/12/2017 Orders Only [facility] [address] [facility] [address] [place] [address] ProviderZain MD [address] [place] [address] Social History Tobacco Use Types Packs/Day Years Used Date Smoking Tobacco: Never Smokeless Tobacco: Never Alcohol Use Standard Drinks/Week Comments No 0 (1 standard drink = 0.6 oz pur e alcohol) Sex and Gender Information Value Date Recorded Sex Assigned at Not on file Legal Sex Male 9:22 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 Gender Identity Not on file Sexual Orientation Not on file documented as of this encounter Plan of Treatment Not on file documented as of this encounter Procedures Procedure Name Priority Date/Time Associated Diagnosis Comments LDL CHOLESTEROL (DIRECT) Routine 06/09/2016 documented in this encounter Results * LDL Cholesterol (Direct) (06/09/2016) Blood specimen (specimen) Historical Provider LAB BLOOD ORDERABLES Onelia l Result documented in this encounter Visit Diagnoses Not on filedocumented in this encounter Care Teams Certified Coder Relationship Specialty Start Date End Date Danielle Rojas MD [address] [place] [address] PCP - General 08/21/16 documented as of this encounter
--- OUTSIDE RECORDS SUMMARY | 2024-05-25 06:52 | XMS_ITS | Encounter Summary ---
Author Organization [facility] Address [address] [place] [address] Care Team Providers Care Binder Selector Name Role Phone Danielle Rojas MD Primary Care Provider Reason for Referral * Diagnostic Imaging (Routine) - Closed Specialty Diagnoses / Procedures Referred By Contac t Referred To Contact Diagnoses Pain in left leg Procedures US Arterial Doppler Lower Extremity Bilateral Yuki Delgadillo MD Phone: tel: fax: [facility] Referral ID Status Reason Start Date Expiration Date Visits Re quested Visits Authorized [id number] Closed 04/10/2019 10/19/2020 1 1 TERED FINANCIAL ANALYST Reason for Visit * Reason Comments Follow-up CAD * (Routine) - Canceled Specialty Diagnoses / Procedures Referred By Contmarixa t Referred To Contact Diagnoses SSS (sick sinus syndrome) (CMS/HCC) (HCC) Procedures DEVICE CHECK - IN OFFICE Lorie Nagel NP Phone: tel: fax: Referral ID Status Reason Start Date Expiration Date V isits Requested Visits Authorized [id number] Canceled 01/10/2018 07/22/2019 1 1 Encounter Details Date Type Department Care Team (Latest Contact Info) Description 04/10/2019 10:15 AM CHARTERED FINANCIAL ANALYST Office Visit [facility] [address] [facility] [address] [place] [address] Yuki Delgadillo MD [address] [place] [id number] Coronary arteriosclerosis in [place] artery (Primary Dx); History of coronary artery bypass surgery; Chronic ischemic heart disease; Pacemaker; Complete atrioventricular block (CMS/HCC); Hypercholesteremia; Left leg pain; Multiple-type hyperlipidemia; Pain in left leg; Obesity (BMI 30-39.9); Hyperlipidemia associated with type 2 diabetes mellitus (CMS/HCC) Social History Tobacco Use Types Packs/Day Years Used Date Smoking Tobacco: Never Smokeless Tobacco: Never Tobacco Cessation:Counseling Given: Yes Alcohol Use Standard Drinks/Week Comments No 0 (1 standard drink = 0.6 oz pur e alcohol) Sex and Gender Information Value Date Recorded Sex Assigned at Not on file Legal Sex Male 9:22 AM CHARTERED FINANCIAL ANALYST Gender Identity Not on file Sexual Orientation Not on file documented as of this encounter Last Filed Vital Signs Vital Sign Reading Time Taken Comments Blood Pressure 112/70 04/10/2019 10:11 AM CHARTERED FINANCIAL ANALYST Pulse 91 04/10/2019 10:11 AM CHARTERED FINANCIAL ANALYST Temperature - - Respiratory Rate - - Oxygen Saturation 93% 04/10/2019 10: 11 AM CHARTERED FINANCIAL ANALYST Inhaled Oxygen Concentration - - Weight 101.5 kg (223 lb 11.2 oz) 2018 10:11 AM CHARTERED FINANCIAL ANALYST Height 177.8 cm (5' 10 ) 04/10/2019 10: 11 AM CHARTERED FINANCIAL ANALYST Body Mass Index 32.1 04/10/2019 10:11 AM CHARTERED FINANCIAL ANALYST documented in this encounter Ordered Prescriptions Prescription Sig Dispense Quantity Refills Last Filled Start Date End Date hydroCHLOROthiazid e (HYDRODIURIL) 12.5 mg tablet Take 1 tablet (12.5 mg total) by mouth daily Take 2 tablets daily 04/10/2019 documented in this encounter Progress Notes * Yuki Delgadillo MD - 04/10/2019 10:15 AM CST [facility] DATE OF VISIT: 04/10/2019 DATE: 1950 CHIEF COMPLAINT Chief Complaint Patient presents with ??? Follow-up CAD HPI Dayron Howell is a 68 y.o. male with a history of ACS [...] not related to pacemaker. 06/10/2017 ov with WELFARE ADVISER Jonatan Shona: Was hospitalized in April for pneumonia, now doing fine. Gets sporadic sharp shooting chest pain, not related to activity, lasts a couple of seconds, relieved with rubbing. 09/13/2017 OV w/ WELFARE ADVISER MadysonShona: Feels well, he reports his rosuvastatin was [...] not having myalgias. Cardiac statusstable. 04/10/2019 OV: [place], not very active but does yardvwork and treadmill most days of the week, andtakes grandkids to school. Occ has calf cramping LLE. Says he had bad jackson LLE when young and soccer injury. Can't loose weight, gained 8#, wonders if 2nd meds. No sodas, juices, but snacks freq andhas trouble w/ portion size. Found to have early dementia and now on memantine. Not sure of other meds; losartan back-ordered so now on lisinopril + HCTZ. BS runs 150-190. 04/10/2019 POC lipids: Total cholesterol 144, HDL 57, LDL 60, TG 135 Social: Retired 2015; wants to move back to [place]. Has 5 grandchildren, oldest is 16 and has Downs, youngest is 3. MEDICAL HISTORY Past Medical History: Diagnosis Date [...] day with meals., Disp: 180 tablet, Rfl: 3 ??? cetirizine [...] mouth daily., Disp: , Rfl: 3 ??? hydroCHLOROthiazide (HYDRODIURIL) 12.5 mg tablet, Take [...] ??? rosuvastatin (CRESTOR) 40 mg tablet, TAKE 1 TABLET (40 MG TOTAL) BY MOUTH DAILY., Disp: 90 tablet, Rfl: 0 ??? sitaGLIPtin-metformin 100-1,000 mg tablet, ER multiphase 24 hr, Take 1,000 mg by mouth daily., Disp: , Rfl: Current Facility-Administered Medications: ??? perflutren lipid (DEFINITY) 1.5 mL in sodium chloride 0.9% 10 mL syringe, 1- 10 mL, intravenous,Once in imaging, Yuki Delgadillo MD ALLERGIES No Known Allergies REVIEW OF SYSTEMS Review of Systems Constitution: Positive for weight gain. Negative for malaise/fatigue. HENT: Negative for congestion. Eyes: Negative for visual disturbance. Cardiovascular: Positive for claudication. Negative for chest pain, dyspnea on exertion and syncope. Respiratory: Negative for shortness of breath. Hematologic/Lymphatic: Negative for bleeding problem. Gastrointestinal: Negative for abdominal pain. Genitourinary: Negative for hematuria. Neurological: Negative for dizziness. Psychiatric/Behavioral: Positive for memory loss. Negative for depression. PHYSICAL EXAM Blood pressure 112/70, pulse 91, height 177.8 cm (5' 10 ), weight 101.5 kg (223 lb 11.2 oz), SpO2 93 %. Body mass index is 32.1 kg/m??. Physical Exam Constitutional: He is oriented to person, place, and time. He appears well- developed and well-nourished. Neck: Carotid bruit is not present. No thyromegaly present. Cardiovascular: Normal rate, regular rhythm and normal heart sounds. No murmur heard. Pulses: Carotid pulses are 2+ on the right side and 2+ on the left side. Dorsalis pedis pulses are 0 on the right side and 0 on the left side. Posterior tibial pulses are 2+ on the right side and 0 on the left side. Pulmonary/Chest: Effort normal and breath sounds normal. No respiratory distress. Abdominal: Soft. He exhibits no distension. Musculoskeletal: General: No edema. Neurological: He is alert and oriented to person, place, and time. Skin: Skin is warm and dry. No erythema (pacer site fine). Psychiatric: He has a normal mood and [...] LDL-C. Milind SS et al. PETER. 2013;310(19): 9448-8834 (http://education.TicketsNow.ShomoLive/faq/RPE673) 04/06/2017 102 (H) mg/dL (calc) Final Comment: Reference range: <100 Desirable range <100 mg/dL for patients with CHD or diabetes and <70 mg/dL for diabetic patients with known heart disease. LDL-C is now calculated using the Milind-Braxton calculation, which is a validated novel method providing better accuracy than the Friedewald equation in the estimation of LDL-C. Milind SS et al. PETER. 2013;310(76): 7634-9874 (http://Vocation.Cohuman/faq/YGA887) ] No results found for: LDLCALC Lab [...] 2015: chol 137, TG 66, LDL 66. Cardiac testin cardiac cath: Patent grafts, EF 40-45% 2012 Stress test: EF 57%, no significant ischemia. March 2017 echo : EF 43%, hypokinesis of the apical septum. ASSESSMENT Diagnoses and all orders for this visit: Coronary arteriosclerosis in [place] artery (Primary) - POCT lipid panel History of coronary artery bypass surgery Chronic ischemic heart disease - POCT lipid panel Pacemaker Complete atrioventricular block (CMS/HCC) Hypercholesteremia Left leg pain Multiple-type hyperlipidemia - POCT lipid panel Pain in left leg - US Arterial Doppler Lower Extremity Bilateral; Future Obesity (BMI 30-39.9) Hyperlipidemia associated with type 2 diabetes mellitus (CMS/HCC) Other orders - hydroCHLOROthiazide (HYDRODIURIL) 12.5 mg tablet; Take 1 tablet (12.5 mg total) by mouth daily Take 2 tablets daily CAD: H/O CABG 2010, some evaluations for recurrent CP but all noncardiac. Stable w/o angina, good exertional tolerance. EF runs around 40-45%. Pacemaker: for CHB, checked in December 2018 showed normal function, 5 year longevity. A pacing 80%, V pacing 100% due to underlying complete heart block Hyperlipidemia: LDL 67 in May 2017, doing well on rosuvastatin, on 20 mg qd. LDL cholesterol today was 60, I think he still on 20 mg daily. Reasonable control. Left leg pain: Has decreased pulses, could be having claudication. Obesity: Discussed weight control. He does snack and has trouble with portion control. Reviewed ???eat less, do more.?? PLAN/RECOMMENDATIONS Discussed LDL goals with statin tx; lower is better, no too low for LDL. Encouraged portion control, more social interaction and less sedentary lifestyle. Lower extremity arterial Doppler Cont current tx for CAD with ASA, BB, ROSA-inhibitor, statin. Continue with pacemaker clinic Periodic echocardiograms. If the patient has a decline in LV function consider an upgrade to a biventricular pacemaker. This certainly should be considered when his pulse generator reaches elective replacement interval. FU 1 year, sooner if needed. Yuki Delgadillo MD, [facility] Office: [phone] or [phone] This note is dictated and transcribed by with assistance from [employer].?? Junior Programmer Analyst variances may occur. Despite proofreading, typographical errors may occur. TERED FINANCIAL ANALYST documented in this encounter Plan of Treatment Scheduled Orders Name Type Priority Associated Diagnoses Orde r Schedule US Arterial Doppler Lower Extremity Bilateral Imaging Schedule Routine, Read Routine (OP Routine) Pain in left leg 1 Occurrences starting 04/10/2019 until 04/10/2020 documented as of this encounter Procedures Procedure Name Priority Date/Time Associated Diagnosis Comments POCT LIPID PANEL Routine 04/10/2019 11:3 6 AM CHARTERED FINANCIAL ANALYST Coronary arteriosclerosis in [place] artery Chronic ischemic heart disease Multiple-type hyperlipidemia documented in this encounter Results * POCT lipid panel (04/10/2019 11:36 AM CHARTERED FINANCIAL ANALYST) Cholesterol, POC 144 mg/dL HDL, POC 57 mg/dL Triglycerides, POC 135 mg/dL LDL Cholesterol POC 60 mg/dL Chol/HDL Ratio, POC 2.5 Non-HDL Cholesterol, POC 87 mg/dL Cholesterol Total, POC 144 mg/dL Blood specimen (specimen) 04/10/2019 11:36 AM CHARTERED FINANCIAL ANALYST Yuki Delgadillo MD POINT OF CARE TEST ORDERABL ES Final Result documented in this encounter Visit Diagnoses Diagnosis Coronary arteriosclerosis in [place] artery- Primary History of coronary artery bypass surgery Postsurgical aortocoronary bypass status Chronic ischemic heart disease Unspecified chronic ischemic heart disease Pacemaker Cardiac pacemaker in situ Complete atrioventricular block (CMS/HCC) (HCC) Atrioventricular block, complete Hypercholesteremia Pure hypercholesterolemia Left leg pain Pain in soft tissues of limb Multiple-type hyperlipidemia Other and unspecified hyperlipidemia Pain in left leg Obesity (BMI 30-39.9) Hyperlipidemia associated with type 2 diabetes mellitus (HCC) documented in this encounter Discontinued Medications Medication Sig Discontinue Reason Start Date End Da te losartan-hydroCHLOROthia zide (HYZAAR) 100-12.5 mg per tablet take 1 tablet by oral route every day Alternate therapy 02/26/2014 04/10/2019 hydroCHLOROthiazide (HYDRODIURIL) 50 mg tablet Take 50 mg by mouth daily Take 2 tablets daily Reorder 04/10/2019 documented as of this encounter Historical Medications * This list may reflect changes made after this encounter. lisinopril (PRINIVIL,ZESTRIL ) 40 mg tablet Take 40 mg by mouth daily Take 1 tablet daily 07/30/2021 hydroCHLOROthiazi de (HYDRODIURIL) 50 mg tablet Take 50 mg by mouth daily Take 2 tablets daily 04/10/2019 memantine (NAMENDA) 5 mg tablet Take 1 tablet (5 mg total) by mouth 2 (two) times a day 03/15/2019 07/19/2023 added in this encounter Care Teams Binder Selector Relationship Specialty Start Date End Date Danielle Rojas MD [address] [facility] [address] [place] [address] PCP - General 08/21/16 documented as of this encounter
--- OUTSIDE RECORDS SUMMARY | 2024-05-25 06:52 | XMS_ITS | Encounter Summary ---
Author Organization [facility] Address [address] [place] [address] Care Team Providers Care Chinchilla Farmer Name Role Phone Dixie Oropeza MD Primary Care Provider Reason for Visit * Cardiology (Routine) - Closed Specialty Diagnoses / Procedures Referred By Contac t Referred To Contact Cardiology Imaging Diagnoses Coronary arteriosclerosis in [place] artery Procedures Transthoracic Echo Complete W Doppler/CF Cathryn Burns MD Phone: tel: fax: [facility] Medical [facility] Cardiology [address] [place] [address] Phone: tel: fax: Referral ID Status Reason Start Date Expiration Date Visits Re quested Visits Authorized [id number] Closed 04/05/2017 10/02/2017 1 1 Encounter Details Date Type Department Care Team (Latest Contact Info) Description 04/13/2017 10:15 AM SCHEDULING REPRESENTATIVE Ancillary Procedure [facility] Medical [facility] Cardiology [address] [place] [id number] Coronary arteriosclerosis in [place] artery Social History Tobacco Use Types Packs/Day Years Used Date Smoking Tobacco: Never Smokeless Tobacco: Never Alcohol Use Standard Drinks/Week Comments No 0 (1 standard drink = 0.6 oz pur e alcohol) Sex and Gender Information Value Date Recorded Sex Assigned at Not on file Legal Sex Male 9:22 AM SCHEDULING REPRESENTATIVE Gender Identity Not on file Sexual Orientation Not on file documented as of this encounter Last Filed Vital Signs Vital Sign Reading Time Taken Comments Blood Pressure - - Pulse - - Temperature - - Respiratory Rate - - Oxygen Saturation - - Inhaled Oxygen Concentration - - Weight 99.8 kg (220 lb) 04/13/2017 10:05 AM SCHEDULING REPRESENTATIVE Height 177.8 cm (5' 10 ) 04/13/2017 10:05 AM SCHEDULING REPRESENTATIVE Body Mass Index 31.57 04/13/2017 10:05 AM SCHEDULING REPRESENTATIVE documented in this encounter Plan of Treatment Not on file documented as of this encounter Procedures Procedure Name Priority Date/Time Associated Diagnosis Comments TRANSTHORACIC ECHO (TTE) COMPLETE W DOPPLER/CF W CONTRAST Routine 04/13/2017 10:59 AM SCHEDULING REPRESENTATIVE Coronary arteriosclerosis in [place] artery documented in this encounter Results * TRANSTHORACIC ECHO (TTE) COMPLETE W DOPPLER/CF W CONTRAST (04/13/2017 10:59 AM SCHEDULING REPRESENTATIVE) Anatomical Region Laterality Modality Ultrasound 04/13/2017 9:31 AM SCHEDULING REPRESENTATIVE Narrative 04/13/2017 4:14 PM SCHEDULING REPRESENTATIVE [facility] [facility] [address] [address] [address] [facility] [address], [place] [address] P:[phone] P:[phone] Echocardiographic Report Patient Name: DAYRON PORTILLO : 5 Study Date: 04/13/2017 9:31:20 AM Gender: M Tech: GM ?Location: OR ? Ref.Physician: DIXIE OROPEZA ?Height(Cm): 178 ? BSA: 2.17 Weight(Kg): 99.79 Heart Rate: 65BP: 105/76 Quality: Definity contrast agent used to enhance endocardial border definition Order Physician: CATHRYN BURNS Procedures: Echocardiographic Report: Transthoracic echocardiogram [...] Findings: Interpretation Site: Exam was interpreted at [facility]. Left Ventricle: Normal left ventricular size. Definity [...] valve. Electronically Signed By: Nataly Martinez MD, [facility] 2017-04-13 16:14:32 SCHEDULING REPRESENTATIVE CC: CC: Procedure Note Nataly Martinez MD - 04/13/2017 [facility] [address] [facility] [address], [place] [address] [address] [facility] [address], [place] [address] P:[phone] P:[phone] Echocardiographic Report Patient Name: DAYRON PORTILLOPatient ID: [id number] : [id number] Date: 04/13/2017 9:31:20 AM Gender: MAccession #: [id number] Tech: Location: OR Ref.Physician: DIXIE OROPEZA Height(Cm): 178 BSA: 2.17Weight(Kg): 99.79 Heart Rate: 65BP: 105/76 Quality: Definity contrast agent used to enhance endocardial borderdefinitionOrder Physician: CATHRYN BURNS Procedures: Echocardiographic Report: Transthoracic echocardiogram [...] 16.00 - 28.00 ] cc/m2 MV Decel Legp105 [ 104 - 258 ] msec ACS MM 2.42 [ 1.50 - 2.60 ] cm PV Peak Vel1.19 [ 0.40 - 0.80 ] m/s TR Peak Vel2.68 [ 1.00 - 2.80 ] m/s TR Peak PG 29mmHg RVSP37.00 [ 10.00 - 36.00 ] mmHg E'0.10 E/E' 6 Findings: Interpretation Site: Exam was interpreted at [facility]. Left Ventricle: Normal left ventricular size. Definity [...] valve. Electronically Signed By: Nataly Martinez MD, [facility] 2017-04-13 16:14:32 SCHEDULING REPRESENTATIVE CC: CC: Cathryn Burns MD CV ECHO PROCEDURES Final Re sult documented in this encounter Visit Diagnoses Diagnosis Coronary arteriosclerosis in [place] artery documented in this encounter Orders Medications Ordered That Shukri ht Not Have Been Administered Count Last Ordered Date First Ordered Date perflutren lipid (DEFINITY) 1.5 mL in sodium chloride 0.9% 10 mL syringe 1 04/13/2017 documented in this encounter Care Teams Chinchilla Farmer Relationship Specialty Start Date End Date Dixie Oropeza MD [address] [facility] [address] [place] [id number] PCP - General 08/21/16 documented as of this encounter
--- OUTSIDE RECORDS SUMMARY | 2024-05-25 06:52 | XMS_ITS | Encounter Summary ---
Author Organization [facility] Address [address] [place] [address] Care Team Providers Care Refrigeration Insulator Name Role Phone Danielle Rojas MD Primary Care Provider Reason for Visit * Reason Onset Date Comments Med Refill 04/14/2017 Encounter Details Date Type Department Care Team (Late st Contact Info) Description 04/14/2017 Telephone [facility] [address] [facility] [address] [place] [address] Yuki Delgadillo MD [address] [facility] [address] [place] [address] Med Refill Social History Tobacco Use Types Packs/Day Years Used Date Smoking Tobacco: Never Smokeless Tobacco: Never Alcohol Use Standard Drinks/Week Comments No 0 (1 standard drink = 0.6 oz pur e alcohol) Sex and Gender Information Value Date Recorded Sex Assigned at Not on file Legal Sex Male 9:22 AM PARAPLANNER Gender Identity Not on file Sexual Orientation Not on file documented as of this encounter Miscellaneous Notes * Telephone Encounter - Alondra Luke RN - 04/19/2017 9:14 AM CST LMTC PLANNER * Telephone Encounter - Yuki Delgadillo MD - 04/17/2017 3:30 PM PARAPLANNER Allan, overlooked that. Please titrate Coreg to 6.25 mg BID, thanks. PLANNER * Telephone Encounter - Alondra Luek RN - 04/14/2017 7:24 AM CST Before calling pt, will check with provider. Pt has losartan HCT 100/12.5 mg listed on his current med list. Should low dose lisinopril be added? PLANNER * Telephone Encounter - Alondra Luke RN - 04/14/2017 7:24 AM CST ----- Message from Yuki Delgadillo MD sent at 04/13/2017 9:36 PM PARAPLANNER ----- Patient with CAD and CABG, also pacemaker. RV pacing 100% of the time. Please review echo. Looks like his EF has dropped some, from 57% by stress test a few years ago now 43%. Has wall motion abnormality which is old. Perhaps his LV function is worsening because of his chronic right ventricular pacing. For now, I recommend adding lisinopril 5 mg daily. Please have him come in for a lisinopril titration in 1 month,on follow-up with Lorie in 2 months to see if we can step-up his cardiomyopathy treatment. When it is time for a generator change we can upgrade to a biventricular pacer. However this pacemaker was put in 2014 and won't need changing for a long time. PLANNER documented in this encounter Plan of Treatment Not on file documented as of this encounter Visit Diagnoses Not on filedocumented in this encounter Care Teams Refrigeration Insulator Relationship Specialty Start Date End Date Danielle Rojas MD [address] [facility] [address] [place] [address] PCP - General 08/21/16 documented as of this encounter
--- OUTSIDE RECORDS SUMMARY | 2024-05-25 06:52 | XMS_ITS | Encounter Summary ---
Author Organization [facility] Healthcare Address [address] [place] [address] Care Team Providers Care Supervisor Real Estate Office Name Role Phone Danielle Rojas MD Primary Care Provider Encounter Details Date Type Department Care Team (Latest Contact Info) Description 12/08/2010 9:19 PM CDT - 12/15/2010 4:39 PM CDT [place] [address] [address] Daniel Calvo MD [address], [place] [address] Coronary atherosclerosis of [place] coronary artery; Acute respiratory failure (HCC); Essential hypertension; Pure hypercholesterolemia; Other and unspecified hyperlipidemia; Type 2 or unspecified type diabetes mellitus, uncontrolled; Thrombocytopenia (HCC) Social History Tobacco Use Types Packs/Day Years Used Date Smoking Tobacco: Never Assessed Sex and Gender Information Value Date Recorded Sex Assigned at Not on file Legal Sex Male 9:22 AM COAGULATING BATH OPERATOR Gender Identity Not on file Sexual Orientation Not on file documented as of this encounter Plan of Treatment Not on file documented as of this encounter Visit Diagnoses Diagnosis Coronary atherosclerosis of [place] coronary artery Acute respiratory failure (HCC) Acute respiratory failure Essential hypertension Unspecified essential hypertension Pure hypercholesterolemia Other and unspecified hyperlipidemia Type 2 or unspecified type diabetes mellitus, uncontrolled Thrombocytopenia (HCC) Unspecified thrombocytopenia documented in this encounter Care Teams Supervisor Real Estate Office Relationship Specialty Start Date End Date Danielle Rojas MD [address] [facility] [address] [place] [id number] PCP - General 12/08/10 08/20/16 documented as of this encounter
--- OUTSIDE RECORDS SUMMARY | 2024-05-25 06:52 | XMS_ITS | Encounter Summary ---
Author Organization [facility] Address [address] [facility] [address] [place] [address] Care Team Providers Care Reed Or Wind Instrument Tuner Name Role Phone Danielle Rojas MD Primary Care Provider Encounter Details Date Type Department Care Team (Late st Contact Info) Description 05/05/2017 Telephone [facility] [address] [facility] [address] [facility] [address] [place] [address] Yuki Delgadillo MD [address] [facility] [address] [place], [place] [phone] Social History Tobacco Use Types Packs/Day Years Used Date Smoking Tobacco: Never Smokeless Tobacco: Never Alcohol Use Standard Drinks/Week Comments No 0 (1 standard drink = 0.6 oz pur e alcohol) Sex and Gender Information Value Date Recorded Sex Assigned at Not on file Legal Sex Male 9:22 AM LICENSED JOURNEYMAN ELECTRICIAN Gender Identity Not on file Sexual Orientation Not on file documented as of this encounter Miscellaneous Notes * Telephone Encounter - Melba Mandujano MA - 05/05/2017 2:16 PM CST Emre said Dr. Santos's office had carvedilol 3.125 and we have prescribing carvedilol 6.25. Just wanted to know the correct dose. Explained we had 6.25 mg BID. NSED JOURNEYMAN ELECTRICIAN documented in this encounter Plan of Treatment Not on file documented as of this encounter Visit Diagnoses Not on filedocumented in this encounter Care Teams Reed Or Wind Instrument Tuner Relationship Specialty Start Date End Date Danielle Rojas MD [address] [facility] [address] [facility] [address] [place] [id number] PCP - General 08/21/16 documented as of this encounter
--- OUTSIDE RECORDS SUMMARY | 2024-05-25 06:52 | XMS_ITS | Encounter Summary ---
Author Organization [facility] Address [address] [place] [address] Care Team Providers Care Psychologist Counseling Name Role Phone Danielle Rojas MD Primary Care Provider Reason for Visit * Reason Onset Date Comments Lower extremity Doppler results 07/14/2019 Encounter Details Date Type Department Care Team (Late st Contact Info) Description 07/14/2019 Telephone [facility] Cardiology [address] [facility] [address] [place] [address] Yuki Delgadillo MD [address] [facility] [address] [place] [address] Lower extremity Doppler results Social History Tobacco Use Types Packs/Day Years Used Date Smoking Tobacco: Never Smokeless Tobacco: Never Alcohol Use Standard Drinks/Week Comments No 0 (1 standard drink = 0.6 oz pur e alcohol) Sex and Gender Information Value Date Recorded Sex Assigned at Not on file Legal Sex Male 9:22 AM DIRECTOR OF DEVELOPMENT Gender Identity Not on file Sexual Orientation Not on file documented as of this encounter Miscellaneous Notes * Telephone Encounter - Chiquita Shukla RN - 07/17/2019 9:08 AM DIRECTOR OF DEVELOPMENT Spoke with patient and discussed doppler results. CTOR OF DEVELOPMENT * Telephone Encounter - Marian Martel - 07/17/2019 8:52 AM CST Pt requesting a return call to discuss Doppler results. [phone] CTOR OF DEVELOPMENT * Telephone Encounter - Ebony Long - 07/14/2019 5:28 PM CST Left message for patient to return call Wednesday CTOR OF DEVELOPMENT * Telephone Encounter - Yuki Delgadillo MD - 07/14/2019 5:19 PM DIRECTOR OF DEVELOPMENT Patient with leg pain, please tell him the ultrasound showed good circulation to his feet so that is not the problem. Follow-up with Dr. Santos for his leg pain. CTOR OF DEVELOPMENT documented in this encounter Plan of Treatment Not on file documented as of this encounter Visit Diagnoses Not on filedocumented in this encounter Care Teams Psychologist Counseling Relationship Specialty Start Date End Date Danielle Rojas MD [address] [place] [address] PCP - General 08/21/16 documented as of this encounter
--- OUTSIDE RECORDS SUMMARY | 2024-05-25 06:52 | XMS_ITS | Encounter Summary ---
Author Organization [facility] Address [address] [place] [address] Care Team Providers Care E Merchant Name Role Phone Danielle oRjas MD Primary Care Provider Reason for Visit * Cardiology (Routine) - Canceled Specialty Diagnoses / Procedures Referred By Contac t Referred To Contact Cardiology Imaging Diagnoses CHB (complete heart block) (CMS/HCC) (HCC) Procedures DEVICE CHECK - REMOTE Yuki Delgadillo MD Phone: tel: fax: [facility] Cardiology [address] [place] [address] [place] [phone] Phone: tel: fax: Referral ID Status Reason Start Date Expiration Date V isits Requested Visits Authorized [id number] Canceled 02/08/2017 08/07/2017 1 1 Encounter Details Date Type Department Care Team (Latest Contact Info) Description 12/15/2017 8:15 AM CDT Ancillary Procedure [facility] Cardiology [address] [place] [address] [place] [phone] CHB (complete heart block) (CMS/HCC); Presence of cardiac pacemaker Social History Tobacco Use Types Packs/Day Years Used Date Smoking Tobacco: Never Smokeless Tobacco: Never Alcohol Use Standard Drinks/Week Comments No 0 (1 standard drink = 0.6 oz pur e alcohol) Sex and Gender Information Value Date Recorded Sex Assigned at Not on file Legal Sex Male 9:22 AM COPPER 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 BLASTING Gender Identity Not on file Sexual Orientation Not on file documented as of this encounter Plan of Treatment Pending Results Name Type Priority Associated Diagnoses Date /Time DEVICE CHECK - REMOTE Cardiac Services Routine CHB (complete heart block) (CMS/HCC) 12/20/2017 4:47 PM CDT documented as of this encounter Visit Diagnoses Diagnosis CHB (complete heart block) (CMS/HCC) (HCC) Atrioventricular block, complete Presence of cardiac pacemaker Cardiac pacemaker in situ documented in this encounter Care Teams E Merchant Relationship Specialty Start Date End Date Danielle Rojas MD [address] [facility] [address] [place] [id number] PCP - General 08/21/16 documented as of this encounter
--- OUTSIDE RECORDS SUMMARY | 2024-05-25 06:52 | XMS_ITS | Encounter Summary ---
Author Organization [facility] Address [address] [place] [address] Care Team Providers Care Recovery Coach Name Role Phone Danielle Rojas MD Primary Care Provider Encounter Details Date Type Department Care Team (Late st Contact Info) Description 12/10/2010 11:26 AM CDT - 12/10/2010 11:59 PM CDT Hospital Encounter [facility]INCON[facility] Coronary atherosclerosis; Essential hypertension; Type 2 or unspecified type diabetes mellitus; Other and unspecified hyperlipidemia; Family history of stroke (cerebrovascular) Social History Tobacco Use Types Packs/Day Years Used Date Smoking Tobacco: Never Assessed Sex and Gender Information Value Date Recorded Sex Assigned at Not on file Legal Sex Male 9:22 AM DIRECTOR OF PRIMARY CARE Gender Identity Not on file Sexual Orientation Not on file documented as of this encounter Plan of Treatment Not on file documented as of this encounter Visit Diagnoses Diagnosis Coronary atherosclerosis Coronary atherosclerosis of unspecified type of vessel, qagan tayagungin or graft Essential hypertension Unspecified essential hypertension Type 2 or unspecified type diabetes mellitus Other and unspecified hyperlipidemia Family history of stroke (cerebrovascular) documented in this encounter Care Teams Recovery Coach Relationship Specialty Start Date End Date Danielle Rojas MD [address] [facility] [address] [place] [address] PCP - General 12/08/10 08/20/16 documented as of this encounter
--- OUTSIDE RECORDS SUMMARY | 2024-05-25 06:52 | XMS_ITS | Encounter Summary ---
Author Organization [facility] Address [address] [facility] [facility] [address] [place] [address] Care Team Providers Care Helper Coordinator Name Role Phone Danielle Rojas MD Primary Care Provider Encounter Details Date Type Department Care Team (Late st Contact Info) Description 03/30/2018 Telephone [facility] [address] [facility] [address], [place] [address] MartellYuki pierre MD [address] [address] Social History Tobacco Use Types Packs/Day Years Used Date Smoking Tobacco: Never Smokeless Tobacco: Never Alcohol Use Standard Drinks/Week Comments No 0 (1 standard drink = 0.6 oz pur e alcohol) Sex and Gender Information Value Date Recorded Sex Assigned at Not on file Legal Sex Male 9:22 AM BURSAR Gender Identity Not on file Sexual Orientation Not on file documented as of this encounter Miscellaneous Notes * Telephone Encounter - Alondra Luke RN - 03/30/2018 12:45 PM BURSAR Spoke to , pt had pacemaker implanted In April 2015 for complete heart block. AR * Telephone Encounter - Ebony Pereira RN - 03/30/2018 12:19 PM BURSAR Received the below message from the patient via email in Epic My Chart. Will forward to [place] staff for assistance. ----- Message from Dayron Howell sent at 03/30/2018 11:34 AM BURSAR ----- Regarding: Non-Urgent Medical Question Contact: I need to know diagnosis of ER visit when pacemaker was inserted. Thanks for info you can call [phone] or email AR AR documented in this encounter Plan of Treatment Not on file documented as of this encounter Visit Diagnoses Not on filedocumented in this encounter Care Teams Helper Coordinator Relationship Specialty Start Date End Date Danielle Rojas MD [address] [facility] [address] [place] [address] PCP - General 08/21/16 documented as of this encounter
--- OUTSIDE RECORDS SUMMARY | 2024-05-25 06:52 | XMS_ITS | Encounter Summary ---
Author Organization [facility] Address [address] [place] [address] Care Team Providers Care Scratch Brusher Name Role Phone Danielle Rojas MD Primary Care Provider Reason for Visit * Reason Comments Follow-up Cardiomyopathy Encounter Details Date Type Department Care Team (Late st Contact Info) Description 06/14/2017 9:00 AM TILE LAYER SUPERVISOR Office Visit [facility] [address] [facility] [address] [facility] [address] [place] [address] Lorie Nagel NP [address] [facility] [address] [place] [address] Chronic ischemic heart disease (Primary Dx); Ischemic cardiomyopathy; Multiple-type hyperlipidemia Social History Tobacco Use Types Packs/Day Years Used Date Smoking Tobacco: Never Smokeless Tobacco: Never Alcohol Use Standard Drinks/Week Comments No 0 (1 standard drink = 0.6 oz pur e alcohol) Sex and Gender Information Value Date Recorded Sex Assigned at Not on file Legal Sex Male 9:22 AM TILE LAYER SUPERVISOR Gender Identity Not on file Sexual Orientation Not on file documented as of this encounter Last Filed Vital Signs Vital Sign Reading Time Taken Comments Blood Pressure 140/84 06/14/2017 9:00 AM TILE LAYER SUPERVISOR Pulse 71 06/14/2017 9:00 AM TILE LAYER SUPERVISOR Temperature - - Respiratory Rate - - Oxygen Saturation 96% 06/14/2017 9:00 AM TILE LAYER SUPERVISOR Inhaled Oxygen Concentration - - Weight 100.4 kg (221 lb 4.8 oz) 06/14/2017 9:00 AM TILE LAYER SUPERVISOR Height 167.6 cm (5' 6 ) 06/14/2017 9:00 AM TILE LAYER SUPERVISOR Body Mass Index 35.72 06/14/2017 9:00 AM TILE LAYER SUPERVISOR documented in this encounter Patient Instructions * Patient Instructions* Lorie Nagel NP - 06/14/2017 9:00 AM TILE LAYER SUPERVISOR Follow a low salt diet, with a goal of less than 2,000mg of sodium per day (pay attention to your portion sizes). One of the diets that fits this pattern is the DASH (Dietary Approaches to Stop Hypertension) eating plan. LAYER SUPERVISOR documented in this encounter Ordered Prescriptions Prescription Sig Dispense Quantity Refills Last Filled Start Date End Date carvedilol (COREG) 12.5 mg tabletIndications:Is chemic cardiomyopathy Take 1 tablet (12.5 mg total) by mouth 2 (two) times a day with meals. 60 tablet 11 06/14/2017 8 documented in this encounter Progress Notes * Lorie Nagel NP - 06/14/2017 9:00 AM CST Patient ID: Dayron Howell Chief Complaint: Dayron Howell is a 66 y[address] male of Dr. Delgadillo here for medication titration for his ischemic cardiomyopathy. Dayron [...] says A1c is good. 06/10/2017 ov with SENIOR ELECTRICAL DESIGNER C Shona: Was hospitalized in April for pneumonia, [...] a couple of seconds, relieved with rubbing. Labs: 06/10/2017 total cholesterol 146, TG 117, LDL 67, LFTs normal 02/2017 creatinine 0.9, LFTs normal, glucose 204 06/11/2016 total cholesterol 174, TG 101, LDL 96, A1c 7.30 July 2015: chol 137, TG 66, LDL 66. Social: Retired 2015; wants to move back to [place]. Has raised his 15-year-old grandson. Records Reviewed this visit: 04/05/[address] Delgadillo, 06/10/2017 lab results I have reviewed: allergies, current medications, past family history, [...] patient is not nervous/anxious. Vital Signs: BP 140/84 (BP Location: Right arm, Patient Position: Sitting) Pulse 71 Ht 167.6 cm (5' 6 ) Wt100.4 kg (221 lb 4.8 oz) SpO2 96% BMI 35.72 kg/m?? Physical Exam Constitutional: He is oriented [...] and normal heart sounds. No murmur heard. Right chest ppm generator site is healed [...] every day, Disp: , Rfl: 0 ??? cetirizine (ZyrTEC) 10 mg [...] 20 mg by mouth daily. ), Disp: 30 tablet, Rfl: 11 ??? carvedilol (COREG) 12.5 mg tablet, Take 1 tablet (12.5 mg total) by mouth 2 (two) times a day with meals., Disp: 60 tablet, Rfl: 11 Current Facility-Administered Medications: ??? perflutren lipid (DEFINITY) 1.5 mL in sodium chloride 0.9% 10 mL syringe, 1- 10 mL, intravenous,Once in imaging, Yuki Delgadillo MD Assessment: Diagnoses and all orders for this visit: Chronic ischemic heart disease (Primary) Ischemic cardiomyopathy - carvedilol (COREG) 12.5 mg tablet; Take 1 tablet (12.5 mg total) by mouth 2 (two) times a day with meals. Multiple-type hyperlipidemia Plan/Recommendations: Continue optimization of cardiomyopathy medication: Up titrate carvedilol to 12.5 mg b.i.d.. Lipids have improved and are now at goal with rosuvastatin 40 mg daily. Continue the same. I encouraged him to continue his regular exercise, decrease portion sizes to help lose weight, and focus on a low-sodium diet. Return to the office to see me in 3 months to monitor tolerance to medical regimen, and for an in-office pacemaker check. Call us sooner with questions or concerns. (if doing well at next visit, thenfuture F/U will be with Dr. Delgadillo in 03/2018). LAYER SUPERVISOR documented in this encounter Plan of Treatment Not on file documented as of this encounter Visit Diagnoses Diagnosis Chronic ischemic heart disease- Primary Unspecified chronic ischemic heart disease Ischemic cardiomyopathy Other specified forms of chronic ischemic heart disease Multiple-type hyperlipidemia Other and unspecified hyperlipidemia documented in this encounter Discontinued Medications Medication Sig Discontinue Reason Start Date End Da te carvedilol (COREG) 6.25 mg tablet Take 1 tablet (6.25 mg total) by mouth 2 (two) times a day with meals. Dose adjustment 05/14/2017 06/14/2017 documented as of this encounter Care Teams Scratch Brusher Relationship Specialty Start Date End Date Danielle Rojas MD [address] [facility] [address] [place] [address] PCP - General 08/21/16 documented as of this encounter
--- OUTSIDE RECORDS SUMMARY | 2024-05-25 06:52 | XMS_ITS | Encounter Summary ---
Author Organization [facility] Address [address] [place] [address] Care Team Providers Care Associate Web Developer Name Role Phone Danielle Rojas MD Primary Care Provider Danielle Rojas MD Primary Care Provider Encounter Details Date Type Department Care Team (Late st Contact Info) Description 07/01/2016 Orders Only [facility] ProviderZain MD [address] [place] [id number] Social History Tobacco Use Types Packs/Day Years Used Date Smoking Tobacco: Never Alcohol Use Standard Drinks/Week Comments No 0 (1 standard drink = 0.6 oz pur e alcohol) Sex and Gender Information Value Date Recorded Sex Assigned at Not on file Legal Sex Male 9:22 AM 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 Historical Provider [facility] SUZIE RAI Final Result documented in this encounter Visit Diagnoses Not on filedocumented in this encounter Care Teams Associate Web Developer Relationship Specialty Start Date End Date Danielle Rojas MD [address] [facility] [place] [address] PCP - General 08/21/16 Danielle Rojas MD [address] [facility] [address] [place] [address] PCP - General 12/08/10 08/20/16 documented as of this encounter
--- OUTSIDE RECORDS SUMMARY | 2024-05-25 06:52 | XMS_ITS | Encounter Summary ---
Author Organization [facility] Address [address] [facility] [address] [place] [address] Care Team Providers Care Engineering Design Manager Name Role Phone Danielle Rojas MD Primary Care Provider Reason for Visit * Reason Comments Follow-up No problems * Cardiology (Routine) - Closed Specialty Diagnoses / Procedures Referred By Contac t Referred To Contact Cardiology Diagnoses Sick sinus syndrome Danielle Rojas MD Phone: tel: fax: [facility] [address] [place] [address] [address] Phone: tel: fax: Referral ID Status Reason Start Date Expiration Date Visits Re quested Visits Authorized [id number] Closed 09/09/2017 11/21/2018 11 11 Encounter Details Date Type Department Care Team (Latest Contact Info) Description 03/28/2018 10:15 AM REED MAKER Office Visit [facility] [address] [place] [address] [address] Yuki Delgadillo MD [address] [place] [address] [address] [place] [address] [address] in [place] artery (Primary Dx); History of coronary artery bypass surgery; Chronic ischemic heart disease; Presence of cardiac pacemaker; Complete atrioventricular block (CMS/HCC); Hypercholesteremia; Hyperlipidemia associated with type 2 diabetes mellitus (CMS/HCC) Social History Tobacco Use Types Packs/Day Years Used Date Smoking Tobacco: Never Smokeless Tobacco: Never Tobacco Cessation:Counseling Given: Yes Alcohol Use Standard Drinks/Week Comments No 0 (1 standard drink = 0.6 oz pur e alcohol) Sex and Gender Information Value Date Recorded Sex Assigned at Not on file Legal Sex Male 9:22 AM REED MAKER Gender Identity Not on file Sexual Orientation Not on file documented as of this encounter Last Filed Vital Signs Vital Sign Reading Time Taken Comments Blood Pressure 120/70 03/28/2018 10:21 AM REED MAKER Pulse 87 03/28/2018 10:21 AM REED MAKER Temperature - - Respiratory Rate - - Oxygen Saturation 93% 03/28/2018 10:21 AM REED MAKER Inhaled Oxygen Concentration - - Weight 98 kg (216 lb) 03/28/2018 10:21 AM REED MAKER Height 177.8 cm (5' 10 ) 03/28/2018 10:21 AM REED MAKER Body Mass Index 30.99 03/28/2018 10:21 AM REED MAKER documented in this encounter Progress Notes * Yuki Delgadillo MD - 03/28/2018 10:15 AM CST [facility] DATE OF VISIT: 03/31/2018 DATE: 1950 CHIEF COMPLAINT Chief Complaint Patient presents with ??? Follow-up No problems HPI Dayron Howell is a 67 y.o. male with a history of ACS into November 2010. He underwent a [address] Ho His EF runs around 40-45%. [...] 2012 showed EF 57%, no significant ischemia. Presented with complete heart block in April 2015 requiring placement of a Medtronic pacemaker. He returned again 05/25/15 with chest pain which was deemed noncardiac and not related to pacemaker. 04/05/2017 Ov: So far, so good. Retired, busy, no heart or health troubles. Does yard work w/o problems, no SOB or Cp, takes grandkids to soccer practice. Gained 7#. DM is doing Ok, says A1c is good. 06/10/2017 ov with CHEMICAL DEPENDENCY THERAPIST C Shona: Was hospitalized in April for [...] seconds, relieved with rubbing. 09/13/2017 OV w/ CHEMICAL DEPENDENCY THERAPIST C.Shona: Feels well, he reports his rosuvastatin was decreased to 40mg 1/2 tablet daily by PCP b/c of muscle cramps. Stopped walking on treadmill x 2 weeks b/c of muscle cramps. Fasting sugars running high 170's. Gained 5 lb which he attributes to being less active over the winter months. Talked a lot about his 5 grandchildren. Carvedilol increased to 12.5 mg b.i.d. For systolic BP 140. 03/28/2018 OV: Doing fine. Lost 10#. Dr. Kaba told he had to loose weigh or start insulin. FSBS in a.m. Around 135. Says A1C under 7. Exercises w/ treadmill or walking daily 30-40 minutes. No chestpain, AVILA, dizziness, palpitations, or edema. Dr. Kaba reduced rosuvastatin to 20 mg daily as cholesterol was low about a month ago. Was not having myalgias. Labs: 06/10/2017 total cholesterol 146, TG 117, LDL 67, LFTs normal 02/2017 creatinine 0.9, LFTs normal, glucose 204 06/11/2016 total cholesterol 174, TG 101, LDL 96, A1c 7.30 July 2015: chol 137, TG 66, LDL 66. Cardiac testin cardiac cath: Patent grafts, EF 40-45% March 2017 echo : EF 43%, hypokinesis of the apical septum. Social: Retired 2015; wants to move back to [place]. Has 5 grandchildren, oldest is 16 and has Downs, youngest is 3. MEDICAL HISTORY Past Medical History: Diagnosis Date ??? Cardiomyopathy (CMS/HCC) ??? Diabetes mellitus (CMS/HCC) ??? Hyperlipidemia Social History Substance Use Topics ??? Smoking status: Never Smoker ??? Smokeless tobacco: Never Used ??? Alcohol use No History reviewed. No pertinent family history. MEDICATIONS Current Outpatient Prescriptions: ??? acetaminophen (TYLENOL) 325 [...] route everyday, Disp: 0, Rfl: 0 ??? nitroglycerin (NITROSTAT) 0.4 mg SL tablet, [...] ), Disp: 90 tablet, Rfl: 2 ??? sitaGLIPtin-metformin 100-1,000 mg tablet, ER multiphase 24 hr, Take 1,000 mg by mouth daily., Disp: , Rfl: Current Facility-Administered Medications: ??? perflutren lipid (DEFINITY) 1.5 mL in sodium chloride 0.9% 10 mL syringe, 1- 10 mL, intravenous,Once in imaging, Yuki Delgadillo MD ALLERGIES No Known Allergies REVIEW OF SYSTEMS Review of Systems Constitution: Positive for weight loss. Negative for malaise/fatigue. HENT: Negative for congestion. Eyes: Negative for visual disturbance. Cardiovascular: Negative for chest pain, dyspnea on exertion and syncope. Respiratory: Negative for shortness of breath. Hematologic/Lymphatic: Negative for bleeding problem. Gastrointestinal: Negative for abdominal pain. Genitourinary: Negative for hematuria. Neurological: Negative for dizziness. Psychiatric/Behavioral: Negative for depression. PHYSICAL EXAM Blood pressure 120/70, pulse 87, height 177.8 cm (5' 10 ), weight 98 kg (216 lb), SpO2 93 %. Body mass index is 30.99 kg/m??. Physical Exam Constitutional: He is oriented [...] LDL-C. Milind SS et al. PETER. 2013;310(19): 6295-1541 (http://education.[employer] Advisers/faq/DHX453) 04/06/2017 102 (H) mg/dL (calc) Final Comment: Reference range: <100 Desirable range <100 mg/dL for patients with CHD or diabetes and <70 mg/dL for diabetic patients with known heart disease. LDL-C is now calculated using the Milind-Braxton calculation, which is a validated novel method providing better accuracy than the Friedewald equation in the estimation of LDL-C. Milind SS et al. PETER. 2013;310(19): 1830-4104 (http://education.[employer] Advisers/faq/VDD874) ] No results found for: LDLCALC Lab Results Component Value Date TRIG 117 06/10/2017 TRIG 124 04/06/2017 TRIG 66 08/09/2015 Lab Results Component Value Date CHOLHDL 2.5 06/10/2017 CHOLHDL 3.4 04/06/2017 CHOLHDL 2.4 08/09/2015 No results found for: INR, PROTIME ASSESSMENT Diagnoses and all orders for this visit: Coronary arteriosclerosis in [place] artery (Primary) History of coronary artery bypass surgery Chronic ischemic heart disease Presence of cardiac pacemaker Complete atrioventricular block (CMS/HCC) Hypercholesteremia Hyperlipidemia associated with type 2 diabetes mellitus (CMS/HCC) CAD: H/O CABG 2010, some evaluations for recurrent CP but all noncardiac. Stable w/o angina, good exertional tolerance. EF runs around 40-45%. Pacemaker: for CHB, checked in November showed normal function, 5 year longevity. HLD: LDL 68 in May 2017, doing well on rosuvastatin, currently .20 mg qd. PLAN/RECOMMENDATIONS Discussed LDL goals with statin tx; lower is better, no too low for LDL. Consider resuming previous dose of rosuvastatin 40 mg qd if no myalgias. Requesting Dr. Kaba's office kindly fax recent labs for my review. Cont current tx for CAD with ASA, BB, ARB, statin. FU 1 year, sooner if needed. Yuki Delgadillo MD, [facility] Office: [phone] or [phone] This note is dictated and transcribed by with assistance from [employer].?? Time Stamp Assembler variances may occur. Despite proofreading, typographical errors may occur. MAKER documented in this encounter Plan of Treatment Not on file documented as of this encounter Visit Diagnoses Diagnosis Coronary arteriosclerosis in [place] artery- Primary History of coronary artery bypass surgery Postsurgical aortocoronary bypass status Chronic ischemic heart disease Unspecified chronic ischemic heart disease Presence of cardiac pacemaker Cardiac pacemaker in situ Complete atrioventricular block (CMS/HCC) (HCC) Atrioventricular block, complete Hypercholesteremia Pure hypercholesterolemia Hyperlipidemia associated with type 2 diabetes mellitus (HCC) documented in this encounter Discontinued Medications Medication Sig Discontinue Reason Start Date End Da te metFORMIN (GLUCOPHAGE) 1,000 mg tabletIndications:Hist ory of coronary artery bypass surgery Take 1,000 mg by mouth 2 (two) times a day with meals. Discontinued by another clinician 02/27/2017 03/28/2018 documented as of this encounter Historical Medications * This list may reflect changes made after this encounter. sitaGLIPtin-metfo rmin 100-1,000 mg tablet, ER multiphase 24 hr Take 1,000 mg by mouth daily. 07/30/2021 added in this encounter Care Teams Engineering Design Manager Relationship Specialty Start Date End Date Danielle Rojas MD [address] [facility] [address] [place] [address] PCP - General 08/21/16 documented as of this encounter
--- OUTSIDE RECORDS SUMMARY | 2024-05-25 06:52 | XMS_ITS | Encounter Summary ---
Author Organization [facility] Address [address] [facility] [address] [place] [address] Care Team Providers Care Distribution System Operator Name Role Phone Danielle Rojas MD Primary Care Provider Encounter Details Date Type Department Care Team (Late st Contact Info) Description 04/12/2017 Telephone [facility] [address] [facility] [address], [place] [address] Yuki Delgadillo MD [address] [facility] [address] [address] Social History Tobacco Use Types Packs/Day Years Used Date Smoking Tobacco: Never Smokeless Tobacco: Never Alcohol Use Standard Drinks/Week Comments No 0 (1 standard drink = 0.6 oz pur e alcohol) Sex and Gender Information Value Date Recorded Sex Assigned at Not on file Legal Sex Male 9:22 AM BICYCLE ASSEMBLER Gender Identity Not on file Sexual Orientation Not on file documented as of this encounter Miscellaneous Notes * Telephone Encounter - Ebony Pereira RN - 04/12/2017 8:53 AM BICYCLE ASSEMBLER I called the patient and left a voicemail message requesting a return call to discuss Dr. Delgadillo's message. CLE ASSEMBLER * Telephone Encounter - Ebony Pereira RN - 04/12/2017 8:52 AM BICYCLE ASSEMBLER ----- Message from Yuki Delgadillo MD sent at 04/10/2017 3:30 PM BICYCLE ASSEMBLER ----- His review lipids with patient, not at goal. Change atorvastatin to rosuvastatin 40 mg daily and repeat lipids in 2 months please CLE ASSEMBLER documented in this encounter Plan of Treatment Not on file documented as of this encounter Visit Diagnoses Not on filedocumented in this encounter Care Teams Distribution System Operator Relationship Specialty Start Date End Date Danielle Rojas MD [address] [facility] [address] [place] [address] PCP - General 08/21/16 documented as of this encounter
--- OUTSIDE RECORDS SUMMARY | 2024-05-25 06:52 | XMS_ITS | Encounter Summary ---
Author Organization [facility] Address [address] [facility] [address] [place] [address] Care Team Providers Care Banquet Bartender Name Role Phone Danielle Rojas MD Primary Care Provider Reason for Visit * Cardiology (Routine) - Closed Specialty Diagnoses / Procedures Referred By Contac t Referred To Contact Cardiology Diagnoses Sick sinus syndrome Atrioventricular block, complete Danielle Rojas MD Phone: tel: fax: [facility] [address] [place] [address] Phone: tel: fax: Referral ID Status Reason Start Date Expiration Date Visits Re quested Visits Authorized [id number] Closed 03/24/2018 03/25/2019 12 12 Encounter Details Date Type Department Care Team (Latest Contact Info) Description 06/15/2018 9:00 AM TIGHTENING MACHINE OPERATOR Ancillary Procedure [facility] Cardiology [address] [facility] [address] [place] [phone] CHB (complete heart block) (CMS/HCC); Presence of cardiac pacemaker Social History Tobacco Use Types Packs/Day Years Used Date Smoking Tobacco: Never Smokeless Tobacco: Never Alcohol Use Standard Drinks/Week Comments No 0 (1 standard drink = 0.6 oz pur e alcohol) Sex and Gender Information Value Date Recorded Sex Assigned at Not on file Legal Sex Male 9:22 AM TIGHTENING MACHINE OPERATOR Gender Identity Not on file Sexual Orientation Not on file documented as of this encounter Plan of Treatment Pending Results Name Type Priority Associated Diagnoses Date /Time DEVICE CHECK - REMOTE Cardiac Services Routine CHB (complete heart block) (CMS/HCC) 06/17/2018 3:40 PM TIGHTENING MACHINE OPERATOR documented as of this encounter Visit Diagnoses Diagnosis CHB (complete heart block) (CMS/HCC) (HCC) Atrioventricular block, complete Presence of cardiac pacemaker Cardiac pacemaker in situ documented in this encounter Care Teams Banquet Bartender Relationship Specialty Start Date End Date Danielle Rojas MD [address] [facility] [address] [place] [id number] PCP - General 08/21/16 documented as of this encounter
--- OUTSIDE RECORDS SUMMARY | 2024-05-25 12:22 | XMS_ITS | Encounter Summary ---
Author Organization [facility] Address [address] [place] [address] Care Team Providers Care Petrology Teacher Name Role Phone Danielle Rojas MD Primary Care Provider Reason for Visit * Cardiology (Routine) - Closed Specialty Diagnoses / Procedures Referred By Contac t Referred To Contact Cardiology Diagnoses NICM (nonischemic cardiomyopathy) (CMS/HCC) (HCC) Ventricular fibrillation (CMS/HCC) (HCC) Procedures DEVICE CHECK [place] [address] [place] [address] Phone: tel: fax: [facility] Referral ID Status Reason Start Date Expiration Date Visits Re quested Visits Authorized [id number] Closed 03/22/2024 04/21/2025 1 1 Encounter Details Date Type Department Care Team (Latest Contact Info) Description 05/03/2024 1:00 PM PHOTOGRAPHIC EDITOR Ancillary Procedure [facility] Cardiology [address] [facility] [address] [place] [address] Complete atrioventricular block (CMS/HCC) (HCC) [...] on file Legal Sex Male 9:22 AM PHOTOGRAPHIC EDITOR Gender Identity Not on file Sexual Orientation Not on file documented as of this encounter Plan of Treatment Not on file documented as of this encounter Procedures Procedure Name Priority Date/Time Associated Diagnosis Comments DEVICE CHECK - IN OFFICE Routine 05/03/2024 12:42 PM PHOTOGRAPHIC EDITOR NICM (nonischemic cardiomyopathy) (CMS/HCC) (HCC) Ventricular fibrillation (CMS/HCC) (HCC) documented in this encounter Results * DEVICE CHECK - IN OFFICE (05/03/2024 12:42 PM PHOTOGRAPHIC EDITOR) Anatomical Region Laterality Modality Other Narrative 05/10/2024 11:29 AM PHOTOGRAPHIC EDITOR Medtronic Alyssia Dual Pacemaker. Dx; CHB. DOI [...] battery life to SHARMAINE. Presenting rhythm- AP WOUND CARE TECHNICIAN. ??Underlying rhythm- CHB without ventricular escape at VVI 40 beats per minute. ?? AP- 97.7% WOUND CARE TECHNICIAN- 100%. ?? No Atrial high rate episodes [...] situ documented in this encounter Care Teams Petrology Teacher Relationship Specialty Start Date End Date Danielle Rojas MD [address] [facility] [address] [place] [address] PCP - General 08/21/16 documented as of this encounter
--- OUTSIDE RECORDS SUMMARY | 2024-05-25 12:22 | XMS_ITS | Clinical Summary ---
Author Organization [facility] Address [address] [place] [address] Care Team Providers Care Colors Custodian Name Role Phone Danielle Rojas MD [...] vernon 09/13/2017 Pacemaker 06/17/2015 Overview (05/01/2024): Medtronic [place] Dual Pacemaker. Dx; CHB. DOI 04/26/2024-Audrey. Chronic leads 05/10/2015. Carelink remote. Complete atrioventricular block (CMS/HCC) 2015 Overview (08/27/2016): CHB (complete heart block) Multiple-type hyperlipidemia 10/07/2013 Overview (08/28/2016): MIXED HYPERLIPIDEMIA Pain of hand 08/04/2012 Coronary arteriosclerosis in [place] artery 06/27 Overview (08/26/2016): CRNRY ATHRSCL NATVE [...] Department Care Team Description 05/11/2024 2:00 PM ELECTRONIC PARTS SALESPERSON Clinical Support [facility] Cardiology [address] [place] [address] [place] [phone] Visit for wound check (Primary Dx) 05/08/2024 Telephone [facility] Cardiology [address] [facility] [address] [facility] [place] [address] Cameron Ventura MD 05/03/2024 1:00 PM ELECTRONIC PARTS SALESPERSON Ancillary Procedure [facility] Cardiology [address] [place] [address] [address] [place] [phone] Complete atrioventricular block (CMS/HCC) (HCC) (Primary Dx); NICM (nonischemic cardiomyopathy) (CMS/HCC) (HCC); Ventricular fibrillation (CMS/HCC) (HCC); Pacemaker 05/03/2024 Orders Only [facility] Cardiology [address] [facility] [address] [facility] [place] [phone] Pankaj Eden MD Complete atrioventricular block (CMS/HCC) (HCC) (Primary Dx); Pacemaker 05/01/2024 Orders Only [facility] Cardiology [address] [phone] Cameron Ventura MD 03/22/2024 11:00 AM CDT Ancillary Procedure [facility] Cardiology [address] [place] [phone] CHB (complete heart block) (CMS/HCC) (HCC) (Primary Dx); NICM (nonischemic cardiomyopathy) (CMS/HCC) (HCC); Ventricular fibrillation (CMS/HCC) (HCC); NSVT (nonsustained ventricular tachycardia) (HCC); Pacemaker 03/22/2024 Telephone [facility] Cardiology [address] [place] [phone] Pankaj Eden MD 03/22/2024 Orders Only [facility] Cardiology [address] [place] [phone] Pankaj Eden MD NICM (nonischemic cardiomyopathy) (CMS/HCC) (HCC) (Primary Dx); Ventricular fibrillation (CMS/HCC) (HCC) 03/08/2024 9:45 AM CDT Ancillary Procedure [facility] Cardiology [address] [place] [phone] Complete atrioventricular block (CMS/HCC) (HCC) (Primary Dx); NICM (nonischemic cardiomyopathy) (CMS/HCC) (HCC); Ventricular fibrillation (CMS/HCC) (HCC); NSVT (nonsustained ventricular tachycardia) (HCC); Pacemaker 03/08/2024 Orders Only [facility] Cardiology [address] [place] [phone] Pankaj Eden MD NICM (nonischemic cardiomyopathy) (CMS/HCC) (HCC) (Primary Dx); Ventricular fibrillation (CMS/HCC) (HCC); NSVT (nonsustained ventricular tachycardia) (HCC) 03/06/2024 Orders Only [facility]iology [address] [place] [phone] Pankaj Eden MD NICM (nonischemic cardiomyopathy) (CMS/HCC) (HCC) (Primary Dx); ICD (implantable cardioverter-defibrilla tor) in place; Ventricular fibrillation (CMS/HCC) (HCC); NSVT (nonsustained ventricular tachycardia) (HCC) 02/23/2024 10:30 AM CDT Ancillary Procedure [facility] Cardiology [address] [place] [phone] CHB (complete heart block) (CMS/HCC) (HCC) (Primary Dx); NICM (nonischemic cardiomyopathy) (CMS/HCC) (HCC); ICD (implantable cardioverter-defibrilla tor) in place; Ventricular fibrillation (CMS/HCC) (HCC); NSVT (nonsustained ventricular tachycardia) (HCC); Pacemaker 02/23/2024 Orders Only [facility] Cardiology [address] [place] [phone] Pankaj Eden MD NICM (nonischemic cardiomyopathy) (CMS/HCC) [...] on file Legal Sex Male 9:22 AM ELECTRONIC PARTS SALESPERSON Gender Identity Not on file Sexual Orientation Not on file Obstetrics History Last Filed Vital Signs Vital Sign Reading Time Taken Comments Blood Pressure 108/60 07/19/2023 11:35 AM ELECTRONIC PARTS SALESPERSON Pulse 73 07/19/2023 11:35 AM ELECTRONIC PARTS SALESPERSON Temperature - - Respiratory Rate - - Oxygen Saturation 92% 07/19/2023 11:35 AM ELECTRONIC PARTS SALESPERSON Inhaled Oxygen Concentration - - Weight 104 kg (229 lb 3.2 oz) 07/19/2023 11:35 A M ELECTRONIC PARTS SALESPERSON Height 177.8 cm (5' 10 ) 07/19/2023 11:35 AM ELECTRONIC PARTS SALESPERSON Body Mass Index 32.89 07/19/2023 11:35 AM ELECTRONIC PARTS SALESPERSON Plan of Treatment Health Maintenance Due Date [...] - IN OFFICE Routine 05/03/2024 12:42 PM ELECTRONIC PARTS SALESPERSON NICM (nonischemic cardiomyopathy) (CMS/HCC) (HCC) Ventricular fibrillation (CMS/HCC) (HCC) CARDIOLOGY DOCUMENT SCAN Routine 04/26/2024 2:30 PM ELECTRONIC PARTS SALESPERSON DEVICE CHECK - REMOTE Routine 03/22/2024 2:16 [...] fibrillation (CMS/HCC) (HCC) NSVT (nonsustained ventricular tachycardia) ([facility]) POCT LIPID PANEL Routine 08/12/2022 9:46 AM CDT Lipid screening from Last 3 Months or Most Recently Relevant to Health Maintenance Results * DEVICE CHECK - IN OFFICE (05/03/2024 12:42 PM ELECTRONIC PARTS SALESPERSON) Anatomical Region Laterality Modality Other Narrative 05/10/2024 11:29 AM ELECTRONIC PARTS SALESPERSON Medtronic Alyssia Dual Pacemaker. Dx; CHB. DOI [...] battery life to SHARMAINE. Presenting rhythm- AP TIRE MAINTENANCE TECHNICIAN. ??Underlying rhythm- CHB without ventricular escape at VVI 40 beats per minute. ?? AP- 97.7% TIRE MAINTENANCE TECHNICIAN- 100%. ?? No Atrial high rate [...] * Cardiology Document Scan (04/26/2024 2:30 PM ELECTRONIC PARTS SALESPERSON) Anatomical Region Laterality Modality Other us Cameron [...] status Transmission attached. Battery status: ??2.83 V, JET HANDLER reached on 03/20/24 Medtronic tech services reports device falls in standard replacement window Patient is pacemaker dependent Stable lead impedances, pacing and sensing thresholds. Presenting rhythm: AP/TIRE MAINTENANCE TECHNICIAN AP-94.8%, TIRE MAINTENANCE TECHNICIAN-100% No AT/AF episodes noted. No Ventricular high [...] diabetic. Informed patient that someone from the [place] office will be reaching out to him [...] impedances, pacing and sensing thresholds. Presenting rhythm: ??AP/TIRE MAINTENANCE TECHNICIAN AP-98.3 %, TIRE MAINTENANCE TECHNICIAN-100 % No AT/AF episodes noted. No Ventricular [...] impedances, pacing and sensing thresholds. Presenting rhythm: ??AP/TIRE MAINTENANCE TECHNICIAN AP-97.3 %, TIRE MAINTENANCE TECHNICIAN-100 % No AT/AF episodes noted. No Ventricular [...] Most Recently Relevant to Health Maintenance Insurance [facility] Care Teams Colors Custodian Relationship Specialty Start Date End Date Danielle Rojas MD [address] [facility] [address] [address] PCP - General 08/21/16
--- OUTSIDE RECORDS SUMMARY | 2024-05-25 12:22 | XMS_ITS | Encounter Summary ---
Author Organization [facility] Healthcare Address [address] [place] [address] Care Team Providers Care Housekeeper Caregiver Name Role Phone Danielle Rojas MD Primary Care Provider Reason for Visit * Reason Comments Wound Check Encounter Details Date Type Department Care Team (Latest Contact Info) Description 05/11/2024 2:00 PM FORENSIC AUDIT EXPERT Clinical Support [facility] Medical Group Cardiology [address] [place] [phone] Visit for wound check (Primary Dx) Social History Tobacco Use Types Packs/Day Years Used Date Smoking Tobacco: Never Smokeless Tobacco: Never Alcohol Use Standard Drinks/Week Comments No 0 (1 standard drink = 0.6 oz pur e alcohol) Sex and Gender Information Value Date Recorded Sex Assigned at Not on file Legal Sex Male 9:22 AM FORENSIC AUDIT EXPERT Gender Identity Not on file Sexual Orientation [...] the office with any questions or concerns. NSIC AUDIT EXPERT documented in this encounter Plan of Treatment Not on file documented as of this encounter Visit Diagnoses Diagnosis Visit for wound check- Primary documented in this encounter Care Teams Housekeeper Caregiver Relationship Specialty Start Date End Date Danielle Rojas MD [address] [facility] [address] [place] [address] PCP - General 08/21/16 documented as of this encounter
--- OUTSIDE RECORDS SUMMARY | 2024-05-25 12:22 | XMS_ITS | Encounter Summary ---
Author Organization [facility] Healthcare Address [address] [place] [address] Care Team Providers Care Linter Drier Operator Name Role Phone Danielle Rojas MD Primary Care Provider Reason for Referral * Cardiology (Routine) - Authorized Specialty Diagnoses / Procedures Referred By Contac t Referred To Contact Diagnoses Complete atrioventricular block (CMS/HCC) (HCC) Pacemaker Procedures DEVICE CHECK - IN OFFICE Pankaj Eden MD [address] [address] Phone: tel: fax: [facility] Medical Group Referral ID Status Reason Start Date Expiration Date V isits Requested Visits Authorized [id number] Authorized 05/03/2024 06/02/2025 1 1 OPERATOR * Cardiology (Routine) - Authorized Specialty Diagnoses / Procedures [facility] Referred To Contact Diagnoses Complete atrioventricular block (CMS/HCC) (HCC) Pacemaker Procedures DEVICE CHECK - IN OFFICE Pankaj Eden MD [address] [address] Phone: tel: fax: [facility] Medical Group Referral ID Status Reason Start Date Expiration Date V isits Requested Visits Authorized [id number] Authorized 05/03/2024 06/02/2025 1 1 OPERATOR * Cardiology (Routine) - Authorized Specialty Diagnoses / Procedures Referred By Contac t Referred To Contact Diagnoses Complete atrioventricular block (CMS/HCC) (HCC) Pacemaker Procedures DEVICE CHECK - IN OFFICE Pankaj Eden MD [address] [place] [address] Phone: tel: fax: [facility] Medical Group Referral ID Status Reason Start Date Expiration Date V isits Requested Visits Authorized [id number] Authorized 05/03/2024 06/02/2025 1 1 OPERATOR Encounter Details Date Type Department Care Team (Late st Contact Info) Description 05/03/2024 Orders Only [facility] Medical Group Cardiology [address] [place] [phone] Pankaj Eden MD [address] [place] [phone] Complete atrioventricular block (CMS/HCC) (HCC) (Primary Dx); Pacemaker Social History Tobacco Use Types Packs/Day Years Used Date Smoking Tobacco: Never Smokeless Tobacco: Never Alcohol Use Standard Drinks/Week Comments No 0 (1 standard drink = 0.6 oz pur e alcohol) Sex and Gender Information Value Date Recorded Sex Assigned at Not on file Legal Sex Male 9:22 AM POT OPERATOR Gender Identity Not on file Sexual Orientation Not on file documented as of this encounter Ordered Prescriptions Prescription Sig Dispense Quantity Refills Last Filled Start Date End Date cephalexin (KEFLEX) 500 mg capsule Take 1 capsule (500 mg total) by mouth 3 (three) times a day for 14 days 42 capsule 05/03/2024 4 documented in this encounter Progress Notes * Laryr Richardson, RN - 05/03/2024 11:[address] Ventura ordered Keflex 500 mg Q 8 hours x14 days. Patient to schedule an incision check in theoffice before his medication is completed. Medication ordered and sent to [facility] pharmacy in [place]. Informed patient of instructions. He verbalized understanding. OPERATOR documented in this encounter Miscellaneous Notes * Addendum Note - Larry Richardson RN - 05/03/2024 11:39 AM CSTAddended by: LARRY RICHARDSON on: 05/03/2024 01:25 PM Modules accepted: Orders OPERATOR documented in this encounter Plan of [...] situ documented in this encounter Care Teams Linter Drier Operator Relationship Specialty Start Date End Date Danielle Rojas MD [address] [facility] [address] [place] [address] PCP - General 08/21/16 documented as of this encounter
--- OUTSIDE RECORDS SUMMARY | 2024-05-25 12:22 | XMS_ITS | Continuity of Care Document ---
Author Organization [facility] Address [address] [place] [address] Phone Care Team Providers Care Reservoir Engineer Name Role Phone Wisdom OD, Lopez Unavailable Unavailable Advance Directives Directive Yes / No Effective Date File Name No Information Encounters Encounter Description Practice Location Reason(s) For Visit Diagnoses Date Provider Providers Copied on Encounter [facility], [address], [place], [place], [id number], [place] tel:[phone] [facility] No Information Huy-2 [id number] 5 Wisdom OD Lopez. [address] [facility] , [address], [place], [address], [place]. tel:[phone] Family History Family Member Type Diagnosis Age At Onset No Information Payers Payer name Insurance type Covered alliance party ID Authoriza tion(s) [facility] Custom Care CI [id number] Social History Type Description Quantity Date Captured [...]
--- OUTSIDE RECORDS SUMMARY | 2024-05-25 12:22 | XMS_ITS | Referral Summary ---
Author Organization [facility] Address [address] [place] [phone] Care Team Providers Care Brand Marketing Intern Name Role Phone Danielle Rojas MD Primary Care Provider Encounters Date Type Department Care Team Description 05/11/2024 2:00 PM LINK CUTTER Clinical Support [facility] Cardiology [address] [place] [address] [place] [phone] Visit for wound check (Primary Dx) 05/08/2024 Telephone [facility] Cardiology [address] [place] [address] [place] [phone] Cameron Ventura MD 05/03/2024 Orders Only [facility] Cardiology [address] [place] [address] [place] [phone] Pankaj Eden MD Complete atrioventricular block (CMS/HCC) (HCC) (Primary Dx); Pacemaker 05/03/2024 1:00 PM LINK CUTTER Ancillary Procedure [facility] Cardiology [address] [place] [address] [address] [place] [phone] Complete atrioventricular block (CMS/HCC) (HCC) (Primary Dx); NICM (nonischemic cardiomyopathy) (CMS/HCC) (HCC); Ventricular fibrillation (CMS/HCC) (HCC); Pacemaker 05/01/2024 Orders Only [facility] Cardiology [address] [place] [address] [address] [place] [phone] Cameron Ventura MD 03/22/2024 Telephone [facility] Cardiology [address] [place] [phone] Pankaj Eden MD 03/22/2024 Orders Only [facility] Cardiology [address] [place] [phone] Pankaj Eden MD NICM (nonischemic cardiomyopathy) (CMS/HCC) (HCC) (Primary Dx); Ventricular fibrillation (CMS/HCC) (HCC) 03/22/2024 11:00 AM CDT Ancillary Procedure [facility] Cardiology [address] [place] [phone] CHB (complete heart block) (CMS/HCC) (HCC) (Primary Dx); NICM (nonischemic cardiomyopathy) (CMS/HCC) (HCC); Ventricular fibrillation (CMS/HCC) (HCC); NSVT (nonsustained ventricular tachycardia) (HCC); Pacemaker 03/08/2024 Orders Only [facility] Cardiology [address] [place] [phone] Pankaj Eden MD NICM (nonischemic cardiomyopathy) (CMS/HCC) (HCC) (Primary Dx); Ventricular fibrillation (CMS/HCC) (HCC); NSVT (nonsustained ventricular tachycardia) (HCC) 03/08/2024 9:45 AM CDT Ancillary Procedure [facility] Cardiology [address] [place] [phone] Complete atrioventricular block (CMS/HCC) (HCC) (Primary Dx); NICM (nonischemic cardiomyopathy) (CMS/HCC) (HCC); Ventricular fibrillation (CMS/HCC) (HCC); NSVT (nonsustained ventricular tachycardia) (HCC); Pacemaker 03/06/2024 Orders Only [facility] Cardiology [address] [place] [address], [place] [phone] Pankaj Eden MD NICM (nonischemic cardiomyopathy) (CMS/HCC) (HCC) (Primary Dx); ICD (implantable cardioverter-defibrilla tor) in place; Ventricular fibrillation (CMS/HCC) (HCC); NSVT (nonsustained ventricular tachycardia) (HCC) 02/23/2024 Orders Only [facility] Cardiology [address] [place] [phone] Pankaj Eden MD NICM (nonischemic cardiomyopathy) (CMS/HCC) (HCC) (Primary Dx); Ventricular fibrillation (CMS/HCC) (HCC); NSVT (nonsustained ventricular tachycardia) (HCC) 02/23/2024 10:30 AM CDT Ancillary Procedure [facility] Cardiology [address] [place] [phone] CHB (complete heart block) (CMS/HCC) (HCC) [...] Pain of hand 08/04/2012 Coronary arteriosclerosis in ione artery 06/27 Overview (08/26/2016): CRNRY ATHRSCL NATDANA [...] on file Legal Sex Male 9:22 AM LINK CUTTER Gender Identity Not on file Sexual Orientation Not on file Last Filed Vital Signs Vital Sign Reading Time Taken Comments Blood Pressure 108/60 07/19/2023 11:35 AM LINK CUTTER Pulse 73 07/19/2023 11:35 AM LINK CUTTER Temperature - - Respiratory Rate - - Oxygen Saturation 92% 07/19/2023 11:35 AM LINK CUTTER Inhaled Oxygen Concentration - - Weight 104 kg (229 lb 3.2 oz) 07/19/2023 11:35 A M LINK CUTTER Height 177.8 cm (5' 10 ) 07/19/2023 11:35 AM LINK CUTTER Body Mass Index 32.89 07/19/2023 11:35 AM LINK CUTTER Plan of Treatment Not on file Procedures Procedure Name Priority Date/Time Associated Diagnosis Comments DEVICE CHECK - IN OFFICE Routine 05/03/2024 12:42 PM LINK CUTTER NICM (nonischemic cardiomyopathy) (CMS/HCC) (HCC) Ventricular fibrillation (CMS/HCC) (HCC) CARDIOLOGY DOCUMENT SCAN Routine 04/26/2024 2:30 PM LINK CUTTER DEVICE CHECK - REMOTE Routine 03/22/2024 2:16 [...] CHECK - IN OFFICE (05/03/2024 12:42 PM LINK CUTTER) Anatomical Region Laterality Modality Other Narrative 05/10/2024 11:29 AM LINK CUTTER Medtronic Alyssia Dual Pacemaker. Dx; CHB. DOI [...] battery life to SHARMAINE. Presenting rhythm- AP COATER BRAKE LININGS. ??Underlying rhythm- CHB without ventricular escape at VVI 40 beats per minute. ?? AP- 97.7% COATER BRAKE LININGS- 100%. ?? No Atrial high rate episodes [...] * Cardiology Document Scan (04/26/2024 2:30 PM LINK CUTTER) Anatomical Region Laterality Modality Other us Cameron [...] status Transmission attached. Battery status: ??2.83 V, LEVEL GLASS VIAL FILLER reached on 03/20/24 [employer] tech services reports device falls in standard replacement window Patient is pacemaker dependent Stable lead impedances, pacing and sensing thresholds. Presenting rhythm: AP/COATER BRAKE LININGS AP-94.8%, COATER BRAKE LININGS-100% No AT/AF episodes noted. No Ventricular high [...] diabetic. Informed patient that someone from the [place] office will be reaching out to him [...] impedances, pacing and sensing thresholds. Presenting rhythm: ??AP/COATER BRAKE LININGS AP-98.3 %, COATER BRAKE LININGS-100 % No AT/AF episodes noted. No Ventricular [...] impedances, pacing and sensing thresholds. Presenting rhythm: ??AP/COATER BRAKE LININGS AP-97.3 %, COATER BRAKE LININGS-100 % No AT/AF episodes noted. No Ventricular [...] Most Recently Relevant to Health Maintenance Insurance [facility] Care Teams Brand Marketing Intern Relationship Specialty Start Date End Date Danielle Rojas MD [address] [facility] [address] [place] [address] PCP - General 08/21/16
--- OUTSIDE RECORDS SUMMARY | 2024-05-25 12:22 | XMS_ITS | Encounter Summary ---
Author Organization [facility] Healthcare Address [address] [place] [address] Care Team Providers Care Iron Assorter Name Role Phone Danielle Rojas MD Primary Care Provider Encounter Details Date Type Department Care Team (Late st Contact Info) Description 05/08/2024 Telephone [facility] Medical Group Cardiology [address] [place] [phone] Cameron Ventura MD [address] [facility] [address] [place] [address] Social History Tobacco Use Types Packs/Day Years Used Date Smoking Tobacco: Never Smokeless Tobacco: Never Alcohol Use Standard Drinks/Week Comments No 0 (1 standard drink = 0.6 oz pur e alcohol) Sex and Gender Information Value Date Recorded Sex Assigned at Not on file 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 Dx; CHB. DOI 04/26/2024-Audrey. Chronic [...] scheduled 05/11/24. Medication ordered and sent to [facility] pharmacy in [place]. Informed patient of instructions. He verbalized understanding. EXPANDER documented in this encounter Plan of Treatment Not on file documented as of this encounter Visit Diagnoses Not on filedocumented in this encounter Care Teams Iron Assorter Relationship Specialty Start Date End Date Danielle Rojas MD [address] [facility] [address] [place] [phone] PCP - General 08/21/16 documented as of this encounter
--- OUTSIDE RECORDS SUMMARY | 2024-05-25 12:23 | XMS_ITS | Encounter Summary ---
Author Organization [facility] Healthcare Address [address] [place] [address] Care Team Providers Care Security Control Room Officer Name Role Phone Danielle Rojas MD Primary Care Provider Reason for Referral * Cardiology (Routine) - Authorized Specialty Diagnoses / Procedures Referred By Contac t Referred To Contact Diagnoses NICM (nonischemic cardiomyopathy) (CMS/HCC) (HCC) Ventricular fibrillation (CMS/HCC) (HCC) NSVT (nonsustained ventricular tachycardia) (HCC) Procedures DEVICE CHECK - IN OFFICE Pankaj Eden MD [address] [place] [address] Phone: tel: fax: [facility] Medical Group Referral ID Status Reason Start Date Expiration Date V isits Requested Visits Authorized [id number] Authorized 03/08/2024 04/07/2025 1 1 * Cardiology (Routine) - Authorized Specialty Diagnoses / Procedures [facility] Referred To Contact Diagnoses NICM (nonischemic cardiomyopathy) (CMS/HCC) (HCC) Ventricular fibrillation (CMS/HCC) (HCC) NSVT (nonsustained ventricular tachycardia) (HCC) Procedures DEVICE CHECK - IN OFFICE Pankaj Eden MD [address] [place] [address] Phone: tel: fax: [facility] Medical Group Referral ID Status Reason Start Date Expiration Date V isits Requested Visits Authorized [id number] Authorized 03/08/2024 04/07/2025 1 1 * Cardiology (Routine) - Pending Review Specialty Diagnoses / Procedures Referred By Contac t Referred To Contact Cardiology Diagnoses NICM (nonischemic cardiomyopathy) (CMS/HCC) (HCC) Ventricular fibrillation (CMS/HCC) (HCC) NSVT (nonsustained ventricular tachycardia) (HCC) Procedures [place]ICE [place] [address] [place] [address] Phone: tel: fax: [facility] Medical [facility] Referral ID Status Reason Start Date Expiration Date V isits Requested Visits Authorized [id number] Pending Review 03/08/2024 09/06/2025 1 1 * Cardiology (Routine) - Pending Review Specialty Diagnoses / Procedures Referred By Contac t Referred To Contact Cardiology Diagnoses NICM (nonischemic cardiomyopathy) (CMS/HCC) (HCC) Ventricular fibrillation (CMS/HCC) (HCC) NSVT (nonsustained ventricular tachycardia) (HCC) Procedures DEVICE CHECK - REMOTE Pankaj Eden MD [address] [address] Phone: tel: fax: [facility] Medical Group Referral ID Status Reason Start Date Expiration Date V isits Requested Visits Authorized [id number] Pending Review 03/08/2024 09/06/2025 1 1 * Cardiology (Routine) - Closed Specialty Diagnoses / Procedures Referred By Contac t Referred To Contact Diagnoses NICM (nonischemic cardiomyopathy) (CMS/HCC) (HCC) Ventricular fibrillation (CMS/HCC) (HCC) NSVT (nonsustained ventricular tachycardia) (HCC) Procedures DEVICE CHECK - REMOTE Pankaj Eden MD [address] [address] Phone: tel: fax: Referral ID Status Reason Start Date Expiration Date Visits Re quested Visits Authorized [id number] Closed 03/08/2024 09/06/2025 1 1 Encounter Details Date Type Department Care Team (Late st Contact Info) Description 03/08/2024 Orders Only [facility] Medical Group Cardiology [address] [place] [phone] Pankaj Eden MD [address] [address] NICM (nonischemic cardiomyopathy) (CMS/HCC) (HCC) [...] on file Legal Sex 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 Battery status: ??2.83 V, HOME COMFORT ADVISOR reached on 03/20/24 [employer] tech services reports device falls in standard replacement window Patient is pacemaker dependent Stable lead impedances, pacing and sensing thresholds. Presenting rhythm: AP/STAMPING DIE TRY OUT WORKER AP-94.8%, STAMPING DIE TRY OUT WORKER-100% No AT/AF episodes noted. No Ventricular high [...] diabetic. Informed patient that someone from the [place] office will be reaching out to him [...] situ documented in this encounter Care Teams Security Control Room Officer Relationship Specialty Start Date End Date Danielle Rojas MD [address] [facility] [address] [place] [address] PCP - General 08/21/16 documented as of this encounter
--- OUTSIDE RECORDS SUMMARY | 2024-05-25 12:23 | XMS_ITS | Encounter Summary ---
Author Organization [facility] Healthcare Address [address] [place] [address] Care Team Providers Care Plate Colorer Name Role Phone Danielle Rojas MD Primary Care Provider Reason for Visit * Cardiology (Routine) - Closed Specialty Diagnoses / Procedures Referred By Contac t Referred To Contact Diagnoses NICM (nonischemic cardiomyopathy) (CMS/HCC) (HCC) Ventricular fibrillation (CMS/HCC) (HCC) NSVT (nonsustained ventricular tachycardia) (HCC) Procedures DEVICE CHECK - REMOTE Pankaj Eden MD [address] [place] [address] Phone: tel: fax: Referral ID Status Reason Start Date Expiration Date Visits Re quested Visits Authorized [id number] Closed 02/23/2024 08/23/2025 1 1 Encounter Details Date Type Department Care Team (Latest Contact Info) Description 03/08/2024 9:45 AM CDT Ancillary Procedure [facility] Medical Group Cardiology [address] [facility] [address] [place] [phone] Complete atrioventricular block (CMS/HCC) (HCC) (Primary Dx); [...] Legal Sex Male 9:22 AM DIRECTOR OF OFFICIATING Gender Identity Not on file Sexual Orientation [...] impedances, pacing and sensing thresholds. Presenting rhythm: ??AP/CIGARETTE LIGHTER REPAIRER AP-98.3 %, CIGARETTE LIGHTER REPAIRER-100 % No AT/AF episodes noted. No Ventricular [...] situ documented in this encounter Care Teams Plate Colorer Relationship Specialty Start Date End Date Danielle Rojas MD [address] [facility] [address] [place] [address] PCP - General 08/21/16 documented as of this encounter
--- OUTSIDE RECORDS SUMMARY | 2024-05-25 12:23 | XMS_ITS | Encounter Summary ---
Author Organization [facility] Healthcare Address [address] [place] [address] Care Team Providers Care Catshovel Driver Name Role Phone Danielle Rojas MD Primary Care Provider Reason for Visit * Cardiology (Routine) - Closed Specialty Diagnoses / Procedures Referred By Contac t Referred To Contact Diagnoses CHB (complete heart block) (CMS/HCC) (HCC) Ischemic cardiomyopathy Procedures DEVICE CHECK - REMOTE Yuki Delgadillo MD Phone: tel: fax: [facility] Medical Group Referral ID Status Reason Start Date Expiration Date Visits Re quested Visits Authorized [id number] Closed 10/14/2022 04/16/2024 1 1 Encounter Details Date Type Department Care Team (Latest Contact Info) Description 10/20/2023 10:30 AM CDT Ancillary Procedure [facility] Cardiology [address] [place] [phone] Pacemaker (Primary Dx); CHB (complete heart block) (CMS/HCC) (HCC); Ischemic cardiomyopathy Social History Tobacco Use Types Packs/Day Years Used Date Smoking Tobacco: Never Smokeless Tobacco: Never Alcohol Use Standard Drinks/Week Comments No 0 (1 standard drink = 0.6 oz pur e alcohol) Sex and Gender Information Value Date Recorded Sex Assigned at Not on file 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 Presenting rhythm: AP/COMPTROLLER AP- 97.3%, COMPTROLLER- 100%. No AT/AF episodes noted. No Ventricular [...] disease documented in this encounter Care Teams Catshovel Driver Relationship Specialty Start Date End Date Danielle Rojas MD [address] [facility] [address] [place] [address] PCP - General 08/21/16 documented as of this encounter
--- OUTSIDE RECORDS SUMMARY | 2024-05-25 12:23 | XMS_ITS | Encounter Summary ---
Author Organization [facility] Healthcare Address [address] [place] [address] Care Team Providers Care Database Security Expert Name Role Phone Danielle Rojas MD Primary Care Provider Reason for Referral * Procedure (Routine) - Closed Specialty Diagnoses / Procedures Referred By Contac t Referred To Contact Cardiology Diagnoses Pacemaker Pankaj Eden MD [address] [place] [address] Phone: tel: fax: [facility] Cardiology [address] [place] [phone] Phone: tel: fax: Referral ID Status Reason Start Date Expiration Date V isits Requested Visits Authorized [id number] Closed Specialty Services Required 03/23/2024 04/22/2025 1 1 Question Answer Please select the performing region: [facility] [[id number]] Please select the performing department: [facility] [[id number]] # of visits: 1 Comments PROCEDURE/TEST ORDERED:pacer gen change LOCATION: DATE OF SERVICE: 04/26 INSURANCE: [facility] DIAGNOSIS:SHARMAINE ORDERING PROVIDER:Audrey ADDITIONAL DETAILS: Encounter Details Date Type Department Care Team (Late st Contact Info) Description 03/22/2024 Telephone [facility] Cardiology [facility] [phone] Pankaj Eden MD [address] [facility] [address] [place] [id number] Social History Tobacco Use Types Packs/Day Years Used Date Smoking Tobacco: Never Smokeless Tobacco: Never Alcohol Use Standard Drinks/Week Comments No 0 (1 standard drink = 0.6 oz pur e alcohol) Sex and Gender Information Value Date Recorded Sex Assigned at Not on file 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 Battery status: 2.83 V, NURSERY HELPER reached on 03/20/24 [employer] reports device falls in standard replacement window Patient is pacemaker dependent Stable lead impedances, pacing and sensing thresholds. Presenting rhythm: AP/VITAMIN MANAGER AP-94.8%, VITAMIN MANAGER-100% No AT/AF episodes noted. No Ventricular [...] isdiabetic. Informed patient that someone from the [facility] office will be reaching out to him to get him scheduled for his device replacement. Patient verbalized understanding Aroldo Hilliard RN Fwd: Dr. Eden, Dr. Ventura, [facility], Eva Aguiar, DIMITRI documented in this encounter Plan of Treatment Scheduled Referrals Name Type Priority Associated Diagnoses Order Schedule Ambulatory referral to Cardiology Outpatient Referral Routine Pacemaker Expected: 04/06/2024 (Approximate), Expires: 03/23/2025 documented as of this encounter Visit Diagnoses Diagnosis Pacemaker- Primary Cardiac pacemaker in situ documented in this encounter Care Teams Database Security Expert Relationship Specialty Start Date End Date Danielle Rojas MD [address] [facility] [address] [place] [address] PCP - General 08/21/16 documented as of this encounter
--- OUTSIDE RECORDS SUMMARY | 2024-05-25 12:23 | XMS_ITS | Encounter Summary ---
Author Organization [facility] Healthcare Address [address] [place] [address] Care Team Providers Care Rehabilitation Physician Name Role Phone Danielle Rojas MD Primary Care Provider Reason for Referral * Cardiology (Routine) - Authorized Specialty Diagnoses / Procedures Referred By Contac t Referred To Contact Cardiology Diagnoses Ischemic cardiomyopathy CHB (complete heart block) (CMS/HCC) (HCC) Procedures DEVICE CHECK - IN OFFICE Pankaj Eden MD [address] [address] Phone: tel: fax: [facility] Referral ID Status Reason Start Date Expiration Date V isits Requested Visits Authorized [id number] Authorized 01/20/2024 02/18/2025 1 1 * Cardiology (Routine) - Authorized Specialty Diagnoses / Procedures Referred By [facility] Referred To Contact Cardiology Diagnoses Ischemic cardiomyopathy CHB (complete heart block) (CMS/HCC) (HCC) Procedures DEVICE CHECK - IN OFFICE Pankaj Eden MD [address] [address] Phone: tel: fax: [facility] Referral ID Status Reason Start Date Expiration Date V isits Requested Visits Authorized [id number] Authorized 01/20/2024 02/18/2025 1 1 * Cardiology (Routine) - Authorized Specialty Diagnoses / Procedures Referred By Contac t Referred To Contact Cardiology Diagnoses Ischemic cardiomyopathy CHB (complete heart block) (CMS/HCC) (HCC) Procedures DEVICE CHECK - REMOTE Pankaj Eden MD [address] [address] Phone: tel: fax: Pankaj Eden MD [address] [address] Phone: tel: fax: Referral ID Status Reason Start Date Expiration Date V isits Requested Visits Authorized [id number] Authorized 01/20/2024 07/21/2025 1 1 * Cardiology (Routine) - Authorized Specialty Diagnoses / Procedures Referred By Contac t Referred To Contact Cardiology Diagnoses Ischemic cardiomyopathy CHB (complete heart block) (CMS/HCC) (HCC) Procedures DEVICE CHECK - REMOTE Pankaj Eden MD [address] [address] Phone: tel: fax: Pankaj Eden MD [address] [address] Phone: tel: fax: Referral ID Status Reason Start Date Expiration Date V isits Requested Visits Authorized [id number] Authorized 01/20/2024 07/21/2025 1 1 * Cardiology (Routine) - Closed Specialty Diagnoses / Procedures Referred By Contac t Referred To Contact Diagnoses Ischemic cardiomyopathy CHB (complete heart block) (CMS/HCC) (HCC) Procedures DEVICE CHECK - REMOTE Pankaj Eden MD [address] [address] Phone: tel: fax: Referral ID Status Reason Start Date Expiration Date Visits Re quested Visits Authorized [id number] Closed 01/20/2024 07/21/2025 1 1 Encounter Details Date Type Department Care Team (Late st Contact Info) Description 01/20/2024 Orders Only [facility] Cardiology [address] [place] [phone] Pankaj Eden MD [facility] [address] Ischemic cardiomyopathy (Primary Dx); CHB (complete heart block) (CMS/HCC) (HCC) Social History Tobacco Use Types Packs/Day Years Used Date Smoking Tobacco: Never Smokeless Tobacco: Never Alcohol Use Standard Drinks/Week Comments No 0 (1 standard drink = 0.6 oz pur e alcohol) Sex and Gender Information Value Date Recorded Sex Assigned at Not on file 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 Presenting rhythm: ??AP/SUBSURFACE AUGMENTEE ELINT OPERATOR AP- 97.7 %, SUBSURFACE AUGMENTEE ELINT OPERATOR- 100 % No AT/AF episodes noted [...] complete documented in this encounter Care Teams Rehabilitation Physician Relationship Specialty Start Date End Date Danielle Rojas MD [address] [facility] [address] [place] [place] [phone] PCP - General 08/21/16 documented as of this encounter
--- OUTSIDE RECORDS SUMMARY | 2024-05-25 12:23 | XMS_ITS | Encounter Summary ---
Author Organization [facility] Healthcare Address [address] [place] [address] Care Team Providers Care Screen Printing Machine Operator Helper Name Role Phone Danielle Rojas MD Primary Care Provider Reason for Referral * Cardiology (Routine) - Authorized Specialty Diagnoses / Procedures Referred By Contac t Referred To Contact Diagnoses NICM (nonischemic cardiomyopathy) (CMS/HCC) (HCC) ICD (implantable cardioverter-defibrillator) in place Ventricular fibrillation (CMS/HCC) (HCC) NSVT (nonsustained ventricular tachycardia) (HCC) Procedures DEVICE CHECK - REMOTE Pankaj Eden MD [address] [address] Phone: tel: fax: [facility] Medical Group Referral ID Status Reason Start Date Expiration Date V isits Requested Visits Authorized [id number] Authorized 03/06/2024 09/04/2025 1 1 * Cardiology (Routine) - Authorized Specialty Diagnoses / Procedures Referred By Contac t Referred To Contact Diagnoses NICM (nonischemic cardiomyopathy) (CMS/HCC) (HCC) ICD (implantable cardioverter-defibrillator) in place Ventricular fibrillation (CMS/HCC) (HCC) NSVT (nonsustained ventricular tachycardia) (HCC) Procedures DEVICE CHECK - REMOTE Pankaj Eden MD [address] [address] Phone: tel: fax: [facility] Referral ID Status Reason Start Date Expiration Date V isits Requested Visits Authorized [id number] Authorized 03/06/2024 09/04/2025 1 1 * Cardiology (Routine) - Authorized Specialty Diagnoses / Procedures Referred By Contac t Referred To Contact Diagnoses NICM (nonischemic cardiomyopathy) (CMS/HCC) (HCC) ICD (implantable cardioverter-defibrillator) in place Ventricular fibrillation (CMS/HCC) (HCC) NSVT (nonsustained ventricular tachycardia) (HCC) Procedures DEVICE CHECK - REMOTE Pankaj Eden MD [address] [place] [address] Phone: tel: fax: [facility] Medical [facility] Referral ID Status Reason Start Date Expiration Date V isits Requested Visits Authorized [id number] Authorized 03/06/2024 09/04/2025 1 1 Encounter Details Date Type Department Care Team (Late st Contact Info) Description 03/06/2024 Orders Only [facility] Medical [facility] Cardiology [address] [place] [phone] Pankaj Eden MD [address] [place] [address] NICM (nonischemic cardiomyopathy) (CMS/HCC) (HCC) (Primary [...] file Legal Sex Male 9:22 AM TOOL AND DIE MANAGER Gender Identity Not on file Sexual [...] (HCC) documented in this encounter Care Teams Screen Printing Machine Operator Helper Relationship Specialty Start Date End Date Danielle Rojas MD [address] [address] PCP - General 08/21/16 documented as of this encounter
--- OUTSIDE RECORDS SUMMARY | 2024-05-25 12:23 | XMS_ITS | Encounter Summary ---
Author Organization [facility] Healthcare Address [address] [place] [address] Care Team Providers Care Heavy Equipment Technician Name Role Phone Danielle Rojas MD Primary Care Provider Reason for Visit * Cardiology (Routine) - Closed Specialty Diagnoses / Procedures Referred By Contac t Referred To Contact Diagnoses Ischemic cardiomyopathy CHB (complete heart block) (CMS/HCC) (HCC) Procedures DEVICE CHECK - REMOTE Pankaj Eden MD [address] [place] [address] Phone: tel: fax: Referral ID Status Reason Start Date Expiration Date Visits Re quested Visits Authorized [id number] Closed 01/20/2024 07/21/2025 1 1 Encounter Details Date Type Department Care Team (Latest Contact Info) Description 02/02/2024 11:15 AM CDT Ancillary Procedure [facility] Cardiology [address] [place] [address] [place] [phone] Pacemaker (Primary Dx); Ischemic cardiomyopathy; CHB (complete heart block) (CMS/HCC) (HCC) Social History Tobacco Use Types Packs/Day Years Used Date Smoking Tobacco: Never Smokeless Tobacco: Never Alcohol Use Standard Drinks/Week Comments No 0 (1 standard drink = 0.6 oz pur e alcohol) Sex and Gender Information Value Date Recorded Sex Assigned at Not on file Legal Sex Male 9:22 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 Presenting rhythm: ??AP/RESOURCE TEACHER AP- 97.7 %, RESOURCE TEACHER- 100 % No AT/AF episodes noted No [...] complete documented in this encounter Care Teams Heavy Equipment Technician Relationship Specialty Start Date End Date Danielle Rojas MD [address] [facility] [address] [place] [address] PCP - General 08/21/16 documented as of this encounter
--- OUTSIDE RECORDS SUMMARY | 2024-05-25 12:23 | XMS_ITS | Encounter Summary ---
Author Organization [facility] Healthcare Address [address] [place] [address] Care Team Providers Care Centrex Radio Operator Name Role Phone Danielle Rojas MD Primary Care Provider Reason for Referral * Cardiology (Routine) - Authorized Specialty Diagnoses / Procedures Referred By Contac t Referred To Contact Cardiology Diagnoses CHB (complete heart block) (CMS/HCC) (HCC) Ischemic cardiomyopathy Procedures DEVICE CHECK - IN OFFICE Pankaj Eden MD [address] [address] Phone: tel: fax: [facility] Medical Group Referral ID Status Reason Start Date Expiration Date V isits Requested Visits Authorized [id number] Authorized 11/10/2023 12/09/2024 1 1 * Cardiology (Routine) - Authorized Specialty Diagnoses / Procedures Referred By [facility] Referred To Contact Cardiology Diagnoses CHB (complete heart block) (CMS/HCC) (HCC) Ischemic cardiomyopathy Procedures DEVICE CHECK - IN OFFICE Pankaj Eden MD [address] [address] Phone: tel: fax: [facility] Referral ID Status Reason Start Date Expiration Date V isits Requested Visits Authorized [id number] Authorized 11/10/2023 12/09/2024 1 1 * Cardiology (Routine) - Pending Review Specialty Diagnoses / Procedures Referred By Contac t Referred To Contact Cardiology Diagnoses CHB (complete heart block) (CMS/HCC) (HCC) Ischemic cardiomyopathy Procedures DEVICE CHECK - REMOTE Pankaj Eden MD [address] [address] Phone: tel: fax: [facility] Group Referral ID Status Reason Start Date Expiration Date V isits Requested Visits Authorized [id number] Pending Review 11/10/2023 05/11/2025 1 1 * Cardiology (Routine) - Pending Review Specialty Diagnoses / Procedures Referred By Contac t Referred To Contact Cardiology Diagnoses CHB (complete heart block) (CMS/HCC) (HCC) Ischemic cardiomyopathy Procedures DEVICE CHECK - REMOTE Pankaj Eden MD [address] [address] Phone: tel: fax: [facility] Medical [facility] Referral ID Status Reason Start Date Expiration Date V isits Requested Visits Authorized [id number] Pending Review 11/10/2023 05/11/2025 1 1 * Cardiology (Routine) - Closed Specialty Diagnoses / Procedures Referred By Contmarixa t Referred To Contact Diagnoses Ischemic cardiomyopathy Procedures DEVICE CHECK - REMOTE Pankaj Eden MD [address] [address] Phone: tel: fax: Referral ID Status Reason Start Date Expiration Date Visits Re quested Visits Authorized [id number] Closed 11/10/2023 05/11/2025 1 1 Encounter Details Date Type Department Care Team (Late st Contact Info) Description 11/10/2023 Orders Only [facility] Cardiology [address] [facility] [address] [place] [phone] Pankaj Eden MD [address] [facility] [address] [address] CHB (complete heart block) (CMS/HCC) (HCC) (Primary Dx); Ischemic cardiomyopathy Social History Tobacco Use Types Packs/Day Years Used Date Smoking Tobacco: Never Smokeless Tobacco: Never Alcohol Use Standard Drinks/Week Comments No 0 (1 standard drink = 0.6 oz pur e alcohol) Sex and Gender Information Value Date Recorded Sex Assigned at Not on file Legal Sex Male 9:22 AM PLASTER LATHER Gender Identity Not on file Sexual Orientation [...] impedances, pacing and sensing thresholds. Presenting rhythm: AP/BUSINESS LAW INSTRUCTOR AP- 97.7%, BUSINESS LAW INSTRUCTOR- 100% No AT/AF episodes noted. No Ventricular [...] situ documented in this encounter Care Teams Centrex Radio Operator Relationship Specialty Start Date End Date Danielle Rojas MD [address] [facility] [address] [place] [address] PCP - General 08/21/16 documented as of this encounter
--- OUTSIDE RECORDS SUMMARY | 2024-05-25 12:23 | XMS_ITS | Encounter Summary ---
Author Organization [facility] Healthcare Address [address] [place] [address] Care Team Providers Care As400 Operator Name Role Phone Danielle Rojas MD Primary Care Provider Reason for Referral * Cardiology (Routine) - Authorized Specialty Diagnoses / Procedures Referred By Contac t Referred To Contact Cardiology Diagnoses Ischemic cardiomyopathy CHB (complete heart block) (CMS/HCC) (HCC) Procedures DEVICE CHECK - IN OFFICE Pankaj Eden MD [address] [address] Phone: tel: fax: [facility] Referral ID Status Reason Start Date Expiration Date V isits Requested Visits Authorized [id number] Authorized 12/22/2023 01/20/2025 1 1 * Cardiology (Routine) - Authorized Specialty Diagnoses / Procedures [facility] Referred To Contact Cardiology Diagnoses Ischemic cardiomyopathy CHB (complete heart block) (CMS/HCC) (HCC) Procedures DEVICE CHECK - IN OFFICE Pankaj Eden MD [address] [address] Phone: tel: fax: [facility] Referral ID Status Reason Start Date Expiration Date V isits Requested Visits Authorized [id number] Authorized 12/22/2023 01/20/2025 1 1 * Cardiology (Routine) - Pending Review Specialty Diagnoses / Procedures Referred By Contac t Referred To Contact Cardiology Diagnoses Ischemic cardiomyopathy CHB (complete heart block) (CMS/HCC) (HCC) Procedures DEVICE CHECK - REMOTE Pankaj Eden MD [address] [address] Phone: tel: fax: [facility] Referral ID Status Reason Start Date Expiration Date V isits Requested Visits Authorized [id number] Pending Review 12/22/2023 06/23/2025 1 1 * Cardiology (Routine) - Pending Review Specialty Diagnoses / Procedures Referred By Contac t Referred To Contact Cardiology Diagnoses Ischemic cardiomyopathy CHB (complete heart block) (CMS/HCC) (HCC) Procedures DEVICE CHECK - REMOTE Pankaj Eden MD [address] [address] Phone: tel: fax: [facility] Medical [facility] Referral ID Status Reason Start Date Expiration Date V isits Requested Visits Authorized [id number] Pending Review 12/22/2023 06/23/2025 1 1 * Cardiology (Routine) - Closed Specialty Diagnoses / Procedures Referred By Contac t Referred To Contact Diagnoses Ischemic cardiomyopathy CHB (complete heart block) (CMS/HCC) (HCC) Procedures DEVICE CHECK - REMOTE Pankaj Eden MD [address] [address] Phone: tel: fax: Referral ID Status Reason Start Date Expiration Date Visits Re quested Visits Authorized [id number] Closed 12/22/2023 06/23/2025 1 1 Encounter Details Date Type Department Care Team (Late st Contact Info) Description 12/22/2023 Orders Only [facility] Cardiology [address] [facility] [address] [place] [phone] Pankaj Eden MD [address] [place] [address], [place] [address] Ischemic cardiomyopathy (Primary Dx); CHB (complete heart block) (CMS/HCC) (HCC) Social History Tobacco Use Types Packs/Day Years Used Date Smoking Tobacco: Never Smokeless Tobacco: Never Alcohol Use Standard Drinks/Week Comments No 0 (1 standard drink = 0.6 oz pur e alcohol) Sex and Gender Information Value Date Recorded Sex Assigned at Not on file Legal Sex Male 9:22 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 Presenting rhythm: AP/TIMERS INSPECTOR AP- 99.0%, TIMERS INSPECTOR- 100% No AT/AF episodes noted No Ventricular [...] complete documented in this encounter Care Teams As400 Operator Relationship Specialty Start Date End Date Danielle Rojas MD [address] [address] PCP - General 08/21/16 documented as of this encounter
--- OUTSIDE RECORDS SUMMARY | 2024-05-25 12:23 | XMS_ITS | Encounter Summary ---
Author Organization [facility] Healthcare Address [address] [place] [address] Care Team Providers Care Student Teacher Name Role Phone Danielle Rojas MD Primary Care Provider Reason for Visit * Cardiology (Routine) - Closed Specialty Diagnoses / Procedures Referred By Contac t Referred To Contact Diagnoses CHB (complete heart block) (CMS/HCC) (HCC) Ischemic cardiomyopathy Procedures DEVICE CHECK - REMOTE Pankaj Eden MD [address] [place] [address] Phone: tel: fax: Referral ID Status Reason Start Date Expiration Date Visits Re quested Visits Authorized [id number] Closed 10/20/2023 04/21/2025 1 1 Encounter Details Date Type Department Care Team (Latest Contact Info) Description 11/19/2023 7:00 AM CDT Ancillary Procedure [facility] Cardiology [address] [place] [address] [place] [phone] Pacemaker (Primary Dx); CHB (complete heart block) (CMS/HCC) (HCC); Ischemic cardiomyopathy Social History Tobacco Use Types Packs/Day Years Used Date Smoking Tobacco: Never Smokeless Tobacco: Never Alcohol Use Standard Drinks/Week Comments No 0 (1 standard drink = 0.6 oz pur e alcohol) Sex and Gender Information Value Date Recorded Sex Assigned at Not on file Legal Sex Male 9:22 AM WET WASH ASSEMBLER Gender Identity Not on file Sexual [...] impedances, pacing and sensing thresholds. Presenting rhythm: AP/KITCHEN WORKER AP- 97.5%, KITCHEN WORKER- 100% No AT/AF episodes noted. No Ventricular [...] disease documented in this encounter Care Teams Student Teacher Relationship Specialty Start Date End Date Danielle Rojas MD [address] [facility] [address] [place] [address] PCP - General 08/21/16 documented as of this encounter
--- OUTSIDE RECORDS SUMMARY | 2024-05-25 12:23 | XMS_ITS | Encounter Summary ---
Author Organization [facility] Healthcare Address [address] [place] [address] Care Team Providers Care Guest Service Host Name Role Phone Danielle Rojas MD Primary Care Provider Encounter Details Date Type Department Care Team (Late st Contact Info) Description 05/01/2024 Orders Only [facility] Cardiology [address] [facility] [address] [place] [phone] Cameron Ventura MD [address] [facility] [address] [place] [address] Social History Tobacco Use Types Packs/Day Years Used Date Smoking Tobacco: Never Smokeless Tobacco: Never Alcohol Use Standard Drinks/Week Comments No 0 (1 standard drink = 0.6 oz pur e alcohol) Sex and Gender Information Value Date Recorded Sex Assigned at Not on file Legal Sex Male 9:22 AM CURTAIN INSPECTOR Gender Identity Not on file Sexual Orientation Not on file documented as of this encounter Plan of Treatment Not on file documented as of this encounter Procedures Procedure Name Priority Date/Time Associated Diagnosis Comments CARDIOLOGY DOCUMENT SCAN Routine 04/26/2024 2:30 PM CURTAIN INSPECTOR documented in this encounter Results * Cardiology Document Scan (04/26/2024 2:30 PM CURTAIN INSPECTOR) Anatomical Region Laterality Modality Other us Cameron Ventura MD CV CARDIAC SERVICES PROC EDURES Final Result documented in this encounter Visit Diagnoses Not on filedocumented in this encounter Care Teams Guest Service Host Relationship Specialty Start Date End Date Danielle Rojas MD [address] [facility] [address] [place] [phone] PCP - General 08/21/16 documented as of this encounter
--- OUTSIDE RECORDS SUMMARY | 2024-05-25 12:23 | XMS_ITS | Encounter Summary ---
Author Organization [facility] Healthcare Address [address] [place] [address] Care Team Providers Care Travel Journalist Name Role Phone Danielle Rojas MD Primary Care Provider Reason for Visit * Cardiology (Routine) - Closed Specialty Diagnoses / Procedures Referred By Contac t Referred To Contact Diagnoses NICM (nonischemic cardiomyopathy) (CMS/HCC) (HCC) Ventricular fibrillation (CMS/HCC) (HCC) NSVT (nonsustained ventricular tachycardia) (HCC) Procedures DEVICE CHECK - REMOTE Pankaj Eden MD [address] [place] [address] Phone: tel: fax: Referral ID Status Reason Start Date Expiration Date Visits Re quested Visits Authorized [id number] Closed 03/08/2024 09/06/2025 1 1 Encounter Details Date Type Department Care Team (Latest Contact Info) Description 03/22/2024 11:00 AM CDT Ancillary Procedure [facility] Medical Group Cardiology [address] [place] [phone] CHB (complete heart block) (CMS/HCC) (HCC) (Primary [...] on file Legal Sex Male 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 Battery status: ??2.83 V, CAD DESIGN ENGINEER reached on 03/20/24 [employer] tech services reports device falls in standard replacement window Patient is pacemaker dependent Stable lead impedances, pacing and sensing thresholds. Presenting rhythm: AP/INDUSTRIAL SAFETY ENGINEER AP-94.8%, INDUSTRIAL SAFETY ENGINEER-100% No AT/AF episodes noted. No Ventricular high [...] diabetic. Informed patient that someone from the [place] office will be reaching out to him [...] situ documented in this encounter Care Teams Travel Journalist Relationship Specialty Start Date End Date Danielle Rojas MD [address] [facility] [address] [place] [address] PCP - General 08/21/16 documented as of this encounter
--- OUTSIDE RECORDS SUMMARY | 2024-05-25 12:23 | XMS_ITS | Encounter Summary ---
Author Organization [facility] Healthcare Address [address] [place] [address] Care Team Providers Care Geophysical Prospecting Surveyor Name Role Phone Danielle Rojas MD Primary Care Provider Reason for Visit * Cardiology (Routine) - Closed Specialty Diagnoses / Procedures Referred By Contac t Referred To Contact Diagnoses Ischemic cardiomyopathy CHB (complete heart block) (CMS/HCC) (HCC) Procedures DEVICE CHECK - REMOTE Pankaj Eden MD [address] [place] [address] Phone: tel: fax: Referral ID Status Reason Start Date Expiration Date Visits Re quested Visits Authorized [id number] Closed 12/22/2023 06/23/2025 1 1 Encounter Details Date Type Department Care Team (Latest Contact Info) Description 01/19/2024 10:15 AM CDT Ancillary Procedure [facility] Medical Group Cardiology [address] [place] [address] [place] [phone] Pacemaker (Primary Dx); Ischemic cardiomyopathy; CHB (complete heart block) (CMS/HCC) (HCC) Social History Tobacco Use Types Packs/Day Years Used Date Smoking Tobacco: Never Smokeless Tobacco: Never Alcohol Use Standard Drinks/Week Comments No 0 (1 standard drink = 0.6 oz pur e alcohol) Sex and Gender Information Value Date Recorded Sex Assigned at Not on file Legal Sex Male 9:22 AM HVAC SERVICES PROFESSIONAL Gender Identity Not on file Sexual Orientation [...] impedances, pacing and sensing thresholds. Presenting rhythm: AP/BOX STRAPPER AP- 99.0%, BOX STRAPPER- 100% No AT/AF episodes noted No Ventricular [...] complete documented in this encounter Care Teams Geophysical Prospecting Surveyor Relationship Specialty Start Date End Date Danielle Rojas MD [address] [facility] [address] [place] [address] PCP - General 08/21/16 documented as of this encounter
--- OUTSIDE RECORDS SUMMARY | 2024-05-25 12:23 | XMS_ITS | Encounter Summary ---
Author Organization [facility] Healthcare Address [address] [place] [address] Care Team Providers Care Kennel Manager Name Role Phone Danielle Rojas MD Primary Care Provider Reason for Referral * Cardiology (Routine) - Pending Review Specialty Diagnoses / Procedures Referred By Contac t Referred To Contact Cardiology Diagnoses NICM (nonischemic cardiomyopathy) (CMS/HCC) (HCC) Ventricular fibrillation (CMS/HCC) (HCC) Procedures DEVICE CHECK - REMOTE Pankaj Eden MD [address] [address] Phone: tel: fax: [facility] Medical Group Referral ID Status Reason Start Date Expiration Date V isits Requested Visits Authorized [id number] Pending Review 03/22/2024 09/20/2025 1 1 * Cardiology (Routine) - Pending Review Specialty Diagnoses / Procedures [facility] Referred To Contact Cardiology Diagnoses NICM (nonischemic cardiomyopathy) (CMS/HCC) (HCC) Ventricular fibrillation (CMS/HCC) (HCC) Procedures DEVICE CHECK - REMOTE Pankaj Eden MD [address] [address] Phone: tel: fax: [facility] Referral ID Status Reason Start Date Expiration Date V isits Requested Visits Authorized [id number] Pending Review 03/22/2024 09/20/2025 1 1 * Cardiology (Routine) - Pending Review Specialty Diagnoses / Procedures Referred By Contac t Referred To Contact Cardiology Diagnoses NICM (nonischemic cardiomyopathy) (CMS/HCC) (HCC) Ventricular fibrillation (CMS/HCC) (HCC) Procedures DEVICE CHECK - REMOTE Pankaj Eden MD [address] [address] Phone: tel: fax: [facility] Referral ID Status Reason Start Date Expiration Date V isits Requested Visits Authorized [id number] Pending Review 03/22/2024 09/20/2025 1 1 * Cardiology (Routine) - Closed Specialty Diagnoses / Procedures Referred By Contac t Referred To Contact Cardiology Diagnoses NICM (nonischemic cardiomyopathy) (CMS/HCC) (HCC) Ventricular fibrillation (CMS/HCC) (HCC) Procedures DEVICE CHECK - IN OFFICE Pankaj Eden MD [address] [address] Phone: tel: fax: [facility] Referral ID Status Reason Start Date Expiration Date Visits Re quested Visits Authorized [id number] Closed 03/22/2024 04/21/2025 1 1 * Cardiology (Routine) - Authorized Specialty Diagnoses / Procedures Referred By Contac t Referred To Contact Cardiology Diagnoses NICM (nonischemic cardiomyopathy) (CMS/HCC) (HCC) Ventricular fibrillation (CMS/HCC) (HCC) Procedures DEVICE CHECK - IN OFFICE Pankaj Eden MD [address] [address] Phone: tel: fax: [facility] Referral ID Status Reason Start Date Expiration Date V isits Requested Visits Authorized [id number] Authorized 03/22/2024 04/21/2025 1 1 Encounter Details Date Type Department Care Team (Late st Contact Info) Description 03/22/2024 Orders Only [facility] Medical [facility] Cardiology [address] [facility] [address] [place] [phone] Pankaj Eden MD [address] [place] [address] [place] [address] NICM (nonischemic cardiomyopathy) (CMS/HCC) (HCC) (Primary Dx); Ventricular fibrillation (CMS/HCC) (HCC) Social History Tobacco Use Types Packs/Day Years Used Date Smoking Tobacco: Never Smokeless Tobacco: Never Alcohol Use Standard Drinks/Week Comments No 0 (1 standard drink = 0.6 oz pur e alcohol) Sex and Gender Information Value Date Recorded Sex Assigned at Not on file Legal Sex Male 9:22 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 Dx; CHB. DOI 04/26/2024-Audrey. Chronic [...] battery life to SHARMAINE. Presenting rhythm- AP CAMP DISHWASHER. ??Underlying rhythm- CHB without ventricular escape at VVI 40 beats per minute. ?? AP- 97.7% CAMP DISHWASHER- 100%. ?? No Atrial high rate episodes [...] situ documented in this encounter Care Teams Kennel Manager Relationship Specialty Start Date End Date Danielle Rojas MD [address] [address] PCP - General 08/21/16 documented as of this encounter
--- OUTSIDE RECORDS SUMMARY | 2024-05-25 12:23 | XMS_ITS | Encounter Summary ---
Author Organization [facility] Healthcare Address [address] [place] [address] Care Team Providers Care Jockey Room Custodian Name Role Phone Danielle Rojas MD Primary Care Provider Reason for Visit * Cardiology (Routine) - Closed Specialty Diagnoses / Procedures Referred By Contac t Referred To Contact Diagnoses Ischemic cardiomyopathy Procedures DEVICE CHECK - REMOTE Pankaj Eden MD [address] [place] [address] Phone: tel: fax: Referral ID Status Reason Start Date Expiration Date Visits Re quested Visits Authorized [id number] Closed 11/10/2023 05/11/2025 1 1 Encounter Details Date Type Department Care Team (Latest Contact Info) Description 12/22/2023 8:45 AM CDT Ancillary Procedure [facility] Medical Group Cardiology [address] [place] [phone] Complete atrioventricular block (CMS/HCC) (HCC) (Primary Dx); Ischemic cardiomyopathy; Pacemaker Social History Tobacco Use Types Packs/Day Years Used Date Smoking Tobacco: Never Smokeless Tobacco: Never Alcohol Use Standard Drinks/Week Comments No 0 (1 standard drink = 0.6 oz pur e alcohol) Sex and Gender Information Value Date Recorded Sex Assigned at Not on file Legal Sex Male 9:22 AM SOFTWARE DESIGN ANALYST Gender Identity Not on file Sexual [...] impedances, pacing and sensing thresholds. Presenting rhythm: AP/CRYPTOLOGIC SUPERVISOR AP- 97.7%, CRYPTOLOGIC SUPERVISOR- 100% No AT/AF episodes noted. No Ventricular [...] situ documented in this encounter Care Teams Jockey Room Custodian Relationship Specialty Start Date End Date Danielle Rojas MD [address] [place] [address] PCP - General 08/21/16 documented as of this encounter
--- OUTSIDE RECORDS SUMMARY | 2024-05-25 12:23 | XMS_ITS | Encounter Summary ---
Author Organization [facility] Address [address] [place] [address] Care Team Providers Care Powersaw Supervisor Name Role Phone Danielle Rojas MD Primary Care Provider Reason for Referral * Cardiology (Routine) - Authorized Specialty Diagnoses / Procedures Referred By Contac t Referred To Contact Diagnoses NICM (nonischemic cardiomyopathy) (CMS/HCC) (HCC) Ventricular fibrillation (CMS/HCC) (HCC) NSVT (nonsustained ventricular tachycardia) (HCC) Procedures DEVICE CHECK - IN OFFICE Pankaj Eden MD [address] [place] [address] Phone: tel: fax: [facility] Medical Group Referral ID Status Reason Start Date Expiration Date V isits Requested Visits Authorized [id number] Authorized 02/23/2024 03/24/2025 1 1 * Cardiology (Routine) - Authorized Specialty Diagnoses / Procedures [facility] Referred To Contact Diagnoses NICM (nonischemic cardiomyopathy) (CMS/HCC) (HCC) Ventricular fibrillation (CMS/HCC) (HCC) NSVT (nonsustained ventricular tachycardia) (HCC) Procedures DEVICE CHECK - IN OFFICE Pankaj Eden MD [address] [place] [address] Phone: tel: fax: [facility] Referral ID Status Reason Start Date Expiration Date V isits Requested Visits Authorized [id number] Authorized 02/23/2024 03/24/2025 1 1 * Cardiology (Routine) - Pending Review Specialty Diagnoses / Procedures Referred By Contac t Referred To Contact Cardiology Diagnoses NICM (nonischemic cardiomyopathy) (CMS/HCC) (HCC) Ventricular fibrillation (CMS/HCC) (HCC) NSVT (nonsustained ventricular tachycardia) (HCC) Procedures [place]ICE [place] [address] [place] [address] Phone: tel: fax: [facility] Medical [facility] Referral ID Status Reason Start Date Expiration Date V isits Requested Visits Authorized [id number] Pending Review 02/23/2024 08/23/2025 1 1 * Cardiology (Routine) - Pending Review Specialty Diagnoses / Procedures Referred By Contac t Referred To Contact Cardiology Diagnoses NICM (nonischemic cardiomyopathy) (CMS/HCC) (HCC) Ventricular fibrillation (CMS/HCC) (HCC) NSVT (nonsustained ventricular tachycardia) (HCC) Procedures DEVICE CHECK - REMOTE Pankaj Eden MD [address] [address] Phone: tel: fax: [facility] Medical [facility] Referral ID Status Reason Start Date Expiration Date V isits Requested Visits Authorized [id number] Pending Review 02/23/2024 08/23/2025 1 1 * Cardiology (Routine) - Closed Specialty Diagnoses / Procedures Referred By Contac t Referred To Contact Diagnoses NICM (nonischemic cardiomyopathy) (CMS/HCC) (HCC) Ventricular fibrillation (CMS/HCC) (HCC) NSVT (nonsustained ventricular tachycardia) (HCC) Procedures DEVICE CHECK - REMOTE Pankaj Eden MD [address] [address] Phone: tel: fax: Referral ID Status Reason Start Date Expiration Date Visits Re quested Visits Authorized [id number] Closed 02/23/2024 08/23/2025 1 1 Encounter Details Date Type Department Care Team (Late st Contact Info) Description 02/23/2024 Orders Only [facility] Medical Group Cardiology [address] [place] [phone] Pankaj Eden MD [address] [address] NICM (nonischemic cardiomyopathy) (CMS/HCC) (HCC) [...] on file Legal Sex Male 9:22 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 Presenting rhythm: ??AP/BOXER OPERATOR AP-98.3 %, BOXER OPERATOR-100 % No AT/AF episodes noted. No Ventricular [...] situ documented in this encounter Care Teams Powersaw Supervisor Relationship Specialty Start Date End Date Danielle oRjas MD [address] [facility] [address] [place] [address] PCP - General 08/21/16 documented as of this encounter
--- OUTSIDE RECORDS SUMMARY | 2024-05-25 12:23 | XMS_ITS | Encounter Summary ---
Author Organization [facility] Healthcare Address [address] [place] [address] Care Team Providers Care Mysql Developer Name Role Phone Danielle Rojas MD Primary Care Provider Reason for Visit * Cardiology (Routine) - Closed Specialty Diagnoses / Procedures Referred By Contac t Referred To Contact Diagnoses NICM (nonischemic cardiomyopathy) (CMS/HCC) (HCC) ICD (implantable cardioverter-defibrillator) in place Ventricular fibrillation (CMS/HCC) (HCC) NSVT (nonsustained ventricular tachycardia) (HCC) Procedures DEVICE CHECK - REMOTE Pankaj Eden MD [address] [place] [address] Phone: tel: fax: [facility] Medical Group Referral ID Status Reason Start Date Expiration Date Visits Re quested Visits Authorized [id number] Closed 02/02/2024 08/01/2025 1 1 Encounter Details Date Type Department Care Team (Latest Contact Info) Description 02/23/2024 10:30 AM CDT Ancillary Procedure [facility] Medical [facility] Cardiology [address] [place] [phone] CHB (complete heart block) (CMS/HCC) (HCC) (Primary [...] on file Legal Sex Male 9:22 AM CARD SELLER Gender Identity Not on file Sexual Orientation [...] impedances, pacing and sensing thresholds. Presenting rhythm: ??AP/SHALLOT CLEANER AP-97.3 %, SHALLOT CLEANER-100 % No AT/AF episodes noted. No Ventricular [...] situ documented in this encounter Care Teams Mysql Developer Relationship Specialty Start Date End Date Danielle Rojas MD [address] [facility] 120 [place] [address] PCP - General 08/21/16 documented as of this encounter
--- OUTSIDE RECORDS SUMMARY | 2024-05-25 12:23 | XMS_ITS | Encounter Summary ---
Author Organization [facility] Healthcare Address [address] [place] [address] Care Team Providers Care Coffee Shop Manager Name Role Phone Danielle Rojas MD Primary Care Provider Reason for Referral * Cardiology (Routine) - Pending Review Specialty Diagnoses / Procedures Referred By Contac t Referred To Contact Cardiology Diagnoses CHB (complete heart block) (CMS/HCC) (HCC) Ischemic cardiomyopathy Procedures DEVICE CHECK - REMOTE Pankaj Eden MD [address] [address] Phone: tel: fax: [facility] Medical Group Referral ID Status Reason Start Date Expiration Date V isits Requested Visits Authorized [id number] Pending Review 10/20/2023 04/21/2025 1 1 * Cardiology (Routine) - Pending Review Specialty Diagnoses / Procedures [facility] Referred To Contact Cardiology Diagnoses CHB (complete heart block) (CMS/HCC) (HCC) Ischemic cardiomyopathy Procedures DEVICE CHECK - REMOTE Pankaj Eden MD [address] [address] Phone: tel: fax: [facility] Medical Group Referral ID Status Reason Start Date Expiration Date V isits Requested Visits Authorized Pending Review 10/20/2023 04/21/2025 1 1 * Cardiology (Routine) - Closed Specialty Diagnoses / Procedures Referred By Contac t Referred To Contact Diagnoses CHB (complete heart block) (CMS/HCC) (HCC) Ischemic cardiomyopathy Procedures DEVICE CHECK - REMOTE Pankaj Eden MD [address] [address] Phone: tel: fax: Referral ID Status Reason Start Date Expiration Date Visits Re quested Visits Authorized [id number] Closed 10/20/2023 04/21/2025 1 1 Encounter Details Date Type Department Care Team (Late st Contact Info) Description 10/20/2023 Orders Only [facility] Medical Group Cardiology [address] [place] [phone] Pankaj Eden MD [address] [address] CHB (complete heart block) (CMS/HCC) (HCC) (Primary Dx); Ischemic cardiomyopathy Social History Tobacco Use Types Packs/Day Years Used Date Smoking Tobacco: Never Smokeless Tobacco: Never Alcohol Use Standard Drinks/Week Comments No 0 (1 standard drink = 0.6 oz pur e alcohol) Sex and Gender Information Value Date Recorded Sex Assigned at Not on file Legal Sex Male 9:22 AM CISCO ENGINEER Gender Identity Not on file Sexual [...] impedances, pacing and sensing thresholds. Presenting rhythm: AP/SOFTWARE REQUIREMENTS ENGINEER AP- 97.5%, SOFTWARE REQUIREMENTS ENGINEER- 100% No AT/AF episodes noted. No [...] disease documented in this encounter Care Teams Coffee Shop Manager Relationship Specialty Start Date End Date Danielle Rojas MD [address] [facility] [address] [place] [address] PCP - General 08/21/16 documented as of this encounter
--- OUTSIDE RECORDS SUMMARY | 2024-05-25 12:23 | XMS_ITS | Encounter Summary ---
Author Organization [facility] Healthcare Address [address] [place] [address] Care Team Providers Care Proofreader Name Role Phone Danielle Rojas MD Primary Care Provider Reason for Referral * Cardiology (Routine) - Canceled Specialty Diagnoses / Procedures Referred By Contmarixa t Referred To Contact Diagnoses NICM (nonischemic cardiomyopathy) (CMS/HCC) (HCC) ICD (implantable cardioverter-defibrillator) in place Ventricular fibrillation (CMS/HCC) (HCC) NSVT (nonsustained ventricular tachycardia) (HCC) Procedures DEVICE CHECK - REMOTE Pankaj Eden MD [address] [address] Phone: tel: fax: [facility] Medical Group Referral ID Status Reason Start Date Expiration Date V isits Requested Visits Authorized [id number] Canceled 02/02/2024 08/01/2025 1 1 * Cardiology (Routine) - Canceled Specialty Diagnoses / Procedures Referred By Contmarixa pedraza Referred To Contact Diagnoses NICM (nonischemic cardiomyopathy) (CMS/HCC) (HCC) ICD (implantable cardioverter-defibrillator) in place Ventricular fibrillation (CMS/HCC) (HCC) NSVT (nonsustained ventricular tachycardia) (HCC) Procedures DEVICE CHECK - REMOTE Pankaj Eden MD [address] [address] Phone: tel: fax: [facility] Medical [facility] Referral ID Status Reason Start Date Expiration Date V isits Requested Visits Authorized [id number] Canceled 02/02/2024 08/01/2025 1 1 * Cardiology (Routine) - Closed Specialty Diagnoses / Procedures Referred By Contac t Referred To Contact Diagnoses NICM (nonischemic cardiomyopathy) (CMS/HCC) (HCC) ICD (implantable cardioverter-defibrillator) in place Ventricular fibrillation (CMS/HCC) (HCC) NSVT (nonsustained ventricular tachycardia) (HCC) Procedures DEVICE CHECK - REMOTE Pankaj Eden MD [address] [place] [address] Phone: tel: fax: [facility] Medical [facility] Referral ID Status Reason Start Date Expiration Date Visits Re quested Visits Authorized [id number] Closed 02/02/2024 08/01/2025 1 1 Encounter Details Date Type Department Care Team (Late st Contact Info) Description 02/02/2024 Orders Only [facility] Medical [facility] Cardiology [address] [place] [phone] Pankaj Eden MD [address] [place] [address] NICM (nonischemic cardiomyopathy) (CMS/HCC) (HCC) (Primary [...] on file 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 Presenting rhythm: ??AP/MANAGER BATTERY AP-97.3 %, MANAGER BATTERY-100 % No AT/AF episodes noted. No Ventricular [...] situ documented in this encounter Care Teams Proofreader Relationship Specialty Start Date End Date Danielle Rojas MD [address] [place] [phone] PCP - General 08/21/16 documented as of this encounter
--- OUTSIDE RECORDS SUMMARY | 2024-05-25 12:24 | XMS_ITS | Encounter Summary ---
Author Organization [facility] Healthcare Address [address] [place] [address] Care Team Providers Care Railroader Name Role Phone Danielle Rojas MD Primary Care Provider Reason for Visit * Cardiology (Routine) - Closed Specialty Diagnoses / Procedures Referred By Contac t Referred To Contact Diagnoses CHB (complete heart block) (CMS/HCC) (HCC) Ischemic cardiomyopathy Procedures DEVICE CHECK - REMOTE Yuki Delgadillo MD Phone: tel: fax: [facility] Medical Group Referral ID Status Reason Start Date Expiration Date Visits Re quested Visits Authorized [id number] Closed 10/14/2022 04/16/2024 1 1 Encounter Details Date Type Department Care Team (Latest Contact Info) Description 08/19/2023 7:00 AM CDT Ancillary Procedure [facility] Medical Group Cardiology [address] [place] [phone] Pacemaker [Z95.0] (Primary Dx); CHB (complete heart block) (CMS/HCC) (HCC); Ischemic cardiomyopathy Social History Tobacco Use Types Packs/Day Years Used Date Smoking Tobacco: Never Smokeless Tobacco: Never Alcohol Use Standard Drinks/Week Comments No 0 (1 standard drink = 0.6 oz pur e alcohol) Sex and Gender Information Value Date Recorded Sex Assigned at Not on file 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 Stable lead measurements noted. Presenting rhythm-APVP. AP-95%,BLAST FURNACE HELPER-100%. No Mode switch episodes noted. No Ventricular [...] disease documented in this encounter Care Teams Railroader Relationship Specialty Start Date End Date Danielle Rojas MD [address] [place] [address] PCP - General 08/21/16 documented as of this encounter
--- OUTSIDE RECORDS SUMMARY | 2024-05-25 12:24 | XMS_ITS | Encounter Summary ---
Author Organization [facility] Medical Group Address [address] [facility] [address] [place] [address] Care Team Providers Care Facing Baster Name Role Phone Danielle Rojas MD Primary Care Provider Reason for Visit * Cardiology (Routine) - Closed Specialty Diagnoses / Procedures Referred By Contac t Referred To Contact Diagnoses CHB (complete heart block) (CMS/HCC) (HCC) Pacemaker Procedures DEVICE CHECK - REMOTE Yuki Delgadillo MD Phone: tel: fax: [facility] Referral ID Status Reason Start Date Expiration Date Visits Re quested Visits Authorized [id number] Closed 03/12/2021 04/11/2022 1 1 Encounter Details Date Type Department Care Team (Latest Contact Info) Description 12/17/2021 7:15 AM CDT Ancillary Procedure [facility] Medical [facility] Cardiology [facility] [address] [place] [phone] CHB (complete heart block) (CMS/HCC) (HCC); Pacemaker Social History Tobacco Use Types Packs/Day Years Used Date Smoking Tobacco: Never Smokeless Tobacco: Never Alcohol Use Standard Drinks/Week Comments No 0 (1 standard drink = 0.6 oz pur e alcohol) Sex and Gender Information Value Date Recorded Sex Assigned at Not on file 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 ? Stable lead measurements. Presenting rhythm-APVP. AP-96%,BAND INSTRUMENT MAKER-100%. No Mode switch episodes noted. No Ventricular high rate episodes noted. Medications; Coreg, Crestor, ASA. See scanned report. Office pacemaker f/u scheduled 03/25/2022. us Yuki Delgadillo MD CV CARDIAC SERVICES PROCEDU RES Final Result documented in this encounter Visit Diagnoses Diagnosis CHB (complete heart block) (CMS/HCC) (HCC) Atrioventricular block, complete Pacemaker Cardiac pacemaker in situ documented in this encounter Care Teams Facing Baster Relationship Specialty Start Date End Date Danielle Rojas MD [address] [facility] [address] [place] [address] PCP - General 08/21/16 documented as of this encounter
--- OUTSIDE RECORDS SUMMARY | 2024-05-25 12:24 | XMS_ITS | Encounter Summary ---
Author Organization [facility] Medical [facility] Address [address] [facility] [address] [place] [address] Care Team Providers Care Counselor Education Professor Name Role Phone Danielle Rojas MD Primary Care Provider Reason for Visit * Cardiology (Routine) - Closed Specialty Diagnoses / Procedures Referred By Contac t Referred To Contact Diagnoses CHB (complete heart block) (CMS/HCC) (HCC) Pacemaker Procedures DEVICE CHECK - REMOTE Yuki Delgadillo MD Phone: tel: fax: [facility] Medical [facility] Referral ID Status Reason Start Date Expiration Date Visits Re quested Visits Authorized [id number] Closed 03/12/2021 04/11/2022 1 1 Encounter Details Date Type Department Care Team (Latest Contact Info) Description 09/12/2021 7:15 AM CDT Ancillary Procedure 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 Stable lead measurements. ?? Presenting rhythm-APVP. AP-90%,SMALL ARMS ARTILLERY REPAIRER-100%. ?? No Mode switch episodes noted. No [...] situ documented in this encounter Care Teams Counselor Education Professor Relationship Specialty Start Date End Date Danielle Rojas MD [address] [facility] [address] [place] [address] PCP - General 08/21/16 documented as of this encounter
--- OUTSIDE RECORDS SUMMARY | 2024-05-25 12:24 | XMS_ITS | Encounter Summary ---
Author Organization [facility] Healthcare Address [address] [place] [address] Care Team Providers Care Pricing Intern Name Role Phone Danielle Rojas MD Primary Care Provider Reason for Visit * Cardiology (Routine) - Closed Specialty Diagnoses / Procedures Referred By Contac t Referred To Contact Diagnoses CHB (complete heart block) (CMS/HCC) (HCC) Ischemic cardiomyopathy Procedures DEVICE CHECK - REMOTE Yuki Delgadillo MD Phone: tel: fax: [facility] Medical [facility] Referral ID Status Reason Start Date Expiration Date Visits Re quested Visits Authorized [id number] Closed 10/14/2022 04/16/2024 1 1 Encounter Details Date Type Department Care Team (Latest Contact Info) Description 09/16/2023 8:30 AM CDT Ancillary Procedure [facility] Medical Group Cardiology [address] [place] [phone] Pacemaker (Primary Dx); CHB (complete heart block) (CMS/HCC) (HCC); Ischemic cardiomyopathy Social History Tobacco Use Types Packs/Day Years Used Date Smoking Tobacco: Never Smokeless Tobacco: Never Alcohol Use Standard Drinks/Week Comments No 0 (1 standard drink = 0.6 oz pur e alcohol) Sex and Gender Information Value Date Recorded Sex Assigned at Not on file 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 Presenting rhythm: AP/CUSTOM DECORATING CONSULTANT AP- 95.3%, CUSTOM DECORATING CONSULTANT- 100% No AT/AF episodes noted. No Ventricular [...] disease documented in this encounter Care Teams Pricing Intern Relationship Specialty Start Date End Date Danielle Rojas MD [address] [facility] [address] [place] [address] PCP - General 08/21/16 documented as of this encounter
--- OUTSIDE RECORDS SUMMARY | 2024-05-25 12:24 | XMS_ITS | Encounter Summary ---
Author Organization [facility] Healthcare Address [address] [place] [address] Care Team Providers Care Customer Engagement Analyst Name Role Phone Danielle Rojas MD Primary Care Provider Reason for Visit * Cardiology (Routine) - Closed Specialty Diagnoses / Procedures Referred By Contac t Referred To Contact Cardiology Diagnoses Chronic ischemic heart disease, unspecified Danielle Rojas MD [address] [facility] [address] [place] [address] Phone: tel: fax: [facility] Medical Group Cardiology [address] [facility] [address] [place] [address] Phone: tel: fax: Referral ID Status Reason Start Date Expiration Date V isits Requested Visits Authorized [id number] Closed Specialty Services Required 08/12/2022 09/12/2023 4 4 Encounter Details Date Type Department Care Team (Latest Contact Info) Description 05/12/2023 11:30 AM C PYTHON DEVELOPER Ancillary Procedure [facility] Medical Group Cardiology [address] [facility] [address] [place] [address] Pacemaker (Primary Dx); CHB (complete heart block) (CMS/HCC) (HCC) Social History Tobacco Use Types Packs/Day Years Used Date Smoking Tobacco: Never Smokeless Tobacco: Never Alcohol Use Standard Drinks/Week Comments No 0 (1 standard drink = 0.6 oz pur e alcohol) Sex and Gender Information Value Date Recorded Sex Assigned at Not on file Legal Sex Male 9:22 AM C PYTHON DEVELOPER Gender Identity Not on file Sexual Orientation Not on file documented as of this encounter Plan of Treatment Not on file documented as of this encounter Procedures Procedure Name Priority Date/Time Associated Diagnosis Comments DEVICE CHECK - IN OFFICE Routine 05/12/2023 11:23 AM C PYTHON DEVELOPER CHB (complete heart block) (CMS/HCC) (HCC) documented in this encounter Results * DEVICE CHECK - IN OFFICE (05/12/2023 11:23 AM C PYTHON DEVELOPER) Anatomical Region Laterality Modality Other Narrative 05/20/2023 6:30 AM C PYTHON DEVELOPER Medtronic Dual Pacemaker. Dx; CHB. DOI 05/10/[address] Ventura. [facility] Supervising physician: Dr Bean. Office pacemaker evaluation demonstrated normal device function. Right pectoral incision well healed without signs of infection noted. Battery function-2.88V, 10 months remaining battery life to SHARMAINE. Presenting rhythm-APVP. Underlying rhythm-CHB without v-escape @ VVI 30 bpm. Consider pacemaker dependent. AP-92%, VETERINARIAN LABORATORY ANIMAL CARE-100%. No atrial high rate episodes recorded. ?? 1 VHR episode noted on 01/15/2023, iegm NSVT 12 beats @ 176 bpm. Medications; ASA 81 mg, Coreg. Ventricular amplitude decreased to 2.0V. See scanned report. [facility] remote f/u 08/18/2023. Eva Aguiar, RN us Yuki Delgadillo MD CV CARDIAC SERVICES PROCEDU RES Final Result documented in this encounter Visit Diagnoses Diagnosis Pacemaker- Primary Cardiac pacemaker in situ CHB (complete heart block) (CMS/HCC) (HCC) Atrioventricular block, complete documented in this encounter Care Teams Customer Engagement Analyst Relationship Specialty Start Date End Date Danielle Rojas MD [address] [place] [address] PCP - General 08/21/16 documented as of this encounter
--- OUTSIDE RECORDS SUMMARY | 2024-05-25 12:24 | XMS_ITS | Encounter Summary ---
Author Organization [facility] Medical [facility] Address [address] [facility] [address] [place] [address] Care Team Providers Care Cryptologic Support Specialist Name Role Phone Danielle Rojas MD Primary Care Provider Reason for Referral * Cardiology (Routine) - Closed Specialty Diagnoses / Procedures Referred By Contac t Referred To Contact Diagnoses CHB (complete heart block) (CMS/HCC) ([facility]) Procedures DEVICE CHECK - REMOTE Yuki Delgadillo MD Phone: tel: fax: [facility] Medical [facility] Referral ID Status Reason Start Date Expiration Date Visits Re quested Visits Authorized [id number] Closed 09/12/2021 03/14/2023 1 1 * Cardiology (Routine) - Closed Specialty Diagnoses / Procedures Referred By Contac t Referred To Contact Diagnoses CHB (complete heart block) ([facility]) ([facility]) Procedures DEVICE CHECK - REMOTE Yuki Delgadillo MD Phone: tel: fax: [facility] Medical [facility] Referral ID Status Reason Start Date Expiration Date Visits Re quested Visits Authorized [id number] Closed 09/12/2021 03/14/2023 1 1 * Cardiology (Routine) - Closed Specialty Diagnoses / Procedures Referred By Contac t Referred To Contact Diagnoses CHB (complete heart block) (CMS/HCC) (HCC) Procedures DEVICE CHECK - REMOTE Yuki Delgadillo MD Phone: tel: fax: [facility] Referral ID Status Reason Start Date Expiration Date Visits Re quested Visits Authorized [id number] Closed 09/12/2021 03/14/2023 1 1 Encounter Details Date Type Department Care Team (Late st Contact Info) Description 09/12/2021 Orders Only [facility] Medical [facility] Cardiology [address] [phone] Yuki Delgadillo MD [address] [address] CHB (complete heart block) (CMS/HCC) (HCC) (Primary Dx) Social History Tobacco Use Types Packs/Day Years Used Date Smoking Tobacco: Never Smokeless Tobacco: Never Alcohol Use Standard Drinks/Week Comments No 0 (1 standard drink = 0.6 oz pur e alcohol) Sex and Gender Information Value Date Recorded Sex Assigned at Not on file 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 Stable lead measurements noted. Presenting rhythm-APVP. AP-92%,OPTICAL ENGINEER-100%. No Mode switch episodes noted. No Ventricular [...] to SHARMAINE Episodes last 90 days/Comments: AF [place] 0 %, longest duration 0. NORMAL DEVICE FUNCTION PROGRAMMED MEDICATIONS: Anti-coagulant(s): ??Aspirin 81 mg daily Anti-arrhythmic(s): ??Coreg 12.5 mg twice daily PLAN: 1) normal Medtronic Pacemaker evaluation 2) Medtronic remote transmission scheduled in 3 months. 3) Programming appropriate for device measurements Mehrdad Rocha RN Yuki Delgadillo MD CV CARDIAC SERVICES PROCEDU RES Final Result * DEVICE CHECK - REMOTE (07/01/2022 3:08 PM SPECIAL SERVICE OFFICER) Anatomical Region Laterality Modality Other Narrative 09/17/2022 5:10 PM CDT Medtronic Dual Pacemaker. Dx; CHB. DOI 05/10/[address] Ventura. Carelink remote monitoring Q3 mo, office pacer checks Q1 yr. Routine pacemaker remote. Normal device function. Battery function-2.92V, 1.5 years remaining battery life to SHARMAINE. ? Stable lead measurements. Presenting rhythm-APVP. AP-91%,OPTICAL ENGINEER-100%. No Mode switch episodes noted. No Ventricular [...] complete documented in this encounter Care Teams Cryptologic Support Specialist Relationship Specialty Start Date End Date Danielle Rojas MD [address] [address] PCP - General 08/21/16 documented as of this encounter
--- OUTSIDE RECORDS SUMMARY | 2024-05-25 12:24 | XMS_ITS | Encounter Summary ---
Author Organization [facility] Healthcare Address [address] [place] [address] Care Team Providers Care Pattern Carrier Name Role Phone Danielle Rojas MD Primary Care Provider Encounter Details Date Type Department Care Team (Late st Contact Info) Description 05/12/2023 Telephone [facility] Medical Group Cardiology [address] [phone] [facility] [address] [facility] [address] [address] Social History Tobacco Use Types Packs/Day Years Used Date Smoking Tobacco: Never Smokeless Tobacco: Never Alcohol Use Standard Drinks/Week Comments No 0 (1 standard drink = 0.6 oz pur e alcohol) Sex and Gender Information Value Date Recorded Sex Assigned at Not on file 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 Appointment reminder mailed. WEAVER documented in this encounter Plan of Treatment Not on file documented as of this encounter Visit Diagnoses Not on filedocumented in this encounter Care Teams Pattern Carrier Relationship Specialty Start Date End Date Danielle Rojas MD [address] [facility] 120 [place] [address] PCP - General 08/21/16 documented as of this encounter
--- OUTSIDE RECORDS SUMMARY | 2024-05-25 12:24 | XMS_ITS | Encounter Summary ---
Author Organization [facility] Medical Group Address [address] [facility] [address] [place] [address] Care Team Providers Care Category Planner Name Role Phone Danielle Rojas MD Primary Care Provider Reason for Visit * Reason Comments Annual Exam * Cardiology (Routine) - Closed Specialty Diagnoses / Procedures Referred By Contac t Referred To Contact Cardiology Diagnoses Chronic ischemic heart disease, unspecified Danielle Rojas MD [address] [place] [address] [address] Phone: tel: fax: [facility] Medical [facility] Cardiology [address] [place] [address] [address] [place] [address] Phone: tel: fax: Referral ID Status Reason Start Date Expiration Date V isits Requested Visits Authorized [id number] Closed Specialty Services Required 08/12/2022 09/12/2023 4 4 Encounter Details Date Type Department Care Team (Latest Contact Info) Description 08/12/2022 9:45 AM CDT Office Visit [facility] Medical [facility] Cardiology [address] [facility] [address] [place] [address] Yuki Delgadillo MD [address] [facility] 162 [place] [address] Lipid screening (Primary Dx); Coronary arteriosclerosis in [place] artery; History of coronary artery bypass surgery; [...] on file 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 Getting over a cold. Exercising at [employer] on the treadmill and water exercise. No [...] LDL-C. Milind PEMBERTON et al. PETER. 2013;310(19): 7123-3613 (http://Abloomy/faq/AWX123) 04/06/2017 102 (H) mg/dL (calc) Final Comment: Reference range: <100 Desirable range <100 mg/dL for patients with CHD or diabetes and <70 mg/dL for diabetic patients with known heart disease. LDL-C is now calculated using the Milind-Braxton calculation, which is a validated novel method providing better accuracy than the Friedewald equation in the estimation of LDL-C. Milind PEMBERTON et al. PETER. 2013;310(19): 2605-1282 (http://educationTrovita Health Science/faq/WVP661) ] No results found for: LDLCALC Lab [...] - POCT lipid panel Coronary arteriosclerosis in [place] artery History of coronary artery bypass surgery [...] Santos's office, as above. Yuki Delgadillo MD, [facility] Office: [phone] or [phone] This note is dictated and transcribed by with assistance from [employer]. Anesthesiology Teacher variances may occur. Despite proofreading, typographical errors [...] Screening for lipoid disorders Coronary arteriosclerosis in [place] artery History of coronary artery bypass surgery [...] 08/13/2022 documented in this encounter Care Teams Category Planner Relationship Specialty Start Date End Date Danielle Rojas MD [address] [place] [address] PCP - General 08/21/16 documented as of this encounter
--- OUTSIDE RECORDS SUMMARY | 2024-05-25 12:24 | XMS_ITS | Encounter Summary ---
Author Organization [facility] Medical Group Address [address] [facility] [address] [place] [address] Care Team Providers Care Follow Up Manager Name Role Phone Danielle Rojas MD Primary Care Provider Reason for Visit * Cardiology (Routine) - Closed Specialty Diagnoses / Procedures Referred By Contac t Referred To Contact Diagnoses CHB (complete heart block) (CMS/HCC) (HCC) Procedures DEVICE CHECK - REMOTE Yuki Delgadillo MD Phone: tel: fax: [facility] Medical [facility] Referral ID Status Reason Start Date Expiration Date Visits Re quested Visits Authorized [id number] Closed 09/12/2021 03/14/2023 1 1 Encounter Details Date Type Department Care Team (Latest Contact Info) Description 01/13/2023 9:45 AM CDT Ancillary Procedure [facility] Medical [facility] Cardiology [facility] [address] [place] [phone] Pacemaker [Z95.0] (Primary Dx); CHB (complete heart block) (CMS/HCC) (HCC) Social History Tobacco Use Types Packs/Day Years Used Date Smoking Tobacco: Never Smokeless Tobacco: Never Alcohol Use Standard Drinks/Week Comments No 0 (1 standard drink = 0.6 oz pur e alcohol) Sex and Gender Information Value Date Recorded Sex Assigned at Not on file 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 Stable lead measurements noted. Presenting rhythm-APVP. AP-92%,ENTRY ENGINEER-100%. No Mode switch episodes noted. No [...] complete documented in this encounter Care Teams Follow Up Manager Relationship Specialty Start Date End Date Danielle Rojas MD [address] [facility] 120 [place] [address] PCP - General 08/21/16 documented as of this encounter
--- OUTSIDE RECORDS SUMMARY | 2024-05-25 12:24 | XMS_ITS | Encounter Summary ---
Author Organization [facility] Medical [facility] Address [address] [facility] [address] [place] [address] Care Team Providers Care Director Of Personnel Name Role Phone Danielle Rojas MD Primary Care Provider Reason for Visit * Cardiology (Routine) - Closed Specialty Diagnoses / Procedures Referred By Contac t Referred To Contact Diagnoses CHB (complete heart block) (CMS/HCC) (HCC) Procedures DEVICE CHECK - REMOTE Yuki Delgadillo MD Phone: tel: fax: [facility] Medical [facility] Referral ID Status Reason Start Date Expiration Date Visits Re quested Visits Authorized [id number] Closed 09/12/2021 03/14/2023 1 1 Encounter Details Date Type Department Care Team (Latest Contact Info) Description 07/01/2022 7:00 AM METAL GAUGE MAKER Ancillary Procedure [facility] Medical [facility] Cardiology [facility] [facility] [address] [place] [phone] Pacemaker [Z95.0 (ICD-10-CM)] (Primary Dx); CHB (complete heart block) (CMS/HCC) (HCC) Social History Tobacco Use Types Packs/Day Years Used Date Smoking Tobacco: Never Smokeless Tobacco: Never Alcohol Use Standard Drinks/Week Comments No 0 (1 standard drink = 0.6 oz pur e alcohol) Sex and Gender Information Value Date Recorded Sex Assigned at Not on file Legal Sex Male 9:22 AM METAL GAUGE MAKER Gender Identity Not on file Sexual Orientation Not on file documented as of this encounter Plan of Treatment Not on file documented as of this encounter Procedures Procedure Name Priority Date/Time Associated Diagnosis Comments DEVICE CHECK - REMOTE Routine 07/01/2022 3:08 PM METAL GAUGE MAKER CHB (complete heart block) (CMS/HCC) (HCC) documented in this encounter Results * DEVICE CHECK - REMOTE (07/01/2022 3:08 PM METAL GAUGE MAKER) Anatomical Region Laterality Modality Other Narrative 09/17/2022 5:10 PM CDT Medtronic Dual Pacemaker. Dx; CHB. DOI 05/10/[address] Ventura. Carelink remote monitoring Q3 mo, office pacer checks Q1 yr. Routine pacemaker remote. Normal device function. Battery function-2.92V, 1.5 years remaining battery life to SHARMAINE. ? Stable lead measurements. Presenting rhythm-APVP. AP-91%,EARLY CHILDHOOD EDUCATOR AIDE-100%. No Mode switch episodes noted. No Ventricular [...] complete documented in this encounter Care Teams Director Of Personnel Relationship Specialty Start Date End Date Danielle Rojas MD [address] [facility] [address] [place] [address] PCP - General 08/21/16 documented as of this encounter
--- OUTSIDE RECORDS SUMMARY | 2024-05-25 12:24 | XMS_ITS | Encounter Summary ---
Author Organization [facility] Healthcare Address [address] [place] [address] Care Team Providers Care Inspector Pawnshop Detail Name Role Phone Danielle Rojas MD Primary Care Provider Reason for Visit * Reason Comments Follow-up Transferring from Dr Ana Delgadillo Pacemaker in place Hyperlipidemia Hx: Bypass Surgery * Cardiology (Routine) - Closed Specialty Diagnoses / Procedures Referred By Contac t Referred To Contact Cardiology Diagnoses Chronic ischemic heart disease, unspecified Danielle Rojas MD [address] [facility] [address] [address] Phone: tel: fax: [facility] Cardiology [address] [facility] [address] [place] [address] Phone: tel: fax: Referral ID Status Reason Start Date Expiration Date V isits Requested Visits Authorized [id number] Closed Specialty Services Required 08/12/2022 09/12/2023 4 4 Encounter Details Date Type Department Care Team (Latest Contact Info) Description 07/19/2023 11:45 AM DAM OPERATOR Office Visit [facility] Cardiology [address] [facility] [address] [place] [address] Pankaj Eden MD [address] [facility] [address], [place] [address] Multiple-type hyperlipidemia (Primary Dx); Hyperlipidemia [...] on file Legal Sex Male 9:22 AM DAM OPERATOR Gender Identity Not on file Sexual Orientation Not on file documented as of this encounter Last Filed Vital Signs Vital Sign Reading Time Taken Comments Blood Pressure 108/60 07/19/2023 11:35 AM DAM OPERATOR Pulse 73 07/19/2023 11:35 AM DAM OPERATOR Temperature - - Respiratory Rate - - Oxygen Saturation 92% 07/19/2023 11:35 AM DAM OPERATOR Inhaled Oxygen Concentration - - Weight 104 kg (229 lb 3.2 oz) 07/19/2023 11:35 A M DAM OPERATOR Height 177.8 cm (5' 10 ) 07/19/2023 11:35 AM DAM OPERATOR Body Mass Index 32.89 07/19/2023 11:35 AM DAM OPERATOR documented in this encounter Progress Notes * [...] alive! Getting over a cold. Exercising at [place] on the treadmill and water exercise. No [...] Retired 2015; wants to move back to [place]. Has 5 grandchildren, oldest has Vivi,. 07/19/2023-patient [...] into each nostril daily, Disp: , Rfl: [employer] 2 Sensor kit, USE DIRECTED AND CHANGE [...] LDL-C. Milind SS et al. PETER. 2013;310(19): 7624-6949 (http://education.[employer].Glamour.com.ng/faq/EEP267) 04/06/2017 102 (H) mg/dL (calc) Final Comment: Reference range: <100 Desirable range <100 mg/dL for patients with CHD or diabetes and <70 mg/dL for diabetic patients with known heart disease. LDL-C is now calculated using the Milind-Braxton calculation, which is a validated novel method providing better accuracy than the Friedewald equation in the estimation of LDL-C. Milind SS et al. PETER. 2013;310(19): 3258-9720 (http://education.[employer].Glamour.com.ng/faq/LLN706) ] No results found for: LDLCALC Lab [...] dictated and transcribed by with assistance from [employer]. Rice Cleaning Machine Tender variances may occur. Despite proofreading, typographical errors may occur. OPERATOR documented in this encounter Plan of [...] 07/10/2023 added in this encounter Care Teams Inspector Pawnshop Detail Relationship Specialty Start Date End Date Danielle Rojas MD [address] [facility] 120 [place] [address] PCP - General 08/21/16 documented as of this encounter
--- OUTSIDE RECORDS SUMMARY | 2024-05-25 12:24 | XMS_ITS | Encounter Summary ---
Author Organization [facility] Address [address] [facility] [address] [place] [address] Care Team Providers Care Loss Prevention And Safety Manager Name Role Phone Danielle Rojas MD Primary Care Provider Reason for Referral * Cardiology (Routine) - Closed Specialty Diagnoses / Procedures Referred By Contac t Referred To Contact Diagnoses CHB (complete heart block) (CMS/HCC) (HCC) Ischemic cardiomyopathy Procedures DEVICE CHECK - REMOTE Yuik Delgadillo MD Phone: tel: fax: [facility] Referral ID Status Reason Start Date Expiration Date Visits Re quested Visits Authorized [id number] Closed 10/14/2022 04/16/2024 1 1 * Cardiology (Routine) - Closed Specialty Diagnoses / Procedures Referred By Contac t Referred To Contact Diagnoses CHB (complete heart block) (CMS/HCC) (HCC) Ischemic cardiomyopathy Procedures DEVICE CHECK - REMOTE Yuki Delgadillo MD Phone: tel: fax: [facility] Referral ID Status Reason Start Date Expiration Date Visits Re quested Visits Authorized [id number] Closed 10/14/2022 04/16/2024 1 1 * Cardiology (Routine) - Closed Specialty Diagnoses / Procedures Referred By Contac t Referred To Contact Diagnoses CHB (complete heart block) (CMS/HCC) (HCC) Ischemic cardiomyopathy Procedures DEVICE CHECK - REMOTE Yuki Delgadillo MD Phone: tel: fax: [facility] Referral ID Status Reason Start Date Expiration Date Visits Re quested Visits Authorized [id number] Closed 10/14/2022 04/16/2024 1 1 Encounter Details Date Type Department Care Team (Late st Contact Info) Description 10/14/[address] 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 Presenting rhythm: AP/SILVER STEWARD AP- 97.3%, SILVER STEWARD- 100%. No AT/AF episodes noted. No Ventricular [...] impedances, pacing and sensing thresholds. Presenting rhythm: AP/SILVER STEWARD AP- 95.3%, SILVER STEWARD- 100% No AT/AF episodes noted. No Ventricular [...] ? Stable lead measurements noted. Presenting rhythm-APVP. AP-95%,SILVER STEWARD-100%. No Mode switch episodes noted. No Ventricular [...] disease documented in this encounter Care Teams Loss Prevention And Safety Manager Relationship Specialty Start Date End Date Danielle Rojas MD [address] [facility] 120 [place] [address] PCP - General 08/21/16 documented as of this encounter
--- OUTSIDE RECORDS SUMMARY | 2024-05-25 12:24 | XMS_ITS | Encounter Summary ---
Author Organization [facility] Address [address] [facility] [address] [place] [address] Care Team Providers Care Energy Conservation Specialist Name Role Phone Danielle Rojas MD Primary Care Provider Reason for Visit * Cardiology (Routine) - Closed Specialty Diagnoses / Procedures Referred By Contac t Referred To Contact Cardiology Diagnoses Chronic ischemic heart disease, unspecified Danielle Rojas MD [address] [facility] [address] [facility] 120 [place] [address] Phone: tel: fax: [facility] Medical [facility] Cardiology [address] [facility] [address] [place] [address] Phone: tel: fax: Referral ID Status Reason Start Date Expiration Date V isits Requested Visits Authorized [id number] Closed Specialty Services Required 08/12/2022 09/12/2023 4 4 Encounter Details Date Type Department Care Team (Latest Contact Info) Description 10/09/2022 7:00 AM CDT Ancillary Procedure [facility] Medical [facility] Cardiology [address] [facility] [address], [place] [address] CHB (complete heart block) (CMS/HCC) (HCC) Social History Tobacco Use Types Packs/Day Years Used Date Smoking Tobacco: Never Smokeless Tobacco: Never Alcohol Use Standard Drinks/Week Comments No 0 (1 standard drink = 0.6 oz pur e alcohol) Sex and Gender Information Value Date Recorded Sex Assigned at Not on file Legal Sex Male 9:22 AM AGRICULTURAL 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 NORMAL DEVICE [...] complete documented in this encounter Care Teams Energy Conservation Specialist Relationship Specialty Start Date End Date Danielle Rojas MD [address] [facility] 120 [place] [address] PCP - General 08/21/16 documented as of this encounter
--- OUTSIDE RECORDS SUMMARY | 2024-05-25 12:24 | XMS_ITS | Encounter Summary ---
Author Organization [facility] Address [address] [facility] [address] [place] [address] Care Team Providers Care Terrazzo Laborer Name Role Phone Danielle Rojas MD Primary Care Provider Reason for Visit * Cardiology (Routine) - Closed Specialty Diagnoses / Procedures Referred By Contac t Referred To Contact Diagnoses CHB (complete heart block) (CMS/HCC) (HCC) Procedures DEVICE CHECK - IN OFFICE Yuki Delgadillo MD Phone: tel: fax: [facility] Referral ID Status Reason Start Date Expiration Date Visits Re quested Visits Authorized [id number] Closed 07/01/2018 01/10/2020 1 1 Encounter Details Date Type Department Care Team (Latest Contact Info) Description 03/25/2022 11:00 AM CDT Ancillary Procedure [facility] Medical [facility] Cardiology [address] [facility] [address] [place] [address] CHB (complete heart block) (CMS/HCC) (HCC); Pacemaker Social History Tobacco Use Types Packs/Day Years Used Date Smoking Tobacco: Never Smokeless Tobacco: Never Alcohol Use Standard Drinks/Week Comments No 0 (1 standard drink = 0.6 oz pur e alcohol) Sex and Gender Information Value Date Recorded Sex Assigned at Not on file Legal Sex Male 9:22 AM FPGA ENGINEER Gender Identity Not on file Sexual [...] VVI 30 bpm. Consider pacemaker dependent. AP-92%, POLICE DETECTIVE-100%. No atrial or ventricular episodes recorded. ?? [...] situ documented in this encounter Care Teams Terrazzo Laborer Relationship Specialty Start Date End Date Danielle Rojas MD [address] [facility] 120 [place] [address] PCP - General 08/21/16 documented as of this encounter
--- OUTSIDE RECORDS SUMMARY | 2024-05-25 12:24 | XMS_ITS | Encounter Summary ---
Author Organization [facility] Address [address] [facility] [address] [place] [address] Care Team Providers Care Drying Frame Operator Name Role Phone Danielle Rojas MD Primary Care Provider Encounter Details Date Type Department Care Team (Late st Contact Info) Description 07/01/2022 Orders Only [facility] Cardiology [address] [facility] [address] [address] Yuki Delgadillo MD [address] [facility] 102 [place] [address] Social History Tobacco Use Types Packs/Day Years Used Date Smoking Tobacco: Never Smokeless Tobacco: Never Alcohol Use Standard Drinks/Week Comments No 0 (1 standard drink = 0.6 oz pur e alcohol) Sex and Gender Information Value Date Recorded Sex Assigned at Not on file Legal Sex Male 9:22 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
--- OUTSIDE RECORDS SUMMARY | 2024-05-25 12:24 | XMS_ITS | Encounter Summary ---
Author Organization [facility] Healthcare Address [address] [place] [address] Care Team Providers Care Manager Of Pmo Name Role Phone Danielle Rojas MD Primary Care Provider Encounter Details Date Type Department Care Team (Late st Contact Info) Description 05/26/2023 Telephone [facility] Cardiology [address] [place] [address] Yuki Delgadillo MD [address] [place], [place] [id number] Social History Tobacco Use Types Packs/Day Years Used Date Smoking Tobacco: Never Smokeless Tobacco: Never Alcohol Use Standard Drinks/Week Comments No 0 (1 standard drink = 0.6 oz pur e alcohol) Sex and Gender Information Value Date Recorded Sex Assigned at Not on file Legal Sex Male 9:22 AM JEWELRY APPRAISER Gender Identity Not on file Sexual Orientation Not on file documented as of this encounter Miscellaneous Notes * Telephone Encounter - Ebony Hollingsworth RN - 05/27/2023 10:41 AM JEWELRY APPRAISER Cardiac clearance signed by IVY, scanned in under social media strategist and faxed LRY APPRAISER * Telephone Encounter - Alba Ignacio RN - 05/27/2023 10:35 AM CST Spoke with pts . Updated that clearance has been signed and being faxed today. LRY APPRAISER * Telephone Encounter - Ebony Hollingsworth RN - 05/26/2023 3:32 PM JEWELRY APPRAISER Received cardiac clearance, will place on ELU's desk to review/sign today and will fax back as requested once signed. LRY APPRAISER * Telephone Encounter - Alba Ignacio RN - 05/26/2023 2:07 PM CST Spoke pts . Clearance faxed to [facility] and requested Ebony have EU sign. LRY APPRAISER * Telephone Encounter - Veronika Layne - 05/26/2023 1:19 PM CST Pt spouse [place] dropped off cardiac clearance form on Wednesday for EU to sign. Requesting call back with an update. Contact: LRY APPRAISER documented in this encounter Plan of Treatment Not on file documented as of this encounter Visit Diagnoses Not on filedocumented in this encounter Care Teams Manager Of Pmo Relationship Specialty Start Date End Date Danielle Rojas MD [address] [facility] 120 [place] [address] PCP - General 08/21/16 documented as of this encounter
--- OUTSIDE RECORDS SUMMARY | 2024-05-25 12:24 | XMS_ITS | Encounter Summary ---
Author Organization [facility] Address [address] [facility] [address] [place] [address] Care Team Providers Care Wind Turbine Electrical Engineer Name Role Phone Danielle Rojas MD Primary Care Provider Reason for Visit * Cardiology (Routine) - Closed Specialty Diagnoses / Procedures Referred By Contac t Referred To Contact Diagnoses Coronary arteriosclerosis in [place] artery History of coronary artery bypass surgery Chronic ischemic heart disease Pacemaker Procedures Transthoracic Echo Complete W Doppler/CF Cathryn Burns MD Phone: tel: fax: [facility] Referral ID Status Reason Start Date Expiration Date Visits Re quested Visits Authorized [id number] Closed 07/30/2021 08/29/2022 1 1 Encounter Details Date Type Department Care Team (Latest Contact Info) Description 08/29/2021 10:15 AM CDT Ancillary Procedure [facility] Medical [facility] Cardiology [address] [facility] [address] [place] [address] Coronary arteriosclerosis in [place] artery; History of coronary artery bypass surgery; Chronic ischemic heart disease; Pacemaker Social History Tobacco Use Types Packs/Day Years Used Date Smoking Tobacco: Never Smokeless Tobacco: Never Alcohol Use Standard Drinks/Week Comments No 0 (1 standard drink = 0.6 oz pur e alcohol) Sex and Gender Information Value Date Recorded Sex Assigned at Not on file Legal Sex Male 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 Gender Identity Not on file Sexual Orientation Not on file documented as of this encounter Plan of Treatment Not on file documented as of this encounter Procedures Procedure Name Priority Date/Time Associated Diagnosis Comments TRANSTHORACIC ECHO (TTE) COMPLETE W DOPPLER/CF W CONTRAST Routine 08/29/2021 10:42 AM CDT Coronary arteriosclerosis in [place] artery History of coronary artery bypass surgery Chronic ischemic heart disease Pacemaker documented in this encounter Results * TRANSTHORACIC ECHO (TTE) COMPLETE W DOPPLER/CF W CONTRAST (08/29/2021 10:42 AM CDT) Anatomical Region Laterality Modality Ultrasound 08/29/2021 9:44 AM CDT Narrative 08/29/2021 1:55 PM CDT [facility] Cardiology [address] [facility] [address], [place] [address] [address] [facility] [address], [place] [address] P:[phone] P:[phone] Echocardiographic Report Patient Name: DAYRON PORTILLO : 1950 Study Date: 08/29/2021 9:44:44 AM Gender: M Tech: Location: [place] Ref.Provider: CATHRYN BURNS Height(Cm): 178 BSA: 2.13 [...] Findings: Interpretation Site: Exam was interpreted at [facility]. Left Ventricle: Definity contrast agent used to [...] Procedure Note Kaushal Rangel MD - 08/29/2021 [facility] Cardiology [address] [facility] [address], [place] [address] [address] [facility] [address], [place] [address] P:[phone] P:[phone] Echocardiographic Report Patient Name: DAYRON PORTILLOPatient ID: [id number] : [id number] Date: 08/29/2021 9:44:44 AM Gender: MAccession #: [id number] Tech: GMLocation: [place] Ref.Provider: CATHRYN BURNSHeight(Cm): 178 BSA: 2.13Weight(Kg): 95.28 [...] 16.00 - 28.00 ] cc/m2 MV Decel Umik835 [ 150 - 200 ] msec ACS MM 2.08 cm PV Peak Vel1.16 [ 0.40 - 0.80 ] m/s TR Peak Vel2.54 [ 0.40 - 0.80 ] m/s TR Peak PG 26mmHg RVSP34.00 mmHg E'0.07 E/E' 10 Findings: Interpretation Site: Exam was interpreted at [facility]. Left Ventricle: Definity contrast agent used to [...] encounter Visit Diagnoses Diagnosis Coronary arteriosclerosis in [place] artery History of coronary artery bypass surgery [...] 08/29/2021 documented in this encounter Care Teams Wind Turbine Electrical Engineer Relationship Specialty Start Date End Date Danielle Rojas MD [address] [facility] 120 [place] [address] PCP - General 08/21/16 documented as of this encounter
--- OUTSIDE RECORDS SUMMARY | 2024-05-25 12:24 | XMS_ITS | Encounter Summary ---
Author Organization [facility] Healthcare Address [address] [place] [address] Care Team Providers Care Housing Officer Name Role Phone Danielle Rojas MD Primary Care Provider Reason for Referral * Cardiology (Routine) - Authorized Specialty Diagnoses / Procedures Referred By Contac t Referred To Contact Cardiology Diagnoses CHB (complete heart block) (CMS/HCC) (HCC) Ischemic cardiomyopathy Procedures DEVICE CHECK - REMOTE Pankaj Eden MD [address] [address] Phone: tel: fax: [facility] Referral ID Status Reason Start Date Expiration Date V isits Requested Visits Authorized [id number] Authorized 09/17/2023 03/18/2025 1 1 * Cardiology (Routine) - Authorized Specialty Diagnoses / Procedures Referred By [facility] Referred To Contact Cardiology Diagnoses CHB (complete heart block) (CMS/HCC) (HCC) Ischemic cardiomyopathy Procedures DEVICE CHECK - REMOTE Pankaj Eden MD [address] [address] Phone: tel: fax: [facility] Referral ID Status Reason Start Date Expiration Date V isits Requested Visits Authorized [id number] Authorized 09/17/2023 03/18/2025 1 1 * Cardiology (Routine) - Authorized Specialty Diagnoses / Procedures Referred By Contac t Referred To Contact Cardiology Diagnoses CHB (complete heart block) (CMS/HCC) (HCC) Ischemic cardiomyopathy Procedures DEVICE CHECK - REMOTE Pankaj Eden MD [address] [address] Phone: tel: fax: [facility] Referral ID Status Reason Start Date Expiration Date V isits Requested Visits Authorized [id number] Authorized 09/17/2023 03/18/2025 1 1 Encounter Details Date Type Department Care Team (Late st Contact Info) Description 09/17/2023 Orders Only [facility] Medical [facility] Cardiology [address] [place] [address] Pankaj Eden MD [address] [address] CHB (complete heart block) (CMS/HCC) (HCC) (Primary Dx); Ischemic cardiomyopathy Social History Tobacco Use Types Packs/Day Years Used Date Smoking Tobacco: Never Smokeless Tobacco: Never Alcohol Use Standard Drinks/Week Comments No 0 (1 standard drink = 0.6 oz pur e alcohol) Sex and Gender Information Value Date Recorded Sex Assigned at Not on file Legal Sex Male 9:22 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
--- OUTSIDE RECORDS SUMMARY | 2024-05-25 12:24 | XMS_ITS | Encounter Summary ---
Author Organization [facility] Healthcare Address [address] [place] [address] Care Team Providers Care Seafood Service Team Member Name Role Phone Danielle Rojas MD Primary Care Provider Reason for Referral * Cardiology (Routine) - Authorized Specialty Diagnoses / Procedures [facility] Ref[facility] To Contact Cardiology Diagnoses CHB (complete heart block) (CMS/HCC) (HCC) Pacemaker Procedures DEVICE CHECK - IN OFFICE Yuki Delgadillo MD Phone: tel: fax: [facility] Referral ID Status Reason Start Date Expiration Date V isits Requested Visits Authorized [id number] Authorized 05/12/2023 06/10/2024 1 1 CHASER * Cardiology (Routine) - Authorized Specialty Diagnoses / Procedures [facility] Referred To Contact Cardiology Diagnoses CHB (complete heart block) (CMS/HCC) (HCC) Pacemaker Procedures DEVICE CHECK - IN OFFICE Yuki Delgadillo MD Phone: tel: fax: [facility] Referral ID Status Reason Start Date Expiration Date V isits Requested Visits Authorized [id number] Authorized 05/12/2023 06/10/2024 1 1 CHASER * Cardiology (Routine) - Authorized Specialty Diagnoses / Procedures [facility] Referred To Contact Cardiology Diagnoses CHB (complete heart block) (CMS/HCC) (HCC) Pacemaker Procedures DEVICE CHECK - IN OFFICE Yuki Delgadillo MD Phone: tel: fax: [facility] Referral ID Status Reason Start Date Expiration Date V isits Requested Visits Authorized [id number] Authorized 05/12/2023 06/10/2024 1 1 CHASER Encounter Details Date Type Department Care Team (Late st Contact Info) Description 05/12/[address] [facility] Cardiology [address] [address] Yuki Delgadillo MD [address] [address] CHB (complete heart block) (CMS/HCC) (HCC) (Primary Dx); Pacemaker Social History Tobacco Use Types Packs/Day Years Used Date Smoking Tobacco: Never Smokeless Tobacco: Never Alcohol Use Standard Drinks/Week Comments No 0 (1 standard drink = 0.6 oz pur e alcohol) Sex and Gender Information Value Date Recorded Sex Assigned at Not on file Legal Sex Male 9:22 AM TAR CHASER Gender Identity Not on file Sexual Orientation [...] situ documented in this encounter Care Teams Seafood Service Team Member Relationship Specialty Start Date End Date Danielle Rojas MD [address] [facility] [address] [place] [id number] PCP - General 08/21/16 documented as of this encounter
--- OUTSIDE RECORDS SUMMARY | 2024-05-25 12:25 | XMS_ITS | Encounter Summary ---
Author Organization [facility] Address [address] [facility] [address] [place] [address] Care Team Providers Care Armor Senior Sergeant Name Role Phone Danielle Rojas MD Primary Care Provider Reason for Referral * Cardiology (Routine) - Closed Specialty Diagnoses / Procedures Referred By Emma pedraza Referred To Contact Diagnoses Coronary arteriosclerosis in [place] artery History of coronary artery bypass surgery Chronic ischemic heart disease Pacemaker Procedures Transthoracic Echo Complete W Doppler/CF Catrhyn Burns MD Phone: tel: fax: [facility] Medical [facility] Referral ID Status Reason Start Date Expiration Date Visits Re quested Visits Authorized [id number] Closed 07/30/2021 08/29/2022 1 1 ATIONS SUPERVISOR Reason for Visit * Reason Comments Coronary Artery Disease Annual f/u * Consultation (Routine) - Closed Specialty Diagnoses / Procedures Referred By Emma pedraza Referred To Contact Cardiology Diagnoses 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, unspecified whether nez perce or transplanted heart (HCC) Danielle Rojas MD [address] [place] [address] Phone: tel: fax: [facility] Cardiology [address] [place] [address] Phone: tel: fax: Referral ID Status Reason Start Date Expiration Date V isits Requested Visits Authorized [id number] Closed Specialty Services Required 07/24/2021 01/22/2022 3 3 Encounter Details Date Type Department Care Team (Latest Contact Info) Description 07/30/2021 9:45 AM OPERATIONS SUPERVISOR Office Visit [facility] Cardiology [address] [place] [phone] Cathryn Burns MD [address] [place] [id number] Coronary arteriosclerosis in [place] artery (Primary Dx); History of coronary artery bypass surgery; Chronic ischemic heart disease; Pacemaker; Complete atrioventricular block (CMS/HCC) (HCC); 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, unspecified whether nez perce or transplanted heart (HCC); Hyperlipidemia associated with type 2 diabetes mellitus (HCC) Social History Tobacco Use Types Packs/Day Years Used Date Smoking Tobacco: Never Smokeless Tobacco: Never Alcohol Use Standard Drinks/Week Comments No 0 (1 standard drink = 0.6 oz pur e alcohol) Sex and Gender Information Value Date Recorded Sex Assigned at Not on file Legal Sex Male 9:22 AM OPERATIONS SUPERVISOR Gender Identity Not on file Sexual Orientation Not on file documented as of this encounter Last Filed Vital Signs Vital Sign Reading Time Taken Comments Blood Pressure 120/80 07/30/2021 9:38 AM OPERATIONS SUPERVISOR Pulse 86 07/30/2021 9:38 AM OPERATIONS SUPERVISOR Temperature - - Respiratory Rate - - Oxygen Saturation 96% 07/30/2021 9:38 AM OPERATIONS SUPERVISOR Inhaled Oxygen Concentration - - Weight 95.3 kg (210 lb) 07/30/2021 9:38 AM OPERATIONS SUPERVISOR Height 177.8 cm (5' 10 ) 07/30/2021 9:38 AM OPERATIONS SUPERVISOR Body Mass Index 30.13 07/30/2021 9:38 AM OPERATIONS SUPERVISOR documented in this encounter Patient Instructions * Patient Instructions* Cathryn Burns MD - 07/30/2021 9:45 AM OPERATIONS SUPERVISOR Total cholesterol 154, HDl chol 64, triglycerides 91, LDL chol 71 ATIONS SUPERVISOR ATIONS SUPERVISOR documented in this encounter Progress Notes * [...] SHARMAINE. ? Stable lead measurements. Presenting rhythm-APVP. AP-85%,STEEL TESTER-100%. No Mode switch episodes noted. No Ventricular high rate episodes noted. Social: Retired 2015; wants to move back to [place]. Has 5 grandchildren, oldest has Downs,. MEDICAL [...] syringe, 1- 10 mL, intravenous[facility]GIES No Known Allergies REVIEW OF [...] LDL-C. Milind PEMBERTON et al. PETER. 2013;310(19): 2793-1676 (http://education.Project 10K.com/faq/IQU309) 04/06/2017 102 (H) mg/dL (calc) Final Comment: Reference range: <100 Desirable range <100 mg/dL for patients with CHD or diabetes and <70 mg/dL for diabetic patients with known heart disease. LDL-C is now calculated using the Milind-Braxton calculation, which is a validated novel method providing better accuracy than the Friedewald equation in the estimation of LDL-C. Milind PEMBERTON et al. PETER. 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 Cathryn Burns MD, [facility] Office: [phone] or [phone] This note is dictated and transcribed by with assistance from [employer].?? Project Development Manager variances may occur. Despite proofreading, typographical errors may occur. documented in this encounter Plan of Treatment Not on file documented as of this encounter Procedures Procedure Name Priority Date/Time Associated Diagnosis Comments POCT LIPID PANEL Routine 07/30/2021 1:29 PM OPERATIONS SUPERVISOR Coronary arteriosclerosis in [place] artery LIPID PANEL Routine 05/27/2021 LIPID PANEL Routine 07/22/2020 documented in this encounter Results * TRANSTHORACIC ECHO (TTE) COMPLETE W DOPPLER/CF W CONTRAST (08/29/2021 10:42 AM CDT) Anatomical Region Laterality Modality Ultrasound 08/29/2021 9:44 AM CDT Narrative 08/29/2021 1:55 PM CDT [facility] Cardiology [address], [place] [address] [address], [place] [address] P:[phone] P:[phone] Echocardiographic Report Patient Name: DAYRON PORTILLO : 1950 Study Date: 08/29/2021 9:44:44 AM Gender: M Tech: Location: [place] Ref.Provider: CATHRYN BURNS Height(Cm): 178 BSA: 2.13 Weight(Kg): 95.28 Heart Rate: 67 BP: 118/63 Quality: Definity contrast agent used to enhance endocardial border definition Order Provider: CATHRYN BUNRS Procedures: Echocardiographic Report: Transthoracic echocardiogram with complete [...] ? 2.08 ? cm ? PV Peak Vcítor ?1.16 ? [ 0.40 - 0.80 ] m/s ? TR Peak Víctor ?2.54 ? [ 0.40 - 0.80 ] m/s ? TR Peak PG ? 26 ? mmHg ? RVSP ? 34.00 ?mmHg ? E' ? 0.07 ? E/E' ? 10 ? Findings: Interpretation Site: Exam was interpreted at [facility]. Left Ventricle: Definity contrast agent used to [...] Procedure Note Kaushal Rangel MD - 08/29/2021 [facility] Cardiology [address] [place] [address], [place] [address] P:[phone] P:[phone] Echocardiographic Report Patient Name: DAYRON PORTILLOPatient ID: [id number] : [id number] Date: 08/29/2021 9:44:44 AM Gender: MAccession #: [id number] Tech: GMLocation: [place] Ref.Provider: CATHRYN BURNSHeight(Cm): 178 BSA: 2.13Weight(Kg): 95.28 [...] 16.00 - 28.00 ] cc/m2 MV Decel [id number] [ 150 - 200 ] msec ACS MM 2.08 cm PV Peak Vel1.16 [ 0.40 - 0.80 ] m/s TR Peak Vel2.54 [ 0.40 - 0.80 ] m/s TR Peak PG 26mmHg RVSP34.00 mmHg E'0.07 E/E' 10 Findings: Interpretation Site: Exam was interpreted at [facility]. Left Ventricle: Definity contrast agent used to [...] * POCT lipid panel (07/30/2021 1:29 PM OPERATIONS SUPERVISOR) Cholesterol, POC 154 mg/dL HDL, POC 64 mg/dL Triglycerides, POC 91 mg/dL LDL Cholesterol POC 71 mg/dL Chol/HDL Ratio, POC 2.4 Non-HDL Cholesterol, POC 90 mg/dL Cholesterol Total, POC 154 mg/dL Capillary blood 07/30/2021 1 :29 PM OPERATIONS SUPERVISOR Result [facility] Cathryn Burns MD POINT OF CARE [...] encounter Visit Diagnoses Diagnosis Coronary arteriosclerosis in [place] artery- Primary History of coronary artery bypass surgery Postsurgical aortocoronary bypass status Chronic ischemic heart disease Unspecified chronic ischemic heart disease Pacemaker Cardiac pacemaker in situ Complete atrioventricular block (CMS/HCC) (HCC) Atrioventricular block, complete 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
--- OUTSIDE RECORDS SUMMARY | 2024-05-25 12:25 | XMS_ITS | Encounter Summary ---
Author Organization [facility] Address [address] [facility] [address] [place] [address] Care Team Providers Care Charging Plug Placer Name Role Phone Danielle Rojas MD Primary Care Provider Reason for Visit * Reason Onset Date Comments cholesterol results 04/10/2019 Encounter Details Date Type Department Care Team (Late st Contact Info) Description 04/10/2019 Telephone [facility] [address] [facility] [address] [facility] [address] [place] [address] Yuki Delgadillo MD [address] [facility] [address] [place] [address] cholesterol results Social History Tobacco Use Types Packs/Day Years Used Date Smoking Tobacco: Never Smokeless Tobacco: Never Alcohol Use Standard Drinks/Week Comments No 0 (1 standard drink = 0.6 oz pur e alcohol) Sex and Gender Information Value Date Recorded Sex Assigned at Not on file Legal Sex Male 9:22 AM LOG YARD DERRICK OPERATOR Gender Identity Not on file Sexual [...] on: 04/11/2019 09:01 AM Modules accepted: Orders YARD DERRICK OPERATOR * Telephone Encounter - Noe Shukla RN - 04/11/2019 8:57 AM LOG YARD DERRICK OPERATOR Spoke with patient and discussed lipid results. Patient is in face taking rosuvastatin 40 mg 1/2 tablet daily. Med list updated. YARD DERRICK OPERATOR * Telephone Encounter - Yuki Delgadillo MD - 04/10/2019 6:45 PM LOG YARD DERRICK OPERATOR Patient with CAD, had POC lipids here today. Please review them with the patient: 04/10/2019 POC lipids: Total cholesterol 144, HDL 57, LDL 60, TG 135. Cholesterol is pretty good! Please check and see what dose of rosuvastatin he is taking; I think he may be taking 40 mg half a tablet daily, correct med list if that is the case, thank you. YARD DERRICK OPERATOR documented in this encounter Plan of Treatment Not on file documented as of this encounter Visit Diagnoses Not on filedocumented in this encounter Discontinued Medications Medication Sig Discontinue Reason Start Date End Da te rosuvastatin (CRESTOR) 40 mg tablet TAKE 1 TABLET (40 MG TOTAL) BY MOUTH DAILY. 01/24/2019 04/11/2019 documented as of this encounter Care Teams Charging Plug Placer Relationship Specialty Start Date End Date Danielle Rojas MD [address] [facility] [address] [place] [address] PCP - General 08/21/16 documented as of this encounter
--- OUTSIDE RECORDS SUMMARY | 2024-05-25 12:25 | XMS_ITS | Encounter Summary ---
Author Organization [facility] Medical [facility] Address [address] [facility] [address] [place] [address] Care Team Providers Care Obgyn Specialist Name Role Phone Danielle Rojas MD Primary Care Provider Encounter Details Date Type Department Care Team (Late st Contact Info) Description 10/25/2019 Telephone [facility] Cardiology [address] [place] [address] Eva Kwan Social History Tobacco Use Types Packs/Day Years Used Date Smoking Tobacco: Never Smokeless Tobacco: Never Alcohol Use Standard Drinks/Week Comments No 0 (1 standard drink = 0.6 oz pur e alcohol) Sex and Gender Information Value Date Recorded Sex Assigned at Not on file Legal Sex Male 9:22 AM DIVISION OPERATIONS MANAGER Gender Identity Not on file Sexual [...] on filedocumented in this encounter Care Teams Obgyn Specialist Relationship Specialty Start Date End Date Danielle Rojas MD [address] [place] [id number] PCP - General 08/21/16 documented as of this encounter
--- OUTSIDE RECORDS SUMMARY | 2024-05-25 12:25 | XMS_ITS | Encounter Summary ---
Author Organization [facility] Address [address] [facility] [address] [place] [address] Care Team Providers Care Senior Marketing Coordinator Name Role Phone Danielle Rojas MD Primary Care Provider Encounter Details Date Type Department Care Team (Late st Contact Info) Description 08/29/2020 Telephone [facility] Cardiology [address] [facility] [address], [place] [address] Yuki Delgadillo MD [address] [facility] [address] [address] Social History Tobacco Use Types Packs/Day Years Used Date Smoking Tobacco: Never Smokeless Tobacco: Never Alcohol Use Standard Drinks/Week Comments No 0 (1 standard drink = 0.6 oz pur e alcohol) Sex and Gender Information Value Date Recorded Sex Assigned at Not on file Legal Sex Male 9:22 AM ATTENDANCE SECRETARY Gender Identity Not on file Sexual Orientation Not on file documented as of this encounter Miscellaneous Notes * Telephone Encounter - Eva Aguiar RN - 08/29/2020 3:58 PM CDT Reminder message left to send remote pacemaker check. documented in this encounter Plan of Treatment Not on file documented as of this encounter Visit Diagnoses Not on filedocumented in this encounter Care Teams Senior Marketing Coordinator Relationship Specialty Start Date End Date Danielle Rojas MD [address] [facility] [address] [place] [address] PCP - General 08/21/16 documented as of this encounter
--- OUTSIDE RECORDS SUMMARY | 2024-05-25 12:25 | XMS_ITS | Encounter Summary ---
Author Organization [facility] Address [address] [facility] [address] [place] [address] Care Team Providers Care Computer Engineering Professor Name Role Phone Danielle Rojas MD Primary Care Provider Encounter Details Date Type Department Care Team (Late st Contact Info) Description 05/08/2020 Orders Only [facility] Cardiology [address] [facility] [address] [place] [address] ProviderZain MD [address] [place] [address] Social History Tobacco Use Types Packs/Day Years Used Date Smoking Tobacco: Never Smokeless Tobacco: Never Alcohol Use Standard Drinks/Week Comments No 0 (1 standard drink = 0.6 oz pur e alcohol) Sex and Gender Information Value Date Recorded Sex Assigned at Not on file Legal Sex Male 9:22 AM LEGAL SUPPORT ASSISTANT Gender Identity Not on file Sexual Orientation [...] on filedocumented in this encounter Care Teams Computer Engineering Professor Relationship Specialty Start Date End Date Danielle Rojas MD [address] [place] [address] PCP - General 08/21/16 documented as of this encounter
--- OUTSIDE RECORDS SUMMARY | 2024-05-25 12:25 | XMS_ITS | Encounter Summary ---
Author Organization [facility] Address [address] [facility] [address] [place] [address] Care Team Providers Care Assistant Technician Name Role Phone Danielle Rojas MD Primary Care Provider Reason for Visit * Reason Comments Follow-up chronic ischemic hea rt disease * Consultation (Routine) - Closed Specialty Diagnoses / Procedures Referred By Contac t Referred To Contact Cardiology Diagnoses Coronary atherosclerosis of [place] coronary artery Danielle Rojas MD [address] [facility] [address] [address] Phone: tel: fax: [facility] Medical [facility] Cardiology [address] [place] [address] [address] [place] [address] Phone: tel: fax: Referral ID Status Reason Start Date Expiration Date V isits Requested Visits Authorized [id number] Closed Specialty Services Required 04/12/2020 03/24/2021 4 4 Encounter Details Date Type Department Care Team (Latest Contact Info) Description 04/22/2020 9:45 AM DIRECTOR OF PEOPLE Office Visit [facility] Medical [facility] Cardiology [address] [facility] [address] [place] [address] Yuki Delgadillo MD [address] [facility] [address] [place] [id number] Coronary arteriosclerosis in [place] artery (Primary Dx); History of coronary artery bypass surgery; Chronic ischemic heart disease; Pacemaker; Complete atrioventricular block (CMS/HCC); Hyperlipidemia associated with type 2 diabetes mellitus ([facility]); Coronary atherosclerosis of [place] coronary artery Social History Tobacco Use Types Packs/Day Years Used Date Smoking Tobacco: Never Smokeless Tobacco: Never Alcohol Use Standard Drinks/Week Comments No 0 (1 standard drink = 0.6 oz pur e alcohol) Sex and Gender Information Value Date Recorded Sex Assigned at Not on file Legal Sex Male 9:22 AM DIRECTOR OF PEOPLE Gender Identity Not on file Sexual Orientation Not on file documented as of this encounter Last Filed Vital Signs Vital Sign Reading Time Taken Comments Blood Pressure 102/62 04/22/2020 10:14 AM DIRECTOR OF PEOPLE Pulse 61 04/22/2020 10:14 AM DIRECTOR OF PEOPLE Temperature - - Respiratory Rate - - Oxygen Saturation 95% 04/22/2020 10:14 AM DIRECTOR OF PEOPLE Inhaled Oxygen Concentration - - Weight 100.7 kg (222 lb) 04/22/2020 10:14 AM DIRECTOR OF PEOPLE Height 177.8 cm (5' 10 ) 04/22/2020 10:14 AM DIRECTOR OF PEOPLE Body Mass Index 31.85 04/22/2020 10:14 AM DIRECTOR OF PEOPLE documented in this encounter Patient Instructions * Patient Instructions* Yuki Delgadillo MD - 04/22/2020 9:45 AM DIRECTOR OF PEOPLE 04/10/2019 lipids: Total cholesterol 144, HDL 57, LDL 60, TG 135 03/2020 ipids: Total cholesterol 147, HDL 58, TG 95, LDL 70, glucose 215 CTOR OF PEOPLE CTOR OF PEOPLE documented in this encounter Progress Notes * [...] not related to pacemaker. 06/10/2017 ov with DIRECT MAIL MARKETER Jonatan Shona: Was hospitalized in April for pneumonia, now doing fine. Gets sporadic sharp shooting chest pain, not related to activity, lasts a couple of seconds, relieved with rubbing. 09/13/2017 OV w/ DIRECT MAIL MARKETER Jonatan.Shona: Feels well, he reports his rosuvastatin [...] rhythm-APVP. Underlying rhythm-SR with 1st Degree AVB, UT 240ms. AP-86%, LITIGATION EXAMINER-100%. No atrial or ventricular episodes recorded. AV delays extended to 300ms to allow intrinsic conduction Social: Retired 2015; wants to move back to [place]. Has 5 grandchildren, oldest has Downs,. MEDICAL [...] mL syringe, 1- 10 mL, intravenous,[facility] ALLERGIES No Known Allergies REVIEW OF [...] LDL-C. Milind PEMBERTON et al. PETER. 2013;310(19): 6569-9236 (http://education.iDreamBooks.R[employer]/faq/MJC385) 04/06/2017 102 (H) mg/dL (calc) Final Comment: Reference range: <100 Desirable range <100 mg/dL for patients with CHD or diabetes and <70 mg/dL for diabetic patients with known heart disease. LDL-C is now calculated using the Milind-Braxton calculation, which is a validated novel method providing better accuracy than the Friedewald equation in the estimation of LDL-C. Miilnd SS et al. PETER. 2013;310(19): 8320-5505 (http://education.XPlace/faq/HMU634) ] No results found for: LDLCALC Lab [...] orders for this visit: Coronary arteriosclerosis in [place] artery (Primary) History of coronary artery bypass surgery Chronic ischemic heart disease Pacemaker Complete atrioventricular block (CMS/HCC) Hyperlipidemia associated with type 2 diabetes mellitus (CMS/HCC) - POCT lipid panel Coronary atherosclerosis of [place] coronary artery - Ambulatory referral to Cardiology [...] Santos's office, as above. Yuki Delgadillo MD, [facility] Office: [phone] or [phone] This note is dictated and transcribed by with assistance from [employer] Software.?? Director Of Sports Medicine variances may occur. Despite proofreading, typographical errors may occur. CTOR OF PEOPLE documented in this encounter Plan of Treatment Not on file documented as of this encounter Procedures Procedure Name Priority Date/Time Associated Diagnosis Comments POCT LIPID PANEL Routine 04/22/2020 4:37 PM DIRECTOR OF PEOPLE Hyperlipidemia associated with type 2 diabetes mellitus (CMS/HCC) documented in this encounter Results * POCT lipid panel (04/22/2020 4:37 PM DIRECTOR OF PEOPLE) Cholesterol, POC 147 <200 mg/dL HDL, POC 58 >40 mg/dL Triglycerides, POC 95 <150 mg/dL LDL Cholesterol POC 70 <100 mg/dL Chol/HDL Ratio, POC 2.5 Non-HDL Cholesterol, POC 89 mg/dL Cholesterol Total, POC 147 mg/dL Capillary blood 04/22/2020 4 :37 PM DIRECTOR OF PEOPLE Yuki Delgadillo MD POINT OF CARE TEST ORDERABL ES Final Result documented in this encounter Visit Diagnoses Diagnosis Coronary arteriosclerosis in [place] artery- Primary History of coronary artery bypass surgery Postsurgical aortocoronary bypass status Chronic ischemic heart disease Unspecified chronic ischemic heart disease Pacemaker Cardiac pacemaker in situ Complete atrioventricular block (CMS/HCC) (HCC) Atrioventricular block, complete Hyperlipidemia associated with type 2 diabetes mellitus (HCC) Coronary atherosclerosis of [place] coronary artery documented in this encounter Discontinued [...] 04/24/2020 documented in this encounter Care Teams Assistant Technician Relationship Specialty Start Date End Date Danielle Rojas MD [address] [facility] [address] [place] [address] PCP - General 08/21/16 documented as of this encounter
--- OUTSIDE RECORDS SUMMARY | 2024-05-25 12:25 | XMS_ITS | Encounter Summary ---
Author Organization [facility] Address [address] [facility] [address] [place] [address] Care Team Providers Care Two Way Radio Installer Name Role Phone Danielle Rojas MD Primary Care Provider Reason for Visit * (Routine) - Closed Specialty Diagnoses / Procedures Referred By Contac t Referred To Contact Diagnoses CHB (complete heart block) (CMS/HCC) (HCC) Pacemaker Procedures DEVICE CHECK - REMOTE Yuki Delgadillo MD Phone: tel: fax: [facility] Referral ID Status Reason Start Date Expiration Date Visits Re quested Visits Authorized [id number] Closed 02/21/2020 03/22/2021 1 1 Encounter Details Date Type Department Care Team (Latest Contact Info) Description 12/04/2020 7:15 AM CDT Ancillary Procedure [facility] Cardiology [facility] [facility] [address] [place] [phone] CHB (complete heart block) (CMS/HCC) (HCC); Pacemaker Social History Tobacco Use Types Packs/Day Years Used Date Smoking Tobacco: Never Smokeless Tobacco: Never Alcohol Use Standard Drinks/Week Comments No 0 (1 standard drink = 0.6 oz pur e alcohol) Sex and Gender Information Value Date Recorded Sex Assigned at Not on file Legal Sex Male 9:22 AM CALL CENTER ANALYST Gender Identity Not on file Sexual [...] SHARMAINE. ? Stable lead measurements. Presenting rhythm-APVP. AP-79%,SENIOR C SOFTWARE DEVELOPER-96%. No Mode switch episodes noted. No Ventricular high rate episodes noted. Medications; Coreg, Crestor, Hydrochlorothiazide, ASA, Lisinopril. See scanned report. Office device f/u scheduled 03/12/2021. Yuki Delgadillo MD CV CARDIAC SERVICES PROCEDU RES Final Result documented in this encounter Visit Diagnoses Diagnosis CHB (complete heart block) (CMS/HCC) (HCC) Atrioventricular block, complete Pacemaker Cardiac pacemaker in situ documented in this encounter Care Teams Two Way Radio Installer Relationship Specialty Start Date End Date Danielle Rojas MD [address] [facility] [address] [place] [address] PCP - General 08/21/16 documented as of this encounter
--- OUTSIDE RECORDS SUMMARY | 2024-05-25 12:25 | XMS_ITS | Encounter Summary ---
Author Organization [facility] Address [address] [facility] [address] [place] [address] Care Team Providers Care Rn Plasma Center Name Role Phone Danielle Rojas MD Primary Care Provider Reason for Referral * Cardiology (Routine) - Closed Specialty Diagnoses / Procedures Referred By Contac t Referred To Contact Diagnoses CHB (complete heart block) (CMS/HCC) (HCC) Pacemaker Procedures DEVICE CHECK - REMOTE Yuki Delgadillo MD Phone: tel: fax: [facility] Medical [facility] Referral ID Status Reason Start Date Expiration Date Visits Re quested Visits Authorized [id number] Closed 03/12/2021 04/11/2022 1 1 * Cardiology (Routine) - Closed Specialty Diagnoses / Procedures Referred By Contac t Referred To Contact Diagnoses CHB (complete heart block) (CMS/HCC) (HCC) Pacemaker Procedures DEVICE CHECK - REMOTE Yuki Delgadillo MD Phone: tel: fax: [facility] Referral ID Status Reason Start Date Expiration Date Visits Re quested Visits Authorized [id number] Closed 03/12/2021 04/11/2022 1 1 * Cardiology (Routine) - Closed Specialty Diagnoses / Procedures Referred By Contac t Referred To Contact Diagnoses CHB (complete heart block) (CMS/HCC) (HCC) Pacemaker Procedures DEVICE CHECK - REMOTE Yuki Delgadillo MD Phone: tel: fax: [facility] Referral ID Status Reason Start Date Expiration Date Visits Re quested Visits Authorized [id number] Closed 03/12/2021 04/11/2022 1 1 Encounter Details Date Type Department Care Team (Late st Contact Info) Description 03/12/2021 Orders Only [facility] Cardiology [address] [facility] [address] [place] [phone] Yuki Delgadillo MD [address] [address] CHB (complete heart block) (CMS/HCC) (HCC) (Primary Dx); Pacemaker Social History Tobacco Use Types Packs/Day Years Used Date Smoking Tobacco: Never Smokeless Tobacco: Never Alcohol Use Standard Drinks/Week Comments No 0 (1 standard drink = 0.6 oz pur e alcohol) Sex and Gender Information Value Date Recorded Sex Assigned at Not on file Legal Sex Male 9:22 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 ? Stable lead measurements. Presenting rhythm-APVP. AP-96%,CASHIER OR CHECKER STOCK CLERK-100%. No Mode switch episodes noted. No Ventricular high rate episodes noted. Medications; Coreg, Crestor, ASA. See scanned report. Office pacemaker f/u scheduled 03/25/2022. Result [facility] Yuki Delgadillo MD CV CARDIAC SERVICES PROCEDU [...] ? Stable lead measurements. ?? Presenting rhythm-APVP. AP-90%,CASHIER OR CHECKER STOCK CLERK-100%. ?? No Mode switch episodes noted. No Ventricular high rate episodes noted. ?? Medications; Coreg, Crestor, ASA. See scanned report. ?? Carelink remote f/u scheduled 12/17/2021. Result [facility] Yuki Delgadillo MD CV CARDIAC SERVICES PROCEDU RES Final Result * DEVICE CHECK - REMOTE (06/11/2021 2:12 PM GIFTED PROGRAM TEACHER) Anatomical Region Laterality Modality Other Narrative 07/25/2021 5:48 PM GIFTED PROGRAM TEACHER Medtronic Dual Pacemaker. Dx; CHB. DOI 05/10/[address] Ventura. Carelink remote monitoring Q3 mo, office pacer checks Q1 yr. ?? Routine pacemaker remote. Normal device function. Appropriate battery function-2.95V, 2.0 years remaining battery life to SHARMAINE. ? Stable lead measurements. ?? Presenting rhythm-APVP. AP-85%,CASHIER OR CHECKER STOCK CLERK-100%. ?? No Mode switch episodes noted. No Ventricular high rate episodes noted. ?? Medications; Coreg, Crestor, Hydrochlorothiazide, ASA. See scanned report. ?? Office device f/u scheduled 09/10/2021. Result [facility] Yuki Delgadillo MD CV CARDIAC SERVICES PROCEDU [...] situ documented in this encounter Care Teams Rn Plasma Center Relationship Specialty Start Date End Date Danielle Rojas MD [address] [facility] [address] [place] [address] PCP - General 08/21/16 documented as of this encounter
--- OUTSIDE RECORDS SUMMARY | 2024-05-25 12:25 | XMS_ITS | Encounter Summary ---
Author Organization [facility] Medical Group Address [address] [facility] [address] [place] [address] Care Team Providers Care Parking Regulation Enforcement Officer Name Role Phone Danielle Rojas MD Primary Care Provider Reason for Visit * (Routine) - Closed Specialty Diagnoses / Procedures Referred By Contac t Referred To Contact Diagnoses CHB (complete heart block) (CMS/HCC) (HCC) Pacemaker Procedures DEVICE CHECK - IN OFFICE Yuki Delgadillo MD Phone: tel: fax: [facility] Referral ID Status Reason Start Date Expiration Date Visits Re quested Visits Authorized [id number] Closed 02/21/2020 03/22/2021 1 1 Encounter Details Date Type Department Care Team (Latest Contact Info) Description 03/12/2021 10:30 AM CDT Ancillary Procedure [facility] Medical [facility] Cardiology [address] [place] [address] CHB (complete heart block) (CMS/HCC) (HCC); Pacemaker Social History Tobacco Use Types Packs/Day Years Used Date Smoking Tobacco: Never Smokeless Tobacco: Never Alcohol Use Standard Drinks/Week Comments No 0 (1 standard drink = 0.6 oz pur e alcohol) Sex and Gender Information Value Date Recorded Sex Assigned at Not on file 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 Consider pacemaker dependent. AP-85%, VENDETTE-96.3%. No atrial or ventricular episodes recorded.? No programming changes made to device settings. See scanned report. Carelink remote f/u??06/11/2021.?? Office pacemaker f/u 03/25/2022. us Yuki Delgadillo MD CV CARDIAC SERVICES PROCEDU RES Final Result documented in this encounter Visit Diagnoses Diagnosis CHB (complete heart block) (CMS/HCC) (HCC) Atrioventricular block, complete Pacemaker Cardiac pacemaker in situ documented in this encounter Care Teams Parking Regulation Enforcement Officer Relationship Specialty Start Date End Date Danielle Rojas MD [address] [facility] [address] [place] [address] PCP - General 08/21/16 documented as of this encounter
--- OUTSIDE RECORDS SUMMARY | 2024-05-25 12:25 | XMS_ITS | Encounter Summary ---
Author Organization [facility] Address [address] [facility] [address] [place] [address] Care Team Providers Care Truck Driver Instructor Name Role Phone Danielle Rojas MD Primary Care Provider Encounter Details Date Type Department Care Team (Late st Contact Info) Description 11/01/2019 Telephone [facility] Cardiology [address] [place] [address] Yuki Delgadillo MD [address] [place] [address] Social History Tobacco Use Types Packs/Day Years Used Date Smoking Tobacco: Never Smokeless Tobacco: Never Alcohol Use Standard Drinks/Week Comments No 0 (1 standard drink = 0.6 oz pur e alcohol) Sex and Gender Information Value Date Recorded Sex Assigned at Not on file 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
--- OUTSIDE RECORDS SUMMARY | 2024-05-25 12:25 | XMS_ITS | Encounter Summary ---
Author Organization [facility] Address [address] [facility] [address] [place] [address] Care Team Providers Care Shower Enclosure Installer Name Role Phone Dainelle Rojas MD Primary Care Provider Reason for Visit * Reason Onset Date Comments Med Dose Change 08/21/2021 Encounter Details Date Type Department Care Team (Late st Contact Info) Description 08/21/2021 Telephone [facility] Cardiology [address] [facility] [address] [place] [address] Yuki Delgadillo MD [address] [facility] [address] [place] [address] Med Dose Change Social History Tobacco Use Types Packs/Day Years Used Date Smoking Tobacco: Never Smokeless Tobacco: Never Alcohol Use Standard Drinks/Week Comments No 0 (1 standard drink = 0.6 oz pur e alcohol) Sex and Gender Information Value Date Recorded Sex Assigned at Not on file 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
--- OUTSIDE RECORDS SUMMARY | 2024-05-25 12:25 | XMS_ITS | Encounter Summary ---
Author Organization [facility] Address [address] [facility] [address] [place] [address] Care Team Providers Care Sheet Cutter Name Role Phone Danilele Rojas MD Primary Care Provider Reason for Referral * (Routine) - Closed Specialty Diagnoses / Procedures Referred By Contac t Referred To Contact Diagnoses CHB (complete heart block) ([facility]/HCC) ([facility]) Procedures DEVICE CHECK - REMOTE Yuki Delgadillo MD Phone: tel: fax: [facility] Referral ID Status Reason Start Date Expiration Date Visits Re quested Visits Authorized [id number] Closed 12/30/2018 07/10/2020 1 1 * (Routine) - Closed Specialty Diagnoses / Procedures Referred By Contac t Referred To Contact Diagnoses CHB (complete heart block) ([facility]) ([facility]) Procedures DEVICE CHECK - REMOTE Yuki Delgadillo MD Phone: tel: fax: [facility] Referral ID Status Reason Start Date Expiration Date Visits Re quested Visits Authorized [id number] Closed 12/30/2018 07/10/2020 1 1 Encounter Details Date Type Department Care Team (Late st Contact Info) Description 12/30/2018 Orders Only [facility] [address] [place] [address] Yuki Delgadillo MD [address] [place] [address] CHB (complete heart block) (CMS/HCC) (Primary Dx) Social History Tobacco Use Types Packs/Day Years Used Date Smoking Tobacco: Never Smokeless Tobacco: Never Alcohol Use Standard Drinks/Week Comments No 0 (1 standard drink = 0.6 oz pur e alcohol) Sex and Gender Information Value Date Recorded Sex Assigned at Not on file 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 Stable lead measurements. Presenting rhythm-APVP. AP-84%, DEAF AND HARD OF HEARING TEACHER-100%. No Mode switch episodes noted. Ventricular high [...] situ documented in this encounter Care Teams Sheet Cutter Relationship Specialty Start Date End Date Danielle Rojas MD [address] [facility] [address] [place] [address] PCP - General 08/21/16 documented as of this encounter
--- OUTSIDE RECORDS SUMMARY | 2024-05-25 12:25 | XMS_ITS | Encounter Summary ---
Author Organization [facility] Medical [facility] Address [address] [facility] [address] [place] [address] Care Team Providers Care Colorectal Surgeon Name Role Phone Danielle Rojas MD Primary Care Provider Reason for Visit * (Routine) - Closed Specialty Diagnoses / Procedures Referred By Contac t Referred To Contact Diagnoses CHB (complete heart block) (CMS/HCC) (HCC) Procedures DEVICE CHECK - REMOTE Yuki Delgadillo MD Phone: tel: fax: [facility] Medical [facility] Referral ID Status Reason Start Date Expiration Date Visits Re quested Visits Authorized [id number] Closed 12/30/2018 07/10/2020 1 1 Encounter Details Date Type Department Care Team (Latest Contact Info) Description 11/09/2019 7:00 AM CDT Ancillary Procedure [facility] Medical [facility] Cardiology [address] [place] [address] [place] [phone] CHB (complete heart block) (CMS/HCC); Pacemaker Social History Tobacco Use Types Packs/Day Years Used Date Smoking Tobacco: Never Smokeless Tobacco: Never Alcohol Use Standard Drinks/Week Comments No 0 (1 standard drink = 0.6 oz pur e alcohol) Sex and Gender Information Value Date Recorded Sex Assigned at Not on file Legal Sex Male 9:22 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 Stable lead measurements. Presenting rhythm-APVP. AP-84%, JAVA TECHNICAL MANAGER-100%. No Mode switch episodes noted. Ventricular high [...] longevity. Stable lead measurements. Presenting rhythm-APVP. AP-84%, JAVA TECHNICAL MANAGER-100%. No Mode switch episodes noted. Ventricular high rate episodes noted. Medications; Coreg, Crestor, Hydrochlorothiazide, ASA, Lisinopril. See scanned report Office device f/u scheduled 02/21/2020. us Yuki Delgadillo MD CV CARDIAC SERVICES PROCEDU RES Final Result documented in this encounter Visit Diagnoses Diagnosis CHB (complete heart block) (CMS/HCC) (HCC) Atrioventricular block, complete Pacemaker Cardiac pacemaker in situ documented in this encounter Care Teams Colorectal Surgeon Relationship Specialty Start Date End Date Danielle Rojas MD [address] [place] [id number] PCP - General 08/21/16 documented as of this encounter
--- OUTSIDE RECORDS SUMMARY | 2024-05-25 12:25 | XMS_ITS | Encounter Summary ---
Author Organization [facility] Medical [facility] Address [address] [facility] [address] [place] [address] Care Team Providers Care Employee Relations Consultant Name Role Phone Danielle Rojas MD Primary Care Provider Reason for Referral * Diagnostic Imaging (Routine) - Closed Specialty Diagnoses / Procedures Referred By Contac t Referred To Contact Diagnoses Pain in left leg Procedures US Arterial Doppler Lower Extremity Bilateral Yuki Delgadillo MD Phone: tel: fax: [facility] Referral ID Status Reason Start Date Expiration Date Visits Re quested Visits Authorized [id number] Closed 04/10/2019 10/19/2020 1 1 R LOCOMOTIVE CRANE Reason for Visit * Reason Comments Follow-up CAD * (Routine) - Canceled Specialty Diagnoses / Procedures Referred By Contmarixa t Referred To Contact Diagnoses SSS (sick sinus syndrome) (CMS/HCC) (HCC) Procedures DEVICE CHECK - IN OFFICE oLrie Nagel NP Phone: tel: fax: Referral ID Status Reason Start Date Expiration Date V isits Requested Visits Authorized [id number] Canceled 01/10/2018 07/22/2019 1 1 Encounter Details Date Type Department Care Team (Latest Contact Info) Description 04/10/2019 10:15 AM FIRER LOCOMOTIVE CRANE Office Visit [facility] [address] [facility] [address] [place] [address] Yuki Delgadillo MD [address] [place] [phone] Coronary arteriosclerosis in choctaw artery (Primary Dx); History of coronary artery [...] on file Legal Sex Male 9:22 AM FIRER LOCOMOTIVE CRANE Gender Identity Not on file Sexual Orientation Not on file documented as of this encounter Last Filed Vital Signs Vital Sign Reading Time Taken Comments Blood Pressure 112/70 04/10/2019 10:11 AM FIRER LOCOMOTIVE CRANE Pulse 91 04/10/2019 10:11 AM FIRER LOCOMOTIVE CRANE Temperature - - Respiratory Rate - - Oxygen Saturation 93% 04/10/2019 10: 11 AM FIRER LOCOMOTIVE CRANE Inhaled Oxygen Concentration - - Weight 101.5 kg (223 lb 11.2 oz) 2018 10:11 AM FIRER LOCOMOTIVE CRANE Height 177.8 cm (5' 10 ) 04/10/2019 10: 11 AM FIRER LOCOMOTIVE CRANE Body Mass Index 32.1 04/10/2019 10:11 AM FIRER LOCOMOTIVE CRANE documented in this encounter Ordered Prescriptions Prescription [...] not related to pacemaker. 06/10/2017 ov with PROPULSION MACHINERY SERVICE ENGINEER Jonatan Shona: Was hospitalized in April for pneumonia, now doing fine. Gets sporadic sharp shooting chest pain, not related to activity, lasts a couple of seconds, relieved with rubbing. 09/13/2017 OV w/ PROPULSION MACHINERY SERVICE ENGINEER MadysonShona: Feels well, he reports his rosuvastatin [...] LDL-C. Milind SS et al. PETER. 2013;310(19): 9761-5994 (http://education.Envis.University Beyond/faq/PUJ639) 04/06/2017 102 (H) mg/dL (calc) Final Comment: Reference range: <100 Desirable range <100 mg/dL for patients with CHD or diabetes and <70 mg/dL for diabetic patients with known heart disease. LDL-C is now calculated using the Milind-Braxton calculation, which is a validated novel method providing better accuracy than the Friedewald equation in the estimation of LDL-C. Milind SS et al. PETER. 2013;310(78): 6199-2420 (http://[employer].Graffle/faq/VRM012) ] No results found for: LDLCALC Lab [...] orders for this visit: Coronary arteriosclerosis in choctaw artery (Primary) - POCT lipid panel History [...] year, sooner if needed. Yuki Delgadillo MD, [facility] Office: [phone] or [phone] This note is dictated and transcribed by with assistance from [employer] Software.?? Miner Pick variances may occur. Despite proofreading, typographical errors may occur. R LOCOMOTIVE CRANE documented in this encounter Plan of Treatment Scheduled Orders Name Type Priority Associated Diagnoses Orde r Schedule US Arterial Doppler Lower Extremity Bilateral Imaging Schedule Routine, Read Routine (OP Routine) Pain in left leg 1 Occurrences starting 04/10/2019 until 04/10/2020 documented as of this encounter Procedures Procedure Name Priority Date/Time Associated Diagnosis Comments POCT LIPID PANEL Routine 04/10/2019 11:3 6 AM FIRER LOCOMOTIVE CRANE Coronary arteriosclerosis in choctaw artery Chronic ischemic heart disease Multiple-type hyperlipidemia documented in this encounter Results * POCT lipid panel (04/10/2019 11:36 AM FIRER LOCOMOTIVE CRANE) Cholesterol, POC 144 mg/dL HDL, POC 57 mg/dL Triglycerides, POC 135 mg/dL LDL Cholesterol POC 60 mg/dL Chol/HDL Ratio, POC 2.5 Non-HDL Cholesterol, POC 87 mg/dL Cholesterol Total, POC 144 mg/dL Blood specimen (specimen) 04/10/2019 11:36 AM FIRER LOCOMOTIVE CRANE Yuki Delgadillo MD POINT OF CARE TEST ORDERABL ES Final Result documented in this encounter Visit Diagnoses Diagnosis Coronary arteriosclerosis in choctaw artery- Primary History of coronary artery bypass [...] 07/19/2023 added in this encounter Care Teams Employee Relations Consultant Relationship Specialty Start Date End Date Danielle Rojas MD [address] [facility] [address] [place] [address] PCP - General 08/21/16 documented as of this encounter
--- OUTSIDE RECORDS SUMMARY | 2024-05-25 12:25 | XMS_ITS | Encounter Summary ---
Author Organization [facility] Medical [facility] Address [address] [facility] [address] [place] [address] Care Team Providers Care Incident Engineer Name Role Phone Danielle Rojas MD Primary Care Provider Reason for Visit * Cardiology (Routine) - Closed Specialty Diagnoses / Procedures Referred By Contac t Referred To Contact Diagnoses CHB (complete heart block) (CMS/HCC) (HCC) Procedures DEVICE CHECK - IN OFFICE Yuki Delgadillo MD Phone: tel: fax: [facility] Referral ID Status Reason Start Date Expiration Date Visits Re quested Visits Authorized [id number] Closed 07/01/2018 01/10/2020 1 1 Encounter Details Date Type Department Care Team (Latest Contact Info) Description 02/21/2020 10:30 AM CDT Ancillary Procedure [facility] Medical [facility] Cardiology [address] [facility] [address] [place] [phone] CHB (complete heart block) (CMS/HCC); Pacemaker Social History Tobacco Use Types Packs/Day Years Used Date Smoking Tobacco: Never Smokeless Tobacco: Never Alcohol Use Standard Drinks/Week Comments No 0 (1 standard drink = 0.6 oz pur e alcohol) Sex and Gender Information Value Date Recorded Sex Assigned at Not on file Legal Sex Male 9:22 AM 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 Dx; CHB. DOI 05/10/[address] Ventura. Carelink remote monitoring. Office pacemaker evaluation demonstrated normal device function. Battery function-2.98V, 3.5 years estimated remaining longevity. Presenting rhythm-APVP. Underlying rhythm-SR with 1st Degree AVB, IN 240ms. AP-86%, COMMUNITY ORGANIZATION WORKER-100%. No atrial or ventricular episodes recorded. AV [...] rhythm-APVP. Underlying rhythm-SR with 1st Degree AVB, IN 240ms. AP-86%, COMMUNITY ORGANIZATION WORKER-100%. No atrial or ventricular episodes recorded. ?? AV delays extended to 300ms to allow intrinsic conduction. See scanned report. Carelink remote f/u 05/29/2020. ?? us Yuki Delgadillo MD CV CARDIAC SERVICES PROCEDU RES Final Result documented in this encounter Visit Diagnoses Diagnosis CHB (complete heart block) (CMS/HCC) (HCC) Atrioventricular block, complete Pacemaker Cardiac pacemaker in situ documented in this encounter Care Teams Incident Engineer Relationship Specialty Start Date End Date Danielle Rojas MD [address] [facility] [address] [place] [address] PCP - General 08/21/16 documented as of this encounter
--- OUTSIDE RECORDS SUMMARY | 2024-05-25 12:25 | XMS_ITS | Encounter Summary ---
Author Organization [facility] Facility Care Team Providers Care Oil Burner Journeyman Name Role Phone Danielle Rojas MD Primary [...] file Legal Sex Male 9:22 AM PUBLIC WELFARE WORKER Gender Identity Not on file Sexual Orientation Not on file documented as of this encounter Plan of Treatment Not on file documented as of this encounter Visit Diagnoses Not on filedocumented in this encounter Care Teams Oil Burner Journeyman Relationship Specialty Start Date End Date Danielle Rojas MD [address] [facility] [address] [place] [address] PCP - General 08/21/16 documented as of this encounter
--- OUTSIDE RECORDS SUMMARY | 2024-05-25 12:25 | XMS_ITS | Encounter Summary ---
Author Organization [facility] Address [address] [facility] [address] [place] [address] Care Team Providers Care Cell Cleaner Name Role Phone Danielle Rojas MD Primary Care Provider Reason for Referral * (Routine) - Closed Specialty Diagnoses / Procedures [facility] Referred To Contact Diagnoses CHB (complete heart block) (CMS/HCC) (HCC) Pacemaker Procedures DEVICE CHECK - REMOTE Yuki Delgadillo MD Phone: tel: fax: [facility] Medical [facility] Referral ID Status Reason Start Date Expiration Date Visits Re quested Visits Authorized [id number] Closed 02/21/2020 03/22/2021 1 1 * (Routine) - Closed Specialty Diagnoses / Procedures [facility]erred By [facility] Referred To Contact Diagnoses CHB (complete heart block) (CMS/HCC) (HCC) Pacemaker Procedures DEVICE CHECK - REMOTE Yuki Delgadillo MD Phone: tel: fax: [facility] Referral ID Status Reason Start Date Expiration Date Visits Re quested Visits Authorized [id number] Closed 02/21/2020 03/22/2021 1 1 * (Routine) - Closed Specialty Diagnoses / Procedures Referred By Contac t Referred To Contact Diagnoses CHB (complete heart block) (CMS/HCC) (HCC) Pacemaker Procedures DEVICE CHECK - REMOTE Yuki Delgadillo MD Phone: tel: fax: [facility] Referral ID Status Reason Start Date Expiration Date Visits Re quested Visits Authorized [id number] Closed 02/21/2020 03/22/2021 1 1 * (Routine) - Closed Specialty Diagnoses / Procedures Referred By Contac t Referred To Contact Diagnoses CHB (complete heart block) (CMS/HCC) (HCC) Pacemaker Procedures DEVICE CHECK - IN OFFICE Yuki Delgadillo MD Phone: tel: fax: [facility] Referral ID Status Reason Start Date Expiration Date Visits Re quested Visits Authorized [id number] Closed 02/21/2020 03/22/2021 1 1 Encounter Details Date Type Department Care Team (Late st Contact Info) Description 02/21/2020 Orders Only [facility] Cardiology [address] [place] [address] [place] [phone] Yuki Delgadillo MD [address] [place] [id number] CHB (complete heart block) (CMS/HCC) (Primary Dx); Pacemaker Social History Tobacco Use Types Packs/Day Years Used Date Smoking Tobacco: Never Smokeless Tobacco: Never Alcohol Use Standard Drinks/Week Comments No 0 (1 standard drink = 0.6 oz pur e alcohol) Sex and Gender Information Value Date Recorded Sex Assigned at Not on file Legal Sex Male 9:22 AM PUMPER GAGER Gender Identity Not on file Sexual Orientation [...] VVI 30 bpm. Consider pacemaker dependent. AP-85%, HAND VIOLIN MAKER-96.3%. No atrial or ventricular episodes recorded.? No [...] SHARMAINE. ? Stable lead measurements. Presenting rhythm-APVP. AP-79%,HAND VIOLIN MAKER-96%. No Mode switch episodes noted. No Ventricular [...] estimated longevity. Stable lead measurements. Presenting rhythm-APVP. AP-87%,HAND VIOLIN MAKER-97%. No Mode switch episodes noted. No Ventricular high rate episodes noted. Medications; Coreg, Crestor, Hydrochlorothiazide, ASA, Lisinopril. See scanned report. Carelink remote f/u 12/04/2020. Office device f/u scheduled 03/12/2021. Yuki Delgadillo MD [facility] PROCEDU RES Final Result * DEVICE CHECK - REMOTE (05/29/2020 9:29 AM PUMPER GAGER) Anatomical Region Laterality Modality Other Narrative 07/12/2020 9:55 AM PUMPER GAGER Medtronic Dual Pacemaker. Dx; CHB. DOI 05/10/[address] Ventura. Carelink remote monitoring Q3 mo, office pacer checks Q1 yr. ?? Routine pacemaker remote. Normal device function. Appropriate battery function-2.98V, 3.5 years estimated longevity. Stable lead measurements. Presenting rhythm-APVP. AP-HAND VIOLIN MAKER-100%. No Mode switch episodes noted. No [...] situ documented in this encounter Care Teams Cell Cleaner Relationship Specialty Start Date End Date Danielle Rojas MD [address] [facility] [address] [place] [address] PCP - General 08/21/16 documented as of this encounter
--- OUTSIDE RECORDS SUMMARY | 2024-05-25 12:25 | XMS_ITS | Encounter Summary ---
Author Organization [facility] Address [address] [facility] [address] [place] [address] Care Team Providers Care Industrial Ecology Technician Name Role Phone Danielle Rojas MD Primary Care Provider Reason for Visit * Cardiology (Routine) - Closed Specialty Diagnoses / Procedures Referred By Contac t Referred To Contact Diagnoses CHB (complete heart block) (CMS/HCC) (HCC) Procedures DEVICE CHECK - IN OFFICE Yuki Delgadillo MD Phone: tel: fax: [facility] Referral ID Status Reason Start Date Expiration Date Visits Re quested Visits Authorized [id number] Closed 07/01/2018 01/10/2020 1 1 Encounter Details Date Type Department Care Team (Latest Contact Info) Description 10/05/2018 11:00 AM CDT Ancillary Procedure [facility] Medical [facility] Cardiology [address] [facility] [address] [place] [address] CHB (complete heart block) (CMS/HCC); Presence of cardiac pacemaker Social History Tobacco Use Types Packs/Day Years Used Date Smoking Tobacco: Never Smokeless Tobacco: Never Alcohol Use Standard Drinks/Week Comments No 0 (1 standard drink = 0.6 oz pur e alcohol) Sex and Gender Information Value Date Recorded Sex Assigned at Not on file Legal Sex Male 9:22 AM BOSS DYER Gender Identity Not on file Sexual Orientation [...] ventricular escape @ VVI 30 bpm. AP-86%, GRADUATE NURSE-100%. No atrial or ventricular episodes recorded. No [...] situ documented in this encounter Care Teams Industrial Ecology Technician Relationship Specialty Start Date End Date Danielle Rojas MD [address] [place] [id number] PCP - General 08/21/16 documented as of this encounter
--- OUTSIDE RECORDS SUMMARY | 2024-05-25 12:25 | XMS_ITS | Encounter Summary ---
Author Organization [facility] Address [address] [facility] [address] [place] [address] Care Team Providers Care Guidance Adviser Name Role Phone Danielle Rojas MD Primary Care Provider Reason for Visit * Reason Onset Date Comments Lower extremity Doppler results 07/14/2019 Encounter Details Date Type Department Care Team (Late st Contact Info) Description 07/14/2019 Telephone [facility] Cardiology [address] [facility] [address] [place] [address] Yuki Delgadillo MD [address] [place] [address] Lower extremity Doppler results Social History Tobacco Use Types Packs/Day Years Used Date Smoking Tobacco: Never Smokeless Tobacco: Never Alcohol Use Standard Drinks/Week Comments No 0 (1 standard drink = 0.6 oz pur e alcohol) Sex and Gender Information Value Date Recorded Sex Assigned at Not on file Legal Sex Male 9:22 AM DERMATOLOGY TEACHER Gender Identity Not on file Sexual Orientation Not on file documented as of this encounter Miscellaneous Notes * Telephone Encounter - Chiquita Shukla RN - 07/17/2019 9:08 AM DERMATOLOGY TEACHER Spoke with patient and discussed doppler results. ATOLOGY TEACHER * Telephone Encounter - Marian Martel - 07/17/2019 8:52 AM CST Pt requesting a return call to discuss Doppler results. [phone] ATOLOGY TEACHER * Telephone Encounter - Ebony Long - 07/14/2019 5:28 PM CST Left message for patient to return call Wednesday ATOLOGY TEACHER * Telephone Encounter - Yuki Delgadillo MD - 07/14/2019 5:19 PM DERMATOLOGY TEACHER Patient with leg pain, please tell him the ultrasound showed good circulation to his feet so that is not the problem. Follow-up with Dr. Santos for his leg pain. ATOLOGY TEACHER documented in this encounter Plan of Treatment Not on file documented as of this encounter Visit Diagnoses Not on filedocumented in this encounter Care Teams Guidance Adviser Relationship Specialty Start Date End Date Danielle Rojas MD [address] [place] [address] PCP - General 08/21/16 documented as of this encounter
--- OUTSIDE RECORDS SUMMARY | 2024-05-25 12:25 | XMS_ITS | Encounter Summary ---
Author Organization [facility] Address [address] [facility] [address] [place] [address] Care Team Providers Care Compressed Air Pile Driver Operator Name Role Phone Danielle Rojas MD Primary Care Provider Reason for Visit * Cardiology (Routine) - Closed Specialty Diagnoses / Procedures Referred By Contac t Referred To Contact Diagnoses CHB (complete heart block) (CMS/HCC) (HCC) Pacemaker Procedures DEVICE CHECK - REMOTE Yuki Delgadillo MD Phone: tel: fax: [facility] Referral ID Status Reason Start Date Expiration Date Visits Re quested Visits Authorized [id number] Closed 03/12/2021 04/11/2022 1 1 Encounter Details Date Type Department Care Team (Latest Contact Info) Description 06/11/2021 8:30 AM SUBPOENA SERVER Ancillary Procedure [facility] Medical [facility] Cardiology [facility] [facility] [address] [place] [phone] CHB (complete heart block) (CMS/HCC) (HCC); Pacemaker Social History Tobacco Use Types Packs/Day Years Used Date Smoking Tobacco: Never Smokeless Tobacco: Never Alcohol Use Standard Drinks/Week Comments No 0 (1 standard drink = 0.6 oz pur e alcohol) Sex and Gender Information Value Date Recorded Sex Assigned at Not on file Legal Sex Male 9:22 AM SUBPOENA SERVER Gender Identity Not on file Sexual Orientation Not on file documented as of this encounter Plan of Treatment Not on file documented as of this encounter Procedures Procedure Name Priority Date/Time Associated Diagnosis Comments DEVICE CHECK - REMOTE Routine 06/11/2021 2:12 PM SUBPOENA SERVER CHB (complete heart block) (CMS/HCC) (HCC) Pacemaker documented in this encounter Results * DEVICE CHECK - REMOTE (06/11/2021 2:12 PM SUBPOENA SERVER) Anatomical Region Laterality Modality Other Narrative 07/25/2021 5:48 PM SUBPOENA SERVER Medtronic Dual Pacemaker. Dx; CHB. DOI 05/10/[address] Ventura. Carelink remote monitoring Q3 mo, office pacer checks Q1 yr. ?? Routine pacemaker remote. Normal device function. Appropriate battery function-2.95V, 2.0 years remaining battery life to SHARMAINE. ? Stable lead measurements. ?? Presenting rhythm-APVP. AP-85%,ELECTRIC SEALING MACHINE OPERATOR-100%. ?? No Mode switch episodes noted. No [...] situ documented in this encounter Care Teams Compressed Air Pile Driver Operator Relationship Specialty Start Date End Date Danielle Rojas MD [address] [facility] [address] [place] [address] PCP - General 08/21/16 documented as of this encounter
--- OUTSIDE RECORDS SUMMARY | 2024-05-25 12:25 | XMS_ITS | Encounter Summary ---
Author Organization [facility] Medical [facility] Address [address] [facility] [address] [place] [address] Care Team Providers Care Field Crop Farmworker Name Role Phone Danielle Rojas MD Primary Care Provider Reason for Visit * (Routine) - Closed Specialty Diagnoses / Procedures Referred By Contac t Referred To Contact Diagnoses CHB (complete heart block) (CMS/HCC) (HCC) Pacemaker Procedures DEVICE CHECK - REMOTE Yuki Delgadillo MD Phone: tel: fax: [facility] Medical [facility] Referral ID Status Reason Start Date Expiration Date Visits Re quested Visits Authorized [id number] Closed 02/21/2020 03/22/2021 1 1 Encounter Details Date Type Department Care Team (Latest Contact Info) Description 05/29/2020 8:30 AM SHIPPER/RECEIVER Ancillary Procedure [facility] Medical [facility] Cardiology [facility] [facility] [address] [place] [phone] CHB (complete heart block) (CMS/HCC); Pacemaker Social History Tobacco Use Types Packs/Day Years Used Date Smoking Tobacco: Never Smokeless Tobacco: Never Alcohol Use Standard Drinks/Week Comments No 0 (1 standard drink = 0.6 oz pur e alcohol) Sex and Gender Information Value Date Recorded Sex Assigned at Not on file Legal Sex Male 9:22 AM SHIPPER/RECEIVER Gender Identity Not on file Sexual Orientation [...] estimated longevity. Stable lead measurements. Presenting rhythm-APVP. AP-TROLLEY COLLECTOR-100%. No Mode switch episodes noted. No Ventricular high rate episodes noted. Medications; Coreg, Crestor, Hydrochlorothiazide, ASA, Lisinopril. See scanned report. Carelink remote f/u 08/28/2020. Office device f/u scheduled 03/12/2021. PER/RECEIVER documented in this encounter Plan of Treatment Not on file documented as of this encounter Procedures Procedure Name Priority Date/Time Associated Diagnosis Comments DEVICE CHECK - REMOTE Routine 05/29/2020 9:29 AM SHIPPER/RECEIVER CHB (complete heart block) (CMS/HCC) Pacemaker documented in this encounter Results * DEVICE CHECK - REMOTE (05/29/2020 9:29 AM SHIPPER/RECEIVER) Anatomical Region Laterality Modality Other Narrative 07/12/2020 9:55 AM SHIPPER/RECEIVER Medtronic Dual Pacemaker. Dx; CHB. DOI 05/10/[address] Ventura. Carelink remote monitoring Q3 mo, office pacer checks Q1 yr. ?? Routine pacemaker remote. Normal device function. Appropriate battery function-2.98V, 3.5 years estimated longevity. Stable lead measurements. Presenting rhythm-APVP. AP-TROLLEY COLLECTOR-100%. No Mode switch episodes noted. No Ventricular [...] situ documented in this encounter Care Teams Field Crop Farmworker Relationship Specialty Start Date End Date Danielle Rojas MD [address] [facility] [address] [place] [address] PCP - General 08/21/16 documented as of this encounter
--- OUTSIDE RECORDS SUMMARY | 2024-05-25 12:25 | XMS_ITS | Encounter Summary ---
Author Organization [facility] Address [address] [facility] [address] [place] [address] Care Team Providers Care Band Director Name Role Phone Danielle Rojas MD Primary Care Provider Encounter Details Date Type Department Care Team (Late st Contact Info) Description 07/13/[address] [facility] Cardiology [address] [place] [phone] Yuki Delgadillo MD [address] [place] [address] Pain in left leg Social History Tobacco Use Types Packs/Day Years Used Date Smoking Tobacco: Never Smokeless Tobacco: Never Alcohol Use Standard Drinks/Week Comments No 0 (1 standard drink = 0.6 oz pur e alcohol) Sex and Gender Information Value Date Recorded Sex Assigned at Not on file Legal Sex Male 9:22 AM FLOORING SALES MANAGER Gender Identity Not on file Sexual [...] 07/13/2019 documented in this encounter Care Teams Band Director Relationship Specialty Start Date End Date Danielle Rojas MD [address] [place] [address] PCP - General 08/21/16 documented as of this encounter
--- OUTSIDE RECORDS SUMMARY | 2024-05-25 12:25 | XMS_ITS | Encounter Summary ---
Author Organization [facility] Address [address] [facility] [address] [place] [address] Care Team Providers Care Traffic Control Supervisor Name Role Phone Danielle Rojas MD Primary Care Provider Reason for Visit * Cardiology (Routine) - Closed Specialty Diagnoses / Procedures Referred By Contac t Referred To Contact Cardiology Diagnoses Sick sinus syndrome Atrioventricular block, complete Danielle Rojas MD Phone: tel: fax: [facility] [address] [place] [address] [place] [phone] Phone: tel: fax: Referral ID Status Reason Start Date Expiration Date Visits Re quested Visits Authorized [id number] Closed 03/24/2018 03/25/2019 12 12 Encounter Details Date Type Department Care Team (Latest Contact Info) Description 01/04/2019 8:00 AM CDT Ancillary Procedure [facility] Cardiology [address] [facility] [address] [place] [phone] CHB (complete heart block) (CMS/HCC); Presence of cardiac pacemaker Social History Tobacco Use Types Packs/Day Years Used Date Smoking Tobacco: Never Smokeless Tobacco: Never Alcohol Use Standard Drinks/Week Comments No 0 (1 standard drink = 0.6 oz pur e alcohol) Sex and Gender Information Value Date Recorded Sex Assigned at Not on file Legal Sex Male 9:22 AM CORRECTIONAL SERGEANT Gender Identity Not on file Sexual Orientation [...] situ documented in this encounter Care Teams Traffic Control Supervisor Relationship Specialty Start Date End Date Danielle Rojas MD [address] [place] [address] PCP - General 08/21/16 documented as of this encounter
--- OUTSIDE RECORDS SUMMARY | 2024-05-25 12:25 | XMS_ITS | Encounter Summary ---
Author Organization [facility] Address [address] [facility] [address] [place] [address] Care Team Providers Care Manufactured Buildings Supervisor Name Role Phone Danielle Rojas MD Primary Care Provider Reason for Visit * (Routine) - Closed Specialty Diagnoses / Procedures Referred By Contac t Referred To Contact Diagnoses CHB (complete heart block) (CMS/HCC) (HCC) Pacemaker Procedures DEVICE CHECK - REMOTE Yuki Degladillo MD Phone: tel: fax: [facility] Medical [facility] Referral ID Status Reason Start Date Expiration Date Visits Re quested Visits Authorized [id number] Closed 02/21/2020 03/22/2021 1 1 Encounter Details Date Type Department Care Team (Latest Contact Info) Description 08/29/2020 1:00 PM CDT Ancillary Procedure [facility] Cardiology [address] [place] [address] [place] [phone] CHB (complete heart block) (CMS/HCC); Pacemaker Social History Tobacco Use Types Packs/Day Years Used Date Smoking Tobacco: Never Smokeless Tobacco: Never Alcohol Use Standard Drinks/Week Comments No 0 (1 standard drink = 0.6 oz pur e alcohol) Sex and Gender Information Value Date Recorded Sex Assigned at Not on file Legal Sex Male 9:22 AM PAN DEVULCANIZER Gender Identity Not on file Sexual Orientation [...] estimated longevity. Stable lead measurements. Presenting rhythm-APVP. AP-87%,SUPERINTENDENT CUSTODIAN JANITOR-97%. No Mode switch episodes noted. No Ventricular [...] estimated longevity. Stable lead measurements. Presenting rhythm-APVP. AP-87%,SUPERINTENDENT CUSTODIAN JANITOR-97%. No Mode switch episodes noted. No Ventricular [...] situ documented in this encounter Care Teams Manufactured Buildings Supervisor Relationship Specialty Start Date End Date Danielle Rojas MD [address] [facility] [address] [place] [id number] PCP - General 08/21/16 documented as of this encounter
--- OUTSIDE RECORDS SUMMARY | 2024-05-25 12:25 | XMS_ITS | Encounter Summary ---
Author Organization [facility] Address [address] [facility] [address] [place] [address] Care Team Providers Care Skidder Name Role Phone Danielle Rojas MD Primary Care Provider Reason for Visit * Cardiology (Routine) - Closed Specialty Diagnoses / Procedures Referred By Contac t Referred To Contact Cardiology Diagnoses Sick sinus syndrome Atrioventricular block, complete Danielle Rojas MD Phone: tel: fax: [facility] [address] [place] [address] [place] [phone] Phone: tel: fax: Referral ID Status Reason Start Date Expiration Date Visits Re quested Visits Authorized [id number] Closed 03/24/2018 03/25/2019 12 12 Encounter Details Date Type Department Care Team (Latest Contact Info) Description 06/15/2018 9:00 AM PROJECT MANAGER INDUSTRIAL Ancillary Procedure [facility] Cardiology [address] [facility] [address] [place] [phone] CHB (complete heart block) (CMS/HCC); Presence of cardiac pacemaker Social History Tobacco Use Types Packs/Day Years Used Date Smoking Tobacco: Never Smokeless Tobacco: Never Alcohol Use Standard Drinks/Week Comments No 0 (1 standard drink = 0.6 oz pur e alcohol) Sex and Gender Information Value Date Recorded Sex Assigned at Not on file Legal Sex Male 9:22 AM PROJECT MANAGER INDUSTRIAL Gender Identity Not on file Sexual Orientation Not on file documented as of this encounter Plan of Treatment Pending Results Name Type Priority Associated Diagnoses Date /Time DEVICE CHECK - REMOTE Cardiac Services Routine CHB (complete heart block) (CMS/HCC) 06/17/2018 3:40 PM PROJECT MANAGER INDUSTRIAL documented as of this encounter Visit Diagnoses Diagnosis CHB (complete heart block) (CMS/HCC) (HCC) Atrioventricular block, complete Presence of cardiac pacemaker Cardiac pacemaker in situ documented in this encounter Care Teams Skidder Relationship Specialty Start Date End Date Danielle Rojas MD [address] [facility] [address] [place] [id number] PCP - General 08/21/16 documented as of this encounter
--- OUTSIDE RECORDS SUMMARY | 2024-05-25 12:25 | XMS_ITS | Encounter Summary ---
Author Organization [facility] Address [address] [facility] [address] [place] [address] Care Team Providers Care Director Investment Banking Name Role Phone Danielle Rojas MD Primary Care Provider Encounter Details Date Type Department Care Team (Late st Contact Info) Description 03/30/2018 Telephone [facility] [address] [facility] [address] [phone] MartellYuki pierre MD [address] [address] Social History Tobacco Use Types Packs/Day Years Used Date Smoking Tobacco: Never Smokeless Tobacco: Never Alcohol Use Standard Drinks/Week Comments No 0 (1 standard drink = 0.6 oz pur e alcohol) Sex and Gender Information Value Date Recorded Sex Assigned at Not on file Legal Sex Male 9:22 AM HTML DEVELOPER Gender Identity Not on file Sexual Orientation Not on file documented as of this encounter Miscellaneous Notes * Telephone Encounter - Alondra Luke RN - 03/30/2018 12:45 PM HTML DEVELOPER Spoke to , pt had pacemaker implanted In April 2015 for complete heart block. DEVELOPER * Telephone Encounter - Ebony Pereira RN - 03/30/2018 12:19 PM HTML DEVELOPER Received the below message from the patient via email in Epic My Chart. Will forward to [place] staff for assistance. ----- Message from Dayron Howell sent at 03/30/2018 11:34 AM HTML DEVELOPER ----- Regarding: Non-Urgent Medical Question Contact: I need to know diagnosis of ER visit when pacemaker was inserted. Thanks for info you can call [phone] or email [email or web address] DEVELOPER documented in this encounter Plan of Treatment Not on file documented as of this encounter Visit Diagnoses Not on filedocumented in this encounter Care Teams Director Investment Banking Relationship Specialty Start Date End Date Danielle Rojas MD [address] [facility] 120 [place] [address] PCP - General 08/21/16 documented as of this encounter
--- OUTSIDE RECORDS SUMMARY | 2024-05-25 12:26 | XMS_ITS | Encounter Summary ---
Author Organization [facility] Address [address] [place] [address] Care Team Providers Care Disability Attorney Name Role Phone Danielle Rojas MD Primary Care Provider Reason for Visit * Reason Comments Follow-up No problems * Cardiology (Routine) - Closed Specialty Diagnoses / Procedures Referred By Contac t Referred To Contact Cardiology Diagnoses Sick sinus syndrome Danielle Roajs MD Phone: tel: fax: [facility] [address] [place] [address] [address] Phone: tel: fax: Referral ID Status Reason Start Date Expiration Date Visits Re quested Visits Authorized [id number] Closed 09/09/2017 11/21/2018 11 11 Encounter Details Date Type Department Care Team (Latest Contact Info) Description 03/28/2018 10:15 AM LOADING MACHINE OPERATOR Office Visit [facility] [address] [place] [address] [address] Yuki Delgadillo MD [address] [place] [address] [address] [place] [address] Coronary arteriosclerosis in [place] artery (Primary Dx); History of coronary artery [...] on file Legal Sex Male 9:22 AM LOADING MACHINE OPERATOR Gender Identity Not on file Sexual Orientation Not on file documented as of this encounter Last Filed Vital Signs Vital Sign Reading Time Taken Comments Blood Pressure 120/70 03/28/2018 10:21 AM LOADING MACHINE OPERATOR Pulse 87 03/28/2018 10:21 AM LOADING MACHINE OPERATOR Temperature - - Respiratory Rate - - Oxygen Saturation 93% 03/28/2018 10:21 AM LOADING MACHINE OPERATOR Inhaled Oxygen Concentration - - Weight 98 kg (216 lb) 03/28/2018 10:21 AM LOADING MACHINE OPERATOR Height 177.8 cm (5' 10 ) 03/28/2018 10:21 AM LOADING MACHINE OPERATOR Body Mass Index 30.99 03/28/2018 10:21 AM LOADING MACHINE OPERATOR documented in this encounter Progress Notes [...] says A1c is good. 06/10/2017 ov with LEAD JAVA J2EE DEVELOPER C Shona: Was hospitalized in April for [...] seconds, relieved with rubbing. 09/13/2017 OV w/ LEAD JAVA J2EE DEVELOPER C.Shona: Feels well, he reports his rosuvastatin [...] Retired 2015; wants to move back to [place]. Has 5 grandchildren, oldest is 16 and [...] LDL-C. Milind SS et al. PETER. 2013;310(19): 6155-0389 (http://education.Oxonica.CurrencyBird/faq/XMT251) 04/06/2017 102 (H) mg/dL (calc) Final Comment: Reference range: <100 Desirable range <100 mg/dL for patients with CHD or diabetes and <70 mg/dL for diabetic patients with known heart disease. LDL-C is now calculated using the Milind-Braxton calculation, which is a validated novel method providing better accuracy than the Friedewald equation in the estimation of LDL-C. Milind SS et al. PETER. 2013;310(19): 7385-5857 (http://education.Oxonica.CurrencyBird/faq/BPI343) ] No results found for: LDLCALC Lab Results Component Value Date TRIG 117 06/10/2017 TRIG 124 04/06/2017 TRIG 66 08/09/2015 Lab Results Component Value Date CHOLHDL 2.5 06/10/2017 CHOLHDL 3.4 04/06/2017 CHOLHDL 2.4 08/09/2015 No results found for: INR, PROTIME ASSESSMENT Diagnoses and all orders for this visit: Coronary arteriosclerosis in [place] artery (Primary) History of coronary artery bypass [...] year, sooner if needed. Yuki Delgadillo MD, [facility] Office: [phone] or [phone] This note is dictated and transcribed by with assistance from SleepOut Direct Software.?? Beef Cattle Specialist variances may occur. Despite proofreading, typographical errors may occur. ING MACHINE OPERATOR documented in this encounter Plan of Treatment Not on file documented as of this encounter Visit Diagnoses Diagnosis Coronary arteriosclerosis in [place] artery- Primary History of coronary artery bypass [...] 07/30/2021 added in this encounter Care Teams Disability Attorney Relationship Specialty Start Date End Date Danielle Rojas MD [address] [facility] [address] [place] [address] PCP - General 08/21/16 documented as of this encounter
--- OUTSIDE RECORDS SUMMARY | 2024-05-25 12:26 | XMS_ITS | Encounter Summary ---
Author Organization [facility] Medical [facility] Address [address] [place] [address] Care Team Providers Care Barrel Straightener Name Role Phone Dixie Oropeza MD Primary Care Provider Reason for Visit * Cardiology (Routine) - Closed Specialty Diagnoses / Procedures Referred By Contac t Referred To Contact Cardiology Imaging Diagnoses Coronary arteriosclerosis in [place] artery Procedures Transthoracic Echo Complete W Doppler/CF Cathryn Burns MD Phone: tel: fax: [facility] Medical [facility] Cardiology [address] [place] [address] Phone: tel: fax: Referral ID Status Reason Start Date Expiration Date Visits Re quested Visits Authorized [id number] Closed 04/05/2017 10/02/2017 1 1 Encounter Details Date Type Department Care Team (Latest Contact Info) Description 04/13/2017 10:15 AM BMET Ancillary Procedure [facility] Medical [facility] Cardiology [address] [place] [address] Coronary arteriosclerosis in apache artery Social History Tobacco Use Types Packs/Day Years Used Date Smoking Tobacco: Never Smokeless Tobacco: Never Alcohol Use Standard Drinks/Week Comments No 0 (1 standard drink = 0.6 oz pur e alcohol) Sex and Gender Information Value Date Recorded Sex Assigned at Not on file Legal Sex Male 9:22 AM BMET Gender Identity Not on file Sexual Orientation Not on file documented as of this encounter Last Filed Vital Signs Vital Sign Reading Time Taken Comments Blood Pressure - - Pulse - - Temperature - - Respiratory Rate - - Oxygen Saturation - - Inhaled Oxygen Concentration - - Weight 99.8 kg (220 lb) 04/13/2017 10:05 AM BMET Height 177.8 cm (5' 10 ) 04/13/2017 10:05 AM BMET Body Mass Index 31.57 04/13/2017 10:05 AM BMET documented in this encounter Plan of Treatment Not on file documented as of this encounter Procedures Procedure Name Priority Date/Time Associated Diagnosis Comments TRANSTHORACIC ECHO (TTE) COMPLETE W DOPPLER/CF W CONTRAST Routine 04/13/2017 10:59 AM BMET Coronary arteriosclerosis in [place] artery documented in this encounter Results * TRANSTHORACIC ECHO (TTE) COMPLETE W DOPPLER/CF W CONTRAST (04/13/2017 10:59 AM BMET) Anatomical Region Laterality Modality Ultrasound 04/13/2017 9:31 AM BMET Narrative 04/13/2017 4:14 PM BMET [facility] [facility] [place] [place] [address], [place] [address] [address] [facility] [address], [place] [address] P:[phone] P:[phone] Echocardiographic Report Patient Name: DAYRON PORTILLO : [birth year] Study Date: 04/13/2017 9:31:20 AM Gender: M Tech: GM ?Location: [place] ? Ref.Physician: DIXIE OROPEZA ?Height(Cm): 178 ? [...] Findings: Interpretation Site: Exam was interpreted at [facility]. Left Ventricle: Normal left ventricular size. Definity [...] valve. Electronically Signed By: Nataly Martinez MD, [facility] 2017-04-13 16:14:32 BMET CC: CC: Procedure Note Nataly Martinez MD - 04/13/2017 [facility] [address] [facility] [place] [place] [address], [place] [address] [address] [facility] [address], [place] [address] P:[phone] P:[phone] Echocardiographic Report Patient Name: DAYRON PORTILLOPatient ID: [id number] : [id number] Date: 04/13/2017 9:31:20 AM Gender: MAccession #: [id number] Tech: Location: [place] Ref.Physician: DIXIE OROPEZA Height(Cm): 178 BSA: 2.17Weight(Kg): [...] 16.00 - 28.00 ] cc/m2 MV Decel [id number] [ 104 - 258 ] msec ACS MM 2.42 [ 1.50 - 2.60 ] cm PV Peak Vel1.19 [ 0.40 - 0.80 ] m/s TR Peak Vel2.68 [ 1.00 - 2.80 ] m/s TR Peak PG 29mmHg RVSP37.00 [ 10.00 - 36.00 ] mmHg E'0.10 E/E' 6 Findings: Interpretation Site: Exam was interpreted at [facility]. Left Ventricle: Normal left ventricular size. Definity [...] valve. Electronically Signed By: Nataly Martinez MD, [facility] 2017-04-13 16:14:32 BMET CC: CC: Cathryn Burns MD CV ECHO PROCEDURES Final Re sult documented in this encounter Visit Diagnoses Diagnosis Coronary arteriosclerosis in [place] artery documented in this encounter Orders Medications Ordered That Shukri ht Not Have Been Administered Count Last Ordered Date First Ordered Date perflutren lipid (DEFINITY) 1.5 mL in sodium chloride 0.9% 10 mL syringe 1 04/13/2017 documented in this encounter Care Teams Barrel Straightener Relationship Specialty Start Date End Date Dixie Oropeza MD [address] [facility] [address] [place] [id number] PCP - General 08/21/16 documented as of this encounter
--- OUTSIDE RECORDS SUMMARY | 2024-05-25 12:26 | XMS_ITS | Encounter Summary ---
Author Organization [facility] Medical [facility] Address [address] [place] [address] Care Team Providers Care Fitting Room Supervisor Name Role Phone Dixie Oropeza MD Primary Care Provider Reason for Referral * Cardiology (Routine) - Closed Specialty Diagnoses / Procedures Referred By Contac t Referred To Contact Cardiology Imaging Diagnoses Coronary arteriosclerosis in [place] artery Procedures Transthoracic Echo Complete W Doppler/CF Yuki Burns MD Phone: tel: fax: [facility] Medical [facility] Cardiology [address] [facility] [place] [address] Phone: tel: fax: Referral ID Status Reason Start Date Expiration Date Visits Re quested Visits Authorized [id number] Closed 04/05/2017 10/02/2017 1 1 DING SURVEYOR Reason for Visit * Reason Comments Annual Exam 1 year Coronary Artery Disease Cardiomyopathy Encounter Details Date Type Department Care Team (Latest Contact Info) Description 04/05/2017 11:00 AM BUILDING SURVEYOR Office Visit [facility] [address] [place] [address] 162 [address] [place] [address] Yuki Burns MD [address] [facility] [address] [place] [phone] Coronary arteriosclerosis in [place] artery (Primary Dx); Hypercholesteremia; Complete atrioventricular block [...] on file Legal Sex Male 9:22 AM BUILDING SURVEYOR Gender Identity Not on file Sexual Orientation Not on file documented as of this encounter Last Filed Vital Signs Vital Sign Reading Time Taken Comments Blood Pressure 112/66 04/05/2017 11:04 AM BUILDING SURVEYOR Pulse 68 04/05/2017 11:04 AM BUILDING SURVEYOR Temperature - - Respiratory Rate - - Oxygen Saturation 95% 04/05/2017 11: 04 AM BUILDING SURVEYOR Inhaled Oxygen Concentration - - Weight 100.2 kg (220 lb 14.4 oz) 2016 11:04 AM BUILDING SURVEYOR Height 177.8 cm (5' 10 ) 04/05/2017 11: 04 AM BUILDING SURVEYOR Body Mass Index 31.7 04/05/2017 11:04 AM BUILDING SURVEYOR documented in this encounter Progress Notes * [...] Retired 2015; wants to move back to [place]. Current Outpatient Prescriptions: ??? 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 No pertinent family [...] for this visit: 1. Coronary arteriosclerosis in [place] artery (Primary) - Lipid panel; Future - [...] me in 1 year, sooner if problems DING SURVEYOR documented in this encounter Plan of Treatment Not on file documented as of this encounter Procedures Procedure Name Priority Date/Time Associated Diagnosis Comments LIPID PANEL Routine 04/07/2017 Coronary arteriosclerosis in [place] artery Hypercholesteremia CHOL/HDLC RATIO Routine 04/06/2017 9:56 AM BUILDING SURVEYOR Hypercholesteremia LDL-CHOLESTEROL Routine 04/06/2017 9:56 AM BUILDING SURVEYOR Hypercholesteremia NON HDL CHOLESTEROL Routine 04/06/2017 9 :56 AM BUILDING SURVEYOR Hypercholesteremia TRIGLYCERIDES Routine 04/06/2017 9:56 AM BUILDING SURVEYOR Hypercholesteremia CHOLESTEROL, HDL Routine 04/06/2017 9:56 AM BUILDING SURVEYOR Hypercholesteremia CHOLESTEROL, TOTAL Routine 04/06/2017 9: 56 AM BUILDING SURVEYOR Hypercholesteremia documented in this encounter Results * TRANSTHORACIC ECHO (TTE) COMPLETE W DOPPLER/CF W CONTRAST (04/13/2017 10:59 AM BUILDING SURVEYOR) Anatomical Region Laterality Modality Ultrasound 04/13/2017 9:31 AM BUILDING SURVEYOR Narrative 04/13/2017 4:14 PM BUILDING SURVEYOR [facility] [facility] [address], [place] [address] [address] [facility] [address], [place] [address] P:[phone] P:[phone] Echocardiographic Report Patient Name: NAEEM HOWELL : [id number] Study Date: 04/13/2017 9:31:20 AM Gender: M Tech: GM ?Location: [place] ? Ref.Physician: DIXIE OROPEZA ?Height(Cm): 178 ? [...] Findings: Interpretation Site: Exam was interpreted at [facility]. Left Ventricle: Normal left ventricular size. [...] valve. Electronically Signed By: Nataly Martinez MD, [facility] 2017-04-13 16:14:32 BUILDING SURVEYOR CC: CC: Procedure Note Nataly Martinez MD - 04/13/2017 [facility] [address] [facility] [address], [place] [address] [address] [facility] [address], [place] [address] P:[phone] P:[phone] Echocardiographic Report Patient Name: NAEEM HOWELLPatient ID: [id number] : [id number] Date: 04/13/2017 9:31:20 AM Gender: MAccession #: [id number] Tech: Location: [place] Ref.Physician: DIXIE OROPEZA Height(Cm): 178 BSA: 2.17Weight(Kg): [...] 16.00 - 28.00 ] cc/m2 MV Decel Ivjb781 [ 104 - 258 ] msec ACS MM 2.42 [ 1.50 - 2.60 ] cm PV Peak Vel1.19 [ 0.40 - 0.80 ] m/s TR Peak Vel2.68 [ 1.00 - 2.80 ] m/s TR Peak PG 29mmHg RVSP37.00 [ 10.00 - 36.00 ] mmHg E'0.10 E/E' 6 Findings: Interpretation Site: Exam was interpreted at [facility]. Left Ventricle: Normal left ventricular size. [...] valve. Electronically Signed By: Nataly Martinez MD, [facility] 2017-04-13 16:14:32 BUILDING SURVEYOR CC: CC: us Yuki Burns MD CV ECHO PROCEDURES Final Re sult * Lipid panel (04/07/2017) Blood specimen (specimen) 04/07/2017 Yuki Burns MD LAB BLOOD ORDERABLES Final Result Performing Organization Address City/[facility] Co de Phone Number [facility] * NON HDL CHOLESTEROL (04/06/2017 9:56 AM BUILDING SURVEYOR) Non-HDL, (LDL+VLDL) 125 <130 mg/dL (calc) [facility] [place] Comment: For patients with diabetes plus 1 major ASCVD risk factor, treating to a non-HDL-C goal of <100 mg/dL (LDL-C of <70 mg/dL) is considered a therapeutic option. 04/06/2017 9:56 AM BUILDING SURVEYOR 04/06/2017 9:57 AM BUILDING SURVEYOR Narrative [facility] - 04/07/2017 1:24 AM BUILDING SURVEYOR FASTING:NO Resulting Agency Comment Performing Organization Information: ?Site ID: [place] ?Name: [facility] ?Address: [address] [place] [address] ?Director: Adan Lynn D.O. MPH Yuki Burns MD LAB BLOOD ORDERABLES Edited Result - Final Performing Organization Address [facility] de Phone Number [facility] [place] * CHOL/HDLC RATIO (04/06/2017 9:56 AM BUILDING SURVEYOR) Chol/HDL ratio 3.4 <5.0 (calc) [facility] [place] 04/06/2017 9:56 AM BUILDING SURVEYOR 04/06/2017 9:57 AM BUILDING SURVEYOR Narrative [facility] - 04/07/2017 1:24 AM BUILDING SURVEYOR FASTING:NO Resulting Agency Comment Performing Organization Information: ?Site ID: [place] ?Name: [facility] ?Address: [address] [place] [address] ?Director: Adan Lynn D.O. MPH Yuki Burns MD LAB BLOOD ORDERABLES Edited Result - Final Performing Organization Address City/[facility]/ZIP Co de Phone Number [place] Samuels * (ABNORMAL) LDL-Cholesterol (04/06/2017 9:56 AM BUILDING SURVEYOR) LDL 102(H) mg/dL (calc) [facility] Comment: Reference range: <100 Desirable range <100 mg/dL for patients with CHD or diabetes and <70 mg/dL for diabetic patients with known heart disease. LDL-C is now calculated using the Parker calculation, which is a validated novel method providing better accuracy than the Friedewald equation in the estimation of LDL-C. Milind PEMBERTON et al. PETER. 2013;310(51): 5968-2016 (http://education.EMOSpeech/faq/PEV616) 04/06/2017 9:56 AM BUILDING SURVEYOR 04/06/2017 9:57 AM BUILDING SURVEYOR Narrative [facility] - 04/07/2017 1:24 AM BUILDING SURVEYOR FASTING:NO Resulting Agency Comment Performing Organization Information: ?Site ID: [place] ?Name: [facility] ?Address: [address] [address] ?Director: Adan Lynn D.O. MPH Yuki Burns MD LAB BLOOD ORDERABLES Edited Result - Final Performing Organization Address [facility] Co de Phone Number ESTHER Samuels * Triglycerides (04/06/2017 9:56 AM BUILDING SURVEYOR) Triglycerides 124 <150 mg/dL [facility] [place] Blood specimen (specimen) 04/06/2017 9:56 AM BUILDING SURVEYOR 04/06/2017 9:57 AM BUILDING SURVEYOR Narrative [facility] - 04/07/2017 1:24 AM BUILDING SURVEYOR FASTING:NO Resulting Agency Comment Performing Organization Information: ?Site ID: [place] ?Name: [facility] ?Address: [address] [address] ?Director: Adan Lynn D.O., MPH us Yuki Burns MD LAB BLOOD ORDERABLES Edited Result - Final [facility] [place] * Cholesterol, HDL (04/06/2017 9:56 AM BUILDING SURVEYOR) HDL 52 >40 mg/dL [facility] [place] Blood specimen (specimen) 04/06/2017 9:56 AM BUILDING SURVEYOR 04/06/2017 9:57 AM BUILDING SURVEYOR Narrative [facility] - 04/07/2017 1:24 AM BUILDING SURVEYOR FASTING:NO Resulting Agency Comment Performing Organization Information: ?Site ID: [place] ?Name: [facility] ?Address: [facility] [place] [address] ?Director: Adan Lynn D.O., CHINEDU Yuki Burns MD LAB BLOOD ORDERABLES Edited Result - Final Performing Organization Address [facility]/ZIP Co de Phone Number [facility] [place] * Cholesterol, total (04/06/2017 9:56 AM BUILDING SURVEYOR) Cholesterol 177 <200 mg/dL [facility] [place] Blood specimen (specimen) 04/06/2017 9:56 AM BUILDING SURVEYOR 04/06/2017 9:57 AM BUILDING SURVEYOR Narrative [facility] - 04/07/2017 1:24 AM BUILDING SURVEYOR FASTING:NO Resulting Agency Comment Performing Organization Information: ?Site ID: [place] ?Name: [facility] ?Address: [facility] [place] [address] ?Director: Adan Lynn D.O., MPH Yuki Burns MD LAB BLOOD ORDERABLES Edited Result - Final ESTHER Samuels documented in this encounter Visit Diagnoses Diagnosis Coronary arteriosclerosis in [place] artery- Primary Hypercholesteremia Pure hypercholesterolemia Complete atrioventricular block (CMS/HCC) (HCC) Atrioventricular block, complete Presence of cardiac pacemaker Cardiac pacemaker in situ History of coronary artery bypass surgery Postsurgical aortocoronary bypass status Chronic ischemic heart disease Unspecified chronic ischemic heart disease Coronary arteriosclerosis in [place] artery documented in this encounter Discontinued Medications [...] 7 added in this encounter Care Teams Fitting Room Supervisor Relationship Specialty Start Date End Date Dixie Oropeza MD [address] [place] [address] PCP - General 08/21/16 documented as of this encounter
--- OUTSIDE RECORDS SUMMARY | 2024-05-25 12:26 | XMS_ITS | Encounter Summary ---
Author Organization [facility] Medical Group Address [address] [place] [address] Care Team Providers Care Utility Sales Representative Name Role Phone Danielle oRjas MD Primary Care Provider Reason for Visit * Reason Comments Follow-up Cardiomyopathy Encounter Details Date Type Department Care Team (Late st Contact Info) Description 06/14/2017 9:00 AM ACCIDENT REPORT CLERK Office Visit [facility] [address] [facility] [address] [facility] [address] [place] [address] Lorie Nagel NP [address] [facility] [address] [place] [address] Chronic ischemic heart disease (Primary Dx); Ischemic cardiomyopathy; Multiple-type hyperlipidemia Social History Tobacco Use Types Packs/Day Years Used Date Smoking Tobacco: Never Smokeless Tobacco: Never Alcohol Use Standard Drinks/Week Comments No 0 (1 standard drink = 0.6 oz pur e alcohol) Sex and Gender Information Value Date Recorded Sex Assigned at Not on file Legal Sex Male 9:22 AM ACCIDENT REPORT CLERK Gender Identity Not on file Sexual Orientation Not on file documented as of this encounter Last Filed Vital Signs Vital Sign Reading Time Taken Comments Blood Pressure 140/84 06/14/2017 9:00 AM ACCIDENT REPORT CLERK Pulse 71 06/14/2017 9:00 AM ACCIDENT REPORT CLERK Temperature - - Respiratory Rate - - Oxygen Saturation 96% 06/14/2017 9:00 AM ACCIDENT REPORT CLERK Inhaled Oxygen Concentration - - Weight 100.4 kg (221 lb 4.8 oz) 06/14/2017 9:00 AM ACCIDENT REPORT CLERK Height 167.6 cm (5' 6 ) 06/14/2017 9:00 AM ACCIDENT REPORT CLERK Body Mass Index 35.72 06/14/2017 9:00 AM ACCIDENT REPORT CLERK documented in this encounter Patient Instructions * Patient Instructions* Lorie Nagel NP - 06/14/2017 9:00 AM ACCIDENT REPORT CLERK Follow a low salt diet, with a goal of less than 2,000mg of sodium per day (pay attention to your portion sizes). One of the diets that fits this pattern is the DASH (Dietary Approaches to Stop Hypertension) eating plan. DENT REPORT CLERK documented in this encounter Ordered Prescriptions Prescription [...] says A1c is good. 06/10/2017 ov with ARTIFICIAL LEATHER CALENDER OPERATOR C Shona: Was hospitalized in April for [...] Retired 2015; wants to move back to [place]. Has raised his 15-year-old grandson. Records Reviewed [...] will be with Dr. Delgadillo in 03/2018). DENT REPORT CLERK documented in this encounter Plan of Treatment [...] documented as of this encounter Care Teams Utility Sales Representative Relationship Specialty Start Date End Date Danielle Rojas MD [address] [facility] 120 [place] [address] PCP - General 08/21/16 documented as of this encounter
--- OUTSIDE RECORDS SUMMARY | 2024-05-25 12:26 | XMS_ITS | Encounter Summary ---
Author Organization [facility] Healthcare Address [address] [place] [address] Care Team Providers Care Pantry Chef Name Role Phone Danielle Rojas MD Primary Care Provider Encounter Details Date Type Department Care Team (Latest Contact Info) Description 12/08/2010 9:19 PM CDT - 12/15/2010 4:39 PM CDT [place] [address] [address] Daniel Calvo MD [address], [place] [address] Coronary atherosclerosis of [place] coronary artery; Acute respiratory failure (HCC); Essential hypertension; Pure hypercholesterolemia; Other and unspecified hyperlipidemia; Type 2 or unspecified type diabetes mellitus, uncontrolled; Thrombocytopenia (HCC) Social History Tobacco Use Types Packs/Day Years Used Date Smoking Tobacco: Never Assessed Sex and Gender Information Value Date Recorded Sex Assigned at Not on file Legal Sex Male 9:22 AM DISTRIBUTION COORDINATOR Gender Identity Not on file Sexual Orientation Not on file documented as of this encounter Plan of Treatment Not on file documented as of this encounter Visit Diagnoses Diagnosis Coronary atherosclerosis of [place] coronary artery Acute respiratory failure (HCC) Acute respiratory failure Essential hypertension Unspecified essential hypertension Pure hypercholesterolemia Other and unspecified hyperlipidemia Type 2 or unspecified type diabetes mellitus, uncontrolled Thrombocytopenia (HCC) Unspecified thrombocytopenia documented in this encounter Care Teams Pantry Chef Relationship Specialty Start Date End Date Danielle Rojas MD [address] [facility] [address] [place] [id number] PCP - General 12/08/10 08/20/16 documented as of this encounter
--- OUTSIDE RECORDS SUMMARY | 2024-05-25 12:26 | XMS_ITS | Encounter Summary ---
Author Organization [facility] Address [address] [facility] [address] [place] [address] Care Team Providers Care Drill Press Operator Helper Name Role Phone Danielle Rojas MD Primary Care Provider Reason for Visit * Cardiology (Routine) - Canceled Specialty Diagnoses / Procedures Referred By Contac t Referred To Contact Cardiology Imaging Diagnoses CHB (complete heart block) (CMS/HCC) (HCC) Procedures DEVICE CHECK - REMOTE Yuki Delgadillo MD Phone: tel: fax: [facility] [address] [place] [address] [place] [phone] Phone: tel: fax: Referral ID Status Reason Start Date Expiration Date V isits Requested Visits Authorized [id number] Canceled 02/08/2017 08/07/2017 1 1 Encounter Details Date Type Department Care Team (Latest Contact Info) Description 01/20/2017 10:45 AM CDT Ancillary Procedure [facility] [address] [place] [address] [place] [phone] CHB (complete heart block) (CMS/HCC); Presence of cardiac pacemaker Social History Tobacco Use Types Packs/Day Years Used Date Smoking Tobacco: Never Alcohol Use Standard Drinks/Week Comments No 0 (1 standard drink = 0.6 oz pur e alcohol) Sex and Gender Information Value Date Recorded Sex Assigned at Not on file Legal Sex Male 9:22 AM ELECTRONIC ENGINEERING TECHNICIAN Gender Identity Not on file Sexual [...] situ documented in this encounter Care Teams Drill Press Operator Helper Relationship Specialty Start Date End Date Danielle Rojas MD [address] [facility] [address] [place] [address] PCP - General 08/21/16 documented as of this encounter
--- OUTSIDE RECORDS SUMMARY | 2024-05-25 12:26 | XMS_ITS | Encounter Summary ---
Author Organization [facility] Address [address] [facility] [address] [place] [address] Care Team Providers Care Community Development Planner Name Role Phone Danielle Rojas MD Primary Care Provider Encounter Details Date Type Department Care Team (Late st Contact Info) Description 12/18/2016 Telephone [facility] [address] [facility] [address] [facility] 102 [place] [address] Yuki Delgadillo MD [address] [facility] 102 [place], [place] [id number] Social History Tobacco Use Types Packs/Day Years Used Date Smoking Tobacco: Never Alcohol Use Standard Drinks/Week Comments No 0 (1 standard drink = 0.6 oz pur e alcohol) Sex and Gender Information Value Date Recorded Sex Assigned at Not on file Legal Sex Male 9:22 AM CLINICAL RESEARCH ASSOCIATE Gender Identity Not on file Sexual Orientation Not on file documented as of this encounter Miscellaneous Notes * Telephone Encounter - Alondra Luke RN - 12/18/2016 1:52 PM CDT Spoke with , she said the 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 Gave model Of device. Redd helms call [employer] for information. documented in this encounter Plan of Treatment Not on file documented as of this encounter Visit Diagnoses Not on filedocumented in this encounter Care Teams Community Development Planner Relationship Specialty Start Date End Date Danielle Rojas MD [address] [facility] [address] [facility] 120 [place] [address] PCP - General 08/21/16 documented as of this encounter
--- OUTSIDE RECORDS SUMMARY | 2024-05-25 12:26 | XMS_ITS | Encounter Summary ---
Author Organization [facility] Address [address] [facility] [address] [place] [address] Care Team Providers Care Insulation Cutter And Former Name Role Phone Danielle Rojas MD Primary Care Provider Encounter Details Date Type Department Care Team (Late st Contact Info) Description 05/05/2017 Telephone [facility] [address] [facility] 162 [facility] 102 [place] [address] Yuki Delgadillo MD [address] [facility] 102 [place], [place] [id number] Social History Tobacco Use Types Packs/Day Years Used Date Smoking Tobacco: Never Smokeless Tobacco: Never Alcohol Use Standard Drinks/Week Comments No 0 (1 standard drink = 0.6 oz pur e alcohol) Sex and Gender Information Value Date Recorded Sex Assigned at Not on file Legal Sex Male 9:22 AM LOGISTICS PLANNING ENGINEER Gender Identity Not on file Sexual Orientation Not on file documented as of this encounter Miscellaneous Notes * Telephone Encounter - Melba Mandujano MA - 05/05/2017 2:16 PM CST Emre said Dr. Santos's office had carvedilol 3.125 and we have prescribing carvedilol 6.25. Just wanted to know the correct dose. Explained we had 6.25 mg BID. STICS PLANNING ENGINEER documented in this encounter Plan of Treatment Not on file documented as of this encounter Visit Diagnoses Not on filedocumented in this encounter Care Teams Insulation Cutter And Former Relationship Specialty Start Date End Date Danielle Rojas MD [address] [facility] [address] [facility] 120 [place] [id number] PCP - General 08/21/16 documented as of this encounter
--- OUTSIDE RECORDS SUMMARY | 2024-05-25 12:26 | XMS_ITS | Encounter Summary ---
Author Organization [facility] Medical [facility] Address [address] [facility] [address] [place] [address] Care Team Providers Care Cleaner Furniture Name Role Phone Danielle Rojas MD Primary Care Provider Reason for Visit * Reason Onset Date Comments Med Refill 04/14/2017 Encounter Details Date Type Department Care Team (Late st Contact Info) Description 04/14/2017 Telephone [facility] [address] [facility] 162 [facility] 102 [place] [address] Yuki Delgadillo MD [address] [facility] 102 [place] [address] Med Refill Social History Tobacco Use Types Packs/Day Years Used Date Smoking Tobacco: Never Smokeless Tobacco: Never Alcohol Use Standard Drinks/Week Comments No 0 (1 standard drink = 0.6 oz pur e alcohol) Sex and Gender Information Value Date Recorded Sex Assigned at Not on file Legal Sex Male 9:22 AM COVER OPERATOR Gender Identity Not on file Sexual Orientation Not on file documented as of this encounter Miscellaneous Notes * Telephone Encounter - Alondra Luke RN - 04/19/2017 9:14 AM CST LMTC R OPERATOR * Telephone Encounter - Yuki Delgadillo MD - 04/17/2017 3:30 PM COVER OPERATOR Allan, overlooked that. Please titrate Coreg to 6.25 mg BID, thanks. R OPERATOR * Telephone Encounter - Alondra Luke RN - 04/14/2017 7:24 AM CST Before calling pt, will check with provider. Pt has losartan HCT 100/12.5 mg listed on his current med list. Should low dose lisinopril be added? R OPERATOR * Telephone Encounter - Alondra Luke RN - 04/14/2017 7:24 AM CST ----- Message from Yuki Delgadillo MD sent at 04/13/2017 9:36 PM COVER OPERATOR ----- Patient with CAD and CABG, also [...] won't need changing for a long time. R OPERATOR documented in this encounter Plan of Treatment Not on file documented as of this encounter Visit Diagnoses Not on filedocumented in this encounter Care Teams Cleaner Furniture Relationship Specialty Start Date End Date Danielle Rojas MD [address] [facility] 120 [place] [address] PCP - General 08/21/16 documented as of this encounter
--- OUTSIDE RECORDS SUMMARY | 2024-05-25 12:26 | XMS_ITS | Encounter Summary ---
Author Organization [facility] Address [address] [facility] [address] [place] [address] Care Team Providers Care Enterprise Software Developer Name Role Phone Danielle Rojas MD Primary Care Provider Encounter Details Date Type Department Care Team (Late st Contact Info) Description 04/12/2017 Telephone [facility] [address] [facility] [address], [place] [address] Yuki Delgadillo MD [address] [facility] [address] [address] Social History Tobacco Use Types Packs/Day Years Used Date Smoking Tobacco: Never Smokeless Tobacco: Never Alcohol Use Standard Drinks/Week Comments No 0 (1 standard drink = 0.6 oz pur e alcohol) Sex and Gender Information Value Date Recorded Sex Assigned at Not on file Legal Sex Male 9:22 AM EMERGENCY DEPT TECH Gender Identity Not on file Sexual Orientation Not on file documented as of this encounter Miscellaneous Notes * Telephone Encounter - Ebony Pereira RN - 04/12/2017 8:53 AM EMERGENCY DEPT TECH I called the patient and left a voicemail message requesting a return call to discuss Dr. Delgadillo's message. GENCY DEPT TECH * Telephone Encounter - Ebony Pereira RN - 04/12/2017 8:52 AM EMERGENCY DEPT TECH ----- Message from Yuki Delgadillo MD sent at 04/10/2017 3:30 PM EMERGENCY DEPT TECH ----- His review lipids with patient, not at goal. Change atorvastatin to rosuvastatin 40 mg daily and repeat lipids in 2 months please GENCY DEPT TECH documented in this encounter Plan of Treatment Not on file documented as of this encounter Visit Diagnoses Not on filedocumented in this encounter Care Teams Enterprise Software Developer Relationship Specialty Start Date End Date Danielle Rojas MD [address] [facility] 120 [place] [address] PCP - General 08/21/16 documented as of this encounter
--- OUTSIDE RECORDS SUMMARY | 2024-05-25 12:26 | XMS_ITS | Encounter Summary ---
Author Organization [facility] Address [address] [facility] [address] [place] [address] Care Team Providers Care Regulatory Affairs Spec Name Role Phone Danielle Rojas MD Primary Care Provider Danielle Rojas MD Primary Care Provider Encounter Details Date Type Department Care Team (Late st Contact Info) Description 07/01/2016 Orders Only [facility] ProviderZain MD [address] [place] [address] Social History Tobacco Use Types Packs/Day Years Used Date Smoking Tobacco: Never Alcohol Use Standard Drinks/Week Comments No 0 (1 standard drink = 0.6 oz pur e alcohol) Sex and Gender Information Value Date Recorded Sex Assigned at Not on file 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
--- OUTSIDE RECORDS SUMMARY | 2024-05-25 12:26 | XMS_ITS | Encounter Summary ---
Author Organization [facility] Medical [facility] Address [address] [facility] [address] [place] [address] Care Team Providers Care Spray Drier Name Role Phone Danielle Rojas MD Primary Care Provider Encounter Details Date Type Department Care Team (Late st Contact Info) Description 06/10/2017 Orders Only [facility] [address] [facility] [address], [place] [address] [facility] [address] [address] Social History Tobacco Use Types Packs/Day Years Used Date Smoking Tobacco: Never Smokeless Tobacco: Never Alcohol Use Standard Drinks/Week Comments No 0 (1 standard drink = 0.6 oz pur e alcohol) Sex and Gender Information Value Date Recorded Sex Assigned at Not on file Legal Sex Male 9:22 AM CHEMISTRY ASSOCIATE Gender Identity Not on file Sexual Orientation Not on file documented as of this encounter Plan of Treatment Not on file documented as of this encounter Procedures Procedure Name Priority Date/Time Associated Diagnosis Comments CHOL/HDLC RATIO Routine 06/10/2017 9:02 AM CHEMISTRY ASSOCIATE LDL-CHOLESTEROL Routine 06/10/2017 9:02 AM CHEMISTRY ASSOCIATE NON HDL CHOLESTEROL Routine 06/10/2017 9 :02 AM CHEMISTRY ASSOCIATE TRIGLYCERIDES Routine 06/10/2017 9:02 AM CHEMISTRY ASSOCIATE ALT Routine 06/10/2017 9:02 AM CHEMISTRY ASSOCIATE AST Routine 06/10/2017 9:02 AM CHEMISTRY ASSOCIATE CHOLESTEROL, HDL Routine 06/10/2017 9:02 AM CHEMISTRY ASSOCIATE CHOLESTEROL, TOTAL Routine 06/10/2017 9: 02 AM CHEMISTRY ASSOCIATE documented in this encounter Results * ALT (06/10/2017 9:02 AM CHEMISTRY ASSOCIATE) ALT (SGPT) 37 9 - 46 U/L [facility] [place] 06/10/2017 9:02 AM CHEMISTRY ASSOCIATE 06/10/2017 9:03 AM CHEMISTRY ASSOCIATE Narrative [facility] - 06/11/2017 2:59 AM CHEMISTRY ASSOCIATE FASTING:YES FASTING: YES Resulting Agency Comment Performing Organization Information: ?Site ID: [place] ?Name: [facility] ?Address: [address] [place] [address] [place] [address] ?Director: Adan Lynn D.O. MPH Yuki Delgadillo MD LAB BLOOD ORDERABLES Final Result Performing Organization Address [facility] de Phone Number [facility] [place] * AST (06/10/2017 9:02 AM CHEMISTRY ASSOCIATE) AST 25 10 - 35 U/L [facility] [place] 06/10/2017 9:02 AM CHEMISTRY ASSOCIATE 06/10/2017 9:03 AM CHEMISTRY ASSOCIATE Narrative [facility] - 06/11/2017 2:59 AM CHEMISTRY ASSOCIATE FASTING:YES FASTING: YES Resulting Agency Comment Performing Organization Information: ?Site ID: [place] ?Name: [facility] ?Address: [address] [place], [place] [address] [address] ?Director: Adan Lynn D.O. MPH Yuki Delgadillo MD LAB BLOOD ORDERABLES Final Result Performing Organization Address City/[facility] Co de Phone Number [facility] Hendricks * NON HDL CHOLESTEROL (06/10/2017 9:02 AM CHEMISTRY ASSOCIATE) Non-HDL, (LDL+VLDL) 87 <130 mg/dL (calc) [facility] Comment: For patients with diabetes plus 1 major ASCVD risk factor, treating to a non-HDL-C goal of <100 mg/dL (LDL-C of <70 mg/dL) is considered a therapeutic option. 06/10/2017 9:02 AM CHEMISTRY ASSOCIATE 06/10/2017 9:03 AM CHEMISTRY ASSOCIATE Narrative [facility] - 06/11/2017 2:59 AM CHEMISTRY ASSOCIATE FASTING:YES FASTING: YES Resulting Agency Comment Performing Organization Information: ?Site ID: [place] ?Name: [facility] ?Address: [facility] [place] [address] ?Director: Adan Lynn D.O., MPH Yuki Delgadillo MD LAB BLOOD ORDERABLES Final Result Performing Organization Address [facility] Co de Phone Number [facility] Samuels * CHOL/HDLC RATIO (06/10/2017 9:02 AM CHEMISTRY ASSOCIATE) Chol/HDL ratio 2.5 <5.0 (calc) [facility] 06/10/2017 9:02 AM CHEMISTRY ASSOCIATE 06/10/2017 9:03 AM CHEMISTRY ASSOCIATE Narrative [facility] - 06/11/2017 2:59 AM CHEMISTRY ASSOCIATE FASTING:YES FASTING: YES Resulting Agency Comment Performing Organization Information: ?Site ID: EST[place] ?Name: Kumo Moshe ?Address: [facility] [place] [address] ?Director: Adan Lynn D.O., MPH Yuki Delgadillo MD LAB BLOOD ORDERABLES Final Result Performing Organization Address City/[facility] Co de Phone Number EST[facility] Samuels * LDL-Cholesterol (06/10/2017 9:02 AM CHEMISTRY ASSOCIATE) LDL 67 mg/dL (calc) [facility] Comment: Reference range: <100 Desirable range <100 mg/dL for patients with CHD or diabetes and <70 mg/dL for diabetic patients with known heart disease. LDL-C is now calculated using the Parker calculation, which is a validated novel method providing better accuracy than the Friedewald equation in the estimation of LDL-C. Milind SS et al. PETER. 2013;310(16): 9555-3941 (http://education.Fronto/faq/EHN035) 06/10/2017 9:02 AM CHEMISTRY ASSOCIATE 06/10/2017 9:03 AM CHEMISTRY ASSOCIATE Narrative [facility] - 06/11/2017 2:59 AM CHEMISTRY ASSOCIATE FASTING:YES FASTING: YES Resulting Agency Comment Performing Organization Information: ?Site ID: [place] ?Name: [facility] ?Address: [facility] [place] [address] ?Director: Adan Lynn D.O., MPH Yuki Delgadillo MD LAB BLOOD ORDERABLES Final Result [facility] Samuels * Triglycerides (06/10/2017 9:02 AM CHEMISTRY ASSOCIATE) Triglycerides 117 <150 mg/dL [facility] 06/10/2017 9:02 AM CHEMISTRY ASSOCIATE 06/10/2017 9:03 AM CHEMISTRY ASSOCIATE Narrative [facility] - 06/11/2017 2:59 AM CHEMISTRY ASSOCIATE FASTING:YES FASTING: YES Resulting Agency Comment Performing Organization Information: ?Site ID: [place] ?Name: [facility] ?Address: [address] [place] [address] ?Director: Adan Lynn D.O. MPH Yuki Delgadillo MD LAB BLOOD ORDERABLES Final Result [facility] Samuels * Cholesterol, HDL (06/10/2017 9:02 AM CHEMISTRY ASSOCIATE) HDL 59 >40 mg/dL [facility] [place] 06/10/2017 9:02 AM CHEMISTRY ASSOCIATE 06/10/2017 9:03 AM CHEMISTRY ASSOCIATE Narrative [facility] - 06/11/2017 2:59 AM CHEMISTRY ASSOCIATE FASTING:YES FASTING: YES Resulting Agency Comment Performing Organization Information: ?Site ID: [place] ?Name: [facility] ?Address: [facility] [place] [address] ?Director: Adan Lynn D.O. MPH Yuki Delgadillo MD LAB BLOOD ORDERABLES Final Result [facility] [place] * Cholesterol, total (06/10/2017 9:02 AM CHEMISTRY ASSOCIATE) Cholesterol 146 <200 mg/dL [facility] 06/10/2017 9:02 AM CHEMISTRY ASSOCIATE 06/10/2017 9:03 AM CHEMISTRY ASSOCIATE Narrative [facility] - 06/11/2017 2:59 AM CHEMISTRY ASSOCIATE FASTING:YES FASTING: YES Resulting Agency Comment Performing Organization Information: ?Site ID: EST[place] ?Name: [facility] ?Address: [facility] [place] [address] ?Director: Adan Lynn D.O. MPH Yuki Delgadillo MD LAB BLOOD ORDERABLES Final Result [facility] [place] documented in this encounter Visit Diagnoses Not on filedocumented in this encounter Care Teams Spray Drier Relationship Specialty Start Date End Date Danielle Rojas MD [address] [place] [address] PCP - General 08/21/16 documented as of this encounter
--- OUTSIDE RECORDS SUMMARY | 2024-05-25 12:26 | XMS_ITS | Encounter Summary ---
Author Organization [facility] Healthcare Address [address] [place] [address] Care Team Providers Care Contact Lens Molder Name Role Phone Danielle Rojas MD Primary [...] on file Legal Sex Male 9:22 AM HEAD OF DATA Gender Identity Not on file Sexual Orientation Not on file documented as of this encounter Plan of Treatment Not on file documented as of this encounter Visit Diagnoses Diagnosis Coronary atherosclerosis Coronary atherosclerosis of unspecified type of vessel, capitan grande or graft Essential hypertension Unspecified essential hypertension Type 2 or unspecified type diabetes mellitus Other and unspecified hyperlipidemia Family history of stroke (cerebrovascular) documented in this encounter Care Teams Contact Lens Molder Relationship Specialty Start Date End Date Danielle Rojas MD [address] [facility] 120 [place] [address] PCP - General 12/08/10 08/20/16 documented as of this encounter
--- OUTSIDE RECORDS SUMMARY | 2024-05-25 12:26 | XMS_ITS | Encounter Summary ---
Author Organization [facility] Address [address] [facility] [address] [place] [address] Care Team Providers Care Pediatric Geneticist Name Role Phone Danielle Rojas MD Primary Care Provider Encounter Details Date Type Department Care Team (Late st Contact Info) Description 04/19/2017 Telephone [facility] [address] [facility] [address] [address] 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 ENTARY SPANISH TEACHER documented in this encounter Plan of Treatment Not on file documented as of this encounter Visit Diagnoses Not on filedocumented in this encounter Discontinued Medications Medication Sig Discontinue Reason Start Date End Da te carvedilol (COREG) 3.125 mg tablet take 1 by Oral route 2 times every day Reorder 02/26/2014 04/19/2017 documented as of this encounter Care Teams Pediatric Geneticist Relationship Specialty Start Date End Date Danielle Rojas MD [address] [facility] 120 [place] [address] PCP - General 08/21/16 documented as of this encounter
--- OUTSIDE RECORDS SUMMARY | 2024-05-25 12:26 | XMS_ITS | Encounter Summary ---
Author Organization [facility] Medical [facility] Address [address] [facility] [address] [place] [address] Care Team Providers Care Practice Advisor Name Role Phone Danielle Rojas MD Primary Care Provider Reason for Visit * Reason Comments Follow-up 3 mom f/u on ICM, ra ised lipids, chronic ischemic HD * Cardiology (Routine) - Closed Specialty Diagnoses / Procedures Referred By Emma pedraza Referred To Contact Cardiology Diagnoses Sick sinus syndrome Danielle Rojas MD Phone: tel: fax: [facility] [address] [place] [phone] Phone: tel: fax: Referral ID Status Reason Start Date Expiration Date Visits Re quested Visits Authorized [id number] Closed 09/09/2017 11/21/2018 11 11 Encounter Details Date Type Department Care Team (Late st Contact Info) Description 09/13/2017 9:30 AM CDT Office Visit [facility] [address] [place] [phone] Lorie Nagel NP [address] [facility] [address] [place] [address] Chronic ischemic heart disease (Primary Dx); Coronary arteriosclerosis in red devil artery; Complete atrioventricular block (CMS/HCC); Hyperlipidemia associated [...] on file Legal Sex Male 9:22 AM RN NEW GRADUATE Gender Identity Not on file Sexual Orientation [...] Body Mass Index 36.49 06/14/2017 9:00 AM RN NEW GRADUATE documented in this encounter Progress Notes * Lorie Nagel NP - 09/13/2017 9:30 AM CDT Patient ID: Dayron Howell [id number] Chief Complaint: Dayrno Howell is a 66 y.o. male who [...] says A1c is good. 06/10/2017 ov with LBD TEACHER Jonatan Shona: Was hospitalized in April for [...] seconds, relieved with rubbing. 09/13/2017 OV w/ LBD TEACHER C.Shona: Feels well, he reports his rosuvastatin [...] Retired 2015; wants to move back to [place]. Has 5 grandchildren, oldest is 16 and [...] ischemic heart disease (Primary) Coronary arteriosclerosis in red devil artery Complete atrioventricular block (CMS/HCC) Hyperlipidemia associated [...] chronic ischemic heart disease Coronary arteriosclerosis in red devil artery Complete atrioventricular block (CMS/HCC) (HCC) Atrioventricular block, complete Hyperlipidemia associated with type 2 diabetes mellitus (HCC) Presence of cardiac pacemaker Cardiac pacemaker in situ History of coronary artery bypass surgery Postsurgical aortocoronary bypass status documented in this encounter Care Teams Practice Advisor Relationship Specialty Start Date End Date Danielle Rojas MD [address] [facility] 120 [place] [address] PCP - General 08/21/16 documented as of this encounter
--- OUTSIDE RECORDS SUMMARY | 2024-05-25 12:26 | XMS_ITS | Encounter Summary ---
Author Organization [facility] Address [address] [place] [address] Care Team Providers Care Oven Worker Name Role Phone Danielle Rojas MD Primary Care Provider Reason for Visit * Cardiology (Routine) - Closed Specialty Diagnoses / Procedures Referred By Contac t Referred To Contact Diagnoses SSS (sick sinus syndrome) (CMS/HCC) (HCC) Procedures DEVICE CHECK - IN OFFICE Lorie Nagel NP Phone: tel: fax: Referral ID Status Reason Start Date Expiration Date Visits Re quested Visits Authorized [id number] Closed 06/14/2017 12/11/2017 1 1 Encounter Details Date Type Department Care Team (Latest Contact Info) Description 09/13/2017 9:00 AM CDT Ancillary Procedure [facility] [address] [place] [phone] SSS (sick sinus syndrome) (CMS/HCC); Complete atrioventricular block (CMS/HCC); Presence of cardiac pacemaker Social History Tobacco Use Types Packs/Day Years Used Date Smoking Tobacco: Never Smokeless Tobacco: Never Alcohol Use Standard Drinks/Week Comments No 0 (1 standard drink = 0.6 oz pur e alcohol) Sex and Gender Information Value Date Recorded Sex Assigned at Not on file Legal Sex Male 9:22 AM WEDDING PLANNER Gender Identity Not on file Sexual Orientation [...] situ documented in this encounter Care Teams Oven Worker Relationship Specialty Start Date End Date Danielle Rojas MD [address] [facility] [address] [place] [address] PCP - General 08/21/16 documented as of this encounter
--- OUTSIDE RECORDS SUMMARY | 2024-05-25 12:26 | XMS_ITS | Encounter Summary ---
Author Organization [facility] Address [address] [place] [address] Care Team Providers Care Meat Molder Name Role Phone Danielle Rojas MD Primary Care Provider Reason for Visit * Cardiology (Routine) - Closed Specialty Diagnoses / Procedures Referred By Contac t Referred To Contact Cardiology Diagnoses Sick sinus syndrome Danielle Rojas MD Phone: tel: fax: [facility] [address] [address] [place] [phone] Phone: tel: fax: Referral ID Status Reason Start Date Expiration Date Visits Re quested Visits Authorized [id number] Closed 09/09/2017 11/21/2018 11 11 Encounter Details Date Type Department Care Team (Latest Contact Info) Description 03/16/2018 10:30 AM CDT Ancillary Procedure [facility] Cardiology [address], [place] [address] CHB (complete heart block) (CMS/HCC); Presence of cardiac pacemaker Social History Tobacco Use Types Packs/Day Years Used Date Smoking Tobacco: Never Smokeless Tobacco: Never Alcohol Use Standard Drinks/Week Comments No 0 (1 standard drink = 0.6 oz pur e alcohol) Sex and Gender Information Value Date Recorded Sex Assigned at Not on file Legal Sex Male 9:22 AM YOUNG ADULT LIBRARIAN Gender Identity Not on file Sexual Orientation [...] situ documented in this encounter Care Teams Meat Molder Relationship Specialty Start Date End Date Danielle Rojas MD [address] [facility] [address] [place] [id number] PCP - General 08/21/16 documented as of this encounter
--- OUTSIDE RECORDS SUMMARY | 2024-05-25 12:26 | XMS_ITS | Encounter Summary ---
Author Organization [facility] Address [address] [place] [address] Care Team Providers Care Clinical Trainer Name Role Phone Danielle Rojas MD Primary Care Provider Encounter Details Date Type Department Care Team (Late st Contact Info) Description 04/12/2017 Orders Only [facility] [address] [facility] [address] [place] [address] ProviderZain MD [address] [place] [id number] Social History Tobacco Use Types Packs/Day Years Used Date Smoking Tobacco: Never Smokeless Tobacco: Never Alcohol Use Standard Drinks/Week Comments No 0 (1 standard drink = 0.6 oz pur e alcohol) Sex and Gender Information Value Date Recorded Sex Assigned at Not on file Legal Sex Male 9:22 AM RECRUITMENT INTERN Gender Identity Not on file Sexual [...] on filedocumented in this encounter Care Teams Clinical Trainer Relationship Specialty Start Date End Date Danielle Rojas MD [address] [place] [address] PCP - General 08/21/16 documented as of this encounter
--- OUTSIDE RECORDS SUMMARY | 2024-05-25 12:26 | XMS_ITS | Encounter Summary ---
Author Organization [facility] Address [address] [place] [address] Care Team Providers Care Health And Safety Representative Name Role Phone Danielle Rojas MD Primary Care Provider Reason for Visit * Cardiology (Routine) - Canceled Specialty Diagnoses / Procedures Referred By Contac t Referred To Contact Cardiology Imaging Diagnoses CHB (complete heart block) (CMS/HCC) (HCC) Procedures DEVICE CHECK - REMOTE Yuki Delgadillo MD Phone: tel: fax: [facility] Cardiology [address] [place] [address] [place] [phone] Phone: tel: fax: Referral ID Status Reason Start Date Expiration Date V isits Requested Visits Authorized [id number] Canceled 02/08/2017 08/07/2017 1 1 Encounter Details Date Type Department Care Team (Latest Contact Info) Description 12/15/2017 8:15 AM CDT Ancillary Procedure [facility] Cardiology [address] [place] [address] [place] [phone] CHB (complete heart block) (CMS/HCC); Presence of cardiac pacemaker Social History Tobacco Use Types Packs/Day Years Used Date Smoking Tobacco: Never Smokeless Tobacco: Never Alcohol Use Standard Drinks/Week Comments No 0 (1 standard drink = 0.6 oz pur e alcohol) Sex and Gender Information Value Date Recorded Sex Assigned at Not on file 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
== END 2024-05-18 11:03 | disposition home or self-care (01) ==
PROVIDERS: Emergency Provider Emergency Medicine; PCP Family Medicine
DX: J06.9 Acute upper respiratory infection, unspecified (principal); Z20.822 Contact with and (suspected) exposure to COVID-19; I25.10 Atherosclerotic heart disease of native coronary artery without angina pectoris; E78.5 Hyperlipidemia, unspecified; E11.9 Type 2 diabetes mellitus without complications; I11.0 Hypertensive heart disease with heart failure; I50.9 Heart failure, unspecified; K21.9 Gastro-esophageal reflux disease without esophagitis; G47.30 Sleep apnea, unspecified
CPT/HCPCS: 36415; 71046; 80053; 83880; 85025; 87637; 93005; 94640; 99284

== ENCOUNTER 2024-12-19 13:22 | Outpatient (CLI) | payer OTHER, SELFPAY ==
--- NOTE | ~2024-12-19 | CT_ITS ---
EXAMINATION: CT brain wo con DATE: 12/19/2024 13:47 INDICATION: Other symptoms and signs involving cognitive function TECHNIQUE: Computed tomography (CT) of the head was performed without intravenous contrast. Sagittal and coronal reconstructions were performed. The mA was adjusted according to patient size. Iterative reconstruction technique was employed. The dose-length product was 756.67 mGy-cm. COMPARISON: None FINDINGS: No acute intracranial hemorrhage, acute infarction or abnormal extra axial fluid collection. There is mild scattered white matter hypoattenuation consistent with chronic small vessel ischemic disease. S ymmetric prominence of the sulci consistent with mild age-appropriate diffuse cerebral volume loss. V entricles are normal and symmetric. 6 mm extra-axial calcified mass overlying the left parieto-occipi keshawn region consistent with meningioma. Mild mucosal thickening in the bilateral ethmoid sinuses and s mall amount of dependently layering mucus in the left sphenoid sinus. The orbits and mastoid air cell s are normal. Intracranial calcified cerebral atherosclerosis is noted. IMPRESSION: 1. No acute intracranial process. 2. 6 mm calcified extra-axial mass overlying the left parietal region consistent with a meningioma. 3. Otherwise normal aging brain with mild diffuse volume loss and mild scattered white matter hypoatt enuation consistent with chronic small vessel ischemic disease. Reviewed, dictated and finalized at location A. IMPRESSION: 1. No acute intracranial process. 2. 6 mm calcified extra-axial mass overlying the left parietal region consisten t with a meningioma. 3. Otherwise normal aging brain with mild diffuse volume loss and mild scattere d white matter hypoattenuation consistent with chronic small vessel ischemic di sease.
== END 2024-12-19 13:23 | disposition home or self-care (01) ==
PROVIDERS: PCP Family Medicine; Visit Provider Student in an Organized Health Care Education/Training Program
DX: R41.89 Other symptoms and signs involving cognitive functions and awareness (principal); R90.82 White matter disease, unspecified
CPT/HCPCS: 70450